=== PATIENT | male | born 1975 | race Caucasian/White ===

== ENCOUNTER → 2017-03-23 | Outpatient (CLI) | payer OTHER ==
--- NOTE | 2017-03-23 16:18 | XR ---
Lumbar spine HISTORY: Low back pain 3 views of the lumbar spine Correlation to prior exam 03/27/2015 There is no interval change. Multilevel spondylosis is noted. Lumbar vertebral bodies show stable hei ght, alignment, and bone mineralization. Sclerosis present in the posterior elements of the lumbar sp ine compatible with facet arthropathy. Disc spaces are unchanged. IMPRESSION: Stable exam, no acute abnormality evident. Degenerative disc disease. Facet arthropathy.
== END ==
LOC: RADXRMAIN 15:07
PROVIDERS: ATTEND Family Medicine
DX: M51.36 Other intervertebral disc degeneration, lumbar region (principal); M46.06 Spinal enthesopathy, lumbar region
CPT/HCPCS: 72100

== ENCOUNTER → 2017-04-21 | Outpatient (CLI) | payer OTHER ==
--- NOTE | 2017-04-21 16:04 | XR ---
Cervical spine HISTORY: Neck pain, M 55.2 4 views of the cervical spine No comparisons Cervical vertebral bodies show preserved height, alignment, and bone mineralization. Disc spaces and prevertebral soft tissues are normal. Some mild facet arthropathy changes are suspected. Odontoid vie w is limited. IMPRESSION: Facet arthropathy. Cervical MRI may be of benefit.
== END | disposition home or self-care (01) ==
LOC: RADXRMAIN 14:40
PROVIDERS: ATTEND Family Medicine
DX: M46.02 Spinal enthesopathy, cervical region (principal)
CPT/HCPCS: 72040

== ENCOUNTER → 2017-05-21 | Outpatient (CLI) | payer OTHER ==
--- NOTE | 2017-05-21 20:03 | MR ---
EXAMINATION TYPE: MR cervical spine wo con DATE OF EXAM: 05/21/2017 COMPARISON: 04/21/2017 x-ray cervical spine HISTORY: Cervicalgia, hands going numb TECHNIQUE: Multiplanar, multisequence images of the cervical spine were acquired. C2-C3: No evidence for degenerative disc disease. No disc bulge/herniation or protrusion. No Canal stenosis. Foramina are patent bilaterally. C3-C4: No evidence for degenerative disc disease. No disc bulge/herniation or protrusion. No Canal stenosis. Foramina are patent bilaterally. Facet arthropathy noted. C4-C5: No evidence for degenerative disc disease. No disc bulge/herniation or protrusion. No Canal stenosis. Mild bilateral foraminal encroachment. Facet arthropathy noted. C5-C6: No evidence for degenerative disc disease. No disc bulge/herniation or protrusion. No Canal stenosis. Mild bilateral foraminal encroachment. Facet arthropathy. C6-C7: No evidence for degenerative disc disease. No disc bulge/herniation or protrusion. No Canal stenosis. Foramina are patent bilaterally. Facet arthropathy noted. C7-T1: No evidence for degenerative disc disease. No disc bulge/herniation or protrusion. No Canal stenosis. Foramina are patent bilaterally. Cervical segments are intact. There is normal alignment. Cervical spinal cord is of normal signal. Craniovertebral junction relationships are within normal limits. IMPRESSION:
== END | disposition home or self-care (01) ==
LOC: RADMRIMAIN 18:40
PROVIDERS: ATTEND Family Medicine
DX: M54.2 Cervicalgia (principal)
CPT/HCPCS: 72141

== ENCOUNTER → 2018-01-26 | Outpatient (CLI) | payer OTHER ==
--- NOTE | 2018-01-26 20:58 | MR ---
EXAMINATION TYPE: MR lumbar spine wo con DATE OF EXAM: 01/26/2018 COMPARISON: Prior lumbar MRI 05/21/2015 HISTORY: Low back pain TECHNIQUE: Multiplanar, multisequence images of the lumbar spine were acquired. L1-L2: Normal disc appearance without desiccation. No herniation, protrusion or disc bulging. No ca nal stenosis is present. Foramina are patent bilaterally. L2-L3: Right posterior paracentral disc herniation extends towards the neural foramen on the right ca using some encroachment, there is facet arthropathy present. No significant central stenosis. L3-L4: Facet arthropathy is mild. There is no significant central stenosis. Broad-based posterior dis c bulge causes minimal anterior mass effect on the thecal sac. No significant foraminal encroachment. L4-L5: Left posterior paracentral disc herniation causes anterolateral mass effect on the thecal sac as on prior, there is resulting mild spinal stenosis. Facet arthropathy with hypertrophy of the ligam entum flavum encroaches on the lateral recesses. L5-S1: Facet arthropathy is present as on prior exam, there is broad-based posterior disc bulge prese nt, no significant central stenosis. Circumferential extension of endplate disc complex with short pe dicles results in foraminal encroachment bilaterally as on prior exam. Lumbar segments are intact. No paraspinal masses are identified. Conus medullaris has a normal appe arance. Lumbar vertebral bodies show stable height and alignment, there is multilevel spondylosis wit h endplate discogenic marrow signal change. Schmorl's nodes are present inferior endplate L4, T12. Mi ld spinal curvature. IMPRESSION: Degenerative disc disease and facet arthropathy are similar to prior exam.
== END | disposition home or self-care (01) ==
LOC: RADMRIMAIN 19:50
PROVIDERS: ATTEND Family Medicine
DX: M51.36 Other intervertebral disc degeneration, lumbar region (principal); M46.96 Unspecified inflammatory spondylopathy, lumbar region
CPT/HCPCS: 72148

== ENCOUNTER 2018-01-31 05:20 | Emergency (ER) | payer OTHER ==
[2018-01-31] MEDS ORDERED: methylPREDNISolone SOD SUCCI 125 MG/2 ML VIAL IM ONE (06:14)
[2018-01-31] MEDS ORDERED: ORPHENADRINE 30 MG/ML 2 ML VIAL IM STA (06:14)
--- NOTE | 2018-01-31 06:18 | ED ---
Back Pain [facility] - General Chief Complaint: Back Pain/Injury Stated Complaint: Back Pain Time Seen by Provider: 01/31/18 05:34 Source: patient Limitations: no limitations - History of Present Illness Initial Comments: This patient is a 42-year-old man with history of chronic low back pain. He presents requesting some analgesia. He states that the back pain is been flaring up for a few days now, after he had played a game of monroy Quture toss. The patient indicates that the pain does radiate to his legs. This is pain that he has been having for months now. He also recently had an MRI here at the hospital on the but has not been informed of the results yet. Patient also notes that the medicines that he is taking for the chronic pain were decreased by his primary physician on between a month and 2 ago, and he has been having more flareups of the pain since that time. The patient is not having weakness or numbness. No saddle anesthesia. No change in bladder or bowel function. MD Complaint: back pain -: days(s) Similar Symptoms Previously: Yes Place: home Radiation: left leg, right leg Severity: severe Quality: aching Consistency: constant Improves With: walking Worsens With: sitting upright Associated Symptoms: denies other symptoms - Related Data Home Medications Medication Instructions Recorded Confirmed ALPRAZolam [Xanax] 1 mg PO TID PRN 06/11/14 01/31/18 Aspirin 81 mg PO DAILY 06/11/14 01/31/18 Lisinopril [Prinivil] 10 mg PO DAILY 06/11/14 01/31/18 Simvastatin [Zocor] 10 mg PO HS 06/11/14 01/31/18 oxyCODONE HCL/ACETAMINOPHEN 1 each PO Q6HR PRN 03/21/15 01/31/18 [Percocet 10-325 mg] Morphine Sulfate ER [Ms Contin 30 mg PO Q12HR 01/31/18 01/31/18 30Mg] Previous Rx's Medication Instructions Recorded Cyclobenzaprine [Flexeril] 1 - 2 tab PO TID #20 tablet 03/27/15 Methocarbamol [Robaxin-750] 750 mg PO TID PRN #30 tablet 01/31/18 predniSONE 60 mg PO DAILY #30 tab 01/31/18 Allergies Allergy/AdvReac Type Severity Reaction Status Date / Time sulfamethoxazole Allergy Unknown Verified 03/27/15 08:51 [From Bactrim] trimethoprim [From Bactrim] Allergy Unknown Verified 03/27/15 08:51 Review of Systems ROS Statement: Those systems with pertinent positive or pertinent negative responses have been documented in the HPI. ROS Other: All systems not noted in ROS Statement are negative. Constitutional: Denies: fever, chills, weakness Respiratory: Denies: cough, dyspnea Cardiovascular: Denies: chest pain Gastrointestinal: Denies: abdominal pain, vomiting, diarrhea, constipation Genitourinary: Denies: dysuria, frequency, hematuria, testicular pain Musculoskeletal: Reports: as per HPI, back pain Neurological: Denies: weakness, numbness, paresthesias Past Medical History Past Medical History: Hypertension Additional Past Medical History / Comment(s): chronic back pain History of Any Multi-Drug Resistant Organisms: MRSA Date of last positivie culture/infection: 2011 MDRO Source:: rt knee Past Surgical History: Back Surgery, Orthopedic Surgery Additional Past Surgical History / Comment(s): RIGHT ELBOW Past Anesthesia/Blood Transfusion Reactions: No Reported Reaction Past Psychological History: Anxiety Smoking Status: Current every day smoker Past Alcohol Use History: Occasional Past Drug Use History: None Reported General Exam Limitations: no limitations General appearance: alert, in no apparent distress Head exam: Present: atraumatic, normocephalic Neck exam: Present: normal inspection. Absent: tenderness GI/Abdominal exam: Present: soft. Absent: distended, tenderness, guarding, pulsatile mass Extremities exam: Present: normal inspection, normal capillary refill. Absent: pedal edema, calf tenderness Back exam: Absent: CVA tenderness (R), CVA tenderness (L), paraspinal tenderness , vertebral tenderness Neurological exam: Present: alert, normal gait, reflexes normal. Absent: motor sensory deficit Skin exam: Present: warm, dry, intact, normal color. Absent: rash Course Vital Signs 01/31/18 05:25 Temperature 99.3 F Pulse Rate 89 Respiratory 20 Rate Blood Pressure 123/82 O2 Sat by Pulse 98 Oximetry Disposition Clinical Impression: Lumbar radiculopathy Disposition: HOME SELF-CARE Condition: Good Instructions: Chronic Back Pain (ED) Prescriptions: Methocarbamol [Robaxin-750] 750 mg PO TID PRN #30 tablet PRN Reason: pain predniSONE 60 mg PO DAILY #30 tab Is patient prescribed a controlled substance at d/c from ED?: No Referrals: Bryant Orozco MD [Primary Care Provider] - 1-2 days Andre Jauregui MD [STAFF PHYSICIAN] - 1-2 days
[2018-01-31] MEDS ORDERED: MORPHINE SULFATE 2 MG/ML SYRINGE IM STA (07:17)
[2018-01-31 07:29] VITALS: BP 117/75; PULSE 74; RESP 16; TEMP 98.7
== END 2018-01-31 07:28 | disposition home or self-care (01) ==
LOC: EC 05:20
DX: M54.16 Radiculopathy, lumbar region (principal); I10 Essential (primary) hypertension; F41.9 Anxiety disorder, unspecified; F17.200 Nicotine dependence, unspecified, uncomplicated; Z79.82 Long term (current) use of aspirin; Z79.891 Long term (current) use of opiate analgesic; Z79.899 Other long term (current) drug therapy; Z88.2 Allergy status to sulfonamides; Z98.890 Other specified postprocedural states
CPT/HCPCS: 99283; 96372 ×3; J2360; J2930; J2270

== ENCOUNTER 2018-01-31 21:10 | Emergency (ER) | payer OTHER ==
[2018-01-31 21:17] VITALS: RESP 16
[2018-01-31] MEDS ORDERED: HYDROmorphone 0.5 MG/0.5 ML SYRINGE IM STA (21:56)
--- NOTE | 2018-01-31 21:59 | ED ---
Back Pain HPI - General Chief Complaint: Back Pain/Injury Stated Complaint: trouble walking-revisit Time Seen by Provider: 01/31/18 21:35 Source: patient Limitations: no limitations - History of Present Illness Initial Comments: Patient is a 42-year-old male presenting for back pain. He states this is chronic gone on for many years and that he had an MRI performed earlier this month. Additionally, he was seen here in the emergency department this morning and was given a prescription for muscle relaxers as well as steroids. He did start to steroids and shortly thereafter, he states that he felt like his heart was racing. However, he did not start the muscle relaxers. He also states that the back pain feels a burning sensation radiating upwards as well as down his legs. However, he denies any saddle anesthesia, urinary retention, bowel incontinence, weakness in his legs. He also denies any chest pains or fevers/ chills. - Related Data Home Medications Medication Instructions Recorded Confirmed ALPRAZolam [Xanax] 1 mg PO TID PRN 06/11/14 01/31/18 Aspirin 81 mg PO DAILY 06/11/14 01/31/18 Lisinopril [Prinivil] 10 mg PO DAILY 06/11/14 01/31/18 Simvastatin [Zocor] 10 mg PO HS 06/11/14 01/31/18 oxyCODONE HCL/ACETAMINOPHEN 1 each PO Q6HR PRN 03/21/15 01/31/18 [Percocet 10-325 mg] Morphine Sulfate ER [Ms Contin 30 mg PO Q12HR 01/31/18 01/31/18 30Mg] Previous Rx's Medication Instructions Recorded Cyclobenzaprine [Flexeril] 1 - 2 tab PO TID #20 tablet 03/27/15 HYDROcodone/APAP 10-325MG [[place] 1 tab PO Q6HR PRN 3 Days #12 tab 01/31/18 10-325] Methocarbamol [Robaxin-750] 750 mg PO TID PRN #30 tablet 01/31/18 predniSONE 60 mg PO DAILY #30 tab 01/31/18 Allergies Allergy/AdvReac Type Severity Reaction Status Date / Time sulfamethoxazole Allergy Unknown Verified 01/31/18 21:16 [From Bactrim] trimethoprim [From Bactrim] Allergy Unknown Verified 01/31/18 21:16 Review of Systems ROS Statement: Those systems with pertinent positive or pertinent negative responses have been documented in the HPI. Constitutional: Negative for chills, fatigue and fever. HENT: Negative for congestion. Respiratory: Negative for chest tightness, shortness of breath and wheezing. Negative for cough Cardiovascular: Negative for chest pain and palpitations. Gastrointestinal: Negative for abdominal pain. Negative for abdominal distention , diarrhea, nausea and vomiting. Genitourinary: Negative for dysuria. Musculoskeletal: Positive for back pain, neck pain. Skin: Negative for color change. Neurological: Negative for dizziness, speech difficulty, weakness and light- headedness. Psychiatric/Behavioral: Negative for agitation and confusion. The patient is not nervous/anxious. ROS Other: All systems not noted in ROS Statement are negative. Past Medical History Past Medical History: Hypertension Additional Past Medical History / Comment(s): chronic back pain History of Any Multi-Drug Resistant Organisms: MRSA Date of last positivie culture/infection: 2011 MDRO Source:: rt knee Past Surgical History: Back Surgery, Orthopedic Surgery Additional Past Surgical History / Comment(s): RIGHT ELBOW Past Anesthesia/Blood Transfusion Reactions: No Reported Reaction Past Psychological History: Anxiety Smoking Status: Current every day smoker Past Alcohol Use History: Occasional Past Drug Use History: None Reported General Exam - General Exam Comments Initial Comments: Constitutional: Pt is oriented to person, place, and time. Pt appears well- developed and well-nourished. No distress. HENT: Head: Normocephalic and atraumatic. Eyes: EOM are normal. Neck: Normal range of motion. Neck supple. Cardiovascular: Normal rate, regular rhythm, S1 normal, S2 normal and normal heart sounds. Exam reveals no gallop and no friction rub. No murmur heard. Pulmonary/Chest: Effort normal and breath sounds normal. No tachypnea and no bradypnea. No respiratory distress. No wheezes or rales noted. Abdominal: Soft. Bowel sounds are normal. Pt exhibits no shifting dullness, no distension, no pulsatile liver, no fluid wave, no abdominal bruit and no ascites. There is no tenderness. There is no rigidity, no rebound, no guarding, no tenderness at McBurney's point and negative Gusman's sign. Musculoskeletal: Normal range of motion. Muscle strength 5 out of 5 in lower extremities; 1+ DTR of right leg; 2+ DTR of left leg no neurosensory deficits; no tenderness to palpation of lumbar spine Neurological: Pt is alert and oriented to person, place, and time. No cranial nerve deficit. Skin: Skin is warm and dry. No rash noted. Pt is not diaphoretic. No erythema. No pallor. Psychiatric: Pt has a normal mood and affect. Pt behavior is normal. Thought content normal. Limitations: no limitations Course Vital Signs 01/31/18 01/31/18 01/31/18 21:14 21:39 22:20 Temperature 98.2 F 97.4 F L Pulse Rate 130 H 119 H 104 H Respiratory 16 16 16 Rate Blood Pressure 150/83 145/78 132/84 O2 Sat by Pulse 96 97 95 Oximetry Medical Decision Making - Medical Decision Making Excessive discussion was had with the patient and there appears to be no emergent pathology. Patient denies all symptoms which would be consistent with cauda equina. Additionally, the patient was noted to be tachycardic but this is suspected to be secondary to pain and/or steroid induced. EKG showed no significant findings other than sinus tachycardia and the patient denied any chest pain or shortness breath and therefore it was felt that the patient could be safely discharged. Additionally, the patient was advised to use his Robaxin and was given a prescription for a short duration of [place]. Patient was noted to be resting comfortably in no acute distress prior to discharge. Disposition Clinical Impression: Lumbar radiculopathy Disposition: HOME SELF-CARE Condition: Fair Instructions: Chronic Back Pain (ED) Prescriptions: HYDROcodone/APAP 10-325MG [[place] 10-325] 1 tab PO Q6HR PRN 3 Days #12 tab PRN Reason: Pain Is patient prescribed a controlled substance at d/c from ED?: Yes If prescribed controlled substance>3 days was MAPS reviewed?: Prescribed <3 Days Referrals: Bryant Orozco MD [Primary Care Provider] - 1-2 days Time of Disposition: 23:12
[2018-01-31 22:22] VITALS: BP 132/84
--- NOTE | 2018-01-31 23:18 | ED ---
Medical Decision Making - EKG Data EKG Comments: EKG shows sinus tachycardia with a rate of 109 bpm, WA interval 160, QRS 80, QTC [address]ressions or elevations. Disposition Clinical Impression: Lumbar radiculopathy Disposition: HOME SELF-CARE Condition: Fair Instructions: Chronic Back Pain (ED) Prescriptions: HYDROcodone/APAP 10-325MG [[place] 10-325] 1 tab PO Q6HR PRN 3 Days #12 tab PRN Reason: Pain Is patient prescribed a controlled substance at d/c from ED?: Yes If prescribed controlled substance>3 days was MAPS reviewed?: Prescribed <3 Days Referrals: Bryant Orozco MD [Primary Care Provider] - 1-2 days Time of Disposition: 23:18
[2018-01-31 23:36] VITALS: PULSE 100; TEMP 97.3
== END 2018-01-31 23:41 | disposition home or self-care (01) ==
LOC: EC 21:10
DX: M54.16 Radiculopathy, lumbar region (principal); R00.0 Tachycardia, unspecified; I10 Essential (primary) hypertension; F17.200 Nicotine dependence, unspecified, uncomplicated; Z86.14 Personal history of Methicillin resistant Staphylococcus aureus infection; Z88.1 Allergy status to other antibiotic agents; Z88.2 Allergy status to sulfonamides; Z79.82 Long term (current) use of aspirin; Z79.891 Long term (current) use of opiate analgesic; Z79.899 Other long term (current) drug therapy
CPT/HCPCS: 99283 ×2; 96372 ×2; 93005; J2360; J2930; J2270; J1170

== ENCOUNTER 2018-02-01 20:37 | Emergency (ER) | payer OTHER ==
[2018-02-01] MEDS ORDERED: SODIUM CHLORIDE 0.9% 1,000 ML IV STA ×2 (22:14)
[2018-02-01] MEDS ORDERED: KETOROLAC 30 MG/ML 1 ML VIAL IVP STA (22:14)
[2018-02-01 22:47] LABS: Basophils % (A) 0 %; Eosinophils % (A) 0 %; HCT 43.3 % (39.0-53.0); HGB 14.3 gm/dL (13.0-17.5); Lymphocytes # (A) 0.9 k/uL (1.0-4.8); Lymphocytes % (A) 6 %; MCH 30.4 pg (25.0-35.0); MCHC 33.1 g/dL (31.0-37.0); Mean Platelet Volume 6.9; Monocytes # (A) 0.4 k/uL (0-1.0); Monocytes % (A) 3 %; Neutrophils # (A) 14.2 k/uL (1.3-7.7); Neutrophils % (A) 91 %; Platelet Count 257 k/uL (150-450); RDW 13.7 % (11.5-15.5); WBC 15.7 k/uL (3.8-10.6)
[2018-02-01 22:53] LABS: Appearance,Urine Clear (Clear); Bilirubin,Urine Negative (Negative); Blood,Urine Negative (Negative); Color,Urine Yellow; Glucose,Urine (UA) Negative (Negative); Ketones,Urine Trace (Negative); Leukocyte Esterase,Urine Negative (Negative); Mucus,Urine Many /hpf; Nitrite,Urine Negative (Negative); Protein,Urine 1+ (Negative); RBC,Urine 3 /hpf (0-5); Specific Gravity,Urine 1.032 (1.001-1.035); WBC,Urine 1 /hpf (0-5)
--- NOTE | 2018-02-01 22:53 | ED ---
Recheck HPI - General Chief Complaint: Recheck/Abnormal Lab/Rx Stated Complaint: pain all over-revisit Time Seen by Provider: 02/01/18 21:35 Source: patient, RN notes reviewed, old records reviewed Mode of arrival: ambulatory Limitations: no limitations - History of Present Illness Initial Comments: This is a 42 yaerold male with CC of chronic pain and out of his pain medication. PAtient has been to ED 2 times this week for similiar complaints. Patient reports his PCP changed his dose of pain meidcation and he has had to take more. PAtient reports he has lower back pain and vomiting. Patient denies urinary symptoms. - Related Data Home Medications Medication Instructions Recorded Confirmed ALPRAZolam [Xanax] 1 mg PO TID PRN 06/11/14 02/01/18 Aspirin 81 mg PO DAILY 06/11/14 02/01/18 Lisinopril [Prinivil] 10 mg PO DAILY 06/11/14 02/01/18 Simvastatin [Zocor] 10 mg PO HS 06/11/14 02/01/18 Ibuprofen [Motrin] 800 mg PO TID PRN 02/01/18 02/01/18 Morphine Sulfate [Morphine Sulfate 20 mg PO BID 02/01/18 02/01/18 ER] oxyCODONE-APAP 7.5-325MG [Percocet 1 tab PO Q6HR PRN 02/01/18 02/01/18 7.5-325 mg] Previous Rx's Medication Instructions Recorded Cyclobenzaprine [Flexeril] 1 - 2 tab PO TID #20 tablet 03/27/15 Allergies Allergy/AdvReac Type Severity Reaction Status Date / Time sulfamethoxazole Allergy Unknown Verified 02/01/18 21:19 [From Bactrim] trimethoprim [From Bactrim] Allergy Unknown Verified 02/01/18 21:19 Review of Systems ROS Statement: Those systems with pertinent positive or pertinent negative responses have been documented in the HPI. ROS Other: All systems not noted in ROS Statement are negative. Past Medical History Past Medical History: Hypertension Additional Past Medical History / Comment(s): chronic back pain History of Any Multi-Drug Resistant Organisms: MRSA Date of last positivie culture/infection: 2011 MDRO Source:: rt knee Past Surgical History: Back Surgery, Orthopedic Surgery Additional Past Surgical History / Comment(s): RIGHT ELBOW, left shoulder Past Anesthesia/Blood Transfusion Reactions: No Reported Reaction Past Psychological History: Anxiety Smoking Status: Current every day smoker Past Alcohol Use History: Occasional Past Drug Use History: None Reported General Exam - General Exam Comments Initial Comments: This patient is a 42 year old male, no distress. Limitations: no limitations General appearance: alert, in no apparent distress Head exam: Present: atraumatic, normocephalic, normal inspection Eye exam: Present: normal appearance, PERRL, EOMI. Absent: scleral icterus, conjunctival injection, periorbital swelling Neck exam: Present: normal inspection. Absent: tenderness, meningismus, lymphadenopathy Respiratory exam: Present: normal lung sounds bilaterally. Absent: respiratory distress, wheezes, rales, rhonchi, stridor Cardiovascular Exam: Present: regular rate, normal rhythm, normal heart sounds. Absent: systolic murmur, diastolic murmur, rubs, gallop, clicks GI/Abdominal exam: Present: soft, normal bowel sounds. Absent: distended, tenderness, guarding, rebound, rigid Extremities exam: Present: normal inspection, full ROM, normal capillary refill. Absent: tenderness, pedal edema, joint swelling, calf tenderness Back exam: Present: normal inspection, vertebral tenderness (lumbar) Neurological exam: Present: alert, oriented X3, CN II-XII intact Psychiatric exam: Present: normal affect, normal mood Skin exam: Present: warm, dry, intact, normal color. Absent: rash Course Vital Signs 02/01/18 02/01/18 02/01/18 20:53 21:42 23:25 Temperature 98.4 F Pulse Rate 98 84 76 Respiratory 19 15 15 Rate Blood Pressure 142/84 140/88 148/94 O2 Sat by Pulse 97 95 97 Oximetry 02/02/18 00:45 Temperature 97.7 F Pulse Rate 83 Respiratory 16 Rate Blood Pressure 131/86 O2 Sat by Pulse 97 Oximetry Medical Decision Making - Medical Decision Making Patient is a 42 year old male with opiate dependence and out of narcotic pain medication. Chani was given Tylenol 3 starter pack yesterday, and reports he has taken those and is suffering from vomiting and lower back pain. Patient had recent MRI and report was reviewed and shows DDD with no acute changes. Patient at this time had labs obtained, labs show leukocytosis, however this could be related to his vomiting. He has no abdominal tenderness, and UA is unremarkable. Disucssed follow up with PCP in regards to med refill. Patient has appt in 2 days. - Lab Data Result diagrams: 02/01/18 22:24 02/01/18 22:24 Lab Results 02/01/18 02/01/18 02/01/18 Range/Units 22:24 22:24 22:24 WBC 15.7 H (3.8-10.6) k/uL RBC 4.70 (4.30-5.90) m/uL Hgb 14.3 (13.0-17.5) gm/dL Hct 43.3 (39.0-53.0) % MCV 92.0 (80.0-100.0) fL MCH 30.4 (25.0-35.0) pg MCHC 33.1 (31.0-37.0) g/dL RDW 13.7 (11.5-15.5) % Plt Count 257 (150-450) k/uL Neutrophils % 91 % Lymphocytes % 6 % Monocytes % 3 % Eosinophils % 0 % Basophils % 0 % Neutrophils # 14.2 H (1.3-7.7) k/uL Lymphocytes # 0.9 L (1.0-4.8) k/uL Monocytes # 0.4 (0-1.0) k/uL Eosinophils # 0.0 (0-0.7) k/uL Basophils # 0.0 (0-0.2) k/uL Sodium 147 H (137-145) mmol/L Potassium 4.2 (3.5-5.1) mmol/L Chloride 108 H (98-107) mmol/L Carbon Dioxide 25 (22-30) mmol/L Anion Gap 14 mmol/L BUN 11 (9-20) mg/dL Creatinine 0.60 L (0.66-1.25) mg/dL Est GFR (CKD-EPI)AfAm >90 (>60 ml/min/1.73 sqM) Est GFR (CKD-EPI)NonAf >90 (>60 ml/min/1.73 sqM) Glucose 118 H (74-99) mg/dL Calcium 9.8 (8.4-10.2) mg/dL Total Bilirubin 0.2 (0.2-1.3) mg/dL AST 29 (17-59) U/L ALT 50 (21-72) U/L Alkaline Phosphatase 73 (38-126) U/L Total Protein 6.9 (6.3-8.2) g/dL Albumin 4.4 (3.5-5.0) g/dL Lipase 33 (23-300) U/L Urine Color Yellow Urine Appearance Clear (Clear) Urine pH 6.0 (5.0-8.0) Ur Specific Gepp 1.032 (1.001-1.035) Urine Protein 1+ H (Negative) Urine Glucose (UA) Negative (Negative) Urine Ketones Trace H (Negative) Urine Blood Negative (Negative) Urine Nitrite Negative (Negative) Urine Bilirubin Negative (Negative) Urine Urobilinogen 2.0 (<2.0) mg/dL Ur Leukocyte Esterase Negative (Negative) Urine RBC 3 (0-5) /hpf Urine WBC 1 (0-5) /hpf Urine Mucus Many H (None) /hpf Urine Opiates Screen Detected H (NotDetected) Ur Oxycodone Screen Detected H (NotDetected) Urine Methadone Screen Not Detected (NotDetected) Ur Propoxyphene Screen Not Detected (NotDetected) Ur Barbiturates Screen Not Detected (NotDetected) U Tricyclic Antidepress Detected H (NotDetected) Ur Phencyclidine Scrn Not Detected (NotDetected) Ur Amphetamines Screen Not Detected (NotDetected) U Methamphetamines Scrn Not Detected (NotDetected) U Benzodiazepines Scrn Detected H (NotDetected) Urine Cocaine Screen Not Detected (NotDetected) U Marijuana (THC) Screen Not Detected (NotDetected) Disposition Clinical Impression: Chronic pain, DDD (degenerative disc disease) Disposition: HOME SELF-CARE Condition: Good Instructions: Chronic Back Pain (ED) Additional Instructions: Patient to follow-up with Dr. Orozco. Return to emergency department if any alarming signs or symptoms occur. Is patient prescribed a controlled substance at d/c from ED?: No When asked, does pt state using other controlled substances?: No If prescribed controlled substance>3 days was MAPS reviewed?: No If opioid is for acute pain is fill amount 7 days or less?: No If Rx opioid, was Start Talking consent form obtained?: No Referrals: Bryant Orozco MD [Primary Care Provider] - 1-2 days Time of Disposition: 00:46
[2018-02-01 22:58] LABS: Amphetamine Screen,Urine Not Detected (NotDetected); Barbiturate Screen,Urine Not Detected (NotDetected); Benzodiazepines Screen,Urine Detected (NotDetected); Cocaine Screen,Urine Not Detected (NotDetected); Methadone Screen, Urine Not Detected (NotDetected); Opiate Screen,Urine Detected (NotDetected); Oxycodone Screen, Urine Detected (NotDetected); Phencyclidine Screen,Urine Not Detected (NotDetected); Tricyclic Antidepressant,Urine Detected (NotDetected); Urn Cannabinoid Scrn Not Detected (NotDetected)
[2018-02-01] MEDS ORDERED: MORPHINE SULFATE 2 MG/ML SYRINGE IVP STA (23:02)
[2018-02-01 23:06] LABS: ALT 50 U/L (21-72); AST 29 U/L (17-59); Albumin 4.4 g/dL (3.5-5.0); Alkaline Phosphatase 73 U/L (38-126); Anion Gap 14 mmol/L; Blood Urea Nitrogen 11 mg/dL (9-20); Calcium 9.8 mg/dL (8.4-10.2); Carbon Dioxide 25 mmol/L (22-30); Chloride 108 mmol/L (98-107); Glucose 118 mg/dL (74-99); Lipase 33 U/L (23-300); Potassium 4.2 mmol/L (3.5-5.1); Sodium 147 mmol/L (137-145); Total Bilirubin 0.2 mg/dL (0.2-1.3); Total Protein 6.9 g/dL (6.3-8.2)
[2018-02-02 00:47] VITALS: BP 131/86; PULSE 83; RESP 16; TEMP 97.7
== END 2018-02-02 00:54 | disposition home or self-care (01) ==
LOC: EC 20:37
DX: G89.29 Other chronic pain (principal); M51.36 Other intervertebral disc degeneration, lumbar region; R11.10 Vomiting, unspecified; F17.200 Nicotine dependence, unspecified, uncomplicated; I10 Essential (primary) hypertension; Z86.14 Personal history of Methicillin resistant Staphylococcus aureus infection; Z98.890 Other specified postprocedural states; Z79.82 Long term (current) use of aspirin; Z79.891 Long term (current) use of opiate analgesic; Z79.899 Other long term (current) drug therapy; Z88.2 Allergy status to sulfonamides
CPT/HCPCS: 36415; 80053; 83690; 85025; 81001; 80306; 99284; 96374; 96375; 96361 ×2; J1885; J2270

== ENCOUNTER 2018-03-24 22:59 | Emergency (ER) | payer OTHER | END 2018-03-25 02:10 | disposition home or self-care (01) | LOC: EC 22:59 | DX: M47.9 Spondylosis, unspecified (principal); F41.9 Anxiety disorder, unspecified; F17.200 Nicotine dependence, unspecified, uncomplicated; Z88.2 Allergy status to sulfonamides; Z79.82 Long term (current) use of aspirin; Z79.899 Other long term (current) drug therapy; Z79.891 Long term (current) use of opiate analgesic | CPT/HCPCS: 99283 ==

== ENCOUNTER 2018-03-26 11:07 | Emergency (ER) | payer OTHER ==
[2018-03-26 11:30] VITALS: BP 121/78; PULSE 104; RESP 18; TEMP 98.4
[2018-03-26] MEDS ORDERED: oxyCODONE-APAP 10-325MG 1 EACH TAB PO STA (11:50)
--- NOTE | 2018-03-26 11:53 | ED ---
General Adult HPI - General Chief complaint: Recheck/Abnormal Lab/Rx Stated complaint: BACK PAIN, CARLOS Time Seen by Provider: 03/26/18 11:40 Source: patient, RN notes reviewed Mode of arrival: ambulatory Limitations: no limitations - History of Present Illness Initial comments: Patient 42-year-old male presenting to the emergency room today for chronic low back pain. Patient states that he wants this pain medication approximately a week ago. Patient uses a lot of scar. Patient states he was on Percocet 10/ 325. States she's had some oral morphine at home but is been able to use but he is now out of that as well. Patient states that she is still having increased pain evidence of otitis with getting up and moving around. Patient doesn't appear to be seen here in the emergency room 2 nights ago was given a shot which helped him. Patient denies any injury, or symptoms. Patient denies any recent fever, chills, shortness of breath, chest pain, back pain, abdominal pain, numbness or tingling, headaches or visual changes, or any other complaints. - Related Data Home Medications Medication Instructions Recorded Confirmed ALPRAZolam [Xanax] 1 mg PO TID PRN 06/11/14 03/26/18 Aspirin 81 mg PO DAILY 06/11/14 03/26/18 Lisinopril [Prinivil] 10 mg PO DAILY 06/11/14 03/26/18 Simvastatin [Zocor] 10 mg PO HS 06/11/14 03/26/18 Ibuprofen [Motrin] 800 mg PO TID PRN 02/01/18 03/26/18 Cyclobenzaprine [Flexeril] 5 - 10 mg PO TID PRN 03/26/18 03/26/18 Morphine Sulfate [Ms Contin] 30 mg PO Q12HR 03/26/18 03/26/18 oxyCODONE-APAP 10-325MG [Percocet 1 tab PO Q6HR PRN 03/26/18 03/26/18 10-325 mg] Allergies Allergy/AdvReac Type Severity Reaction Status Date / Time sulfamethoxazole Allergy Unknown Verified 03/26/18 11:46 [From Bactrim] trimethoprim [From Bactrim] Allergy Unknown Verified 03/26/18 11:46 Review of Systems ROS Statement: Those systems with pertinent positive or pertinent negative responses have been documented in the HPI. ROS Other: All systems not noted in ROS Statement are negative. Past Medical History Past Medical History: Hypertension Additional Past Medical History / Comment(s): chronic back pain History of Any Multi-Drug Resistant Organisms: MRSA Date of last positivie culture/infection: 2011 MDRO Source:: rt knee Past Surgical History: Back Surgery, Orthopedic Surgery Additional Past Surgical History / Comment(s): RIGHT ELBOW, left shoulder Past Anesthesia/Blood Transfusion Reactions: No Reported Reaction Past Psychological History: Anxiety Smoking Status: Current every day smoker Past Alcohol Use History: Occasional Past Drug Use History: None Reported General Exam - General Exam Comments Initial Comments: General: The patient is awake and alert, in no distress, and does not appear acutely ill. Eye: Pupils are equal, round and reactive to light, extra-ocular movements are intact. No nystagmus. There is normal conjunctiva bilaterally. No signs of icterus. Ears, nose, mouth and throat: There are moist mucous membranes and no oral lesions. Neck: The neck is supple, there is no tenderness or JVD. Musculoskeletal: Normal ROM. Strength 5/5. Sensation intact. P Neurological: A&O x 3. CN II-XII intact, There are no obvious motor or sensory deficits. Coordination appears grossly intact. Speech is normal. Skin: Skin is warm and dry and no rashes or lesions are noted. Psychiatric: Cooperative, appropriate mood & affect, normal judgment. Limitations: no limitations Course Vital Signs 03/26/18 11:25 Temperature 98.4 F Pulse Rate 104 H Respiratory 18 Rate Blood Pressure 121/78 O2 Sat by Pulse 97 Oximetry Medical Decision Making - Medical Decision Making 42-year-old male presenting for chronic back pain who is out of his medication. Advised patient that we cannot fill any narcotic prescriptions for him. Advised him that we could give him 1 pill of his Percocet here in emergency room but he would need follow-up with pain specialist or family doctor for further medications. Disposition Clinical Impression: Chronic back pain Disposition: HOME SELF-CARE Condition: Good Instructions: Chronic Back Pain (ED) Additional Instructions: Please follow-up family doctor for further medications. Please return to emergency room if the symptoms increase or worsen or for any other concerns. Is patient prescribed a controlled substance at d/c from ED?: No Referrals: Bryant Orozco MD [Primary Care Provider] - 1-2 days Time of Disposition: 11:53
== END 2018-03-26 12:20 | disposition home or self-care (01) ==
LOC: EC 11:07
DX: G89.29 Other chronic pain (principal); M54.5 Low back pain; I10 Essential (primary) hypertension; F17.200 Nicotine dependence, unspecified, uncomplicated; Z79.82 Long term (current) use of aspirin; Z79.891 Long term (current) use of opiate analgesic; Z79.899 Other long term (current) drug therapy; Z98.890 Other specified postprocedural states; Z88.1 Allergy status to other antibiotic agents; Z86.14 Personal history of Methicillin resistant Staphylococcus aureus infection
CPT/HCPCS: 99284

== ENCOUNTER 2018-03-26 23:00 | Emergency (ER) | payer OTHER ==
[2018-03-27] MEDS ORDERED: IBUPROFEN 600 MG TAB PO STA (00:19)
[2018-03-27] MEDS ORDERED: IBUPROFEN 600 MG STARTER PACK 4 TAB BTL PO STA (00:50)
[2018-03-27] MEDS ORDERED: AMOXIC-POT CLAV 875MG STARTER 2 EACH TABLET PO STA (00:50)
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
[2018-03-27 01:10] VITALS: BP 118/75; PULSE 81; RESP 18; TEMP 97.7
== END 2018-03-27 01:10 | disposition home or self-care (01) ==
LOC: EC 23:00
DX: S61.452A Open bite of left hand, initial encounter (principal); M54.9 Dorsalgia, unspecified; R20.0 Anesthesia of skin; I10 Essential (primary) hypertension; F41.9 Anxiety disorder, unspecified; F17.200 Nicotine dependence, unspecified, uncomplicated; Z86.14 Personal history of Methicillin resistant Staphylococcus aureus infection; Z98.890 Other specified postprocedural states; Z79.82 Long term (current) use of aspirin; Z79.891 Long term (current) use of opiate analgesic; Z79.899 Other long term (current) drug therapy; Z88.1 Allergy status to other antibiotic agents; Z88.2 Allergy status to sulfonamides; W54.0XXA Bitten by dog, initial encounter; Y92.009 Unspecified place in unspecified non-institutional (private) residence as the place of occurrence of the external cause; Y93.89 Activity, other specified
CPT/HCPCS: 12001; 99283; 99284

== ENCOUNTER → 2018-08-12 | Outpatient (CLI) | payer OTHER ==
--- NOTE | 2018-08-12 15:44 | XR ---
Cervical spine HISTORY: Neck pain 5 views of the cervical spine, correlation to prior 04/21/2017 Cervical vertebral bodies show preserved height and alignment. Disc spaces are maintained. Prevertebr al soft tissues are normal. Bone mineralization is normal. There are facet arthropathy changes IMPRESSION: Cervical spine shows facet arthropathy change. MRI may be of benefit.
== END | disposition home or self-care (01) ==
LOC: RADXRMAIN 13:59
PROVIDERS: ATTEND Family Medicine
DX: M46.92 Unspecified inflammatory spondylopathy, cervical region (principal)
CPT/HCPCS: 72040

== ENCOUNTER → 2018-11-13 | Outpatient (CLI) | payer OTHER ==
--- NOTE | 2018-11-13 16:24 | MR ---
EXAMINATION TYPE: MR cervical spine wo con DATE OF EXAM: 11/13/2018 COMPARISON: 05/21/2017 HISTORY: Neck pain, headaches, BUE weakness/numbness x 2 years TECHNIQUE: Multiplanar, multisequence images of the cervical spine were acquired. Cervical vertebra have normal alignment. Disc spaces are fairly normal. Cervical spinal cord has norm al signal pattern. There is no edema. There are the posterior elements are intact. Brainstem is intac t. There is no evidence of paraspinal mass. There is no spinal stenosis. Facet joints are intact. The re is minimal facet hypertrophic change. IMPRESSION: Negative MR scan of the cervical spine. No change compared to old exam. No spinal stenosis or cervica l disc herniation.
== END ==
LOC: RADMRIMAIN 14:45
PROVIDERS: ATTEND Family Medicine
DX: M54.2 Cervicalgia (principal)
CPT/HCPCS: 72141

== ENCOUNTER 2019-02-11 21:39 | Emergency (ER) | payer OTHER ==
[2019-02-11] MEDS ORDERED: SODIUM CHLORIDE 0.9% 1,000 ML IV STA (21:53)
--- NOTE | 2019-02-11 22:24 | ED ---
General Adult HPI - General Chief complaint: Psychiatric Symptoms Stated complaint: Panic Attack Time Seen by Provider: 02/11/19 21:53 Source: patient Mode of arrival: ambulatory Limitations: no limitations - History of Present Illness Initial comments: Jeffry is a 43 yo male with PMH of anxiety and depression who presents to the ER for evaluation of what he believes was a panic attack. Patient states he felt well all day, was visiting his mother and mowed her lawn, they then enjoyed dinner together. Upon laying down for the night patient began to feel that his heart was racing, he then felt as though he couldnt breath. He got up and walked around to calm himself but continued to feel palpitations, chest pressure and shortness of breath. This persisted so he came to the ER for evaluation. Patient reports symptoms improved significantly en route to the hospital and are resolved upon arrival. - Related Data Home Medications Medication Instructions Recorded Confirmed ALPRAZolam [Xanax] 1 mg PO TID PRN 06/11/14 02/11/19 Aspirin 81 mg PO HS 06/11/14 02/11/19 Lisinopril [Prinivil] 10 mg PO HS 06/11/14 02/11/19 Simvastatin [Zocor] 10 mg PO HS 06/11/14 02/11/19 Ibuprofen [Motrin] 800 mg PO TID PRN 02/01/18 02/11/19 Cyclobenzaprine [Flexeril] 5 - 10 mg PO TID PRN 03/26/18 02/11/19 Morphine Sulfate [Ms Contin] 30 mg PO Q12H 03/26/18 02/11/19 oxyCODONE-APAP 10-325MG [Percocet 1 tab PO TID 03/26/18 02/11/19 10-325 mg] Allergies Allergy/AdvReac Type Severity Reaction Status Date / Time sulfamethoxazole AdvReac Rapid Verified 02/11/19 22:40 [From Bactrim] Heart Rate trimethoprim [From Bactrim] AdvReac Rapid Verified 02/11/19 22:40 Heart Rate Review of Systems ROS Statement: Those systems with pertinent positive or pertinent negative responses have been documented in the HPI. ROS Other: All systems not noted in ROS Statement are negative. Past Medical History Past Medical History: Hypertension Additional Past Medical History / Comment(s): chronic back pain History of Any Multi-Drug Resistant Organisms: MRSA Date of last positivie culture/infection: 2011 MDRO Source:: rt knee Past Surgical History: Back Surgery, Orthopedic Surgery Additional Past Surgical History / Comment(s): RIGHT ELBOW, left shoulder Past Anesthesia/Blood Transfusion Reactions: No Reported Reaction Past Psychological History: Anxiety Smoking Status: Current every day smoker Past Alcohol Use History: Occasional Past Drug Use History: None Reported General Exam Limitations: no limitations General appearance: alert, in no apparent distress Head exam: Present: atraumatic, normocephalic Eye exam: Present: normal appearance, PERRL ENT exam: Present: normal exam Neck exam: Present: normal inspection Respiratory exam: Present: normal lung sounds bilaterally. Absent: respiratory distress, wheezes, rales, rhonchi, stridor, chest wall tenderness, accessory muscle use Cardiovascular Exam: Present: regular rate, normal rhythm GI/Abdominal exam: Present: soft. Absent: distended Rectal exam: Present: deferred Back exam: Present: normal inspection Neurological exam: Present: alert, oriented X3 Psychiatric exam: Present: anxious Skin exam: Present: warm, dry, intact Course Vital Signs 02/11/19 02/11/19 02/12/19 21:41 22:57 00:28 Temperature 97.8 F 98.1 F Pulse Rate 106 H 96 88 Respiratory 20 18 20 Rate Blood Pressure 137/98 114/81 114/81 O2 Sat by Pulse 99 97 97 Oximetry EKG Findings - EKG Comments: EKG Findings:: EKG was obtained due to an of left arm heaviness and tachycardia, rate is 99 rhythm is sinus there is normal axis there are normal intervals, TN 1 62, QRS 70, QT/QTc is 338 433, there are no acute ST elevations or depressions is no evidence of acute ischemia or infarction./ Medical Decision Making - Medical Decision Making patient with palpitations/sob similar to previous panic attacks patient with no cardiac history but is 43 yo smoker EKG non-ischemic Labs unremarkable Results discussed with patient who expresses relief and is eager for discharge home - Lab Data Result diagrams: 02/11/19 22:26 02/11/19 22:26 Lab Results 02/11/19 02/11/19 02/11/19 Range/Units 22:26 22:26 22:26 WBC 10.4 (3.8-10.6) k/uL RBC 4.59 (4.30-5.90) m/uL Hgb 14.0 (13.0-17.5) gm/dL Hct 42.4 (39.0-53.0) % MCV 92.4 (80.0-100.0) fL MCH 30.6 (25.0-35.0) pg MCHC 33.1 (31.0-37.0) g/dL RDW 14.1 (11.5-15.5) % Plt Count 255 (150-450) k/uL Neutrophils % 74 % Lymphocytes % 19 % Monocytes % 4 % Eosinophils % 2 % Basophils % 1 % Neutrophils # 7.6 (1.3-7.7) k/uL Lymphocytes # 1.9 (1.0-4.8) k/uL Monocytes # 0.4 (0-1.0) k/uL Eosinophils # 0.2 (0-0.7) k/uL Basophils # 0.1 (0-0.2) k/uL Sodium 138 (137-145) mmol/L Potassium 4.3 (3.5-5.1) mmol/L Chloride 101 (98-107) mmol/L Carbon Dioxide 29 (22-30) mmol/L Anion Gap 8 mmol/L BUN 8 L (9-20) mg/dL Creatinine 0.73 (0.66-1.25) mg/dL Est GFR (CKD-EPI)AfAm >90 (>60 ml/min/1.73 sqM) Est GFR (CKD-EPI)NonAf >90 (>60 ml/min/1.73 sqM) Glucose 89 (74-99) mg/dL Calcium 9.5 (8.4-10.2) mg/dL Total Bilirubin 0.2 (0.2-1.3) mg/dL AST 24 (17-59) U/L ALT 22 (21-72) U/L Alkaline Phosphatase 95 (38-126) U/L Troponin I <0.012 (0.000-0.034) ng/mL Total Protein 7.3 (6.3-8.2) g/dL Albumin 4.6 (3.5-5.0) g/dL Urine Color Urine Appearance (Clear) Urine pH (5.0-8.0) Ur Specific [place] (1.001-1.035) Urine Protein (Negative) Urine Glucose (UA) (Negative) Urine Ketones (Negative) Urine Blood (Negative) Urine Nitrite (Negative) Urine Bilirubin (Negative) Urine Urobilinogen (<2.0) mg/dL Ur Leukocyte Esterase (Negative) 02/11/19 Range/Units 22:49 WBC (3.8-10.6) k/uL RBC (4.30-5.90) m/uL Hgb (13.0-17.5) gm/dL Hct (39.0-53.0) % MCV (80.0-100.0) fL MCH (25.0-35.0) pg MCHC (31.0-37.0) g/dL RDW (11.5-15.5) % Plt Count (150-450) k/uL Neutrophils % % Lymphocytes % % Monocytes % % Eosinophils % % Basophils % % Neutrophils # (1.3-7.7) k/uL Lymphocytes # (1.0-4.8) k/uL Monocytes # (0-1.0) k/uL Eosinophils # (0-0.7) k/uL Basophils # (0-0.2) k/uL Sodium (137-145) mmol/L Potassium (3.5-5.1) mmol/L Chloride (98-107) mmol/L Carbon Dioxide (22-30) mmol/L Anion Gap mmol/L BUN (9-20) mg/dL Creatinine (0.66-1.25) mg/dL Est GFR (CKD-EPI)AfAm (>60 ml/min/1.73 sqM) Est GFR (CKD-EPI)NonAf (>60 ml/min/1.73 sqM) Glucose (74-99) mg/dL Calcium (8.4-10.2) mg/dL Total Bilirubin (0.2-1.3) mg/dL AST (17-59) U/L ALT (21-72) U/L Alkaline Phosphatase (38-126) U/L Troponin I (0.000-0.034) ng/mL Total Protein (6.3-8.2) g/dL Albumin (3.5-5.0) g/dL Urine Color Colorless Urine Appearance Clear (Clear) Urine pH 6.5 (5.0-8.0) Ur Specific [place] 1.001 (1.001-1.035) Urine Protein Negative (Negative) Urine Glucose (UA) Negative (Negative) Urine Ketones Negative (Negative) Urine Blood Negative (Negative) Urine Nitrite Negative (Negative) Urine Bilirubin Negative (Negative) Urine Urobilinogen <2.0 (<2.0) mg/dL Ur Leukocyte Esterase Negative (Negative) Disposition Clinical Impression: Atypical chest pain, Palpitations Disposition: HOME SELF-CARE Condition: Stable Instructions (If sedation given, give patient instructions): Heart Palpitations (DC) Is patient prescribed a controlled substance at d/c from ED?: No Referrals: Bryant Orozco MD [Primary Care Provider] - 1-2 days
[2019-02-11 22:36] LABS: Basophils # (A) 0.1 k/uL (0-0.2); Basophils % (A) 1 %; Eosinophils # (A) 0.2 k/uL (0-0.7); Eosinophils % (A) 2 %; HCT 42.4 % (39.0-53.0); Lymphocytes # (A) 1.9 k/uL (1.0-4.8); Lymphocytes % (A) 19 %; MCH 30.6 pg (25.0-35.0); MCHC 33.1 g/dL (31.0-37.0); MCV 92.4 fL (80.0-100.0); Monocytes # (A) 0.4 k/uL (0-1.0); Monocytes % (A) 4 %; Neutrophils # (A) 7.6 k/uL (1.3-7.7); Neutrophils % (A) 74 %; Platelet Count 255 k/uL (150-450); RBC 4.59 m/uL (4.30-5.90); RDW 14.1 % (11.5-15.5); WBC 10.4 k/uL (3.8-10.6)
[2019-02-11 22:57] LABS: ALT 22 U/L (21-72); AST 24 U/L (17-59); African American GFR (CKD) >90 (>60 ml/min/1.73 sqM); Albumin 4.6 g/dL (3.5-5.0); Alkaline Phosphatase 95 U/L (38-126); Anion Gap 8 mmol/L; Blood Urea Nitrogen 8 mg/dL (9-20); Calcium 9.5 mg/dL (8.4-10.2); Carbon Dioxide 29 mmol/L (22-30); Chloride 101 mmol/L (98-107); Glucose 89 mg/dL (74-99); Potassium 4.3 mmol/L (3.5-5.1); Sodium 138 mmol/L (137-145); Total Bilirubin 0.2 mg/dL (0.2-1.3); Total Protein 7.3 g/dL (6.3-8.2)
[2019-02-11 22:59] VITALS: BP 114/81
[2019-02-11 23:19] LABS: Appearance,Urine Clear (Clear); Bilirubin,Urine Negative (Negative); Blood,Urine Negative (Negative); Color,Urine Colorless; Glucose,Urine (UA) Negative (Negative); Ketones,Urine Negative (Negative); Leukocyte Esterase,Urine Negative (Negative); Nitrite,Urine Negative (Negative); PH, Urine 6.5 (5.0-8.0); Protein,Urine Negative (Negative); Specific Gravity,Urine 1.001 (1.001-1.035); Urobilinogen,Urine <2.0 mg/dL (<2.0)
[2019-02-12 00:30] VITALS: PULSE 88; RESP 20; TEMP 98.1
--- NOTE | 2019-02-12 00:35 | XR ---
EXAM: XR Chest, 2 Views CLINICAL HISTORY: ITS.REASON XR Reason: Pain TECHNIQUE: Frontal and lateral views of the chest. COMPARISON: Chest radiographs 06/11/2014. FINDINGS: Lungs: Unremarkable. No consolidation. Pleural space: Unremarkable. No pneumothorax. Heart: Unremarkable. No cardiomegaly. Mediastinum: Unremarkable. Bones/joints: Unremarkable. IMPRESSION: No acute cardiopulmonary abnormality.
--- NOTE | 2019-02-14 05:07 | CDI ---
Documentation Clarification OP Dear Sydney CHAVIRA, DO Please do addendum to ED report for missing HPI and Physical examination. Thank you, Dipesh Palomo Electric Stove Installer If you have any questions, please contact Packing Clerk at [phone] [facility]
== END 2019-02-12 00:29 | disposition home or self-care (01) ==
LOC: EC 21:39
DX: R07.89 Other chest pain (principal); R00.2 Palpitations; R06.02 Shortness of breath; I10 Essential (primary) hypertension; F17.200 Nicotine dependence, unspecified, uncomplicated; Z86.59 Personal history of other mental and behavioral disorders; Z86.14 Personal history of Methicillin resistant Staphylococcus aureus infection; Z79.82 Long term (current) use of aspirin; Z79.891 Long term (current) use of opiate analgesic; Z79.899 Other long term (current) drug therapy; Z88.2 Allergy status to sulfonamides
CPT/HCPCS: 36415; 71046; 80053; 81003; 84484; 85025; 93005; 96360; 96361; 99284

== ENCOUNTER → 2019-05-13 | Outpatient (CLI) | payer OTHER ==
--- NOTE | 2019-05-13 16:33 | XR ---
Lumbar spine HISTORY: Chronic back pain 3 views of the lumbar spine correlated prior exam 03/23/2017 There is no significant interval change. Spondylosis is present, lumbar vertebral bodies show preserv ed height, bone mineralization, alignment. Mild loss of disc height at the intervertebral levels. Scl erosis in the posterior pelvis of the lower lumbar spine is noted. Rudimentary ribs suspected at L1. IMPRESSION: Degenerative disc disease and facet arthropathy.
== END | disposition home or self-care (01) ==
LOC: RADXRMAIN 14:08
PROVIDERS: ATTEND Family Medicine
DX: M51.36 Other intervertebral disc degeneration, lumbar region (principal); M46.96 Unspecified inflammatory spondylopathy, lumbar region
CPT/HCPCS: 72100

== ENCOUNTER 2019-09-20 12:46 | Emergency (ER) | payer OTHER ==
[2019-09-20 12:52] VITALS: TEMP 97.8
[2019-09-20] MEDS ORDERED: DEXAMETHASONE SOD PHOSPHATE 10 MG/ML 1 ML VIAL IM STA (13:17)
[2019-09-20] MEDS ORDERED: oxyCODONE-APAP 10-325MG 1 EACH TAB PO STA (13:17)
--- NOTE | 2019-09-20 13:36 | ED ---
Back Pain HPI - General Chief Complaint: Back Pain/Injury Stated Complaint: back pain Time Seen by Provider: 09/20/19 12:53 Source: patient Limitations: no limitations - History of Present Illness Initial Comments: Patient is a 44-year-old male with history of chronic back pain presenting to emergency Department with a chief complaint of back pain. Patient reports his back pain has been gradually increasing over the last few days. He states most of it is reported in the lumbosacral region and radiates along the posterior aspect of the left lower extremity. Patient states improved pain with ambulation but he has not been able to walk with his dog due to the bad weather. Patient reports that he takes Percocet for the pain but has been out for the past 2 days because he thinks someone stole the medication whenever working on his house. Denies saddle anesthesia, urinary or bowel incontinence. - Related Data Home Medications Medication Instructions Recorded Confirmed ALPRAZolam [Xanax] 1 mg PO TID PRN 06/11/14 02/11/19 Aspirin 81 mg PO HS 06/11/14 02/11/19 Lisinopril [Prinivil] 10 mg PO HS 06/11/14 02/11/19 Simvastatin [Zocor] 10 mg PO HS 06/11/14 02/11/19 Ibuprofen [Motrin] 800 mg PO TID PRN 02/01/18 02/11/19 Cyclobenzaprine [Flexeril] 5 - 10 mg PO TID PRN 03/26/18 02/11/19 Morphine Sulfate [Ms Contin] 30 mg PO Q12H 03/26/18 02/11/19 oxyCODONE-APAP 10-325MG [Percocet 1 tab PO TID 03/26/18 02/11/19 10-325 mg] Allergies Allergy/AdvReac Type Severity Reaction Status Date / Time sulfamethoxazole AdvReac Rapid Verified 09/20/19 12:51 [From Bactrim] Heart Rate trimethoprim [From Bactrim] AdvReac Rapid Verified 09/20/19 12:51 Heart Rate Review of Systems ROS Statement: Those systems with pertinent positive or pertinent negative responses have been documented in the HPI. ROS Other: All systems not noted in ROS Statement are negative. Past Medical History Past Medical History: Hypertension Additional Past Medical History / Comment(s): chronic back pain DDD History of Any Multi-Drug Resistant Organisms: MRSA Date of last positivie culture/infection: 2011 MDRO Source:: rt knee Past Surgical History: Back Surgery, Orthopedic Surgery Additional Past Surgical History / Comment(s): RIGHT ELBOW, left shoulder Past Anesthesia/Blood Transfusion Reactions: No Reported Reaction Past Psychological History: Anxiety Smoking Status: Current every day smoker Past Alcohol Use History: Occasional Past Drug Use History: None Reported General Exam Limitations: no limitations General appearance: alert, in no apparent distress Head exam: Present: atraumatic, normocephalic, normal inspection Eye exam: Present: normal appearance, PERRL, EOMI Pupils: Present: normal accommodation ENT exam: Present: normal exam Neck exam: Present: normal inspection Respiratory exam: Present: normal lung sounds bilaterally Cardiovascular Exam: Present: regular rate, normal rhythm, normal heart sounds GI/Abdominal exam: Present: soft. Absent: distended, tenderness Extremities exam: Present: normal inspection, full ROM, normal capillary refill, other (+2 ulnar and radial pulses bilaterally.) Back exam: Present: normal inspection, full ROM, tenderness, paraspinal tenderness (Left paraspinal tenderness in the lumbosacral region.), other (Positive leg raise test the left leg.) Neurological exam: Present: alert, oriented X3 Psychiatric exam: Present: normal affect, normal mood Skin exam: Present: warm, dry, intact, normal color Course Vital Signs 09/20/19 09/20/19 12:49 13:52 Temperature 97.8 F Pulse Rate 111 H 90 Respiratory 20 18 Rate Blood Pressure 126/83 126/78 O2 Sat by Pulse 98 98 Oximetry Medical Decision Making - Medical Decision Making Patient is a 44-year-old male with history of chronic back pain presenting to the emergency department with a chief complaint of back pain. On exam patient has no paraspinal tenderness with sciatica-type symptoms going down the left lower extremity. Basically patient takes Percocets daily any has not taken them in the last 2 days when his symptoms supposedly started. Patient saying somebody potentially stole his Percocets after they were working in his house. Patient was given 10 mg of Decadron and a single dose of Percocet in the ED and advised to follow with primary care. No cauda equina. No red flags. He was advised to return to emergency department if symptoms worsen. Case discussed with physician Disposition Clinical Impression: Mechanical back pain Disposition: HOME SELF-CARE Condition: Stable Instructions (If sedation given, give patient instructions): Acute Low Back Pain (ED) Additional Instructions: Please follow up with primary care. Please return to emergency department if symptoms worsen. Is patient prescribed a controlled substance at d/c from ED?: No Referrals: Bryant Orozco MD [Primary Care Provider] - 1-2 days Time of Disposition: 13:41
[2019-09-20 13:53] VITALS: BP 126/78; PULSE 90; RESP 18
== END 2019-09-20 13:52 | disposition home or self-care (01) ==
LOC: EC 12:46
DX: G89.29 Other chronic pain (principal); M54.5 Low back pain; F41.9 Anxiety disorder, unspecified; I10 Essential (primary) hypertension; F17.200 Nicotine dependence, unspecified, uncomplicated; Z79.82 Long term (current) use of aspirin; Z79.891 Long term (current) use of opiate analgesic; Z79.899 Other long term (current) drug therapy; Z88.1 Allergy status to other antibiotic agents; Z88.2 Allergy status to sulfonamides; Z86.14 Personal history of Methicillin resistant Staphylococcus aureus infection
CPT/HCPCS: 96372; 99283; J1100

== ENCOUNTER 2020-02-03 22:11 | Emergency (ER) | payer OTHER ==
[2020-02-03 22:25] VITALS: RESP 18
--- NOTE | 2020-02-03 23:48 | US ---
EXAMINATION TYPE: US venous doppler duplex LE RT DATE OF EXAM: 02/03/2020 11:07 PM COMPARISON: NONE CLINICAL HISTORY: Right leg pain. SIDE PERFORMED: Right TECHNIQUE: The lower extremity deep venous system is examined utilizing real time linear array sonog carlyn with graded compression, doppler sonography and color-flow sonography. VESSELS IMAGED: External Iliac Vein (EIV) Common Femoral Vein Deep Femoral Vein Greater Saphenous Vein * Femoral Vein Popliteal Vein Small Saphenous Vein * Proximal Calf Veins (* superficial vessels) Right Leg: Negative for DVT At right medial high calf and area of redness is superficial thrombophlebitis. IMPRESSION: No evidence of deep vein thrombosis. There is some superficial vein thrombosis in the nikia f.
--- NOTE | 2020-02-04 00:09 | ED ---
General Adult HPI - General Chief complaint: Extremity Injury, Lower Stated complaint: Leg Pain/discoloration Source: patient, family Mode of arrival: ambulatory Limitations: no limitations - History of Present Illness Initial comments: 44-year-old male patient presents to the emergency department today for evaluation of redness and swelling to his right lower leg. Patient states that for the last week he has noticed a patch of varicose veins develop in the right medial upper lower leg. States that the area is not painful at rest but does develop increased pain when he steps down the right leg. He denies any generalized swelling to the leg. Denies numbness or tingling. Patient denies history of DVT. Is not currently taking any blood thinning medications. Denies any injury to the leg. Patient denies any recent rash, fever, chills, cough, shortness of breath, chest pain, abdominal pain, nausea, vomiting, diarrhea, constipation, back pain, numbness, tingling, dizziness, weakness, hematuria, dysuria, urinary urgency, urinary frequency, headache, visual changes, or any other complaints. - Related Data Home Medications Medication Instructions Recorded Confirmed ALPRAZolam [Xanax] 1 mg PO TID PRN 06/11/14 02/11/19 Aspirin 81 mg PO HS 06/11/14 02/11/19 Lisinopril [Prinivil] 10 mg PO HS 06/11/14 02/11/19 Simvastatin [Zocor] 10 mg PO HS 06/11/14 02/11/19 Ibuprofen [Motrin] 800 mg PO TID PRN 02/01/18 02/11/19 Cyclobenzaprine [Flexeril] 5 - 10 mg PO TID PRN 03/26/18 02/11/19 Morphine Sulfate [Ms Contin] 30 mg PO Q12H 03/26/18 02/11/19 oxyCODONE-APAP 10-325MG [Percocet 1 tab PO TID 03/26/18 02/11/19 10-325 mg] Previous Rx's Medication Instructions Recorded Ibuprofen [Motrin] 600 mg PO Q8HR PRN #30 tab 02/04/20 Allergies Allergy/AdvReac Type Severity Reaction Status Date / Time sulfamethoxazole AdvReac Rapid Verified 02/03/20 22:25 [From Bactrim] Heart Rate trimethoprim [From Bactrim] AdvReac Rapid Verified 02/03/20 22:25 Heart Rate Review of Systems ROS Statement: Those systems with pertinent positive or pertinent negative responses have been documented in the HPI. ROS Other: All systems not noted in ROS Statement are negative. Past Medical History Past Medical History: Hypertension Additional Past Medical History / Comment(s): chronic back pain DDD History of Any Multi-Drug Resistant Organisms: MRSA Date of last positivie culture/infection: 2011 MDRO Source:: rt knee Past Surgical History: Back Surgery, Orthopedic Surgery Additional Past Surgical History / Comment(s): RIGHT ELBOW, left shoulder Past Anesthesia/Blood Transfusion Reactions: No Reported Reaction Past Psychological History: Anxiety Smoking Status: Current every day smoker Past Alcohol Use History: Occasional Past Drug Use History: None Reported General Exam Limitations: no limitations General appearance: alert, in no apparent distress, other (This is a well- developed, well-nourished adult male patient in no acute distress. Vital signs upon presentation are temperature 98.7F, pulse 120, respirations 18, blood pressure 139/97, pulse ox 96% on room air.) Respiratory exam: Present: normal lung sounds bilaterally. Absent: respiratory distress, wheezes, rales, rhonchi, stridor Cardiovascular Exam: Present: regular rate, normal rhythm, normal heart sounds. Absent: systolic murmur, diastolic murmur, rubs, gallop, clicks GI/Abdominal exam: Present: soft, normal bowel sounds. Absent: distended, tenderness, guarding, rebound, rigid Extremities exam: Present: full ROM, normal capillary refill, other (There is an area of erythema and swelling over a patch of varicose veins to the proximal medial right lower leg. Area is mildly warm to touch. No calf tenderness. No leg swelling noted. Skin is otherwise pink, warm, dry. Cap refills less than 3 seconds. Pedal and posttibial pulses are 2+ and equal bilaterally.). Absent: normal inspection, tenderness, pedal edema, joint swelling, calf tenderness Neurological exam: Present: alert, oriented X3, CN II-XII intact Psychiatric exam: Present: normal affect, normal mood Skin exam: Present: warm, dry, intact, normal color. Absent: rash Course Vital Signs 02/03/20 02/04/20 22:20 00:30 Temperature 98.7 F 98.0 F Pulse Rate 120 H 97 Respiratory 18 18 Rate Blood Pressure 139/97 116/78 O2 Sat by Pulse 96 98 Oximetry Medical Decision Making - Medical Decision Making 44-year-old male patient presented to the emergency department today for evaluation of a patch of swelling, redness to the right lower leg. Physical examination did reveal an area of swelling, erythema, and multiple varicose veins to the right proximal medial lower leg. Symptoms seem consistent with superficial thrombophlebitis, ultrasound was obtained to confirm diagnosis as well as rule out DVT. This did show evidence for superficial thrombophlebitis to the area, negative for DVT. I did discuss findings and results with the patient. He will be given ibuprofen. Instructed to apply warm compresses to the area. He is instructed to follow-up with his primary care physician for recheck in 1-2 days. He is urged to discuss possible referral to vascular surgery for his varicose veins. Return parameters were discussed in detail. He verbalizes understanding and agrees with this plan. - Radiology Data Radiology results: report reviewed, image reviewed Ultrasound venous Doppler duplex of the right lower extremity was obtained. Report was reviewed in its entirety. Impression by Dr. Jarvis shows no ev idence for DVT. There are some superficial vein thrombosis in the calf. Disposition Clinical Impression: Superficial thrombophlebitis of right leg Disposition: HOME SELF-CARE Condition: Good Instructions (If sedation given, give patient instructions): Superficial Thrombophlebitis (ED) Additional Instructions: Apply warm compresses over the affected area. Take ibuprofen 3 times daily on a full stomach. Follow-up with your primary care physician, discuss referral to vascular surgery for further evaluation. Return to the emergency department immediately for any new, worsening, or concerning symptoms. Prescriptions: Ibuprofen [Motrin] 600 mg PO Q8HR PRN #30 tab PRN Reason: Pain Is patient prescribed a controlled substance at d/c from ED?: No Referrals: Bryant Orozco MD [Primary Care Provider] - 1-2 days Time of Disposition: 00:09
[2020-02-04 00:31] VITALS: BP 116/78; PULSE 97; TEMP 98
== END 2020-02-04 00:30 | disposition home or self-care (01) ==
LOC: EC 22:11
DX: I80.01 Phlebitis and thrombophlebitis of superficial vessels of right lower extremity (principal); I10 Essential (primary) hypertension; F41.9 Anxiety disorder, unspecified; M54.9 Dorsalgia, unspecified; F17.200 Nicotine dependence, unspecified, uncomplicated; Z88.2 Allergy status to sulfonamides; Z79.82 Long term (current) use of aspirin; Z79.899 Other long term (current) drug therapy; Z79.891 Long term (current) use of opiate analgesic; Z86.14 Personal history of Methicillin resistant Staphylococcus aureus infection
CPT/HCPCS: 99283

== ENCOUNTER 2020-03-11 21:14 | Emergency (ER) | payer OTHER ==
--- NOTE | 2020-03-11 21:36 | ED ---
Arrhythmia/Palpitations HPI - General Chief Complaint: Arrhythmia/Palpitations Stated Complaint: Heart racing Time Seen by Provider: 03/11/20 21:23 Source: patient, RN notes reviewed, old records reviewed Mode of arrival: ambulatory Limitations: no limitations - History of Present Illness Initial Comments: This is a 44-year-old male DF for evaluation admit to significant anxiety with recent diagnosis right lower extremity thrombophlebitis taking Motrin patient was at his house of the having a normal day without complaint. Patient states initially his heart began to race and became very nervous so he couldn't breathe denying any recent fevers bodyaches or chills, no current shortness of breath patient states now in the ER he feels better, he did take Ativan prior to arrival MD Complaint: rapid heart beat, "heart racing", palpitations -: hour(s) Context: occurred during rest Associated Symptoms: chest pain, shortness of breath - Related Data Home Medications Medication Instructions Recorded Confirmed ALPRAZolam [Xanax] 1 mg PO TID PRN 06/11/14 02/11/19 Aspirin 81 mg PO HS 06/11/14 02/11/19 Lisinopril [Prinivil] 10 mg PO HS 06/11/14 02/11/19 Simvastatin [Zocor] 10 mg PO HS 06/11/14 02/11/19 Ibuprofen [Motrin] 800 mg PO TID PRN 02/01/18 02/11/19 Cyclobenzaprine [Flexeril] 5 - 10 mg PO TID PRN 03/26/18 02/11/19 Morphine Sulfate [Ms Contin] 30 mg PO Q12H 03/26/18 02/11/19 oxyCODONE-APAP 10-325MG [Percocet 1 tab PO TID 03/26/18 02/11/19 10-325 mg] Previous Rx's Medication Instructions Recorded Ibuprofen [Motrin] 600 mg PO Q8HR PRN #30 tab 02/04/20 Azithromycin [Zithromax Z-pack] 0 mg PO DIRECTED #1 pack 03/11/20 Allergies Allergy/AdvReac Type Severity Reaction Status Date / Time sulfamethoxazole AdvReac Rapid Verified 03/11/20 21:22 [From Bactrim] Heart Rate trimethoprim [From Bactrim] AdvReac Rapid Verified 03/11/20 21:22 Heart Rate Review of Systems ROS Statement: Those systems with pertinent positive or pertinent negative responses have been documented in the HPI. ROS Other: All systems not noted in ROS Statement are negative. Past Medical History Past Medical History: Hypertension Additional Past Medical History / Comment(s): chronic back pain DDD History of Any Multi-Drug Resistant Organisms: MRSA Date of last positivie culture/infection: 2011 MDRO Source:: rt knee Past Surgical History: Back Surgery, Orthopedic Surgery Additional Past Surgical History / Comment(s): RIGHT ELBOW, left shoulder Past Anesthesia/Blood Transfusion Reactions: No Reported Reaction Past Psychological History: Anxiety Smoking Status: Current every day smoker Past Alcohol Use History: None Reported Past Drug Use History: None Reported General Exam Limitations: no limitations General appearance: alert, in no apparent distress, anxious Head exam: Present: atraumatic, normocephalic, normal inspection Eye exam: Present: normal appearance, PERRL, EOMI. Absent: scleral icterus, conjunctival injection, periorbital swelling ENT exam: Present: normal exam, mucous membranes moist Neck exam: Present: normal inspection. Absent: tenderness, meningismus, lymphadenopathy Respiratory exam: Present: normal lung sounds bilaterally. Absent: respiratory distress, wheezes, rales, rhonchi, stridor Cardiovascular Exam: Present: normal rhythm, tachycardia, normal heart sounds. Absent: systolic murmur, diastolic murmur, rubs, gallop, clicks GI/Abdominal exam: Present: soft, normal bowel sounds. Absent: distended, tenderness, guarding, rebound, rigid Extremities exam: Present: normal inspection, full ROM, normal capillary refill. Absent: tenderness, pedal edema, joint swelling, calf tenderness Back exam: Present: normal inspection Neurological exam: Present: alert, oriented X3, CN II-XII intact Psychiatric exam: Present: normal affect, normal mood Skin exam: Present: warm, dry, intact, normal color. Absent: rash Course Vital Signs 03/11/20 03/11/20 03/11/20 21:19 22:25 23:55 Temperature 98.2 F Pulse Rate 119 H 85 Pulse Rate [ 98 Pulse Oximetery ] Respiratory 18 18 Rate Blood Pressure 158/101 108/77 O2 Sat by Pulse 99 97 Oximetry 03/12/20 03/12/20 00:50 01:13 Temperature 97.9 F 97.8 F Pulse Rate 108 H 81 Pulse Rate [ Pulse Oximetery ] Respiratory 15 Rate Blood Pressure 108/83 107/81 O2 Sat by Pulse 96 97 Oximetry - Reevaluation(s) Reevaluation #1: Medical record is reviewed Prior ER visit and ultrasound are reviewed Patient feels much improved here in the ER Patient informed results, questions answered EKG Findings - EKG Comments: EKG Findings:: EKG shows sinus tachycardia rate of 113. MT 162 QRS 84 QTC 455 Medical Decision Making - Medical Decision Making 44 female to the ER for evaluation of rapid heart rate and some shortness of breath with anxiety. Patient is CT evaluated which is negative for acute disease - Lab Data Result diagrams: 03/11/20 21:45 03/11/20 21:45 Lab Results 03/11/20 03/11/20 03/11/20 Range/Units 21:45 21:45 21:45 WBC 9.1 (3.8-10.6) k/uL RBC 4.15 L (4.30-5.90) m/uL Hgb 12.8 L (13.0-17.5) gm/dL Hct 38.9 L (39.0-53.0) % MCV 93.7 (80.0-100.0) fL MCH 30.9 (25.0-35.0) pg MCHC 32.9 (31.0-37.0) g/dL RDW 13.4 (11.5-15.5) % Plt Count 225 (150-450) k/uL Neutrophils % 61 % Lymphocytes % 30 % Monocytes % 4 % Eosinophils % 3 % Basophils % 1 % Neutrophils # 5.5 (1.3-7.7) k/uL Lymphocytes # 2.7 (1.0-4.8) k/uL Monocytes # 0.4 (0-1.0) k/uL Eosinophils # 0.3 (0-0.7) k/uL Basophils # 0.1 (0-0.2) k/uL PT 9.7 (9.0-12.0) sec INR 0.9 (<1.2) APTT 22.1 (22.0-30.0) sec Sodium 135 L (137-145) mmol/L Potassium 3.6 (3.5-5.1) mmol/L Chloride 102 (98-107) mmol/L Carbon Dioxide 25 (22-30) mmol/L Anion Gap 8 mmol/L BUN 8 L (9-20) mg/dL Creatinine 0.70 (0.66-1.25) mg/dL Est GFR (CKD-EPI)AfAm >90 (>60 ml/min/1.73 sqM) Est GFR (CKD-EPI)NonAf >90 (>60 ml/min/1.73 sqM) Glucose 132 H (74-99) mg/dL Plasma Lactic Acid Rudolph (0.7-2.0) mmol/L Calcium 8.9 (8.4-10.2) mg/dL Phosphorus 2.6 (2.5-4.5) mg/dL Magnesium 1.8 (1.6-2.3) mg/dL Total Bilirubin 0.2 (0.2-1.3) mg/dL AST 31 (17-59) U/L ALT 32 (4-49) U/L Alkaline Phosphatase 93 (38-126) U/L Creatine Kinase 159 (55-170) U/L Troponin I (0.000-0.034) ng/mL NT-Pro-B Natriuret Pep pg/mL Total Protein 6.4 (6.3-8.2) g/dL Albumin 4.1 (3.5-5.0) g/dL TSH 1.200 (0.465-4.680) mIU/L 03/11/20 03/11/20 03/11/20 Range/Units 21:45 21:45 21:45 WBC (3.8-10.6) k/uL RBC (4.30-5.90) m/uL Hgb (13.0-17.5) gm/dL Hct (39.0-53.0) % MCV (80.0-100.0) fL MCH (25.0-35.0) pg MCHC (31.0-37.0) g/dL RDW (11.5-15.5) % Plt Count (150-450) k/uL Neutrophils % % Lymphocytes % % Monocytes % % Eosinophils % % Basophils % % Neutrophils # (1.3-7.7) k/uL Lymphocytes # (1.0-4.8) k/uL Monocytes # (0-1.0) k/uL Eosinophils # (0-0.7) k/uL Basophils # (0-0.2) k/uL PT (9.0-12.0) sec INR (<1.2) APTT (22.0-30.0) sec Sodium (137-145) mmol/L Potassium (3.5-5.1) mmol/L Chloride (98-107) mmol/L Carbon Dioxide (22-30) mmol/L Anion Gap mmol/L BUN (9-20) mg/dL Creatinine (0.66-1.25) mg/dL Est GFR (CKD-EPI)AfAm (>60 ml/min/1.73 sqM) Est GFR (CKD-EPI)NonAf (>60 ml/min/1.73 sqM) Glucose (74-99) mg/dL Plasma Lactic Acid Rudolph 1.4 (0.7-2.0) mmol/L Calcium (8.4-10.2) mg/dL Phosphorus (2.5-4.5) mg/dL Magnesium (1.6-2.3) mg/dL Total Bilirubin (0.2-1.3) mg/dL AST (17-59) U/L ALT (4-49) U/L Alkaline Phosphatase (38-126) U/L Creatine Kinase (55-170) U/L Troponin I <0.012 (0.000-0.034) ng/mL NT-Pro-B Natriuret Pep 67 pg/mL Total Protein (6.3-8.2) g/dL Albumin (3.5-5.0) g/dL TSH (0.465-4.680) mIU/L - Radiology Data Radiology results: report reviewed (CT chest is negative for acute disease), image reviewed Disposition Clinical Impression: Chest pain, Community acquired bacterial pneumonia, Tachycardia Narrative: roCOVID Disposition: HOME SELF-CARE Condition: Good Instructions (If sedation given, give patient instructions): Heart Palpitations (ED), Community Acquired Pneumonia (ED) Prescriptions: Azithromycin [Zithromax Z-pack] 0 mg PO DIRECTED #1 pack Is patient prescribed a controlled substance at d/c from ED?: No Referrals: Bryant Orozco MD [Primary Care Provider] - 1-2 days
[2020-03-11] MEDS ORDERED: SODIUM CHLORIDE 0.9% 1,000 ML IV STA ×2 (21:40)
[2020-03-11] MEDS ORDERED: SODIUM CHLORIDE 0.9% 500 ML 500 ML IV STA (21:40)
[2020-03-11 22:16] LABS: Basophils # (A) 0.1 k/uL (0-0.2); Basophils % (A) 1 %; Eosinophils # (A) 0.3 k/uL (0-0.7); Eosinophils % (A) 3 %; HCT 38.9 % (39.0-53.0); HGB 12.8 gm/dL (13.0-17.5); Lymphocytes # (A) 2.7 k/uL (1.0-4.8); Lymphocytes % (A) 30 %; MCH 30.9 pg (25.0-35.0); MCHC 32.9 g/dL (31.0-37.0); MCV 93.7 fL (80.0-100.0); Monocytes # (A) 0.4 k/uL (0-1.0); Monocytes % (A) 4 %; Neutrophils # (A) 5.5 k/uL (1.3-7.7); Neutrophils % (A) 61 %; Platelet Count 225 k/uL (150-450); RBC 4.15 m/uL (4.30-5.90); RDW 13.4 % (11.5-15.5); WBC 9.1 k/uL (3.8-10.6)
[2020-03-11 22:27] LABS: INR 0.9 (<1.2); Partial Thromboplastin Time 22.1 sec (22.0-30.0); Prothrombin Time 9.7 sec (9.0-12.0)
[2020-03-11 22:34] LABS: ALT 32 U/L (4-49); AST 31 U/L (17-59); African American GFR (CKD) >90 (>60 ml/min/1.73 sqM); Albumin 4.1 g/dL (3.5-5.0); Alkaline Phosphatase 93 U/L (38-126); Anion Gap 8 mmol/L; Blood Urea Nitrogen 8 mg/dL (9-20); Calcium 8.9 mg/dL (8.4-10.2); Carbon Dioxide 25 mmol/L (22-30); Chloride 102 mmol/L (98-107); Creatine Kinase 159 U/L (55-170); Glucose 132 mg/dL (74-99); Magnesium 1.8 mg/dL (1.6-2.3); Non-African American GFR(CKD) >90 (>60 ml/min/1.73 sqM); Phosphorus 2.6 mg/dL (2.5-4.5); Potassium 3.6 mmol/L (3.5-5.1); Sodium 135 mmol/L (137-145); Total Bilirubin 0.2 mg/dL (0.2-1.3); Total Protein 6.4 g/dL (6.3-8.2)
--- NOTE | 2020-03-11 23:09 | CT ---
EXAMINATION TYPE: CT angio chest DATE OF EXAM: 03/11/2020 COMPARISON: HISTORY: Chest pain CT DLP: 595.2 mGycm Automated exposure control for dose reduction was used. CONTRAST: Performed with IV Contrast, patient injected with 100 mL of Isovue 370. There are 3-D post processed images. There is some diffuse groundglass interstitial infiltrate throughout the lungs. Heart is top normal i n size. There is no pericardial effusion. There is no pleural effusion. There are no hilar masses. Th ere is no mediastinal adenopathy. The bony thorax is intact. There is normal contrast opacification o f the pulmonary arteries. There are no filling defects. Thoracic aorta is intact. There is no aneurysm or dissection. The bony thorax is intact. There is no compression fracture. IMPRESSION: No evidence of pulmonary embolism. Diffuse groundglass pulmonary interstitial infiltrates without ple ural fluid. This could relate to acute interstitial pneumonia.
[2020-03-11] MEDS ORDERED: AZITHROMYCIN 500 MG in SODIUM CHLORIDE 0.9% 250 ML IVPB ONE (23:30)
[2020-03-12 01:15] VITALS: BP 107/81; PULSE 81; RESP 15; TEMP 97.8
== END 2020-03-12 01:05 | disposition home or self-care (01) ==
LOC: EC 21:14
DX: R00.0 Tachycardia, unspecified (principal); R07.9 Chest pain, unspecified; J15.9 Unspecified bacterial pneumonia; I10 Essential (primary) hypertension; F41.9 Anxiety disorder, unspecified; F17.200 Nicotine dependence, unspecified, uncomplicated; Z79.899 Other long term (current) drug therapy; Z86.14 Personal history of Methicillin resistant Staphylococcus aureus infection; Z88.2 Allergy status to sulfonamides
CPT/HCPCS: 36415; 93005; 83880; 80053; 82550; 83605; 83735; 84100; 84443; 84484; 85025; 85610; 85730; 71275; 99285; 96365; 96361; J0456; Q9967

== ENCOUNTER 2020-08-31 19:11 | Emergency (ER) | payer OTHER ==
[2020-08-31 19:19] VITALS: BP 171/95; PULSE 105; RESP 16; TEMP 98.3
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
[2020-08-31] MEDS: HYDROmorphone 1 MG/ML 1 ML SYRINGE IM STA (19:38)
[2020-08-31] MEDS: DIAZEPAM 5 MG/ML 2 ML INJ IM ONE (19:39)
== END 2020-08-31 20:08 | disposition home or self-care (01) ==
LOC: EC 19:11
DX: G89.29 Other chronic pain (principal); M54.5 Low back pain; Z76.0 Encounter for issue of repeat prescription; F41.9 Anxiety disorder, unspecified; I10 Essential (primary) hypertension; F17.200 Nicotine dependence, unspecified, uncomplicated; Z79.82 Long term (current) use of aspirin; Z79.899 Other long term (current) drug therapy; Z79.891 Long term (current) use of opiate analgesic; Z88.2 Allergy status to sulfonamides; Z88.1 Allergy status to other antibiotic agents; Z98.890 Other specified postprocedural states; Z86.14 Personal history of Methicillin resistant Staphylococcus aureus infection
CPT/HCPCS: 99283; 96372 ×2; J3360; J1170

== ENCOUNTER 2020-09-01 21:19 | Emergency (ER) | payer OTHER ==
[2020-09-01 21:32] VITALS: BP 145/82; PULSE 107; RESP 18; TEMP 98.3
--- NOTE | 2020-09-01 21:38 | ED ---
Back Pain HPI - General Chief Complaint: Back Pain/Injury Stated Complaint: Back Pain Time Seen by Provider: 09/01/20 21:35 Source: patient Limitations: no limitations - History of Present Illness Initial Comments: 45-year-old male with history of chronic back pain presenting to emergency Department U complaint of back pain. Patient states he is out of his oral morphine and Percocets which she takes daily. States he has been taking these medications for about 1.5 years. States they are typically refill by Dr. Orozco but he is not able to see him over the weekend and has an appointment early Thursday morning. Patient states he was in the emergency department twice in the last 2 days for the back pain. Patient is requesting refill of his tablets. States the back pain has not changed but he cannot go to sleep due to being short of the pain Medication. Denies saddle anesthesia, urinary retention with overflow incontinence or bowel incontinence. Denies abdominal pain nausea vomiting diarrhea. Denies chest pain shortness of breath. Denies any reticular symptoms. - Related Data Home Medications Medication Instructions Recorded Confirmed ALPRAZolam [Xanax] 1 mg PO TID PRN 06/11/14 02/11/19 Aspirin 81 mg PO HS 06/11/14 02/11/19 Lisinopril [Prinivil] 10 mg PO HS 06/11/14 02/11/19 Simvastatin [Zocor] 10 mg PO HS 06/11/14 02/11/19 Ibuprofen [Motrin] 800 mg PO TID PRN 02/01/18 02/11/19 Cyclobenzaprine [Flexeril] 5 - 10 mg PO TID PRN 03/26/18 02/11/19 Morphine Sulfate [Ms Contin] 30 mg PO Q12H 03/26/18 02/11/19 oxyCODONE-APAP 10-325MG [Percocet 1 tab PO TID 03/26/18 02/11/19 10-325 mg] Previous Rx's Medication Instructions Recorded Ibuprofen [Motrin] 600 mg PO Q8HR PRN #30 tab 02/04/20 Azithromycin [Zithromax Z-pack (6 0 mg PO DIRECTED #1 pack 03/11/20 tabs)] Allergies Allergy/AdvReac Type Severity Reaction Status Date / Time sulfamethoxazole AdvReac Rapid Verified 09/02/20 19:16 [From Bactrim] Heart Rate trimethoprim [From Bactrim] AdvReac Rapid Verified 09/02/20 19:16 Heart Rate Review of Systems ROS Statement: Those systems with pertinent positive or pertinent negative responses have been documented in the HPI. ROS Other: All systems not noted in ROS Statement are negative. Past Medical History Past Medical History: Hypertension Additional Past Medical History / Comment(s): chronic back pain DDD History of Any Multi-Drug Resistant Organisms: MRSA Date of last positivie culture/infection: 2011 MDRO Source:: rt knee Past Surgical History: Back Surgery, Orthopedic Surgery Additional Past Surgical History / Comment(s): RIGHT ELBOW, left shoulder Past Anesthesia/Blood Transfusion Reactions: No Reported Reaction Past Psychological History: Anxiety Smoking Status: Current some day smoker Past Alcohol Use History: None Reported Past Drug Use History: None Reported General Exam Limitations: no limitations General appearance: alert, in no apparent distress Head exam: Present: atraumatic, normocephalic, normal inspection Eye exam: Present: normal appearance, PERRL, EOMI Pupils: Present: normal accommodation ENT exam: Present: normal exam, normal oropharynx, mucous membranes moist Neck exam: Present: normal inspection, full ROM. Absent: tenderness Respiratory exam: Present: normal lung sounds bilaterally. Absent: respiratory distress, wheezes, rales Cardiovascular Exam: Present: regular rate, normal rhythm, normal heart sounds GI/Abdominal exam: Present: soft. Absent: distended, tenderness Extremities exam: Present: normal inspection, full ROM Back exam: Present: normal inspection, full ROM, tenderness, paraspinal tenderness (Lumbosacral region). Absent: other (Negative leg raise test) Neurological exam: Present: alert, oriented X3, normal gait Psychiatric exam: Present: normal affect, normal mood Skin exam: Present: warm, dry, intact, normal color Course Vital Signs 09/01/20 21:28 Temperature 98.3 F Pulse Rate 107 H Respiratory 18 Rate Blood Pressure 145/82 O2 Sat by Pulse 98 Oximetry Medical Decision Making - Medical Decision Making 45-year-old male presenting to emergency Department with a chief complaint of back pain. Acute on chronic back pain. Patient was given the typical medication he takes which is 30 mg of oral morphine and 5 mg of Percocet. This is enough to last the patient on more day. No concern for cauda equina. He has an appointment to see Dr. Orozco who prescribes the narcotics to him on monthly basis. Maps evaluated. Return parameters discussed the patient was understanding and agreeable. Case discussed with physician. Disposition Clinical Impression: Chronic back pain Disposition: HOME SELF-CARE Condition: Stable Instructions (If sedation given, give patient instructions): Acute Low Back Pain (ED) Additional Instructions: Follow-up with the primary care physician. Return to emergency department if symptoms worsen. Is patient prescribed a controlled substance at d/c from ED?: No Referrals: Bryant Orozco MD [Primary Care Provider] - 1-2 days Time of Disposition: 22:08
[2020-09-01] MEDS ORDERED: MORPHINE SULFATE ER 30 MG TABLET PO STA (22:07)
[2020-09-01] MEDS ORDERED: oxyCODONE-APAP 5-325MG 1 EACH TAB PO STA (22:07)
== END 2020-09-01 22:39 | disposition home or self-care (01) ==
LOC: EC 21:19
DX: G89.29 Other chronic pain (principal); M54.9 Dorsalgia, unspecified; I10 Essential (primary) hypertension; F41.9 Anxiety disorder, unspecified; F17.200 Nicotine dependence, unspecified, uncomplicated; Z79.899 Other long term (current) drug therapy; Z79.82 Long term (current) use of aspirin; Z79.891 Long term (current) use of opiate analgesic; Z88.2 Allergy status to sulfonamides; Z88.1 Allergy status to other antibiotic agents; Z98.890 Other specified postprocedural states
CPT/HCPCS: 99283

== ENCOUNTER 2020-09-02 19:12 | Emergency (ER) | payer OTHER ==
[2020-09-02 19:16] VITALS: BP 120/72; RESP 18; TEMP 98.8
--- NOTE | 2020-09-02 19:24 | ED ---
Back Pain [facility] - General Chief Complaint: Back Pain/Injury Stated Complaint: Back Pain-Revisit Time Seen by Provider: 09/02/20 19:17 Source: patient Limitations: no limitations - History of Present Illness Initial Comments: 45-year-old male with history of chronic back pain presenting to emergency prompt chief complaint of back pain. Patient states she has been emergency department 3 times over the last 2 days due not having enough moedication for his back pain. Patient states he is out of his oral morphine and Percocets which she takes daily. States he has been taking these medications for about 1.5 years. States they are typically refill by Dr. Orozco but he is not able to see him over the weekend and has an appointment early Thursday morning. Patient states he was in the emergency department twice in the last 2 days for the back pain. Patient is requesting refill of his tablets. States the back pain has not changed but he cannot go to sleep due to being short of the pain Medication. Denies saddle anesthesia, urinary retention with overflow incontinence or bowel incontinence. Denies abdominal pain nausea vomiting diarrhea. Denies chest pain shortness of breath. Denies any reticular symptoms. - Related Data Home Medications Medication Instructions Recorded Confirmed ALPRAZolam [Xanax] 1 mg PO TID PRN 06/11/14 02/11/19 Aspirin 81 mg PO HS 06/11/14 02/11/19 Lisinopril [Prinivil] 10 mg PO HS 06/11/14 02/11/19 Simvastatin [Zocor] 10 mg PO HS 06/11/14 02/11/19 Ibuprofen [Motrin] 800 mg PO TID PRN 02/01/18 02/11/19 Cyclobenzaprine [Flexeril] 5 - 10 mg PO TID PRN 03/26/18 02/11/19 Morphine Sulfate [Ms Contin] 30 mg PO Q12H 03/26/18 02/11/19 oxyCODONE-APAP 10-325MG [Percocet 1 tab PO TID 03/26/18 02/11/19 10-325 mg] Previous Rx's Medication Instructions Recorded Ibuprofen [Motrin] 600 mg PO Q8HR PRN #30 tab 02/04/20 Azithromycin [Zithromax Z-pack (6 0 mg PO DIRECTED #1 pack 03/11/20 tabs)] Allergies Allergy/AdvReac Type Severity Reaction Status Date / Time sulfamethoxazole AdvReac Rapid Verified 09/02/20 19:16 [From Bactrim] Heart Rate trimethoprim [From Bactrim] AdvReac Rapid Verified 09/02/20 19:16 Heart Rate Review of Systems ROS Statement: Those systems with pertinent positive or pertinent negative responses have been documented in the HPI. ROS Other: All systems not noted in ROS Statement are negative. Past Medical History Past Medical History: Hypertension Additional Past Medical History / Comment(s): chronic back pain DDD History of Any Multi-Drug Resistant Organisms: MRSA Date of last positivie culture/infection: 2011 MDRO Source:: rt knee Past Surgical History: Back Surgery, Orthopedic Surgery Additional Past Surgical History / Comment(s): RIGHT ELBOW, left shoulder Past Anesthesia/Blood Transfusion Reactions: No Reported Reaction Past Psychological History: Anxiety Smoking Status: Current some day smoker Past Alcohol Use History: None Reported Past Drug Use History: None Reported General Exam Limitations: no limitations General appearance: alert, in no apparent distress, obese Head exam: Present: atraumatic, normocephalic, normal inspection Eye exam: Present: normal appearance, PERRL, EOMI Pupils: Present: normal accommodation ENT exam: Present: normal exam, normal oropharynx, mucous membranes moist Neck exam: Present: normal inspection, full ROM. Absent: tenderness Respiratory exam: Present: normal lung sounds bilaterally. Absent: respiratory distress, wheezes Cardiovascular Exam: Present: regular rate, normal rhythm, normal heart sounds GI/Abdominal exam: Present: soft. Absent: distended, tenderness, guarding, rebound Extremities exam: Present: normal inspection, full ROM, normal capillary refill Back exam: Present: normal inspection, full ROM, tenderness, paraspinal tenderness. Absent: other (Negative leg raise test) Neurological exam: Present: alert, oriented X3 Psychiatric exam: Present: normal affect, normal mood Skin exam: Present: warm, dry, intact, normal color Course Vital Signs 09/02/20 09/02/20 19:13 19:55 Temperature 98.8 F Pulse Rate 114 H 104 H Respiratory 18 18 Rate Blood Pressure 120/72 O2 Sat by Pulse 99 97 Oximetry Medical Decision Making - Medical Decision Making 45-year-old male presenting to emergency Department with a chief complaint of back pain. Acute on chronic back pain. Patient was given the typical medica tion he takes which is 30 mg of oral morphine and 5 mg of Percocet. This is enough to last the patient on more day. No concern for cauda equina. He has an appointment to see Dr. Orozco, on thursday morning, who prescribes the narcotics to him on monthly basis. Maps evaluated. Return parameters discussed the patient was understanding and agreeable. Patient advised he will not be given any more narcotics if returns to the emergency department for refills. Case discussed with physician. Disposition Clinical Impression: Chronic back pain Disposition: HOME SELF-CARE Condition: Stable Instructions (If sedation given, give patient instructions): Acute Low Back Pain (ED) Additional Instructions: Follow-up with Is patient prescribed a controlled substance at d/c from ED?: No Referrals: Bryant Orozco MD [Primary Care Provider] - 1-2 days Time of Disposition: 19:44
[2020-09-02] MEDS ORDERED: MORPHINE SULFATE ER 30 MG TABLET PO STA (19:43)
[2020-09-02] MEDS ORDERED: oxyCODONE-APAP 5-325MG 1 EACH TAB PO STA (19:43)
[2020-09-02 19:58] VITALS: PULSE 104
== END 2020-09-02 20:06 | disposition home or self-care (01) ==
LOC: EC 19:12
DX: G89.29 Other chronic pain (principal); M54.9 Dorsalgia, unspecified; I10 Essential (primary) hypertension; F41.9 Anxiety disorder, unspecified; Z79.899 Other long term (current) drug therapy; Z79.891 Long term (current) use of opiate analgesic; Z88.2 Allergy status to sulfonamides; Z88.1 Allergy status to other antibiotic agents; Z98.890 Other specified postprocedural states; Z86.14 Personal history of Methicillin resistant Staphylococcus aureus infection
CPT/HCPCS: 99283

== ENCOUNTER 2021-01-28 17:27 | Emergency (ER) | payer OTHER ==
[2021-01-28 17:36] VITALS: BP 138/97; PULSE 105; RESP 20; TEMP 98.5
[2021-01-28] MEDS ORDERED: HYDROmorphone 1 MG/ML 1 ML SYRINGE IM STA (18:10)
--- NOTE | 2021-01-28 18:13 | ED ---
Back Pain HPI - General Chief Complaint: Back Pain/Injury Stated Complaint: Back pain Time Seen by Provider: 01/28/21 17:46 Source: patient, RN notes reviewed Limitations: no limitations - History of Present Illness Initial Comments: 45-year-old well-appearing white female sitting in a chair at bedside states that he is here because he ran out of his Percocet and morphine medication and cannot get it filled until tomorrow morning. Patient states that he is unable to make it to the morning and needs to get some sleep and was hoping we can give him just a couple of pills to get him through until tomorrow. Patient denies any saddle anesthesia. Denies any nausea vomiting or diarrhea. No chest pain or shortness of breath. Patient sees Dr. Orozco and takes Percocet 10 qid, and morphine 30 mg twice a day. Patient states seen a spinal surgeon, Dr Turner and was told he is not a surgical candidate. Patient states he is working with Dr. Orozco on pain management program. MD Complaint: back pain -: year(s) (15) Similar Symptoms Previously: Yes Severity: severe Severity scale (1-10): 10 Consistency: constant Improves With: none Worsens With: movement, deep breaths/cough Context: other (Chronic back pain with degenerative disc disease since 2005) Associated Symptoms: denies other symptoms - Related Data Home Medications Medication Instructions Recorded Confirmed ALPRAZolam [Xanax] 1 mg PO TID PRN 06/11/14 02/11/19 Aspirin 81 mg PO HS 06/11/14 02/11/19 Lisinopril [Prinivil] 10 mg PO HS 06/11/14 02/11/19 Simvastatin [Zocor] 10 mg PO HS 06/11/14 02/11/19 Ibuprofen [Motrin] 800 mg PO TID PRN 02/01/18 02/11/19 Cyclobenzaprine [Flexeril] 5 - 10 mg PO TID PRN 03/26/18 02/11/19 Morphine Sulfate [Ms Contin] 30 mg PO Q12H 03/26/18 02/11/19 oxyCODONE-APAP 10-325MG [Percocet 1 tab PO TID 03/26/18 02/11/19 10-325 mg] Previous Rx's Medication Instructions Recorded Ibuprofen [Motrin] 600 mg PO Q8HR PRN #30 tab 02/04/20 Azithromycin [Zithromax Z-pack (6 0 mg PO DIRECTED #1 pack 03/11/20 tabs)] oxyCODONE-APAP 10-325MG [Percocet 1 tab PO Q6H 1 Days #2 tab 01/28/21 10-325 mg] Allergies Allergy/AdvReac Type Severity Reaction Status Date / Time sulfamethoxazole AdvReac Rapid Verified 01/28/21 17:36 [From Bactrim] Heart Rate trimethoprim [From Bactrim] AdvReac Rapid Verified 01/28/21 17:36 Heart Rate Review of Systems ROS Statement: Those systems with pertinent positive or pertinent negative responses have been documented in the HPI. ROS Other: All systems not noted in ROS Statement are negative. Past Medical History Past Medical History: Hypertension Additional Past Medical History / Comment(s): chronic back pain DDD History of Any Multi-Drug Resistant Organisms: MRSA Date of last positivie culture/infection: 2011 MDRO Source:: rt knee Past Surgical History: Back Surgery, Orthopedic Surgery Additional Past Surgical History / Comment(s): RIGHT ELBOW, left shoulder Past Anesthesia/Blood Transfusion Reactions: No Reported Reaction Past Psychological History: Anxiety Smoking Status: Current some day smoker Past Alcohol Use History: None Reported Past Drug Use History: None Reported General Exam Limitations: no limitations General appearance: alert, in no apparent distress Head exam: Present: atraumatic, normocephalic, normal inspection Eye exam: Present: normal appearance, PERRL, EOMI. Absent: scleral icterus, conjunctival injection, periorbital swelling ENT exam: Present: normal exam, normal oropharynx, mucous membranes moist Neck exam: Present: normal inspection. Absent: tenderness, meningismus, lymphadenopathy Respiratory exam: Present: normal lung sounds bilaterally. Absent: respiratory distress, wheezes, rales, rhonchi, stridor Cardiovascular Exam: Present: normal rhythm, tachycardia, normal heart sounds. Absent: systolic murmur, diastolic murmur, rubs, gallop, clicks Extremities exam: Present: normal inspection, full ROM, normal capillary refill. Absent: tenderness, pedal edema, joint swelling, calf tenderness Back exam: Present: tenderness (Cervical, upper and lower thoracic and lumbar spine), vertebral tenderness. Absent: rash noted Neurological exam: Present: alert, oriented X3, CN II-XII intact Psychiatric exam: Present: normal affect, normal mood Skin exam: Present: warm, dry, intact, normal color. Absent: rash Course Vital Signs 01/28/21 17:32 Temperature 98.5 F Pulse Rate 105 H Respiratory 20 Rate Blood Pressure 138/97 O2 Sat by Pulse 99 Oximetry Medical Decision Making - Medical Decision Making Patient has been seen for chronic back pain since 2005. Patient has been seen by a spinal surgeon for his degenerative disc disease and is also seeing Dr. Orozco for chronic pain management. 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 Patient states pain is 10 out of 10 but denies saddle anesthesia. Patient was last seen in the emergency room for pain management in August of this year. Patient is able to ambulate with a steady gait. Patient is agreeable to being discharged home with 2 doses of his Percocet and following up with his primary care doctor. Case discussed with . Disposition Clinical Impression: Chronic back pain Disposition: HOME SELF-CARE Condition: Good Instructions (If sedation given, give patient instructions): Chronic Back Pain (DC), Lower Back Exercises (ED) Prescriptions: oxyCODONE-APAP 10-325MG [Percocet 10-325 mg] 1 tab PO Q6H 1 Days #2 tab Is patient prescribed a controlled substance at d/c from ED?: Yes When asked, does pt state using other controlled substances?: Yes If prescribed controlled substance>3 days was MAPS reviewed?: Yes If opioid is for acute pain is fill amount 7 days or less?: Yes If Rx opioid, was Start Talking consent form obtained?: Yes Referrals: Bryant Orozco MD [Primary Care Provider] - 1-2 days Time of Disposition: 18:11
== END 2021-01-28 18:40 | disposition home or self-care (01) ==
LOC: EC 17:27
DX: G89.29 Other chronic pain (principal); M54.2 Cervicalgia; M54.6 Pain in thoracic spine; M54.5 Low back pain; I10 Essential (primary) hypertension; F41.9 Anxiety disorder, unspecified; F17.200 Nicotine dependence, unspecified, uncomplicated; Z79.82 Long term (current) use of aspirin
CPT/HCPCS: 96372; 99283

== ENCOUNTER 2021-02-19 10:21 | Emergency (ER) | payer OTHER ==
[2021-02-19] MEDS ORDERED: MORPHINE SULFATE ER 30 MG TABLET PO STA (11:10)
[2021-02-19] MEDS ORDERED: oxyCODONE-APAP 10-325MG 1 EACH TAB PO PRN (11:10)
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
[2021-02-19 12:02] VITALS: BP 112/62; PULSE 88; RESP 16; TEMP 98.1
== END 2021-02-19 12:00 | disposition home or self-care (01) ==
LOC: EC 10:21
DX: Z76.0 Encounter for issue of repeat prescription (principal); G89.29 Other chronic pain; M54.5 Low back pain; M54.2 Cervicalgia; M25.559 Pain in unspecified hip; I10 Essential (primary) hypertension; F41.9 Anxiety disorder, unspecified; F17.200 Nicotine dependence, unspecified, uncomplicated; Z79.82 Long term (current) use of aspirin
CPT/HCPCS: 99283; 99285

== ENCOUNTER 2021-02-20 09:50 | Emergency (ER) | payer OTHER ==
[2021-02-20 10:01] VITALS: PULSE 98; RESP 16
[2021-02-20] MEDS ORDERED: oxyCODONE-APAP 10-325MG 1 EACH TAB PO STA (10:38)
[2021-02-20] MEDS ORDERED: MORPHINE SULFATE ER 30 MG TABLET PO STA (10:38)
[2021-02-20] MEDS ORDERED: MORPHINE SULFATE 4 MG/ML SYRINGE IM STA (10:38)
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
== END 2021-02-20 11:02 | disposition home or self-care (01) ==
LOC: EC 09:50
DX: Z76.0 Encounter for issue of repeat prescription (principal); M54.5 Low back pain; G89.29 Other chronic pain; I10 Essential (primary) hypertension; F41.9 Anxiety disorder, unspecified; F17.200 Nicotine dependence, unspecified, uncomplicated; Z79.1 Long term (current) use of non-steroidal anti-inflammatories (NSAID); Z88.1 Allergy status to other antibiotic agents; Z88.2 Allergy status to sulfonamides
CPT/HCPCS: 99283; 96372; J2270

== ENCOUNTER 2021-02-21 09:12 | Emergency (ER) | payer OTHER ==
[2021-02-21 09:18] VITALS: BP 102/66; PULSE 87; RESP 18; TEMP 97.8
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
== END 2021-02-21 09:39 | disposition home or self-care (01) ==
LOC: EC 09:12
DX: M54.9 Dorsalgia, unspecified (principal); Z65.8 Other specified problems related to psychosocial circumstances; I10 Essential (primary) hypertension; F17.200 Nicotine dependence, unspecified, uncomplicated
CPT/HCPCS: 99283

== ENCOUNTER 2021-02-21 10:59 | Emergency (ER) | payer OTHER ==
[2021-02-21 11:14] VITALS: BP 106/70; PULSE 122; RESP 18; TEMP 98.2
[2021-02-21] MEDS ORDERED: KETOROLAC 15 MG/ML 1 ML VIAL IM STA (11:41)
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
== END 2021-02-21 12:12 | disposition home or self-care (01) ==
LOC: EC 10:59
DX: M54.9 Dorsalgia, unspecified (principal); G89.29 Other chronic pain; R45.1 Restlessness and agitation; I10 Essential (primary) hypertension; F17.200 Nicotine dependence, unspecified, uncomplicated; Z88.2 Allergy status to sulfonamides; Z88.1 Allergy status to other antibiotic agents; Z79.899 Other long term (current) drug therapy; Z87.39 Personal history of other diseases of the musculoskeletal system and connective tissue
CPT/HCPCS: 96372; 99283; J1885

== ENCOUNTER 2021-02-22 01:28 | Emergency (ER) | payer OTHER ==
[2021-02-22 01:35] VITALS: TEMP 98.1
[2021-02-22] MEDS ORDERED: HYDROmorphone 1 MG/ML 1 ML SYRINGE IM STA (01:51)
[2021-02-22] MEDS ORDERED: ACET/COD 300 MG/30 MG STARTER PACK 6 TAB BTL PO STA (01:51)
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
[2021-02-22 03:07] VITALS: BP 128/95; PULSE 95; RESP 18
== END 2021-02-22 03:07 | disposition home or self-care (01) ==
LOC: EC 01:28
DX: M54.9 Dorsalgia, unspecified (principal); F41.9 Anxiety disorder, unspecified; I10 Essential (primary) hypertension; F17.200 Nicotine dependence, unspecified, uncomplicated
CPT/HCPCS: 96372; 99283

== ENCOUNTER 2021-02-22 19:39 | Emergency (ER) | payer OTHER ==
[2021-02-22] MEDS ORDERED: HYDROmorphone 1 MG/ML 1 ML SYRINGE IM STA (20:02)
--- NOTE | 2021-02-22 20:05 | ED ---
General Adult HPI - General Chief complaint: Back Pain/Injury Stated complaint: Revisit Back Pain Time Seen by Provider: 02/22/21 19:54 Source: patient Mode of arrival: ambulatory Limitations: no limitations - History of Present Illness Initial comments: Dictation was produced using [employer] dictation software. please excuse any grammatical, word or spelling errors. Chief Complaint: 45-year-old male presents with back pain History of Present Illness: 45-year-old male who presents to the emergency Department with back pain. Patient has extensive history of back problems. States that he has degenerative back disease. He wants to see a specialist however his insurance doesn't cover it. He states he is here because he has not had imaging in several years. He also notes there is any changes. Patient was seen in the emergency department 5 times in the last month. Patient has any saddle anesthesia. No fevers. No bowel or bladder incontinence. The ROS documented in this emergency department record has been reviewed and confirmed by me. Those systems with pertinent positive or negative responses have been documented in the HPI. All other systems are other negative and/or noncontributory. PHYSICAL EXAM: General Impression: Alert and oriented x3, not in acute distress HEENT: Normocephalic atraumatic, extra-ocular movements intact, pupils equal and reactive to light bilaterally, mucous membranes moist. Cardiovascular: Heart regular rate and rhythm Chest: Able to complete full sentences, no retractions, no tachypnea Abdomen: abdomen soft, non-tender, non-distended, no organomegaly Musculoskeletal: Pulses present and equal in all extremities, no peripheral edema Motor: no focal deficits noted Neurological: CN II-XII grossly intact, no focal motor or sensory deficits noted Skin: Intact with no visualized rashes Psych: Normal affect and mood ED course: 45-year-old male presents with acute on chronic back pain. As upon arrival are within acceptable limits. Patient's well-appearing at bedside. he is agreeable with x-ray. He is given some IV analgesia. Patient does not have any high-risk features concerning for cord compression. X-rays unremarkable. Patient discharged. Told to follow-up with his primary care physician. - Related Data Home Medications Medication Instructions Recorded Confirmed ALPRAZolam [Xanax] 1 mg PO TID 06/11/14 02/19/21 Lisinopril [Prinivil] 10 mg PO DAILY 10/12/14 06/22/21 Ibuprofen [Motrin] 800 mg PO TID PRN 02/01/18 02/19/21 Morphine Sulfate [Ms Contin] 30 mg PO Q12H 03/26/18 02/19/21 Albuterol Sulfate [Ventolin HFA] 2 puff INHALATION RT-QID PRN 02/19/21 02/19/21 Cyanocobalamin (Vitamin B-12) 2,000 mcg PO DAILY 02/19/21 02/19/21 [Vitamin B-12] Cyclobenzaprine [Flexeril] 10 mg PO TID 02/19/21 02/19/21 DULoxetine HCL [Cymbalta] 30 mg PO DAILY 02/19/21 02/19/21 Simvastatin [Zocor] 20 mg PO HS 02/19/21 02/19/21 oxyCODONE-APAP 10-325MG [Percocet 1 tab PO Q5H PRN 02/19/21 02/19/21 10-325 mg] Allergies Allergy/AdvReac Type Severity Reaction Status Date / Time sulfamethoxazole AdvReac Rapid Verified 02/22/21 19:50 [From Bactrim] Heart Rate trimethoprim [From Bactrim] AdvReac Rapid Verified 02/22/21 19:50 Heart Rate Review of Systems ROS Statement: Those systems with pertinent positive or pertinent negative responses have been documented in the HPI. ROS Other: All systems not noted in ROS Statement are negative. Past Medical History Past Medical History: Hypertension Additional Past Medical History / Comment(s): chronic back pain DDD History of Any Multi-Drug Resistant Organisms: MRSA Date of last positivie culture/infection: 2011 MDRO Source:: rt knee Past Surgical History: Back Surgery, Orthopedic Surgery Additional Past Surgical History / Comment(s): RIGHT ELBOW, left shoulder Past Anesthesia/Blood Transfusion Reactions: No Reported Reaction Past Psychological History: Anxiety Smoking Status: Current every day smoker, Current some day smoker Past Alcohol Use History: None Reported Past Drug Use History: None Reported General Exam Limitations: no limitations Course Vital Signs 02/22/21 19:50 Temperature 98.1 F Pulse Rate 115 H Respiratory 20 Rate Blood Pressure 140/81 O2 Sat by Pulse 99 Oximetry Disposition Clinical Impression: Back pain Disposition: HOME SELF-CARE Condition: Good Instructions (If sedation given, give patient instructions): Acute Low Back Pain (ED) Is patient prescribed a controlled substance at d/c from ED?: No Referrals: Bryant Orozco MD [Primary Care Provider] - 1-2 days
[2021-02-22] MEDS ORDERED: ACET/COD 300 MG/30 MG STARTER PACK 6 TAB BTL PO STA (20:19)
--- NOTE | 2021-02-22 20:34 | XR ---
EXAMINATION TYPE: XR lumbar spine 2 or 3V DATE OF EXAM: 02/22/2021 COMPARISON: 05/13/2019 HISTORY: 3 views Lumbar vertebra have normal alignment. Posterior elements are intact. Sacroiliac joints appear intac t. There is no compression fracture. IMPRESSION: Negative lumbar spine exam. No change.
[2021-02-22 21:57] VITALS: BP 138/78; PULSE 81; RESP 17; TEMP 98
== END 2021-02-22 21:57 | disposition home or self-care (01) ==
LOC: EC 19:39
DX: M54.9 Dorsalgia, unspecified (principal); I10 Essential (primary) hypertension; F41.9 Anxiety disorder, unspecified; F17.200 Nicotine dependence, unspecified, uncomplicated; Z86.14 Personal history of Methicillin resistant Staphylococcus aureus infection; Z79.899 Other long term (current) drug therapy; Z88.2 Allergy status to sulfonamides
CPT/HCPCS: 96372; 99283 ×2; 72100; J1170

== ENCOUNTER 2021-03-15 16:06 | Emergency (ER) | payer OTHER ==
[2021-03-15 16:10] VITALS: BP 143/95; PULSE 110; RESP 18; TEMP 99.3
--- NOTE | 2021-03-15 16:33 | ED ---
Back Pain HPI - General Chief Complaint: Back Pain/Injury Stated Complaint: Back Pain Source: patient, RN notes reviewed, old records reviewed Limitations: no limitations - History of Present Illness Initial Comments: 45-year-old white male, alert and oriented 4, presents to the emergency room with complaints of low back pain. He states that he has chronic back pain and has had for several years he has seen pain specialists at [facility] and [facility] was told 3 years ago that he would eventually need surgery but would not help. Patient states that he ran out of his medications 2 days ago when he can get a refill until tomorrow. He is in excruciating pain 10 out of 10 and states he just needs something to help him get through until tomorrow. He states he also has a pain contract. He denies any fevers, IV drug use, history of cancer, no bowel or bladder incontinence or saddle anesthesia no recent steroid use. Patient is requesting just 1 Percocet and a shot of morphine. MD Complaint: back pain -: days(s) (2) Similar Symptoms Previously: Yes Radiation: none Severity: severe Severity scale (1-10): 10 Quality: sharp Consistency: constant Improves With: immobilization, supine Worsens With: movement Context: other (Chronic ddd) Associated Symptoms: denies other symptoms - Related Data Home Medications Medication Instructions Recorded Confirmed ALPRAZolam [Xanax] 1 mg PO TID 06/11/14 02/19/21 Lisinopril [Prinivil] 10 mg PO DAILY 06/11/14 02/19/21 Ibuprofen [Motrin] 800 mg PO TID PRN 02/01/18 02/19/21 Morphine Sulfate [Ms Contin] 30 mg PO Q12H 03/26/18 02/19/21 Albuterol Sulfate [Ventolin HFA] 2 puff INHALATION RT-QID PRN 02/19/21 02/19/21 Cyanocobalamin (Vitamin B-12) 2,000 mcg PO DAILY 02/19/21 02/19/21 [Vitamin B-12] Cyclobenzaprine [Flexeril] 10 mg PO TID 02/19/21 02/19/21 DULoxetine HCL [Cymbalta] 30 mg PO DAILY 02/19/21 02/19/21 Simvastatin [Zocor] 20 mg PO HS 02/19/21 02/19/21 oxyCODONE-APAP 10-325MG [Percocet 1 tab PO Q5H PRN 02/19/21 02/19/21 10-325 mg] Allergies Allergy/AdvReac Type Severity Reaction Status Date / Time sulfamethoxazole AdvReac Rapid Verified 03/15/21 16:10 [From Bactrim] Heart Rate trimethoprim [From Bactrim] AdvReac Rapid Verified 03/15/21 16:10 Heart Rate Review of Systems ROS Statement: Those systems with pertinent positive or pertinent negative responses have been documented in the HPI. ROS Other: All systems not noted in ROS Statement are negative. Past Medical History Past Medical History: Hypertension Additional Past Medical History / Comment(s): chronic back pain DDD History of Any Multi-Drug Resistant Organisms: MRSA Date of last positivie culture/infection: 2011 MDRO Source:: rt knee Past Surgical History: Back Surgery, Orthopedic Surgery Additional Past Surgical History / Comment(s): RIGHT ELBOW, left shoulder Past Anesthesia/Blood Transfusion Reactions: No Reported Reaction Past Psychological History: Anxiety Smoking Status: Current every day smoker Past Alcohol Use History: None Reported Past Drug Use History: None Reported General Exam Limitations: no limitations General appearance: alert, in no apparent distress Head exam: Present: atraumatic, normocephalic, normal inspection Eye exam: Present: normal appearance, PERRL, EOMI. Absent: scleral icterus, conjunctival injection, periorbital swelling Pupils: Present: normal accommodation ENT exam: Present: normal exam, normal oropharynx, mucous membranes moist Neck exam: Present: normal inspection, full ROM. Absent: tenderness, meningismus, lymphadenopathy, thyromegaly Respiratory exam: Present: normal lung sounds bilaterally. Absent: respiratory distress, wheezes, rales, rhonchi, stridor, chest wall tenderness, accessory muscle use, decreased breath sounds, prolonged expiratory Cardiovascular Exam: Present: tachycardia. Absent: JVD GI/Abdominal exam: Present: soft, normal bowel sounds. Absent: distended, tenderness, guarding, rebound, rigid Extremities exam: Present: normal inspection, full ROM, normal capillary refill. Absent: tenderness, pedal edema, joint swelling, calf tenderness Back exam: Present: normal inspection, tenderness (Lumbar sacral spine), vertebral tenderness. Absent: CVA tenderness (R), CVA tenderness (L), muscle spasm, paraspinal tenderness, rash noted Neurological exam: Present: alert, oriented X3, CN II-XII intact Psychiatric exam: Present: normal affect, normal mood Skin exam: Present: warm, dry, intact, normal color. Absent: rash, cyanosis, diaphoretic, erythema, petechiae, pallor, mottled Course Vital Signs 03/15/21 16:07 Temperature 99.3 F Pulse Rate 110 H Respiratory 18 Rate Blood Pressure 143/95 O2 Sat by Pulse 99 Oximetry Medical Decision Making - Medical Decision Making Patient presents to the emergency room with chronic back pain. States has a pain contract but is out of his medications until tomorrow morning. He is just looking for a little bit of relief to get through the day. Patient denies any incontinence, saddle anesthesia, trauma, unexplained Weight loss, IV drug use, recent steroid use and no history of cancers. Patient agreeable to receiving 1 Percocet as that is what he normally takes in addition to a shot of morphine. He'll be discharged to follow up with his own primary care doctor and pain specialist. Case discussed with Dr. Burrell Disposition Clinical Impression: Back pain Disposition: HOME SELF-CARE Condition: Fair Instructions (If sedation given, give patient instructions): Chronic Back Pain (DC), Lower Back Exercises (ED) Additional Instructions: Follow-up with primary care doctor as needed, return to the emergency room with worsening pain, loss of bowel or bladder control or fevers. Is patient prescribed a controlled substance at d/c from ED?: No Referrals: Bryant Orozco MD [Primary Care Provider] - 1-2 days Time of Disposition: 16:37
[2021-03-15] MEDS ORDERED: oxyCODONE-APAP 10-325MG 1 EACH TAB PO STA (16:34)
[2021-03-15] MEDS ORDERED: MORPHINE SULFATE 4 MG/ML SYRINGE IM STA (16:34)
== END 2021-03-15 17:11 | disposition home or self-care (01) ==
LOC: EC 16:06
DX: M54.5 Low back pain (principal); I10 Essential (primary) hypertension; F41.9 Anxiety disorder, unspecified; F17.200 Nicotine dependence, unspecified, uncomplicated
CPT/HCPCS: 99283; 96372; J2270

== ENCOUNTER 2021-03-16 01:42 | Emergency (ER) | payer OTHER ==
[2021-03-16 01:59] VITALS: TEMP 98
[2021-03-16] MEDS ORDERED: MORPHINE SULFATE 4 MG/ML SYRINGE IM STA (02:09)
[2021-03-16] MEDS: KETOROLAC 15 MG/ML 1 ML VIAL IM STA ×2 (02:15→02:18)
--- NOTE | 2021-03-16 02:39 | ED ---
Back Pain HPI - General Chief Complaint: Back Pain/Injury Stated Complaint: Back Pain Time Seen by Provider: 03/16/21 01:51 Source: patient Limitations: no limitations - Related Data Home Medications Medication Instructions Recorded Confirmed ALPRAZolam [Xanax] 1 mg PO TID 06/11/14 02/19/21 Lisinopril [Prinivil] 10 mg PO DAILY 06/11/14 02/19/21 Ibuprofen [Motrin] 800 mg PO TID PRN 02/01/18 02/19/21 Morphine Sulfate [Ms Contin] 30 mg PO Q12H 03/26/18 02/19/21 Albuterol Sulfate [Ventolin HFA] 2 puff INHALATION RT-QID PRN 02/19/21 02/19/21 Cyanocobalamin (Vitamin B-12) 2,000 mcg PO DAILY 02/19/21 02/19/21 [Vitamin B-12] Cyclobenzaprine [Flexeril] 10 mg PO TID 02/19/21 02/19/21 DULoxetine HCL [Cymbalta] 30 mg PO DAILY 02/19/21 02/19/21 Simvastatin [Zocor] 20 mg PO HS 02/19/21 02/19/21 oxyCODONE-APAP 10-325MG [Percocet 1 tab PO Q5H PRN 02/19/21 02/19/21 10-325 mg] Allergies Allergy/AdvReac Type Severity Reaction Status Date / Time sulfamethoxazole AdvReac Rapid Verified 03/15/21 16:10 [From Bactrim] Heart Rate trimethoprim [From Bactrim] AdvReac Rapid Verified 03/15/21 16:10 Heart Rate Review of Systems ROS Statement: Those systems with pertinent positive or pertinent negative responses have been documented in the HPI. ROS Other: All systems not noted in ROS Statement are negative. Past Medical History Past Medical History: Hypertension Additional Past Medical History / Comment(s): chronic back pain DDD History of Any Multi-Drug Resistant Organisms: MRSA Date of last positivie culture/infection: 2011 MDRO Source:: rt knee Past Surgical History: Back Surgery, Orthopedic Surgery Additional Past Surgical History / Comment(s): RIGHT ELBOW, left shoulder Past Anesthesia/Blood Transfusion Reactions: No Reported Reaction Past Psychological History: Anxiety Smoking Status: Current every day smoker Past Alcohol Use History: None Reported Past Drug Use History: None Reported General Exam Limitations: no limitations Course Vital Signs 03/16/21 01:51 Temperature 98.0 F Pulse Rate 92 Respiratory 20 Rate O2 Sat by Pulse 98 Oximetry Disposition Clinical Impression: Back pain Disposition: HOME SELF-CARE Condition: Good Instructions (If sedation given, give patient instructions): Chronic Back Pain (DC) Is patient prescribed a controlled substance at d/c from ED?: No Referrals: Bryant Orozco MD [Primary Care Provider] - 1-2 days
[2021-03-16] MEDS ORDERED: oxyCODONE-APAP 10-325MG 1 EACH TAB PO STA (02:58)
[2021-03-16 03:05] VITALS: BP 117/83; PULSE 90; RESP 18
== END 2021-03-16 03:05 | disposition home or self-care (01) ==
LOC: EC 01:42
DX: M54.5 Low back pain (principal); I10 Essential (primary) hypertension; F41.9 Anxiety disorder, unspecified; F17.200 Nicotine dependence, unspecified, uncomplicated
CPT/HCPCS: 99283; 96372; J2270

== ENCOUNTER 2021-05-10 15:30 | Emergency (ER) | payer OTHER ==
[2021-05-10] MEDS ORDERED: oxyCODONE-APAP 10-325MG 1 EACH TAB PO STA (16:29)
[2021-05-10 16:31] VITALS: BP 135/95; PULSE 90; RESP 20; TEMP 98.1
[2021-05-10] MEDS ORDERED: MORPHINE SULFATE 4 MG/ML SYRINGE IM STA (16:33)
--- NOTE | 2021-05-10 16:33 | ED ---
General Adult HPI - General Stated complaint: Back pain - History of Present Illness Initial comments: Jeffry is a 45yo M with PMH of chronic back pain who presents to the ER today via private vehicle for treatment of his chronic back pain. Patient states that his doctor told him to buy a safe and keep his narcotics locked up, patient states that he has been doing this for 2 months but today he lost the pierson and has been without any pain medication until tomorrow when he can get a refill. Patient called his doctor, Dr Orozco, who advised him he would have to wait until the pharmacy would refill his meds. - Related Data Home Medications Medication Instructions Recorded Confirmed ALPRAZolam [Xanax] 1 mg PO TID 06/11/14 02/19/21 Lisinopril [Prinivil] 10 mg PO DAILY 06/11/14 02/19/21 Ibuprofen [Motrin] 800 mg PO TID PRN 02/01/18 02/19/21 Morphine Sulfate [Ms Contin] 30 mg PO Q12H 03/26/18 02/19/21 Albuterol Sulfate [Ventolin HFA] 2 puff INHALATION RT-QID PRN 02/19/21 02/19/21 Cyanocobalamin (Vitamin B-12) 2,000 mcg PO DAILY 02/19/21 02/19/21 [Vitamin B-12] Cyclobenzaprine [Flexeril] 10 mg PO TID 02/19/21 02/19/21 DULoxetine HCL [Cymbalta] 30 mg PO DAILY 02/19/21 02/19/21 Simvastatin [Zocor] 20 mg PO HS 02/19/21 02/19/21 oxyCODONE-APAP 10-325MG [Percocet 1 tab PO Q5H PRN 02/19/21 02/19/21 10-325 mg] Allergies Allergy/AdvReac Type Severity Reaction Status Date / Time sulfamethoxazole AdvReac Rapid Verified 05/10/21 16:31 [From Bactrim] Heart Rate trimethoprim [From Bactrim] AdvReac Rapid Verified 05/10/21 16:31 Heart Rate Review of Systems ROS Statement: Those systems with pertinent positive or pertinent negative responses have been documented in the HPI. ROS Other: All systems not noted in ROS Statement are negative. Past Medical History Past Medical History: Hypertension Additional Past Medical History / Comment(s): chronic back pain DDD History of Any Multi-Drug Resistant Organisms: MRSA Date of last positivie culture/infection: 2011 MDRO Source:: rt knee Past Surgical History: Back Surgery, Orthopedic Surgery Additional Past Surgical History / Comment(s): RIGHT ELBOW, left shoulder Past Anesthesia/Blood Transfusion Reactions: No Reported Reaction Past Psychological History: Anxiety Smoking Status: Current every day smoker Past Alcohol Use History: None Reported Past Drug Use History: None Reported General Exam - General Exam Comments Initial Comments: Physical Exam GENERAL: Patient is well-developed and well-nourished. Patient is nontoxic and well-hydrated and is in no distress. HENT: Normocephalic, Atraumatic. EYES: PERRL, EOMI PULMONARY: Unlabored respirations. CARDIOVASCULAR: RRR Warm and well perfused extremities ABDOMEN: Non-distended SKIN: No rashes or bruising : Deferred NEUROLOGIC: Alert and oriented Normal speech Normal gait MUSCULOSKELETAL: Moving all extremities with no apparent injury PSYCHIATRIC: No SI/HI Course Vital Signs 05/10/21 16:27 Temperature 98.1 F Pulse Rate 90 Respiratory 20 Rate Blood Pressure 135/95 O2 Sat by Pulse 99 Oximetry Medical Decision Making - Medical Decision Making The patient was seen and evaluated history is obtained from patient who has a history of chronic back pain and narcotic dependence. Out of Narcotics a day early, will treat with a single dose of IM morphine and 2 PO percocet that he can take home. Medications were given to the patient, who reported feeling much better, ambulating comfortably to the restroom independently Patient discharged home in stable condition Disposition Clinical Impression: Chronic pain Disposition: HOME SELF-CARE Condition: Stable Instructions (If sedation given, give patient instructions): Acute Low Back Pain (ED) Is patient prescribed a controlled substance at d/c from ED?: No Referrals: Bryant Orozco MD [Primary Care Provider] - 1-2 days
== END 2021-05-10 18:29 | disposition home or self-care (01) ==
LOC: EC 15:30
DX: G89.29 Other chronic pain (principal); M54.9 Dorsalgia, unspecified; F17.200 Nicotine dependence, unspecified, uncomplicated; I10 Essential (primary) hypertension; Z88.1 Allergy status to other antibiotic agents; Z79.899 Other long term (current) drug therapy
CPT/HCPCS: 99283; 96372; J2270

== ENCOUNTER 2021-05-11 17:17 | Emergency (ER) | payer OTHER ==
[2021-05-11 17:29] VITALS: BP 142/91; PULSE 93; RESP 18; TEMP 98.4
--- NOTE | 2021-05-11 17:34 | ED ---
General Adult HPI - General Chief complaint: Back Pain/Injury Stated complaint: back pain Time Seen by Provider: 05/11/21 17:32 Source: patient Mode of arrival: wheelchair Limitations: no limitations - History of Present Illness Initial comments: Patient presents to the ED stating that he has chronic neck and lumbar back pain, and he states that he was unable to get his pain medications filled today. Patient states that he was seen in the ED yesterday for the same symptoms, and he was provided with pain medications in the ED. Patient states that the pharmacist told him today that he could not get his pain medication refills until tomorrow. Patient denies any recent injury or increase/change in his pain. Patient denies trauma/fall/injury, fever or chills, headache, chest pain, dyspnea, dizziness, abdominal pain, nausea or vomiting, dysuria or urinary symptoms, leg pain/numbness/weakness, incontinence, urinary retention, or any other symptoms or complaints. - Related Data Home Medications Medication Instructions Recorded Confirmed ALPRAZolam [Xanax] 1 mg PO TID 06/11/14 02/19/21 Lisinopril [Prinivil] 10 mg PO DAILY 06/11/14 02/19/21 Ibuprofen [Motrin] 800 mg PO TID PRN 02/01/18 02/19/21 Morphine Sulfate [Ms Contin] 30 mg PO Q12H 03/26/18 02/19/21 Albuterol Sulfate [Ventolin HFA] 2 puff INHALATION RT-QID PRN 02/19/21 02/19/21 Cyanocobalamin (Vitamin B-12) 2,000 mcg PO DAILY 02/19/21 02/19/21 [Vitamin B-12] Cyclobenzaprine [Flexeril] 10 mg PO TID 02/19/21 02/19/21 DULoxetine HCL [Cymbalta] 30 mg PO DAILY 02/19/21 02/19/21 Simvastatin [Zocor] 20 mg PO HS 02/19/21 02/19/21 oxyCODONE-APAP 10-325MG [Percocet 1 tab PO Q5H PRN 02/19/21 02/19/21 10-325 mg] Allergies Allergy/AdvReac Type Severity Reaction Status Date / Time sulfamethoxazole AdvReac Rapid Verified 05/11/21 17:29 [From Bactrim] Heart Rate trimethoprim [From Bactrim] AdvReac Rapid Verified 05/11/21 17:29 Heart Rate Review of Systems ROS Statement: Those systems with pertinent positive or pertinent negative responses have been documented in the HPI. ROS Other: All systems not noted in ROS Statement are negative. Past Medical History Past Medical History: Hypertension Additional Past Medical History / Comment(s): chronic back pain DDD History of Any Multi-Drug Resistant Organisms: MRSA Date of last positivie culture/infection: 2011 MDRO Source:: rt knee Past Surgical History: Back Surgery, Orthopedic Surgery Additional Past Surgical History / Comment(s): RIGHT ELBOW, left shoulder Past Anesthesia/Blood Transfusion Reactions: No Reported Reaction Past Psychological History: Anxiety Smoking Status: Current every day smoker Past Alcohol Use History: None Reported Past Drug Use History: None Reported General Exam Limitations: no limitations General appearance: alert, in no apparent distress Head exam: Present: atraumatic, normocephalic Eye exam: Present: normal appearance, EOMI ENT exam: Present: mucous membranes moist Neck exam: Present: normal inspection, other (Trachea is in midline). Absent: tenderness Respiratory exam: Present: normal lung sounds bilaterally. Absent: respiratory distress, wheezes, rales, rhonchi, stridor Cardiovascular Exam: Present: regular rate, normal rhythm, normal heart sounds, other (Normal radial pulses bilaterally) GI/Abdominal exam: Present: soft. Absent: tenderness, guarding Extremities exam: Present: full ROM. Absent: tenderness, pedal edema Back exam: Absent: tenderness Neurological exam: Present: alert, oriented X3, other (No evidence of lower extremity neurological deficit or saddle anesthesia on examination). Absent: motor sensory deficit Psychiatric exam: Present: normal affect, normal mood Skin exam: Present: warm, dry, intact, normal color Course Vital Signs 05/11/21 17:26 Temperature 98.4 F Pulse Rate 93 Respiratory 18 Rate Blood Pressure 142/91 O2 Sat by Pulse 98 Oximetry Medical Decision Making - Medical Decision Making Patient was given a dose of Percocet in the ED for his chronic pain given he states he was unable to get his pain medication refills today. I have explained to the patient that the emergency room is not the place for management of his chronic pain, and I advised that he follow up closely with his primary care provider, as well as a pain specialist. Patient states that he will be able to refill his pain medications tomorrow. Patient was counseled about chronic neck/back pain, and he was clearly explained return and follow-up instructions. Patient feels comfortable with this plan. Disposition Clinical Impression: Chronic neck and back pain Disposition: HOME SELF-CARE Condition: Stable Instructions (If sedation given, give patient instructions): Chronic Back Pain (DC) Additional Instructions: Return to the ER should you develop new or worsening pain, a fever, trouble controlling your bladder or bowels, leg numbness or weakness, shortness of breath, feeling dizzy or faint, or new or worsening symptoms. Follow up closely with your primary care provider. Is patient prescribed a controlled substance at d/c from ED?: No Referrals: Bryant Orozco MD [Primary Care Provider] - 1-2 days Time of Disposition: 17:49
[2021-05-11] MEDS ORDERED: oxyCODONE-APAP 5-325MG 1 EACH TAB PO STA (17:42)
== END 2021-05-11 17:50 | disposition home or self-care (01) ==
LOC: EC 17:17
DX: G89.29 Other chronic pain (principal); M54.5 Low back pain; M54.2 Cervicalgia; F17.200 Nicotine dependence, unspecified, uncomplicated; I10 Essential (primary) hypertension; Z88.1 Allergy status to other antibiotic agents; Z88.2 Allergy status to sulfonamides; Z79.899 Other long term (current) drug therapy
CPT/HCPCS: 99283

== ENCOUNTER 2021-05-12 06:06 | Emergency (ER) | payer OTHER ==
[2021-05-12 06:24] VITALS: BP 137/84; PULSE 84; RESP 20; TEMP 97.8
[2021-05-12] MEDS ORDERED: KETOROLAC 15 MG/ML 1 ML VIAL IM STA (06:30)
--- NOTE | 2021-05-12 06:34 | ED ---
Back Pain HPI - General Chief Complaint: Back Pain/Injury Stated Complaint: Back Pain Time Seen by Provider: 05/12/21 06:25 Source: patient, RN notes reviewed Limitations: no limitations - History of Present Illness Initial Comments: 45-year-old male presented emergency Department for the third day in a row with chief complaint of chronic pain. Patient states that he is "prescription today though he states she's been feeling it daily for 3 days he states initially locked his medications of epinephrine keep. Patient has had multiple frequent ER visits for running out of his pain medication. He has no new symptoms today. Denies any bowel bladder incontinence or retention. Patient has no other complaints. - Related Data Home Medications Medication Instructions Recorded Confirmed ALPRAZolam [Xanax] 1 mg PO TID 06/11/14 02/19/21 Lisinopril [Prinivil] 10 mg PO DAILY 06/11/14 02/19/21 Ibuprofen [Motrin] 800 mg PO TID PRN 02/01/18 02/19/21 Morphine Sulfate [Ms Contin] 30 mg PO Q12H 03/26/18 02/19/21 Albuterol Sulfate [Ventolin HFA] 2 puff INHALATION RT-QID PRN 02/19/21 02/19/21 Cyanocobalamin (Vitamin B-12) 2,000 mcg PO DAILY 02/19/21 02/19/21 [Vitamin B-12] Cyclobenzaprine [Flexeril] 10 mg PO TID 02/19/21 02/19/21 DULoxetine HCL [Cymbalta] 30 mg PO DAILY 02/19/21 02/19/21 Simvastatin [Zocor] 20 mg PO HS 02/19/21 02/19/21 oxyCODONE-APAP 10-325MG [Percocet 1 tab PO Q5H PRN 02/19/21 02/19/21 10-325 mg] Allergies Allergy/AdvReac Type Severity Reaction Status Date / Time sulfamethoxazole AdvReac Rapid Verified 05/12/21 06:24 [From Bactrim] Heart Rate trimethoprim [From Bactrim] AdvReac Rapid Verified 05/12/21 06:24 Heart Rate Review of Systems ROS Statement: Those systems with pertinent positive or pertinent negative responses have been documented in the HPI. ROS Other: All systems not noted in ROS Statement are negative. Past Medical History Past Medical History: Hypertension Additional Past Medical History / Comment(s): chronic back pain DDD History of Any Multi-Drug Resistant Organisms: MRSA Date of last positivie culture/infection: 2011 MDRO Source:: rt knee Past Surgical History: Back Surgery, Orthopedic Surgery Additional Past Surgical History / Comment(s): RIGHT ELBOW, left shoulder Past Anesthesia/Blood Transfusion Reactions: No Reported Reaction Past Psychological History: Anxiety Smoking Status: Current every day smoker Past Alcohol Use History: None Reported Past Drug Use History: None Reported General Exam Limitations: no limitations General appearance: alert, in no apparent distress Respiratory exam: Present: normal lung sounds bilaterally. Absent: respiratory distress, wheezes, rales, rhonchi, stridor Cardiovascular Exam: Present: regular rate, normal rhythm, normal heart sounds. Absent: systolic murmur, diastolic murmur, rubs, gallop, clicks Extremities exam: Present: normal inspection, full ROM Back exam: Present: full ROM, tenderness Course Vital Signs 05/12/21 06:22 Temperature 97.8 F Pulse Rate 84 Respiratory 20 Rate Blood Pressure 137/84 O2 Sat by Pulse 98 Oximetry Medical Decision Making - Medical Decision Making Patient is advised to warp picker his prescription today when the pharmacy opens. Patient has no red flag symptoms. Disposition Clinical Impression: Chronic pain Disposition: HOME SELF-CARE Condition: Stable Instructions (If sedation given, give patient instructions): Chronic Pain (ED) Additional Instructions: Please return to the Emergency Department if symptoms worsen or any other concerns. Is patient prescribed a controlled substance at d/c from ED?: No Referrals: Bryant Orozco MD [Primary Care Provider] - 1-2 days Time of Disposition: 06:33
== END 2021-05-12 06:46 | disposition home or self-care (01) ==
LOC: EC 06:06
DX: G89.29 Other chronic pain (principal); M54.9 Dorsalgia, unspecified; F17.200 Nicotine dependence, unspecified, uncomplicated; I10 Essential (primary) hypertension; Z88.1 Allergy status to other antibiotic agents; Z88.2 Allergy status to sulfonamides; Z79.899 Other long term (current) drug therapy
CPT/HCPCS: 99283

== ENCOUNTER 2021-05-12 08:41 | Emergency (ER) | payer OTHER ==
[2021-05-12 08:46] VITALS: BP 156/92; PULSE 85; RESP 18; TEMP 97.8
--- NOTE | 2021-05-12 09:05 | ED ---
General Adult HPI - General Chief complaint: Back Pain/Injury Stated complaint: Pain in spine Time Seen by Provider: 05/12/21 08:50 Source: patient, RN notes reviewed Mode of arrival: wheelchair Limitations: no limitations - History of Present Illness Initial comments: Patient is a pleasant 45-year-old male presenting to the emergency department complaining of chronic back pain. Patient requests narcotic pain medications. Patient states he was here yesterday with similar problems and he will go to his pharmacy later today. Patient states pain is chronic and unchanged. No weakness. No tenderness or retention of bowel or bladder. - Related Data Home Medications Medication Instructions Recorded Confirmed ALPRAZolam [Xanax] 1 mg PO TID 06/11/14 02/19/21 Lisinopril [Prinivil] 10 mg PO DAILY 06/11/14 02/19/21 Ibuprofen [Motrin] 800 mg PO TID PRN 02/01/18 02/19/21 Morphine Sulfate [Ms Contin] 30 mg PO Q12H 03/26/18 02/19/21 Albuterol Sulfate [Ventolin HFA] 2 puff INHALATION RT-QID PRN 02/19/21 02/19/21 Cyanocobalamin (Vitamin B-12) 2,000 mcg PO DAILY 02/19/21 02/19/21 [Vitamin B-12] Cyclobenzaprine [Flexeril] 10 mg PO TID 02/19/21 02/19/21 DULoxetine HCL [Cymbalta] 30 mg PO DAILY 02/19/21 02/19/21 Simvastatin [Zocor] 20 mg PO HS 02/19/21 02/19/21 oxyCODONE-APAP 10-325MG [Percocet 1 tab PO Q5H PRN 02/19/21 02/19/21 10-325 mg] Allergies Allergy/AdvReac Type Severity Reaction Status Date / Time sulfamethoxazole AdvReac Rapid Verified 05/12/21 06:24 [From Bactrim] Heart Rate trimethoprim [From Bactrim] AdvReac Rapid Verified 05/12/21 06:24 Heart Rate Review of Systems ROS Statement: Those systems with pertinent positive or pertinent negative responses have been documented in the HPI. ROS Other: All systems not noted in ROS Statement are negative. Constitutional: Denies: fever Eyes: Denies: eye pain ENT: Denies: ear pain Respiratory: Denies: cough Cardiovascular: Denies: chest pain Endocrine: Denies: fatigue Gastrointestinal: Denies: abdominal pain Genitourinary: Denies: dysuria Musculoskeletal: Reports: back pain Skin: Denies: rash Neurological: Denies: weakness Past Medical History Past Medical History: Hypertension Additional Past Medical History / Comment(s): chronic back pain DDD History of Any Multi-Drug Resistant Organisms: MRSA Date of last positivie culture/infection: 2011 MDRO Source:: rt knee Past Surgical History: Back Surgery, Orthopedic Surgery Additional Past Surgical History / Comment(s): RIGHT ELBOW, left shoulder Past Anesthesia/Blood Transfusion Reactions: No Reported Reaction Past Psychological History: Anxiety Smoking Status: Current every day smoker Past Alcohol Use History: None Reported Past Drug Use History: None Reported General Exam Limitations: no limitations General appearance: alert, in no apparent distress Head exam: Present: atraumatic Eye exam: Present: normal appearance Respiratory exam: Present: normal lung sounds bilaterally Cardiovascular Exam: Present: regular rate, normal rhythm GI/Abdominal exam: Present: soft. Absent: tenderness Extremities exam: Present: normal inspection, full ROM. Absent: tenderness Back exam: Present: normal inspection. Absent: vertebral tenderness Neurological exam: Present: alert. Absent: motor sensory deficit Expanded Sensory exam: Lower Extremity Light Touch: Normal Motor strength exam: RLE: 5, LLE: 5 Psychiatric exam: Present: normal affect, normal mood Skin exam: Present: normal color Course Vital Signs 05/12/21 08:43 Temperature 97.8 F Pulse Rate 85 Respiratory 18 Rate Blood Pressure 156/92 O2 Sat by Pulse 98 Oximetry Medical Decision Making - Medical Decision Making Patient offered a shot of muscle relaxers but refused and left. Disposition Clinical Impression: Chronic back pain Disposition: HOME SELF-CARE Condition: Stable Is patient prescribed a controlled substance at d/c from ED?: No Referrals: Bryant Orozco MD [Primary Care Provider] - 1-2 days Time of Disposition: 09:05
== END 2021-05-12 09:09 | disposition home or self-care (01) ==
LOC: EC 08:41
DX: M54.6 Pain in thoracic spine (principal); G89.29 Other chronic pain; F17.200 Nicotine dependence, unspecified, uncomplicated; Z88.1 Allergy status to other antibiotic agents; Z88.2 Allergy status to sulfonamides; Z87.39 Personal history of other diseases of the musculoskeletal system and connective tissue
CPT/HCPCS: 99283

== ENCOUNTER 2021-06-05 14:14 | Emergency (ER) | payer OTHER ==
[2021-06-05 15:04] VITALS: BP 139/90; PULSE 100; RESP 16; TEMP 98.1
[2021-06-05] MEDS ORDERED: KETOROLAC 15 MG/ML 1 ML VIAL IM STA (15:29)
[2021-06-05] MEDS ORDERED: ORPHENADRINE 30 MG/ML 2 ML VIAL IM STA (15:29)
--- NOTE | 2021-06-05 15:30 | ED ---
Back Pain HPI - General Chief Complaint: Back Pain/Injury Stated Complaint: Neck/Back Pain Time Seen by Provider: 06/05/21 15:25 Source: patient, RN notes reviewed Limitations: no limitations - History of Present Illness Initial Comments: this a 45-year-old male presents emergency Department chief complaint of neck and back pain this is chronic pain in nature. Patient has been on chronic pain meds for several years. Patient has a bowel bladder incontinence or retention, no saddle anesthesias paresthesias. Patient offers no other complaints. - Related Data Home Medications Medication Instructions Recorded Confirmed ALPRAZolam [Xanax] 1 mg PO TID 06/11/14 02/19/21 Lisinopril [Prinivil] 10 mg PO DAILY 06/11/14 02/19/21 Ibuprofen [Motrin] 800 mg PO TID PRN 02/01/18 02/19/21 Morphine Sulfate [Ms Contin] 30 mg PO Q12H 03/26/18 02/19/21 Albuterol Sulfate [Ventolin HFA] 2 puff INHALATION RT-QID PRN 02/19/21 02/19/21 Cyanocobalamin (Vitamin B-12) 2,000 mcg PO DAILY 02/19/21 02/19/21 [Vitamin B-12] Cyclobenzaprine [Flexeril] 10 mg PO TID 02/19/21 02/19/21 DULoxetine HCL [Cymbalta] 30 mg PO DAILY 02/19/21 02/19/21 Simvastatin [Zocor] 20 mg PO HS 02/19/21 02/19/21 oxyCODONE-APAP 10-325MG [Percocet 1 tab PO Q5H PRN 02/19/21 02/19/21 10-325 mg] Allergies Allergy/AdvReac Type Severity Reaction Status Date / Time sulfamethoxazole AdvReac Rapid Verified 06/05/21 15:01 [From Bactrim] Heart Rate trimethoprim [From Bactrim] AdvReac Rapid Verified 06/05/21 15:01 Heart Rate Review of Systems ROS Statement: Those systems with pertinent positive or pertinent negative responses have been documented in the HPI. ROS Other: All systems not noted in ROS Statement are negative. Past Medical History Past Medical History: Hypertension Additional Past Medical History / Comment(s): chronic back pain DDD History of Any Multi-Drug Resistant Organisms: MRSA Date of last positivie culture/infection: 2011 MDRO Source:: rt knee Past Surgical History: Back Surgery, Orthopedic Surgery Additional Past Surgical History / Comment(s): RIGHT ELBOW, left shoulder Past Anesthesia/Blood Transfusion Reactions: No Reported Reaction Past Psychological History: Anxiety Smoking Status: Former smoker Past Alcohol Use History: None Reported Past Drug Use History: None Reported General Exam Limitations: no limitations General appearance: alert, in no apparent distress Head exam: Present: atraumatic, normocephalic, normal inspection Neck exam: Present: normal inspection, full ROM. Absent: tenderness, meningismus, lymphadenopathy Respiratory exam: Present: normal lung sounds bilaterally. Absent: respiratory distress, wheezes, rales, rhonchi, stridor Cardiovascular Exam: Present: regular rate, normal rhythm, normal heart sounds. Absent: systolic murmur, diastolic murmur, rubs, gallop, clicks GI/Abdominal exam: Present: soft, normal bowel sounds. Absent: distended, tenderness, guarding, rebound, rigid Extremities exam: Present: normal inspection, full ROM, normal capillary refill. Absent: tenderness, pedal edema, joint swelling, calf tenderness Back exam: Present: full ROM, tenderness, paraspinal tenderness. Absent: vertebral tenderness Neurological exam: Present: alert, oriented X3, CN II-XII intact, reflexes n ormal. Absent: motor sensory deficit Skin exam: Present: warm, dry, intact, normal color. Absent: rash Course Vital Signs 06/05/21 15:02 Temperature 98.1 F Pulse Rate 100 Respiratory 16 Rate Blood Pressure 139/90 O2 Sat by Pulse 97 Oximetry Medical Decision Making - Medical Decision Making patient has chronic back pain. Patient provided pain relief. Patient will follow-up with Dr. Steve Disposition Clinical Impression: Chronic neck and back pain Disposition: HOME SELF-CARE Condition: Stable Instructions (If sedation given, give patient instructions): Acute Low Back Pain (ED) Additional Instructions: Please return to the Emergency Department if symptoms worsen or any other concerns. Is patient prescribed a controlled substance at d/c from ED?: No Referrals: Bryant Orozco MD [Primary Care Provider] - 1-2 days Nalini Steve DO [Doctor of Osteopathic Medicine] - 1-2 days Time of Disposition: 15:30
== END 2021-06-05 15:44 | disposition home or self-care (01) ==
LOC: EC 14:14
DX: G89.29 Other chronic pain (principal); M54.2 Cervicalgia; M54.9 Dorsalgia, unspecified; I10 Essential (primary) hypertension; F41.9 Anxiety disorder, unspecified; Z87.891 Personal history of nicotine dependence; Z79.1 Long term (current) use of non-steroidal anti-inflammatories (NSAID); Z79.899 Other long term (current) drug therapy
CPT/HCPCS: 99283; 96372 ×2; J2360; J1885

== ENCOUNTER 2021-06-05 18:04 | Emergency (ER) | payer OTHER ==
[2021-06-05 18:56] VITALS: BP 162/93; PULSE 92; RESP 18; TEMP 98.6
--- NOTE | 2021-06-05 19:52 | ED ---
Back Pain HPI - General Chief Complaint: Back Pain/Injury Stated Complaint: Headache Time Seen by Provider: 06/05/21 19:26 Source: patient, RN notes reviewed Limitations: no limitations - History of Present Illness Initial Comments: This a 45-year-old male presents emergency Department with chief complaint of chronic pain. Patient states that he over took his pain meds because he over take some monthly secondary to chronic back issues. He states that he has degenerative disc disease and he needs stronger pain meds. Patient has not discussed this with his PCP he was seen here earlier emergency department and provided pain relief. Patient denies any bowel bladder incontinence or retention or saddle anesthesias or lower shunted paresthesias. Patient has not seen recent back specialist. Patient is not due for another prescription for 6 days. - Related Data Home Medications Medication Instructions Recorded Confirmed ALPRAZolam [Xanax] 1 mg PO TID 06/11/14 02/19/21 Lisinopril [Prinivil] 10 mg PO DAILY 06/11/14 02/19/21 Ibuprofen [Motrin] 800 mg PO TID PRN 02/01/18 02/19/21 Morphine Sulfate [Ms Contin] 30 mg PO Q12H 03/26/18 02/19/21 Albuterol Sulfate [Ventolin HFA] 2 puff INHALATION RT-QID PRN 02/19/21 02/19/21 Cyanocobalamin (Vitamin B-12) 2,000 mcg PO DAILY 02/19/21 02/19/21 [Vitamin B-12] Cyclobenzaprine [Flexeril] 10 mg PO TID 02/19/21 02/19/21 DULoxetine HCL [Cymbalta] 30 mg PO DAILY 02/19/21 02/19/21 Simvastatin [Zocor] 20 mg PO HS 02/19/21 02/19/21 oxyCODONE-APAP 10-325MG [Percocet 1 tab PO Q5H PRN 02/19/21 02/19/21 10-325 mg] Allergies Allergy/AdvReac Type Severity Reaction Status Date / Time sulfamethoxazole AdvReac Rapid Verified 06/05/21 15:01 [From Bactrim] Heart Rate trimethoprim [From Bactrim] AdvReac Rapid Verified 06/05/21 15:01 Heart Rate Review of Systems ROS Statement: Those systems with pertinent positive or pertinent negative responses have been documented in the HPI. ROS Other: All systems not noted in ROS Statement are negative. Past Medical History Past Medical History: Hypertension Additional Past Medical History / Comment(s): chronic back pain DDD History of Any Multi-Drug Resistant Organisms: MRSA Date of last positivie culture/infection: 2011 MDRO Source:: rt knee Past Surgical History: Back Surgery, Orthopedic Surgery Additional Past Surgical History / Comment(s): RIGHT ELBOW, left shoulder Past Anesthesia/Blood Transfusion Reactions: No Reported Reaction Past Psychological History: Anxiety Smoking Status: Former smoker Past Alcohol Use History: None Reported Past Drug Use History: None Reported General Exam Limitations: no limitations General appearance: alert, in no apparent distress Head exam: Present: atraumatic, normocephalic, normal inspection Respiratory exam: Present: normal lung sounds bilaterally. Absent: respiratory distress, wheezes, rales, rhonchi, stridor Cardiovascular Exam: Present: regular rate, normal rhythm, normal heart sounds. Absent: systolic murmur, diastolic murmur, rubs, gallop, clicks GI/Abdominal exam: Present: soft, normal bowel sounds. Absent: distended, tenderness, guarding, rebound, rigid Course Vital Signs 06/05/21 18:55 Temperature 98.6 F Pulse Rate 92 Respiratory 18 Rate Blood Pressure 162/93 O2 Sat by Pulse 99 Oximetry Medical Decision Making - Medical Decision Making Patient denies any needs follow-up with PCP for necrotic pain medications patient over uses prescription and ran out. He has no red flag symptoms. Discharged in stable condition. Disposition Clinical Impression: Chronic neck and back pain, Drug-seeking behavior Disposition: HOME SELF-CARE Condition: Stable Instructions (If sedation given, give patient instructions): Acute Low Back Pain (ED) Additional Instructions: Please return to the Emergency Department if symptoms worsen or any other concerns. Is patient prescribed a controlled substance at d/c from ED?: No Referrals: Bryant Orozco MD [Primary Care Provider] - 1-2 days Time of Disposition: 19:51
== END 2021-06-05 19:53 | disposition home or self-care (01) ==
LOC: EC 18:04
DX: G89.29 Other chronic pain (principal); M54.2 Cervicalgia; M54.9 Dorsalgia, unspecified; Z76.5 Malingerer [conscious simulation]; I10 Essential (primary) hypertension; Z87.891 Personal history of nicotine dependence; Z79.1 Long term (current) use of non-steroidal anti-inflammatories (NSAID); Z79.51 Long term (current) use of inhaled steroids; Z79.899 Other long term (current) drug therapy
CPT/HCPCS: 99283

== ENCOUNTER 2021-06-05 22:51 | Emergency (ER) | payer OTHER ==
[2021-06-05 22:55] VITALS: BP 156/89; PULSE 89; RESP 20; TEMP 98.4
[2021-06-05] MEDS ORDERED: tiZANidine 4 MG TAB PO STA (23:26)
[2021-06-05] MEDS ORDERED: methylPREDNISolone SOD SUCCI 125 MG/2 ML VIAL IM ONE (23:26)
[2021-06-05] MEDS ORDERED: diphenhydrAMINE 50 MG/ML 1 ML VIAL IM STA (23:26)
--- NOTE | 2021-06-05 23:31 | ED ---
Back Pain HPI - General Chief Complaint: Back Pain/Injury Stated Complaint: Back Pain Time Seen by Provider: 06/05/21 22:59 Source: patient, RN notes reviewed Limitations: no limitations - History of Present Illness Initial Comments: 45-year-old male presented from for back pain this is chronic in nature no new symptoms. Patient had multiple ER visits including today for similar complaints. Patient ran out of his pain medication he states that he is supposed to call in the morning for a new appointment. Denies any symptoms no bowel bladder incontinence or retention of 7 seizures in the lower shunted paresthesias. - Related Data Home Medications Medication Instructions Recorded Confirmed ALPRAZolam [Xanax] 1 mg PO TID 06/11/14 02/19/21 Lisinopril [Prinivil] 10 mg PO DAILY 06/11/14 02/19/21 Ibuprofen [Motrin] 800 mg PO TID PRN 02/01/18 02/19/21 Morphine Sulfate [Ms Contin] 30 mg PO Q12H 03/26/18 02/19/21 Albuterol Sulfate [Ventolin HFA] 2 puff INHALATION RT-QID PRN 02/19/21 02/19/21 Cyanocobalamin (Vitamin B-12) 2,000 mcg PO DAILY 02/19/21 02/19/21 [Vitamin B-12] Cyclobenzaprine [Flexeril] 10 mg PO TID 02/19/21 02/19/21 DULoxetine HCL [Cymbalta] 30 mg PO DAILY 02/19/21 02/19/21 Simvastatin [Zocor] 20 mg PO HS 02/19/21 02/19/21 oxyCODONE-APAP 10-325MG [Percocet 1 tab PO Q5H PRN 02/19/21 02/19/21 10-325 mg] Allergies Allergy/AdvReac Type Severity Reaction Status Date / Time sulfamethoxazole AdvReac Rapid Verified 06/05/21 22:55 [From Bactrim] Heart Rate trimethoprim [From Bactrim] AdvReac Rapid Verified 06/05/21 22:55 Heart Rate Review of Systems ROS Statement: Those systems with pertinent positive or pertinent negative responses have been documented in the HPI. ROS Other: All systems not noted in ROS Statement are negative. Past Medical History Past Medical History: Hypertension Additional Past Medical History / Comment(s): chronic back pain DDD History of Any Multi-Drug Resistant Organisms: MRSA Date of last positivie culture/infection: 2011 MDRO Source:: rt knee Past Surgical History: Back Surgery, Orthopedic Surgery Additional Past Surgical History / Comment(s): RIGHT ELBOW, left shoulder Past Anesthesia/Blood Transfusion Reactions: No Reported Reaction Past Psychological History: Anxiety Smoking Status: Former smoker Past Alcohol Use History: None Reported Past Drug Use History: None Reported General Exam Limitations: no limitations General appearance: alert, in no apparent distress Head exam: Present: atraumatic, normocephalic, normal inspection Eye exam: Present: normal appearance, PERRL, EOMI. Absent: scleral icterus, conjunctival injection, periorbital swelling Respiratory exam: Present: normal lung sounds bilaterally. Absent: respiratory distress, wheezes, rales, rhonchi, stridor Cardiovascular Exam: Present: regular rate, normal rhythm, normal heart sounds. Absent: systolic murmur, diastolic murmur, rubs, gallop, clicks GI/Abdominal exam: Present: soft, normal bowel sounds. Absent: distended, tenderness, guarding, rebound, rigid Back exam: Present: tenderness, paraspinal tenderness Course Vital Signs 06/05/21 22:51 Temperature 98.4 F Pulse Rate 89 Respiratory 20 Rate Blood Pressure 156/89 O2 Sat by Pulse 97 Oximetry Medical Decision Making - Medical Decision Making Patient ran out of his medication including morphine sulfate 30 mg in which he filled on 05/14/2021 patient is out of his medications a days early, ran out of his Percocet 10/325 last filled on 05/12/2021. Patient advised that he is obese his pain medication and that he will not receive pain medication from narcotics secondary to overuse. He is follow-up with PCP tomorrow. Disposition Clinical Impression: Chronic pain, Chronic back pain Disposition: HOME SELF-CARE Condition: Stable Instructions (If sedation given, give patient instructions): Acute Low Back Pain (ED) Additional Instructions: Please return to the Emergency Department if symptoms worsen or any other concerns. Is patient prescribed a controlled substance at d/c from ED?: No Referrals: Bryant Orozco MD [Primary Care Provider] - 1-2 days Time of Disposition: 23:30
== END 2021-06-05 23:56 | disposition home or self-care (01) ==
LOC: EC 22:51
DX: G89.29 Other chronic pain (principal); M54.9 Dorsalgia, unspecified; I10 Essential (primary) hypertension; Z79.1 Long term (current) use of non-steroidal anti-inflammatories (NSAID); Z87.891 Personal history of nicotine dependence; Z88.1 Allergy status to other antibiotic agents; Z88.2 Allergy status to sulfonamides
CPT/HCPCS: 99283; 96372 ×2; J1200; J2930

== ENCOUNTER 2021-06-06 13:43 | Emergency (ER) | payer OTHER ==
[2021-06-06 13:51] VITALS: TEMP 98.4
[2021-06-06] MEDS ORDERED: ONDANSETRON 4 MG/2 ML VIAL IVP STA (15:02)
[2021-06-06] MEDS ORDERED: KETOROLAC 15 MG/ML 1 ML VIAL IVP STA (15:02)
[2021-06-06 15:17] LABS: Basophils % (A) 0 %; Eosinophils # (A) 0.2 k/uL (0-0.7); Eosinophils % (A) 1 %; HCT 46.8 % (39.0-53.0); HGB 15.7 gm/dL (13.0-17.5); Lymphocytes # (A) 1.2 k/uL (1.0-4.8); Lymphocytes % (A) 7 %; MCH 31.8 pg (25.0-35.0); MCHC 33.6 g/dL (31.0-37.0); MCV 94.6 fL (80.0-100.0); Mean Platelet Volume 6.8; Monocytes # (A) 0.2 k/uL (0-1.0); Monocytes % (A) 1 %; Neutrophils # (A) 15.1 k/uL (1.3-7.7); Neutrophils % (A) 90 %; Platelet Count 299 k/uL (150-450); RBC 4.95 m/uL (4.30-5.90); RDW 13.3 % (11.5-15.5); WBC 16.7 k/uL (3.8-10.6)
--- NOTE | 2021-06-06 15:29 | XR ---
EXAMINATION TYPE: XR chest 2V DATE OF EXAM: 06/06/2021 COMPARISON: Chest x-ray February 12, 2019. CTA chest March 11, 2020 HISTORY: Chest and back pain. TECHNIQUE: Frontal and lateral views of the chest are obtained. FINDINGS: There is no focal air space opacity, pleural effusion, or pneumothorax seen. The cardiac silhouette size remains within normal limits. The osseous structures are intact. IMPRESSION: No acute process. No significant change from prior x-ray.
[2021-06-06 15:38] LABS: ALT 25 U/L (4-49); AST 41 U/L (17-59); African American GFR (CKD) >90 (>60 ml/min/1.73 sqM); Albumin 4.8 g/dL (3.5-5.0); Alkaline Phosphatase 91 U/L (38-126); Anion Gap 11 mmol/L; Blood Urea Nitrogen 11 mg/dL (9-20); Calcium 10.1 mg/dL (8.4-10.2); Carbon Dioxide 20 mmol/L (22-30); Chloride 108 mmol/L (98-107); Glucose 127 mg/dL (74-99); Non-African American GFR(CKD) >90 (>60 ml/min/1.73 sqM); Potassium 4.8 mmol/L (3.5-5.1); Sodium 139 mmol/L (137-145); Total Bilirubin 0.5 mg/dL (0.2-1.3); Total Protein 7.9 g/dL (6.3-8.2)
[2021-06-06] MEDS ORDERED: ORPHENADRINE 30 MG/ML 2 ML VIAL IM STA (16:01)
--- NOTE | 2021-06-06 16:02 | ED ---
Back Pain HPI - General Chief Complaint: Back Pain/Injury Stated Complaint: Chest Pains Time Seen by Provider: 06/06/21 14:41 Source: patient, RN notes reviewed, old records reviewed Mode of arrival: wheelchair Limitations: no limitations - History of Present Illness Initial Comments: Patient is a 45-year-old male presenting to emergency Department with complaints of continued back pain and now complaining of some intermittent chest pains. This is patient's fourth visit in the past 24 hours for back pain. He is out of his medication and has had to follow-up with his primary care. Today he walked in stating that he was having intermittent chest pains and palpitations. Currently he states he is no longer having chest pain, denies any fevers or shortness of breath. Does have some mild nausea, no vomiting. Denies any falls or trauma last 2 days. He has no further complaints. - Related Data Home Medications Medication Instructions Recorded Confirmed ALPRAZolam [Xanax] 1 mg PO TID 06/11/14 02/19/21 Lisinopril [Prinivil] 10 mg PO DAILY 06/11/14 02/19/21 Ibuprofen [Motrin] 800 mg PO TID PRN 02/01/18 02/19/21 Morphine Sulfate [Ms Contin] 30 mg PO Q12H 03/26/18 02/19/21 Albuterol Sulfate [Ventolin HFA] 2 puff INHALATION RT-QID PRN 02/19/21 02/19/21 Cyanocobalamin (Vitamin B-12) 2,000 mcg PO DAILY 02/19/21 02/19/21 [Vitamin B-12] Cyclobenzaprine [Flexeril] 10 mg PO TID 02/19/21 02/19/21 DULoxetine HCL [Cymbalta] 30 mg PO DAILY 02/19/21 02/19/21 Simvastatin [Zocor] 20 mg PO HS 02/19/21 02/19/21 oxyCODONE-APAP 10-325MG [Percocet 1 tab PO Q5H PRN 02/19/21 02/19/21 10-325 mg] Allergies Allergy/AdvReac Type Severity Reaction Status Date / Time sulfamethoxazole AdvReac Rapid Verified 06/05/21 22:55 [From Bactrim] Heart Rate trimethoprim [From Bactrim] AdvReac Rapid Verified 06/05/21 22:55 Heart Rate Review of Systems ROS Statement: Those systems with pertinent positive or pertinent negative responses have been documented in the HPI. ROS Other: All systems not noted in ROS Statement are negative. Past Medical History Past Medical History: Hypertension Additional Past Medical History / Comment(s): chronic back pain DDD History of Any Multi-Drug Resistant Organisms: MRSA Date of last positivie culture/infection: 2011 MDRO Source:: rt knee Past Surgical History: Back Surgery, Orthopedic Surgery Additional Past Surgical History / Comment(s): RIGHT ELBOW, left shoulder Past Anesthesia/Blood Transfusion Reactions: No Reported Reaction Past Psychological History: Anxiety Smoking Status: Former smoker Past Alcohol Use History: None Reported Past Drug Use History: None Reported General Exam - General Exam Comments Initial Comments: GENERAL: Patient is well-developed and well-nourished. Patient is nontoxic and in no acute distress. HEAD: Atraumatic, normocephalic. EYES: Pupils equal round and reactive to light, extraocular movements intact, sclera anicteric, conjunctiva are normal. Eyelids were unremarkable. ENT: Moist mucous membranes. NECK: Normal range of motion, supple without lymphadenopathy or JVD. LUNGS: Unlabored respirations. Breath sounds clear to auscultation bilaterally and eq ual. No wheezes rales or rhonchi. HEART: Regular rate and rhythm without murmurs, rubs or gallops. ABDOMEN: Soft, nontender, normoactive bowel sounds. No guarding, no rebound. No masses appreciated. : Deferred MUSCULOSKELETAL: Normal extremities with adequate strength and normal range of motion, no pitting or edema. No clubbing or cyanosis. Tenderness in the lumbar region. NEUROLOGICAL: Patient is alert and oriented x 3. Motor and sensory are also intact. Cranial nerves II through XII grossly intact. Symmetrical smile. Normal speech, normal gait. PSYCH: Normal mood, normal affect. SKIN: Warm, Dry, normal turgor, no rashes or lesions noted. Limitations: no limitations Course Vital Signs 06/06/21 13:46 Temperature 98.4 F Pulse Rate 123 H Respiratory 19 Rate Blood Pressure 142/88 O2 Sat by Pulse 98 Oximetry Medical Decision Making - Medical Decision Making Patient is a 45-year-old male here with chronic back pain, complaining of some intermittent chest discomfort over the past 24 hours. This is patient's fourth visit in the last 24 hours for chronic back pain. He is out of his pain medication. He is not having chest pain at this time. His EKG shows sinus tach otherwise normal EKG. Chest x-ray is normal, labs including troponin all normal. Patient requesting pain medicine for his back. I stated I cannot give him anything stronger than the toradol he already received. He is to follow-up with his doctor tomorrow. He is agreeable to this. He is stable for discharge. Case discussed with Dr. Weinstein. - Lab Data Result diagrams: 06/06/21 15:11 06/06/21 15:11 Lab Results 06/06/21 06/06/21 06/06/21 Range/Units 15:11 15:11 15:11 WBC 16.7 H (3.8-10.6) k/uL RBC 4.95 (4.30-5.90) m/uL Hgb 15.7 (13.0-17.5) gm/dL Hct 46.8 (39.0-53.0) % MCV 94.6 (80.0-100.0) fL MCH 31.8 (25.0-35.0) pg MCHC 33.6 (31.0-37.0) g/dL RDW 13.3 (11.5-15.5) % Plt Count 299 (150-450) k/uL MPV 6.8 Neutrophils % 90 % Lymphocytes % 7 % Monocytes % 1 % Eosinophils % 1 % Basophils % 0 % Neutrophils # 15.1 H (1.3-7.7) k/uL Lymphocytes # 1.2 (1.0-4.8) k/uL Monocytes # 0.2 (0-1.0) k/uL Eosinophils # 0.2 (0-0.7) k/uL Basophils # 0.0 (0-0.2) k/uL Sodium 139 (137-145) mmol/L Potassium 4.8 (3.5-5.1) mmol/L Chloride 108 H (98-107) mmol/L Carbon Dioxide 20 L (22-30) mmol/L Anion Gap 11 mmol/L BUN 11 (9-20) mg/dL Creatinine 0.65 L (0.66-1.25) mg/dL Est GFR (CKD-EPI)AfAm >90 (>60 ml/min/1.73 sqM) Est GFR (CKD-EPI)NonAf >90 (>60 ml/min/1.73 sqM) Glucose 127 H (74-99) mg/dL Calcium 10.1 (8.4-10.2) mg/dL Total Bilirubin 0.5 (0.2-1.3) mg/dL AST 41 (17-59) U/L ALT 25 (4-49) U/L Alkaline Phosphatase 91 (38-126) U/L Troponin I <0.012 (0.000-0.034) ng/mL Total Protein 7.9 (6.3-8.2) g/dL Albumin 4.8 (3.5-5.0) g/dL - EKG Data EKG Comments: Sinus tachycardia, otherwise normal ECG, no signs of acute ST segment elevation. Ventricular rate 123, ID interval 148, QT 310. Similar to previous on 03/11/2020. Disposition Clinical Impression: Drug-seeking behavior, Chronic back pain, Atypical chest pain Disposition: HOME SELF-CARE Condition: Stable Instructions (If sedation given, give patient instructions): Chronic Back Pain (DC) Additional Instructions: Please return to the Emergency Department if symptoms worsen or any other concerns. Please follow-up with your primary care tomorrow. Is patient prescribed a controlled substance at d/c from ED?: No Referrals: Bryant Orozco MD [Primary Care Provider] - 1-2 days Time of Disposition: 16:07
[2021-06-06 16:16] VITALS: BP 135/66; PULSE 100; RESP 18
== END 2021-06-06 16:15 | disposition home or self-care (01) ==
LOC: EC 13:43
DX: R07.89 Other chest pain (principal); G89.29 Other chronic pain; M54.9 Dorsalgia, unspecified; R11.0 Nausea; F41.9 Anxiety disorder, unspecified; I10 Essential (primary) hypertension; Z87.891 Personal history of nicotine dependence; Z76.5 Malingerer [conscious simulation]; Z88.1 Allergy status to other antibiotic agents; Z79.1 Long term (current) use of non-steroidal anti-inflammatories (NSAID); Z88.2 Allergy status to sulfonamides
CPT/HCPCS: 36415; 80053; 84484; 85025; 71046; 99285; 96374; 96375; 96372; J2360; J2405; J1885

== ENCOUNTER 2021-11-30 18:50 | Emergency (ER) | payer OTHER ==
[2021-11-30 19:00] VITALS: RESP 18; TEMP 98.2
[2021-11-30] MEDS ORDERED: PROPARACAINE 0.5% OPHTH DROPS 15 ML BTL RIGHT EYE STA (21:40)
[2021-11-30] MEDS ORDERED: FLUORESCEIN STRIPS 1 MG STRIP BOTH EYES STA (21:41)
--- NOTE | 2021-11-30 22:43 | ED ---
General Adult HPI - General Chief complaint: Eye Problems Stated complaint: Rt Eye Problems Time Seen by Provider: 11/30/21 20:31 Source: patient, RN notes reviewed Mode of arrival: ambulatory Limitations: no limitations - History of Present Illness Initial comments: 46 year old male presents to the Emergency Department for evaluation of right eye pain and redness, onset this morning. Patient states pain began when he removed his contact after 4 days of wear. States he has a particular brand of contact that permits overnight use, though has been instructed not to exceed 5 consecutive days. Patient complains of persistent discomfort, mild light sensitivity, and blurry vision in the right eye. Did not take anything for pain prior to arrival. Denies fever, chills, headache, dizziness, nausea, or vomiting. - Related Data Home Medications Medication Instructions Recorded Confirmed ALPRAZolam [Xanax] 1 mg PO TID 06/11/14 02/19/21 Lisinopril [Prinivil] 10 mg PO DAILY 06/11/14 02/19/21 Ibuprofen [Motrin] 800 mg PO TID PRN 02/01/18 02/19/21 Morphine Sulfate [Ms Contin] 30 mg PO Q12H 03/26/18 02/19/21 Albuterol Sulfate [Ventolin HFA] 2 puff INHALATION RT-QID PRN 02/19/21 02/19/21 Cyanocobalamin (Vitamin B-12) 2,000 mcg PO DAILY 02/19/21 02/19/21 [Vitamin B-12] Cyclobenzaprine [Flexeril] 10 mg PO TID 02/19/21 02/19/21 DULoxetine HCL [Cymbalta] 30 mg PO DAILY 02/19/21 02/19/21 Simvastatin [Zocor] 20 mg PO HS 02/19/21 02/19/21 oxyCODONE-APAP 10-325MG [Percocet 1 tab PO Q5H PRN 02/19/21 02/19/21 10-325 mg] Previous Rx's Medication Instructions Recorded Ciprofloxacin Ophth Soln [Cipro 2 drops RIGHT EYE Q4HR #5 ml 11/30/21 0.3% Ophth Soln] Allergies Allergy/AdvReac Type Severity Reaction Status Date / Time sulfamethoxazole AdvReac Rapid Verified 11/30/21 19:00 [From Bactrim] Heart Rate trimethoprim [From Bactrim] AdvReac Rapid Verified 11/30/21 19:00 Heart Rate Review of Systems ROS Statement: Those systems with pertinent positive or pertinent negative responses have been documented in the HPI. ROS Other: All systems not noted in ROS Statement are negative. Past Medical History Past Medical History: Hypertension Additional Past Medical History / Comment(s): chronic back pain DDD History of Any Multi-Drug Resistant Organisms: MRSA Date of last positivie culture/infection: 2011 MDRO Source:: rt knee Past Surgical History: Back Surgery, Orthopedic Surgery Additional Past Surgical History / Comment(s): RIGHT ELBOW, left shoulder Past Anesthesia/Blood Transfusion Reactions: No Reported Reaction Past Psychological History: Anxiety Smoking Status: Former smoker Past Alcohol Use History: None Reported Past Drug Use History: None Reported General Exam Limitations: no limitations (Well-developed, well-nourished male in no acute distress. Initial temperature 98.2, pulse 99, respirations 18, blood pressure 124/79, pulse ox 99% on room air.) General appearance: alert, in no apparent distress Eye exam: Present: PERRL, EOMI, conjunctival injection (left eye). Absent: normal appearance (right eye affected, left eye WNL), scleral icterus, nystagmus, periorbital swelling, periorbital tenderness Expanded Eyelids: Normal Inspection: Bilateral Pupils: Regular, Round: Bilateral, Reactive: Bilateral Sclera/Conjunctival: Normal Inspection: Left, Injection: Right (no exudate or drainage) Anterior chamber: Normal Inspection: Left (pinpoint white lesion noted on inspection of right eye) Visual acuity (R) = 20/: 200 Visual acuity (L) = 20/: 40 With correction: Yes (contact OD) IOP (R) in mmH IOP (L) in mmH IOP measured with: [place] Neck exam: Present: normal inspection, full ROM. Absent: tenderness, meningismus, lymphadenopathy Respiratory exam: Present: normal lung sounds bilaterally. Absent: respiratory distress, wheezes, rales, rhonchi, stridor Cardiovascular Exam: Present: regular rate, normal rhythm, normal heart sounds. Absent: systolic murmur, diastolic murmur, rubs, gallop, clicks Neurological exam: Present: alert, oriented X3, CN II-XII intact Psychiatric exam: Present: normal affect, normal mood Skin exam: Present: warm, dry, intact, normal color. Absent: rash Course Vital Signs 11/30/21 11/30/21 18:56 23:18 Temperature 98.2 F Pulse Rate 99 89 Respiratory 18 18 Rate Blood Pressure 124/79 122/84 O2 Sat by Pulse 99 96 Oximetry - Reevaluation(s) Reevaluation #1: 11/30/21 22:00 Findings were discussed with patient at length. Instructed on proper use of antibiotic eyedrops and implored not to wear contacts until he has been seen by his eye doctor. Strict follow-up was stressed and return parameters were discussed in detail. Patient verbalizes understanding. Procedures - Procedures Initial comment: 2 drops of proparacaine instilled into the right eye. Fluorescein staining dyllan lied to right eye and examined with colon lamp. Tiny circular Focal area of uptake visualized highly likely to be a small corneal ulcer. Medical Decision Making - Medical Decision Making 46-year-old male with a past medical history of hypertension presents to the emergency department for evaluation of right eye pain and redness, onset this morning. Upon exam, patient is noted to have right conjunctival injection. Tiny white defect is visualized on the cornea and is identified as a focal area of uptake under fluorescein exam. Patient is a contact wearer who sleeps in his contacts and changes them every 4-5 days. IOP is within normal limits bilaterally. Visual acuity was obtained while patient was wearing a contact in the left eye only (which he was instructed to remove). Tiny corneal ulcer is suspected. Patient was given Flurouquinolone eyedrop while present in the Emergency Department. Stressed the importance of close follow-up and utilization of his glasses for visual correction. Return parameters were discussed in detail. Patient verbalizes understanding and agrees with this plan. Attending: Heydi. Disposition Clinical Impression: Corneal ulcer of right eye Disposition: HOME SELF-CARE Condition: Stable Instructions (If sedation given, give patient instructions): Corneal Ulcer (ED) Additional Instructions: Avoid rubbing your eye. Apply antibiotic eye drops according to the following schedule: 2 drops every 15 minutes x6 hours while awake. Then 2 drops every 30 minutes x18 hours while awake. Then 2 drops every hour x1 day while awake. Lastly, 2 drops every four hours x12 days. No contact use. Wear your glasses. Follow up with your eye doctor first thing Thursday. Return to the emergency department with any new, worsening, or concerning symptoms such as fever, worsening vision, or increased pain. Prescriptions: Ciprofloxacin Ophth Soln [Cipro 0.3% Ophth Soln] 2 drops RIGHT EYE Q4HR #5 ml Is patient prescribed a controlled substance at d/c from ED?: No Referrals: Bryant Orozco MD [Primary Care Provider] - 1-2 days Arminda Ball MD [STAFF PHYSICIAN] - 1-2 days Time of Disposition: 23:00
[2021-11-30] MEDS ORDERED: CIPROFLOXACIN 0.3% OPHTH SOLN 5 ML BTL RIGHT EYE ONE (22:45)
[2021-11-30 23:21] VITALS: BP 122/84; PULSE 89
== END 2021-11-30 23:21 | disposition home or self-care (01) ==
LOC: EC 18:50
DX: H16.001 Unspecified corneal ulcer, right eye (principal); I10 Essential (primary) hypertension; F41.9 Anxiety disorder, unspecified; Z87.891 Personal history of nicotine dependence; Z79.899 Other long term (current) drug therapy
CPT/HCPCS: 99283

== ENCOUNTER → 2022-04-08 | Outpatient (CLI) | payer OTHER ==
--- NOTE | 2022-04-09 10:11 | XR ---
EXAMINATION TYPE: XR elbow complete RT DATE OF EXAM: 04/08/2022 COMPARISON: NONE HISTORY: Pain FINDINGS: Three views of the elbow demonstrate no pathologic joint effusion. The osseous structures are intact . There is no acute fracture or dislocation. Spurring of the olecranon noted. Severe narrowing of t he humeral radial portion of the elbow joint. Sclerosis of the distal humerus. IMPRESSION: 1. Complete loss of joint space of the radiohumeral articulation and joint space. Sclerosis involving the distal lateral condyle. Recommend MRI for further evaluation to assess for severe arthritis vers us osteonecrosis. 2. Small olecranon spur.
== END | disposition home or self-care (01) ==
LOC: RADXRMAIN 16:01
PROVIDERS: ATTEND Family Medicine
DX: M87.029 Idiopathic aseptic necrosis of unspecified humerus (principal); M85.841 Other specified disorders of bone density and structure, right hand

== ENCOUNTER 2023-01-30 22:25 | Emergency (ER) | payer OTHER ==
--- NOTE | 2023-01-30 23:25 | ED ---
General Adult HPI - General Chief complaint: Recheck/Abnormal Lab/Rx Stated complaint: Covid Vaccine Reaction Time Seen by Provider: 01/30/23 23:15 Source: patient Mode of arrival: ambulatory Limitations: no limitations - History of Present Illness Initial comments: Patient is a 47-year-old male who presents the emergency department for possible vaccine reaction. Patient got the COVID-19 vaccine booster yesterday today he has had headache and body aches. He denies chest pain and shortness of breath. No history of asthma or COPD - Related Data Home Medications Medication Instructions Recorded Confirmed ALPRAZolam [Xanax] 1 mg PO TID 06/11/14 02/19/21 lisinopriL [Prinivil] 10 mg PO DAILY 06/11/14 02/19/21 Ibuprofen [Motrin] 800 mg PO TID PRN 02/01/18 02/19/21 Morphine Sulfate [Ms Contin] 30 mg PO Q12H 03/26/18 02/19/21 Albuterol Sulfate [Ventolin HFA] 2 puff INHALATION RT-QID PRN 02/19/21 02/19/21 Cyanocobalamin (Vitamin B-12) 2,000 mcg PO DAILY 02/19/21 02/19/21 [Vitamin B-12] Cyclobenzaprine [Flexeril] 10 mg PO TID 02/19/21 02/19/21 DULoxetine HCL [Cymbalta] 30 mg PO DAILY 02/19/21 02/19/21 Simvastatin [Zocor] 20 mg PO HS 02/19/21 02/19/21 oxyCODONE-APAP 10-325MG [Percocet 1 tab PO Q5H PRN 02/19/21 02/19/21 10-325 mg] Previous Rx's Medication Instructions Recorded Ciprofloxacin Ophth Soln [Cipro 2 drops RIGHT EYE Q4HR #5 ml 11/30/21 0.3% Ophth Soln] Allergies Allergy/AdvReac Type Severity Reaction Status Date / Time sulfamethoxazole AdvReac Rapid Verified 01/30/23 22:35 [From Bactrim] Heart Rate trimethoprim [From Bactrim] AdvReac Rapid Verified 01/30/23 22:35 Heart Rate Review of Systems ROS Statement: Those systems with pertinent positive or pertinent negative responses have been documented in the HPI. ROS Other: All systems not noted in ROS Statement are negative. Past Medical History Past Medical History: Hypertension Additional Past Medical History / Comment(s): chronic back pain DDD History of Any Multi-Drug Resistant Organisms: MRSA Date of last positivie culture/infection: 2011 MDRO Source:: rt knee Past Surgical History: Back Surgery, Orthopedic Surgery Additional Past Surgical History / Comment(s): RIGHT ELBOW, left shoulder Past Anesthesia/Blood Transfusion Reactions: No Reported Reaction Past Psychological History: Anxiety Smoking Status: Former smoker Past Alcohol Use History: None Reported Past Drug Use History: None Reported General Exam Limitations: no limitations Head exam: Present: atraumatic, normocephalic, normal inspection Eye exam: Present: normal appearance, PERRL, EOMI. Absent: scleral icterus, conjunctival injection, periorbital swelling Respiratory exam: Present: normal lung sounds bilaterally. Absent: respiratory distress, wheezes, rales, rhonchi, stridor Cardiovascular Exam: Present: regular rate, normal rhythm, normal heart sounds. Absent: systolic murmur, diastolic murmur, rubs, gallop, clicks Neurological exam: Present: alert, oriented X3, CN II-XII intact Psychiatric exam: Present: normal affect, normal mood Skin exam: Present: warm, dry, intact, normal color. Absent: rash Course Vital Signs 01/30/23 01/30/23 22:31 23:31 Temperature 98.9 F 97.8 F Pulse Rate 87 85 Respiratory 20 22 Rate Blood Pressure 122/88 115/80 O2 Sat by Pulse 98 97 Oximetry Medical Decision Making - Medical Decision Making Was pt. sent in by a medical professional or institution (, PA, [employer], urgent care, hospital, or intermediate...) When possible be specific @ -No Did you speak to anyone other than the patient for history (EMS, parent, family, police, friend...)? What history was obtained from this source @ -No Did you review nursing and triage notes (agree or disagree)? Why? @ -I reviewed and agree with nursing and triage notes Were old charts reviewed (outside hosp., previous admission, EMS record, old EKG, old radiological studies, urgent care reports/EKG's, intermediate records)? Report findings @ -No old charts were reviewed Differential Diagnosis (chest pain, altered mental status, abdominal pain women, abdominal pain men, vaginal bleeding, weakness, fever, dyspnea, syncope, headache, dizziness, GI bleed, back pain, seizure, CVA, palpatations, mental health)? @ -not applicable EKG interpreted by me (3pts min.). @ -As above X-rays interpreted by me (1pt min.). @ -None done CT interpreted by me (1pt min.). @ -None done U/S interpreted by me (1pt. min.). @ -None done What testing was considered but not performed or refused? (CT, X-rays, U/S, labs)? Why? @ -None What meds were considered but not given or refused? Why? @ -Considered giving pain medication however patient declined states he'll take some at home. Did you discuss the management of the patient with other professionals (professionals i.e. , PA, [employer], lab, RT, psych nurse, social science professor, loan consultant, teacher, medical laboratory technical officer, case sealer)? Give summary @ -No Was smoking cessation discussed for >3mins.? @ -No Was critical care preformed (if so, how long)? @ -No Were there social determinants of health that impacted care today? How? (Homelessness, low income, unemployed, alcoholism, drug addiction, transportation, low edu. Level, literacy, decrease access to med. care, longterm, rehab)? @ -No Was there de-escalation of care discussed even if they declined (Discuss DNR or withdrawal of care, Hospice)? DNR status @ -No What co-morbidities impacted this encounter? (DM, HTN, Smoking, COPD, CAD, Cancer, CVA, ARF, Chemo, Hep., AIDS, mental health diagnosis, sleep apnea, morbid obesity)? @ -None Was patient admitted / discharged? Hospital course, mention meds given and route, prescriptions, significant lab abnormalities, going to OR and other pertinent info. @ -Discharged. We discussed symptoms in detail patient likely has symptoms secondary to COVID-19 history. He is in stable medical condition for discharge he will take Motrin at home. Undiagnosed new problem with uncertain prognosis? @ -No Drug Therapy requiring intensive monitoring for toxicity (Heparin, Nitro, Insulin, Cardizem)? @ -No Were any procedures done? @ -No Diagnosis/symptom? @ -headache, bodyaches Acute, or Chronic, or Acute on Chronic? @ -acute Uncomplicated (without systemic symptoms) or Complicated (systemic symptoms)? @ -uncomplicated Side effects of treatment? @ -No Exacerbation, Progression, or Severe Exacerbation? @ -No Poses a threat to life or bodily function? How? (Chest pain, [place], NH, pneumonia, PE, COPD, DKA, ARF, appy, cholecystitis, CVA, Diverticulitis, Homicidal, Suicidal, threat to staff... and all critical care pts) @ -No Dr. Garay is my attending Disposition Clinical Impression: Headache, Body aches Disposition: HOME SELF-CARE Condition: Good Instructions (If sedation given, give patient instructions): SARS-CoV-2 (By injection), COVID-19 (Coronavirus Disease 2019) (ED) Additional Instructions: Alternate Tylenol and Motrin every 3-4 hours for headache and body aches. Follow-up with primary care provider in one to 2 days. Return to the emergency department if you experience new, concerning, or worsening symptoms. Is patient prescribed a controlled substance at d/c from ED?: No Referrals: Bryant Orozco MD [Primary Care Provider] - 1-2 days
[2023-01-30 23:33] VITALS: BP 115/80; PULSE 85; RESP 22; TEMP 97.8
== END 2023-01-30 23:37 | disposition home or self-care (01) ==
LOC: EC 22:25
DX: R51.9 Headache, unspecified (principal); I10 Essential (primary) hypertension; F41.9 Anxiety disorder, unspecified; Z87.891 Personal history of nicotine dependence; Z79.899 Other long term (current) drug therapy; Z88.2 Allergy status to sulfonamides
CPT/HCPCS: 99282

== ENCOUNTER → 2023-03-09 | Outpatient (CLI) | payer OTHER ==
--- NOTE | 2023-03-09 13:07 | XR ---
EXAMINATION TYPE: XR cervical spine limited DATE OF EXAM: 03/09/2023 COMPARISON: NONE HISTORY: Pain TECHNIQUE: Three views are submitted. FINDINGS: The odontoid is intact. There are no compression deformities. The prevertebral soft tissue structur es are within normal limits. There is multilevel facet arthropathy. Calcifications soft tissue the n amelie likely vascular related to carotid artery. IMPRESSION: 1. No acute process. Multilevel facet arthropathy. If concern for disc herniation, foraminal encroach ment or canal stenosis would recommend follow-up MRI.
== END | disposition home or self-care (01) ==
LOC: RADXRMAIN 12:32
PROVIDERS: ATTEND Family Medicine
DX: M47.812 Spondylosis without myelopathy or radiculopathy, cervical region (principal)
CPT/HCPCS: 72040

== ENCOUNTER 2023-04-21 21:33 | Emergency (ER) | payer OTHER ==
[2023-04-21 21:41] VITALS: TEMP 98.2
[2023-04-21 22:17] LABS: Basophils % (A) 0 %; Eosinophils # (A) 0.3 k/uL (0-0.7); Eosinophils % (A) 4 %; HCT 41.9 % (39.0-53.0); HGB 14.2 gm/dL (13.0-17.5); Lymphocytes # (A) 2.4 k/uL (1.0-4.8); Lymphocytes % (A) 36 %; MCH 31.8 pg (25.0-35.0); MCHC 33.9 g/dL (31.0-37.0); MCV 93.7 fL (80.0-100.0); Mean Platelet Volume 7.5; Monocytes # (A) 0.3 k/uL (0-1.0); Monocytes % (A) 4 %; Neutrophils # (A) 3.6 k/uL (1.3-7.7); Neutrophils % (A) 54 %; Platelet Count 243 k/uL (150-450); RBC 4.47 m/uL (4.30-5.90); RDW 13.2 % (11.5-15.5); WBC 6.6 k/uL (3.8-10.6)
[2023-04-21 22:22] LABS: ALT 23 U/L (4-49); AST 28 U/L (17-59); African American GFR (CKD) >90 (>60 ml/min/1.73 sqM); Albumin 3.8 g/dL (3.5-5.0); Alkaline Phosphatase 94 U/L (38-126); Anion Gap 4 mmol/L; Blood Urea Nitrogen 5 mg/dL (9-20); Calcium 8.7 mg/dL (8.4-10.2); Carbon Dioxide 28 mmol/L (22-30); Chloride 103 mmol/L (98-107); Glucose 102 mg/dL (74-99); Magnesium 1.9 mg/dL (1.6-2.3); Non-African American GFR(CKD) >90 (>60 ml/min/1.73 sqM); Partial Thromboplastin Time 23.5 sec (22.0-30.0); Potassium 4.1 mmol/L (3.5-5.1); Prothrombin Time 10.2 sec (9.0-12.0); Sodium 135 mmol/L (137-145); Total Bilirubin 0.2 mg/dL (0.2-1.3); Total Protein 6.7 g/dL (6.3-8.2)
--- NOTE | 2023-04-21 22:43 | XR ---
EXAM: XR Chest, 2 Views CLINICAL HISTORY: ITS.REASON XR Reason: Chest Pain TECHNIQUE: Frontal and lateral views of the chest. COMPARISON: No relevant prior studies available. FINDINGS: Lungs: Unremarkable. No consolidation. Pleural space: Unremarkable. No pneumothorax. Heart: Unremarkable. No cardiomegaly. Mediastinum: Unremarkable. Bones/joints: Unremarkable. IMPRESSION: Normal chest x-rays.
--- NOTE | 2023-04-21 23:07 | ED ---
General Adult HPI - General Chief complaint: Chest Pain Stated complaint: Anxiety Attack Time Seen by Provider: 04/21/23 21:58 Source: patient Mode of arrival: ambulatory Limitations: no limitations - History of Present Illness Initial comments: Dictation was produced using Nevigo dictation software. please excuse any grammatical, word or spelling errors. Chief Complaint: 47-year-old male presents emergency Department with anxiety a ttack History of Present Illness: 47-year-old male has past history of anxiety is watching TV when all of a sudden he started to feel anxious. He states that he felt tightness in his left shoulder along with intermittent paresthesias to his left arm and left leg. He's had this before with previous panic attacks. Patient denied any associated chest pain or shortness of breath. He took 2 of his anxiolytic medications after several minutes symptoms resolved. Patient denies any symptoms at bedside currently. The ROS documented in this emergency department record has been reviewed and confirmed by me. Those systems with pertinent positive or negative responses have been documented in the HPI. All other systems are other negative and/or noncontributory. - Related Data Home Medications Medication Instructions Recorded Confirmed ALPRAZolam [Xanax] 1 mg PO TID 06/11/14 02/19/21 lisinopriL [Prinivil] 10 mg PO DAILY 06/11/14 02/19/21 Ibuprofen [Motrin] 800 mg PO TID PRN 02/01/18 02/19/21 Morphine Sulfate [Ms Contin] 30 mg PO Q12H 03/26/18 02/19/21 Albuterol Sulfate [Ventolin HFA] 2 puff INHALATION RT-QID PRN 02/19/21 02/19/21 Cyanocobalamin (Vitamin B-12) 2,000 mcg PO DAILY 02/19/21 02/19/21 [Vitamin B-12] Cyclobenzaprine [Flexeril] 10 mg PO TID 02/19/21 02/19/21 DULoxetine HCL [Cymbalta] 30 mg PO DAILY 02/19/21 02/19/21 Simvastatin [Zocor] 20 mg PO HS 02/19/21 02/19/21 oxyCODONE-APAP 10-325MG [Percocet 1 tab PO Q5H PRN 02/19/21 02/19/21 10-325 mg] Previous Rx's Medication Instructions Recorded Ciprofloxacin Ophth Soln [Cipro 2 drops RIGHT EYE Q4HR #5 ml 11/30/21 0.3% Ophth Soln] Allergies Allergy/AdvReac Type Severity Reaction Status Date / Time sulfamethoxazole AdvReac Rapid Verified 04/21/23 21:41 [From Bactrim] Heart Rate trimethoprim [From Bactrim] AdvReac Rapid Verified 04/21/23 21:41 Heart Rate Review of Systems ROS Statement: Those systems with pertinent positive or pertinent negative responses have been documented in the HPI. ROS Other: All systems not noted in ROS Statement are negative. Past Medical History Past Medical History: Hypertension Additional Past Medical History / Comment(s): chronic back pain DDD History of Any Multi-Drug Resistant Organisms: MRSA Date of last positivie culture/infection: 2011 MDRO Source:: rt knee Past Surgical History: Back Surgery, Orthopedic Surgery Additional Past Surgical History / Comment(s): RIGHT ELBOW, left shoulder Past Anesthesia/Blood Transfusion Reactions: No Reported Reaction Past Psychological History: Anxiety Smoking Status: Current every day smoker Past Alcohol Use History: None Reported Past Drug Use History: None Reported General Exam - General Exam Comments Initial Comments: PHYSICAL EXAM: General Impression: Alert and oriented x3, not in acute distress HEENT: Normocephalic atraumatic, extra-ocular movements intact, pupils equal and reactive to light bilaterally, mucous membranes moist. Cardiovascular: Heart regular rate and rhythm Chest: Able to complete full sentences, no retractions, no tachypnea Abdomen: abdomen soft, non-tender, non-distended, no organomegaly Musculoskeletal: Pulses present and equal in all extremities, no peripheral edema Motor: no focal deficits noted Neurological: CN II-XII grossly intact, no focal motor or sensory deficits noted Skin: Intact with no visualized rashes Psych: Normal affect and mood Limitations: no limitations Course Vital Signs 04/21/23 21:38 Temperature 98.2 F Pulse Rate 106 H Respiratory 20 Rate Blood Pressure 143/105 O2 Sat by Pulse 100 Oximetry EKG Findings - EKG Comments: EKG Findings:: My EKG interpretation: Ventricular rate 90, sinus rhythm,. 151, QRS C5, QTC 398. No RI prolongation, no QTC prolongation, no ST or T-wave changes noted. Overall, this EKG is unremarkable Medical Decision Making - Medical Decision Making Was pt. sent in by a medical professional or institution (TERRY Solis, MARINE SUPERINTENDENT, urgent care, hospital, or senior living...) When possible be specific @ -No Did you speak to anyone other than the patient for history (EMS, parent, family, police, friend...)? What history was obtained from this source @ -No Did you review nursing and triage notes (agree or disagree)? Why? @ -I reviewed and agree with nursing and triage notes Were old charts reviewed (outside hosp., previous admission, EMS record, old EKG, old radiological studies, urgent care reports/EKG's, senior living records)? Report findings @ -No old charts were reviewed Differential Diagnosis (chest pain, altered mental status, abdominal pain women, abdominal pain men, vaginal bleeding, musculoskeletal, weakness, fever, dyspnea, syncope, headache, dizziness, GI bleed, back pain, seizure, CVA, palpatations, mental health)? @ - Differential Palpitations: Ventricular arrhythmias, atrial arrhythmias, myocardial infarction, anemia, thyrotoxicosis, electrolyte imbalance, hypokalemia, pulmonary embolism, pulmonary disease, drugs, alcohol, anxiety, stress.... This is not meant to be an all-inclusive list. EKG interpreted by me (3pts min.). @ -See above X-rays interpreted by me (1pt min.). @ -Chest x-ray is nonacute CT interpreted by me (1pt min.). @ -None done U/S interpreted by me (1pt. min.). @ -None done What testing was considered but not performed or refused? (CT, X-rays, U/S, labs)? Why? @ -None What meds were considered but not given or refused? Why? @ -None Did you discuss the management of the patient with other professionals (saurabh robertson i.e. TERRY Solis, MARINE SUPERINTENDENT, lab, RT, psych nurse, social work lecturer, admiralty lawyer, teacher, loan servicing officer, manager of case)? Give summary @ -No Was smoking cessation discussed for >3mins.? @ -No Was critical care preformed (if so, how long)? @ -No Were there social determinants of health that impacted care today? How? (Homelessness, low income, unemployed, alcoholism, drug addiction, transportation, low edu. Level, literacy, decrease access to med. care, shelter, rehab)? @ -No Was there de-escalation of care discussed even if they declined (Discuss DNR or withdrawal of care, Hospice)? DNR status @ -No What co-morbidities impacted this encounter? (DM, HTN, Smoking, COPD, CAD, Cancer, CVA, ARF, Chemo, Hep., AIDS, mental health diagnosis, sleep apnea, morbid obesity)? @ -None Was patient admitted / discharged? Hospital course, mention meds given and route, prescriptions, significant lab abnormalities, going to OR and other pertinent info. @ -47-year-old male with history of anxiety presents emergency Department with recurrent anxiety attack. Vital signs are stable. Patient states that his symptoms are classic for his usual setting reactions. Took his anxiolytic medications and resolve the symptoms. Patient monitored in the emergency department for approximately 1 hour 30 minutes. Evaluated at bedside 11:06 PM. He is well-appearing. Patient discharged with return precautions. Undiagnosed new problem with uncertain prognosis? @ -No Drug Therapy requiring intensive monitoring for toxicity (Heparin, Nitro, Insulin, Cardizem)? @ -No Were any procedures done? @ -No Diagnosis/symptom? Acute, or Chronic, or Acute on Chronic? Uncomplicated (without systemic symptoms) or Complicated (systemic symptoms)? @ -Anxiety reaction Side effects of treatment? @ -No Exacerbation, Progression, or Severe Exacerbation? @ -No Poses a threat to life or bodily function? How? (Chest pain, [place], [place], pneumonia, PE, COPD, DKA, ARF, appy, cholecystitis, CVA, Diverticulitis, Homicidal, Suicidal, threat to staff... and all critical care pts) @ -No - Lab Data Result diagrams: 04/21/23 21:55 04/21/23 21:55 Lab Results 04/21/23 04/21/23 04/21/23 Range/Units 21:55 21:55 21:55 WBC 6.6 (3.8-10.6) k/uL RBC 4.47 (4.30-5.90) m/uL Hgb 14.2 (13.0-17.5) gm/dL Hct 41.9 (39.0-53.0) % MCV 93.7 (80.0-100.0) fL MCH 31.8 (25.0-35.0) pg MCHC 33.9 (31.0-37.0) g/dL RDW 13.2 (11.5-15.5) % Plt Count 243 (150-450) k/uL MPV 7.5 Neutrophils % 54 % Lymphocytes % 36 % Monocytes % 4 % Eosinophils % 4 % Basophils % 0 % Neutrophils # 3.6 (1.3-7.7) k/uL Lymphocytes # 2.4 (1.0-4.8) k/uL Monocytes # 0.3 (0-1.0) k/uL Eosinophils # 0.3 (0-0.7) k/uL Basophils # 0.0 (0-0.2) k/uL PT 10.2 (9.0-12.0) sec INR 1.0 (<1.2) APTT 23.5 (22.0-30.0) sec Sodium 135 L (137-145) mmol/L Potassium 4.1 (3.5-5.1) mmol/L Chloride 103 (98-107) mmol/L Carbon Dioxide 28 (22-30) mmol/L Anion Gap 4 mmol/L BUN 5 L (9-20) mg/dL Creatinine 0.73 (0.66-1.25) mg/dL Est GFR (CKD-EPI)AfAm >90 (>60 ml/min/1.73 sqM) Est GFR (CKD-EPI)NonAf >90 (>60 ml/min/1.73 sqM) Glucose 102 H (74-99) mg/dL Calcium 8.7 (8.4-10.2) mg/dL Magnesium 1.9 (1.6-2.3) mg/dL Total Bilirubin 0.2 (0.2-1.3) mg/dL AST 28 (17-59) U/L ALT 23 (4-49) U/L Alkaline Phosphatase 94 (38-126) U/L Troponin I (0.000-0.034) ng/mL Total Protein 6.7 (6.3-8.2) g/dL Albumin 3.8 (3.5-5.0) g/dL 04/21/23 Range/Units 21:55 WBC (3.8-10.6) k/uL RBC (4.30-5.90) m/uL Hgb (13.0-17.5) gm/dL Hct (39.0-53.0) % MCV (80.0-100.0) fL MCH (25.0-35.0) pg MCHC (31.0-37.0) g/dL RDW (11.5-15.5) % Plt Count (150-450) k/uL MPV Neutrophils % % Lymphocytes % % Monocytes % % Eosinophils % % Basophils % % Neutrophils # (1.3-7.7) k/uL Lymphocytes # (1.0-4.8) k/uL Monocytes # (0-1.0) k/uL Eosinophils # (0-0.7) k/uL Basophils # (0-0.2) k/uL PT (9.0-12.0) sec INR (<1.2) APTT (22.0-30.0) sec Sodium (137-145) mmol/L Potassium (3.5-5.1) mmol/L Chloride (98-107) mmol/L Carbon Dioxide (22-30) mmol/L Anion Gap mmol/L BUN (9-20) mg/dL Creatinine (0.66-1.25) mg/dL Est GFR (CKD-EPI)AfAm (>60 ml/min/1.73 sqM) Est GFR (CKD-EPI)NonAf (>60 ml/min/1.73 sqM) Glucose (74-99) mg/dL Calcium (8.4-10.2) mg/dL Magnesium (1.6-2.3) mg/dL Total Bilirubin (0.2-1.3) mg/dL AST (17-59) U/L ALT (4-49) U/L Alkaline Phosphatase (38-126) U/L Troponin I <0.012 (0.000-0.034) ng/mL Total Protein (6.3-8.2) g/dL Albumin (3.5-5.0) g/dL Disposition Clinical Impression: Anxiety reaction Disposition: HOME SELF-CARE Condition: Good Instructions (If sedation given, give patient instructions): Anxiety (ED) Is patient prescribed a controlled substance at d/c from ED?: No Referrals: Bryant Orozco MD [Primary Care Provider] - 1-2 days Time of Disposition: 23:07
[2023-04-21 23:13] VITALS: BP 119/86; PULSE 95; RESP 18
== END 2023-04-21 23:23 | disposition home or self-care (01) ==
LOC: EC 21:33
DX: F41.1 Generalized anxiety disorder (principal); I10 Essential (primary) hypertension; F17.200 Nicotine dependence, unspecified, uncomplicated; Z88.2 Allergy status to sulfonamides; Z79.899 Other long term (current) drug therapy
CPT/HCPCS: 36415; 71046; 80053; 83735; 84484; 85025; 85610; 85730; 93005; 99285

== ENCOUNTER 2023-09-05 11:56 | Emergency (ER) | payer OTHER ==
--- NOTE | 2023-09-05 12:38 | ED ---
General Adult HPI - General Stated complaint: back pain panic attack - History of Present Illness Initial comments: Quick note: patient went to see his doctor yesterday to get some blood work done. He states he has a spinal disease and rheumatoid arthritis. He states his doctor sent in the wrong script (morphine instead of percocet) that he can't fill for 20 days. He now does not have the percocet and he is suppose to take the morphine and percocet together. It is bringing him on panic attacks. HPI: see above, no changes - Related Data Home Medications Medication Instructions Recorded Confirmed ALPRAZolam [Xanax] 1 mg PO TID 06/11/14 02/19/21 lisinopriL [Prinivil] 10 mg PO DAILY 06/11/14 02/19/21 Ibuprofen [Motrin] 800 mg PO TID PRN 02/01/18 02/19/21 Morphine Sulfate [Ms Contin] 30 mg PO Q12H 03/26/18 02/19/21 Albuterol Sulfate [Ventolin HFA] 2 puff INHALATION RT-QID PRN 02/19/21 02/19/21 Cyanocobalamin (Vitamin B-12) 2,000 mcg PO DAILY 02/19/21 02/19/21 [Vitamin B-12] Cyclobenzaprine [Flexeril] 10 mg PO TID 02/19/21 02/19/21 DULoxetine HCL [Cymbalta] 30 mg PO DAILY 02/19/21 02/19/21 Simvastatin [Zocor] 20 mg PO HS 02/19/21 02/19/21 oxyCODONE-APAP 10-325MG [Percocet 1 tab PO Q5H PRN 02/19/21 02/19/21 10-325 mg] Previous Rx's Medication Instructions Recorded Ciprofloxacin Ophth Soln [Cipro 2 drops RIGHT EYE Q4HR #5 ml 11/30/21 0.3% Ophth Soln] Allergies Allergy/AdvReac Type Severity Reaction Status Date / Time sulfamethoxazole AdvReac Rapid Verified 09/05/23 12:49 [From Bactrim] Heart Rate trimethoprim [From Bactrim] AdvReac Rapid Verified 09/05/23 12:49 Heart Rate Review of Systems ROS Statement: Those systems with pertinent positive or pertinent negative responses have been documented in the HPI. ROS Other: All systems not noted in ROS Statement are negative. Past Medical History Past Medical History: Hypertension Additional Past Medical History / Comment(s): chronic back pain DDD History of Any Multi-Drug Resistant Organisms: MRSA Date of last positivie culture/infection: 2011 MDRO Source:: rt knee Past Surgical History: Back Surgery, Orthopedic Surgery Additional Past Surgical History / Comment(s): RIGHT ELBOW, left shoulder Past Anesthesia/Blood Transfusion Reactions: No Reported Reaction Past Psychological History: Anxiety Smoking Status: Current every day smoker Past Alcohol Use History: None Reported Past Drug Use History: None Reported General Exam General appearance: alert, in no apparent distress Head exam: Present: atraumatic Eye exam: Present: normal appearance, PERRL, EOMI. Absent: scleral icterus, conjunctival injection ENT exam: Present: normal exam, mucous membranes moist Neck exam: Present: normal inspection Respiratory exam: Present: normal lung sounds bilaterally. Absent: respiratory distress, wheezes Cardiovascular Exam: Present: regular rate, normal rhythm, normal heart sounds Neurological exam: Present: alert Course Vital Signs 09/05/23 12:46 Temperature 98.7 F Pulse Rate 102 H Respiratory 20 Rate Blood Pressure 127/93 O2 Sat by Pulse 99 Oximetry Medical Decision Making - Medical Decision Making Was pt. sent in by a medical professional or institution (, PA, NEWSROOM INTERN, urgent care, hospital, or halfway...) When possible be specific @ -none Did you speak to anyone other than the patient for history (EMS, parent, family, police, friend...)? What history was obtained from this source @ -No Did you review nursing and triage notes (agree or disagree)? Why? @ -I reviewed and agree with nursing and triage notes Were old charts reviewed (outside hosp., previous admission, EMS record, old EKG, old radiological studies, urgent care reports/EKG's, halfway records)? Report findings @ -No old charts were reviewed Differential Diagnosis (chest pain, altered mental status, abdominal pain women, abdominal pain men, vaginal bleeding, weakness, fever, dyspnea, syncope, headache, dizziness, GI bleed, back pain, seizure, CVA, palpatations, mental health)? @ -not applicable EKG interpreted by me (3pts min.). @ -none X-rays interpreted by me (1pt min.). @ -None done CT interpreted by me (1pt min.). @ -None done U/S interpreted by me (1pt. min.). @ -None done What testing was considered but not performed or refused? (CT, X-rays, U/S, labs)? Why? @ -Xrays but pain is chronic What meds were considered but not given or refused? Why? @ -None Did you discuss the management of the patient with other professionals (professionals i.e. , PA, NEWSROOM INTERN, lab, RT, psych nurse, manager social responsibility, assistant account manager, teacher, navy airspace officer, caser)? Give summary @ -No Was smoking cessation discussed for >3mins.? @ -No Was critical care preformed (if so, how long)? @ -No Were there social determinants of health that impacted care today? How? (Homelessness, low income, unemployed, alcoholism, drug addiction, transportation, low edu. Level, literacy, decrease access to med. care, alf, rehab)? @ -No Was there de-escalation of care discussed even if they declined (Discuss DNR or withdrawal of care, Hospice)? DNR status @ -No What co-morbidities impacted this encounter? (DM, HTN, Smoking, COPD, CAD, Cancer, CVA, ARF, Chemo, Hep., AIDS, mental health diagnosis, sleep apnea, morbid obesity)? @ -None Was patient admitted / discharged? Hospital course, mention meds given and route, prescriptions, significant lab abnormalities, going to OR and other pertinent info. @ -patient seen and examined. discussed we could give him one 5 mg of percocet here today, not able to give an Rx for chronic pain. Discgarged home. Undiagnosed new problem with uncertain prognosis? @ -No Drug Therapy requiring intensive monitoring for toxicity (Heparin, Nitro, Insulin, Cardizem)? @ -No Were any procedures done? @ -No Diagnosis/symptom? @ -chronic pain. Acute, or Chronic, or Acute on Chronic? @ -chronic Uncomplicated (without systemic symptoms) or Complicated (systemic symptoms)? @ -uncomplicated Side effects of treatment? @ -No Exacerbation, Progression, or Severe Exacerbation? @ -No Poses a threat to life or bodily function? How? (Chest pain, [place], [place], pneumonia, PE, COPD, DKA, ARF, appy, cholecystitis, CVA, Diverticulitis, Homicidal, Suicidal, threat to staff... and all critical care pts) @ -No Disposition Clinical Impression: Chronic pain Disposition: HOME SELF-CARE Condition: Good Instructions (If sedation given, give patient instructions): Chronic Back Pain (DC) Additional Instructions: Please follow up with PCP Thursday Is patient prescribed a controlled substance at d/c from ED?: No Referrals: Bryant Orozco MD [Primary Care Provider] - 1-2 days Time of Disposition: 13:24
[2023-09-05] MEDS ORDERED: oxyCODONE-APAP 5-325MG 1 EACH TAB PO STA (12:39)
[2023-09-05 14:20] VITALS: BP 120/74; PULSE 91; RESP 18; TEMP 98.3
== END 2023-09-05 14:39 | disposition home or self-care (01) ==
LOC: EC 11:56
DX: G89.29 Other chronic pain (principal); M54.9 Dorsalgia, unspecified; I10 Essential (primary) hypertension; F41.9 Anxiety disorder, unspecified; F17.200 Nicotine dependence, unspecified, uncomplicated; Z79.899 Other long term (current) drug therapy; Z88.2 Allergy status to sulfonamides
CPT/HCPCS: 99283

== ENCOUNTER 2023-09-06 10:45 | Emergency (ER) | payer OTHER ==
[2023-09-06 11:49] VITALS: BP 122/90; PULSE 106; RESP 20; TEMP 98
[2023-09-06] MEDS ORDERED: oxyCODONE-APAP 10-325MG 1 EACH TAB PO STA (11:57)
--- NOTE | 2023-09-06 11:58 | ED ---
General Adult HPI - General Chief complaint: Recheck/Abnormal Lab/Rx Stated complaint: SOB,chest pain Time Seen by Provider: 09/06/23 11:38 Source: patient, RN notes reviewed Mode of arrival: ambulatory Limitations: no limitations - History of Present Illness Initial comments: 48-year-old male presents emergency Department with chief complaint of pain. Patient has chronic pain issues. Patient does see Dr. Orozco for this. Patient states that he is due for his prescription. He states that his last visit she forgot to grab his next prescription and states due to 31 days a month he does not have his pain meds. Patient is due to the tomorrow. He denies any new injuries. - Related Data Home Medications Medication Instructions Recorded Confirmed ALPRAZolam [Xanax] 1 mg PO TID 06/11/14 02/19/21 lisinopriL [Prinivil] 10 mg PO DAILY 06/11/14 02/19/21 Ibuprofen [Motrin] 800 mg PO TID PRN 02/01/18 02/19/21 Morphine Sulfate [Ms Contin] 30 mg PO Q12H 03/26/18 02/19/21 Albuterol Sulfate [Ventolin HFA] 2 puff INHALATION RT-QID PRN 02/19/21 02/19/21 Cyanocobalamin (Vitamin B-12) 2,000 mcg PO DAILY 02/19/21 02/19/21 [Vitamin B-12] Cyclobenzaprine [Flexeril] 10 mg PO TID 02/19/21 02/19/21 DULoxetine HCL [Cymbalta] 30 mg PO DAILY 02/19/21 02/19/21 Simvastatin [Zocor] 20 mg PO HS 02/19/21 02/19/21 oxyCODONE-APAP 10-325MG [Percocet 1 tab PO Q5H PRN 02/19/21 02/19/21 10-325 mg] Previous Rx's Medication Instructions Recorded Ciprofloxacin Ophth Soln [Cipro 2 drops RIGHT EYE Q4HR #5 ml 11/30/21 0.3% Ophth Soln] Allergies Allergy/AdvReac Type Severity Reaction Status Date / Time sulfamethoxazole AdvReac Rapid Verified 09/06/23 11:27 [From Bactrim] Heart Rate trimethoprim [From Bactrim] AdvReac Rapid Verified 09/06/23 11:27 Heart Rate Review of Systems ROS Statement: Those systems with pertinent positive or pertinent negative responses have been documented in the HPI. ROS Other: All systems not noted in ROS Statement are negative. Past Medical History Past Medical History: Hypertension Additional Past Medical History / Comment(s): chronic back pain DDD History of Any Multi-Drug Resistant Organisms: MRSA Date of last positivie culture/infection: 2011 MDRO Source:: rt knee Past Surgical History: Back Surgery, Orthopedic Surgery Additional Past Surgical History / Comment(s): RIGHT ELBOW, left shoulder Past Anesthesia/Blood Transfusion Reactions: No Reported Reaction Past Psychological History: Anxiety Smoking Status: Current every day smoker Past Alcohol Use History: None Reported Past Drug Use History: None Reported General Exam Limitations: no limitations General appearance: alert, in no apparent distress Head exam: Present: atraumatic, normocephalic, normal inspection Respiratory exam: Present: normal lung sounds bilaterally. Absent: respiratory distress, wheezes, rales, rhonchi, stridor Cardiovascular Exam: Present: regular rate, normal rhythm, normal heart sounds. Absent: systolic murmur, diastolic murmur, rubs, gallop, clicks Course Vital Signs 09/06/23 11:25 Temperature 98 F Pulse Rate 106 H Respiratory 20 Rate Blood Pressure 122/90 O2 Sat by Pulse 99 Oximetry Medical Decision Making - Medical Decision Making Was pt. sent in by a medical professional or institution (, PA, WILD ANIMAL CARETAKER, urgent care, hospital, or [facility]...) When possible be specific @ -No Did you speak to anyone other than the patient for history (EMS, parent, family, police, friend...)? What history was obtained from this source @ -No Did you review nursing and triage notes (agree or disagree)? Why? @ -I reviewed and agree with nursing and triage notes Were old charts reviewed (outside hosp., previous admission, EMS record, old EKG, old radiological studies, urgent care reports/EKG's, [facility] records)? Report findings @ -[Reviewed charts from yesterday. Differential Diagnosis (chest pain, altered mental status, abdominal pain women, abdominal pain men, vaginal bleeding, weakness, fever, dyspnea, syncope, headache, dizziness, GI bleed, back pain, seizure, CVA, palpatations, mental health, musculoskeletal)? @ -Chronic pain, back pain EKG interpreted by me (3pts min.). @ -None X-rays interpreted by me (1pt min.). @ -None done CT interpreted by me (1pt min.). @ -None done U/S interpreted by me (1pt. min.). @ -None done What testing was considered but not performed or refused? (CT, X-rays, U/S, labs)? Why? @ -None What meds were considered but not given or refused? Why? @ -None Did you discuss the management of the patient with other professionals (professionals i.e. Dr., PA, WILD ANIMAL CARETAKER, lab, RT, psych nurse, social media marketing specialist, sheet tester, teacher, officer captain, case planner)? Give summary @ -No Was smoking cessation discussed for >3mins.? @ -No Was critical care preformed (if so, how long)? @ -No Were there social determinants of health that impacted care today? How? (Homelessness, low income, unemployed, alcoholism, drug addiction, transportation, low edu. Level, literacy, decrease access to med. care, [facility], rehab)? @ -No Was there de-escalation of care discussed even if they declined (Discuss DNR or withdrawal of care, Hospice)? DNR status @ -No What co-morbidities impacted this encounter? (DM, HTN, Smoking, COPD, CAD, Cancer, CVA, ARF, Chemo, Hep., AIDS, mental health diagnosis, sleep apnea, morbid obesity)? @ -None Was patient admitted / discharged? Hospital course, mention meds given and route, prescriptions, significant lab abnormalities, going to OR and other pertinent info. @ -[Discharge patient is to get prescription tomorrow for his pain meds. Undiagnosed new problem with uncertain prognosis? @ -No Drug Therapy requiring intensive monitoring for toxicity (Heparin, Nitro, In sulin, Cardizem)? @ -No Were any procedures done? @ -No Diagnosis/symptom? @ -[Chronic pain Acute, or Chronic, or Acute on Chronic? @ -Acute Uncomplicated (without systemic symptoms) or Complicated (systemic symptoms)? @ -Uncomplicated Side effects of treatment? @ -No Exacerbation, Progression, or Severe Exacerbation? @ -No Poses a threat to life or bodily function? How? (Chest pain, [place], [place], pneumonia, PE, COPD, DKA, ARF, appy, cholecystitis, CVA, Diverticulitis, Homicidal, Suicidal, threat to staff... and all critical care pts) @ -No Disposition Clinical Impression: Chronic pain Disposition: HOME SELF-CARE Condition: Stable Additional Instructions: Please return to the Emergency Department if symptoms worsen or any other concerns. Is patient prescribed a controlled substance at d/c from ED?: No Referrals: Bryant Orozco MD [Primary Care Provider] - 1-2 days Time of Disposition: 11:58
== END 2023-09-06 12:03 | disposition home or self-care (01) ==
LOC: EC 10:45
DX: G89.29 Other chronic pain (principal); M54.9 Dorsalgia, unspecified; I10 Essential (primary) hypertension; F41.9 Anxiety disorder, unspecified; F17.200 Nicotine dependence, unspecified, uncomplicated; Z79.899 Other long term (current) drug therapy; Z88.2 Allergy status to sulfonamides; Z88.8 Allergy status to other drugs, medicaments and biological substances
CPT/HCPCS: 99284

== ENCOUNTER 2023-09-06 17:14 | Emergency (ER) | payer OTHER ==
[2023-09-06 17:29] VITALS: BP 140/91; PULSE 107; RESP 20; TEMP 98
--- NOTE | 2023-09-06 17:39 | ED ---
General Adult HPI - General Chief complaint: Recheck/Abnormal Lab/Rx Stated complaint: recheck/abnormal labs Time Seen by Provider: 09/06/23 17:27 Source: patient Mode of arrival: ambulatory Limitations: no limitations - History of Present Illness Initial comments: Dictation was produced using Pins dictation software. please excuse any grammatical, word or spelling errors. Chief Complaint: 48-year-old male presents emergency department requesting Percocet History of Present Illness: Is 48-year-old male requesting Percocet. States that he does not have a refill on his Percocet medications until tomorrow. States that his primary care doctor is Dr. Orozco and he was not able to fill his prescriptions of time. Over the weekend is been without his pain medications. He states he has a rare form of degenerative disc disease which is clemente prescribed narcotics. Patient otherwise has no other complaints. The ROS documented in this emergency department record has been reviewed and confirmed by me. Those systems with pertinent positive or negative responses have been documented in the HPI. All other systems are other negative and/or noncontributory. - Related Data Home Medications Medication Instructions Recorded Confirmed ALPRAZolam [Xanax] 1 mg PO TID 06/11/14 02/19/21 lisinopriL [Prinivil] 10 mg PO DAILY 06/11/14 02/19/21 Ibuprofen [Motrin] 800 mg PO TID PRN 02/01/18 02/19/21 Morphine Sulfate [Ms Contin] 30 mg PO Q12H 03/26/18 02/19/21 Albuterol Sulfate [Ventolin HFA] 2 puff INHALATION RT-QID PRN 02/19/21 02/19/21 Cyanocobalamin (Vitamin B-12) 2,000 mcg PO DAILY 02/19/21 02/19/21 [Vitamin B-12] Cyclobenzaprine [Flexeril] 10 mg PO TID 02/19/21 02/19/21 DULoxetine HCL [Cymbalta] 30 mg PO DAILY 02/19/21 02/19/21 Simvastatin [Zocor] 20 mg PO HS 02/19/21 02/19/21 oxyCODONE-APAP 10-325MG [Percocet 1 tab PO Q5H PRN 06/22/21 06/22/21 10-325 mg] Previous Rx's Medication Instructions Recorded Ciprofloxacin Ophth Soln [Cipro 2 drops RIGHT EYE Q4HR #5 ml 11/30/21 0.3% Ophth Soln] Allergies Allergy/AdvReac Type Severity Reaction Status Date / Time sulfamethoxazole AdvReac Rapid Verified 09/06/23 17:24 [From Bactrim] Heart Rate trimethoprim [From Bactrim] AdvReac Rapid Verified 09/06/23 17:24 Heart Rate Review of Systems ROS Statement: Those systems with pertinent positive or pertinent negative responses have been documented in the HPI. ROS Other: All systems not noted in ROS Statement are negative. Past Medical History Past Medical History: Hypertension Additional Past Medical History / Comment(s): chronic back pain DDD History of Any Multi-Drug Resistant Organisms: MRSA Date of last positivie culture/infection: 2011 MDRO Source:: rt knee Past Surgical History: Back Surgery, Orthopedic Surgery Additional Past Surgical History / Comment(s): RIGHT ELBOW, left shoulder Past Anesthesia/Blood Transfusion Reactions: No Reported Reaction Past Psychological History: Anxiety Smoking Status: Current every day smoker Past Alcohol Use History: None Reported Past Drug Use History: None Reported General Exam - General Exam Comments Initial Comments: General: Well-appearing, nontoxic, no acute distress. Head: Normocephalic, atraumatic Eyes: PERRLA, EOMI ENT: Airway patent Chest: Nonlabored breathing Skin: No visual rash, normal skin tone Neuro: Alert and oriented 3 Musculoskeletal: No gross abnormalities Limitations: no limitations Course Vital Signs 09/06/23 17:23 Temperature 98 F Pulse Rate 107 H Respiratory 20 Rate Blood Pressure 140/91 O2 Sat by Pulse 99 Oximetry Medical Decision Making - Medical Decision Making Was pt. sent in by a medical professional or institution (, PA, YACHT MASTER, urgent care, hospital, or alf...) When possible be specific @ -No Did you speak to anyone other than the patient for history (EMS, parent, family, police, friend...)? What history was obtained from this source @ -No Did you review nursing and triage notes (agree or disagree)? Why? @ -I reviewed and agree with nursing and triage notes Were old charts reviewed (outside hosp., previous admission, EMS record, old EKG, old radiological studies, urgent care reports/EKG's, alf records)? Report findings @ -No old charts were reviewed Differential Diagnosis (chest pain, altered mental status, abdominal pain women, abdominal pain men, vaginal bleeding, musculoskeletal, weakness, fever, dyspnea, syncope, headache, dizziness, GI bleed, back pain, seizure, CVA, palpatations, mental health)? @ -not applicable EKG interpreted by me (3pts min.). @ -None done X-rays interpreted by me (1pt min.). @ -None done CT interpreted by me (1pt min.). @ -None done U/S interpreted by me (1pt. min.). @ -None done What testing was considered but not performed or refused? (CT, X-rays, U/S, labs)? Why? @ -None What meds were considered but not given or refused? Why? @ -None Did you discuss the management of the patient with other professionals (professionals i.e. , PA, YACHT MASTER, lab, RT, psych nurse, social welfare clerk, crm manager, teacher, property portfolio officer, bilingual case manager)? Give summary @ -No Was smoking cessation discussed for >3mins.? @ -No Was critical care preformed (if so, how long)? @ -No Were there social determinants of health that impacted care today? How? (Homele ssness, low income, unemployed, alcoholism, drug addiction, transportation, low edu. Level, literacy, decrease access to med. care, [facility], rehab)? @ -No Was there de-escalation of care discussed even if they declined (Discuss DNR or withdrawal of care, Hospice)? DNR status @ -No What co-morbidities impacted this encounter? (DM, HTN, Smoking, COPD, CAD, Cancer, CVA, ARF, Chemo, Hep., AIDS, mental health diagnosis, sleep apnea, morbid obesity)? @ -None Was patient admitted / discharged? Hospital course, mention meds given and route, prescriptions, significant lab abnormalities, going to OR and other pertinent info. @ -48 Year-old male presents emergency department requesting Percocet. This is his third visit here in the last 48 hours. He was here earlier today same complaint. Patient offered a Percocet however he is unable to confirm that she has a ride after his discharge. Patient told to take [id number] Tylenol and Motrin. Clinical presentation suspicious for narcotic dependence Undiagnosed new problem with uncertain prognosis? @ -No Drug Therapy requiring intensive monitoring for toxicity (Heparin, Nitro, Insulin, Cardizem)? @ -No Were any procedures done? @ -No Diagnosis/symptom? Acute, or Chronic, or Acute on Chronic? Uncomplicated (without systemic symptoms) or Complicated (systemic symptoms)? @ -Narcotic dependence Side effects of treatment? @ -No Exacerbation, Progression, or Severe Exacerbation? @ -No Poses a threat to life or bodily function? How? (Chest pain, [place], [place], pneumonia, PE, COPD, DKA, ARF, appy, cholecystitis, CVA, Diverticulitis, Homicidal, Suicidal, threat to staff... and all critical care pts) @ -No Disposition Clinical Impression: Chronic pain Disposition: HOME SELF-CARE Condition: Good Instructions (If sedation given, give patient instructions): Opioid Use Disorder (ED) Is patient prescribed a controlled substance at d/c from ED?: No Referrals: None,Stated [Primary Care Provider] - 1-2 days Time of Disposition: 17:38
== END 2023-09-06 17:45 | disposition home or self-care (01) ==
LOC: EC 17:14
DX: G89.29 Other chronic pain (principal); F11.20 Opioid dependence, uncomplicated; I10 Essential (primary) hypertension; F41.9 Anxiety disorder, unspecified; F17.200 Nicotine dependence, unspecified, uncomplicated; Z88.1 Allergy status to other antibiotic agents; Z88.2 Allergy status to sulfonamides; Z79.899 Other long term (current) drug therapy
CPT/HCPCS: 99282

== ENCOUNTER 2023-09-07 07:41 | Emergency (ER) | payer OTHER ==
[2023-09-07] MEDS ORDERED: KETOROLAC 15 MG/ML 1 ML VIAL IM STA (07:46)
--- NOTE | 2023-09-07 07:50 | ED ---
Back Pain HPI - General Chief Complaint: Back Pain/Injury Stated Complaint: Arthritis Time Seen by Provider: 09/07/23 07:46 Source: patient, RN notes reviewed Limitations: no limitations - History of Present Illness Initial Comments: 48-year-old male presents emergency Department requesting chronic pain meds. Patient has been seen here for the past 2 days secondary stating his prescription ran out is a 31 days in the month. Patient was seen here yesterday and advised that he had to see his PCP in which he did not follow-up with PCP today. Patient denies any new injuries. Patient states he takes Percocet 10/325 4 times daily along with MS Contin. Patient denies any bowel, bladder incontinence or retention. - Related Data Home Medications Medication Instructions Recorded Confirmed ALPRAZolam [Xanax] 1 mg PO TID 06/11/14 02/19/21 lisinopriL [Prinivil] 10 mg PO DAILY 06/11/14 02/19/21 Ibuprofen [Motrin] 800 mg PO TID PRN 02/01/18 02/19/21 Morphine Sulfate [Ms Contin] 30 mg PO Q12H 03/26/18 02/19/21 Albuterol Sulfate [Ventolin HFA] 2 puff INHALATION RT-QID PRN 02/19/21 02/19/21 Cyanocobalamin (Vitamin B-12) 2,000 mcg PO DAILY 02/19/21 02/19/21 [Vitamin B-12] Cyclobenzaprine [Flexeril] 10 mg PO TID 02/19/21 02/19/21 DULoxetine HCL [Cymbalta] 30 mg PO DAILY 02/19/21 02/19/21 Simvastatin [Zocor] 20 mg PO HS 02/19/21 02/19/21 oxyCODONE-APAP 10-325MG [Percocet 1 tab PO Q5H PRN 02/19/21 02/19/21 10-325 mg] Previous Rx's Medication Instructions Recorded Ciprofloxacin Ophth Soln [Cipro 2 drops RIGHT EYE Q4HR #5 ml 11/30/21 0.3% Ophth Soln] Allergies Allergy/AdvReac Type Severity Reaction Status Date / Time sulfamethoxazole AdvReac Rapid Verified 09/07/23 07:46 [From Bactrim] Heart Rate trimethoprim [From Bactrim] AdvReac Rapid Verified 09/07/23 07:46 Heart Rate Review of Systems ROS Statement: Those systems with pertinent positive or pertinent negative responses have been documented in the HPI. ROS Other: All systems not noted in ROS Statement are negative. Past Medical History Past Medical History: Hypertension Additional Past Medical History / Comment(s): chronic back pain DDD History of Any Multi-Drug Resistant Organisms: MRSA Date of last positivie culture/infection: 2011 MDRO Source:: rt knee Past Surgical History: Back Surgery, Orthopedic Surgery Additional Past Surgical History / Comment(s): RIGHT ELBOW, left shoulder Past Anesthesia/Blood Transfusion Reactions: No Reported Reaction Past Psychological History: Anxiety Smoking Status: Current every day smoker Past Alcohol Use History: None Reported Past Drug Use History: None Reported General Exam Limitations: no limitations General appearance: alert, in no apparent distress Head exam: Present: atraumatic, normocephalic, normal inspection Respiratory exam: Present: normal lung sounds bilaterally. Absent: respiratory distress, wheezes, rales, rhonchi, stridor Cardiovascular Exam: Present: regular rate, normal rhythm, normal heart sounds. Absent: systolic murmur, diastolic murmur, rubs, gallop, clicks Course Vital Signs 09/07/23 07:43 Temperature 98.1 F Pulse Rate 106 H Respiratory 18 Rate Blood Pressure 138/90 O2 Sat by Pulse 96 Oximetry Medical Decision Making - Medical Decision Making Was pt. sent in by a medical professional or institution (, PA, ASSOCIATE PROFESSOR OF MUSICOLOGY, urgent care, hospital, or prison...) When possible be specific @ -No Did you speak to anyone other than the patient for history (EMS, parent, family, police, friend...)? What history was obtained from this source @ -No Did you review nursing and triage notes (agree or disagree)? Why? @ -I reviewed and agree with nursing and triage notes Were old charts reviewed (outside hosp., previous admission, EMS record, old EKG, old radiological studies, urgent care reports/EKG's, prison records)? Report findings @ -Reviewed prior studies Differential Diagnosis (chest pain, altered mental status, abdominal pain women, abdominal pain men, vaginal bleeding, weakness, fever, dyspnea, syncope, headache, dizziness, GI bleed, back pain, seizure, CVA, palpatations, mental health, musculoskeletal)? @ -Chronic pain, back pain EKG interpreted by me (3pts min.). @ -None X-rays interpreted by me (1pt min.). @ -None done CT interpreted by me (1pt min.). @ -None done U/S interpreted by me (1pt. min.). @ -None done What testing was considered but not performed or refused? (CT, X-rays, U/S, labs)? Why? @ -None What meds were considered but not given or refused? Why? @ -None Did you discuss the management of the patient with other professionals (professionals i.e. DrAdelia, PA, ASSOCIATE PROFESSOR OF MUSICOLOGY, lab, RT, psych nurse, social work lecturer, alumina plant supervisor, teacher, district resource officer, case management coordinator)? Give summary @ -No Was smoking cessation discussed for >3mins.? @ -No Was critical care preformed (if so, how long)? @ -No Were there social determinants of health that impacted care today? How? (Ambrosio elessness, low income, unemployed, alcoholism, drug addiction, transportation, low edu. Level, literacy, decrease access to med. care, long term, rehab)? @ -No Was there de-escalation of care discussed even if they declined (Discuss DNR or withdrawal of care, Hospice)? DNR status @ -No What co-morbidities impacted this encounter? (DM, HTN, Smoking, COPD, CAD, Cancer, CVA, ARF, Chemo, Hep., AIDS, mental health diagnosis, sleep apnea, morbid obesity)? @ -Chronic pain Was patient admitted / discharged? Hospital course, mention meds given and route, prescriptions, significant lab abnormalities, going to OR and other pertinent info. @ -Discharged patient was advised yesterday they need to follow-up with his PCP for pain meds patient stated that he would follow-up presented today requesting further pain meds. Patient has no new injuries she has no red flag symptoms he'll be discharged after Toradol and he is advised that he has to see his PCP for any pain meds. Undiagnosed new problem with uncertain prognosis? @ -No Drug Therapy requiring intensive monitoring for toxicity (Heparin, Nitro, Insulin, Cardizem)? @ -No Were any procedures done? @ -No Diagnosis/symptom? @ -Chronic pain Acute, or Chronic, or Acute on Chronic? @ -[Chronic Uncomplicated (without systemic symptoms) or Complicated (systemic symptoms)? @ -uncomplicated Side effects of treatment? @ -No Exacerbation, Progression, or Severe Exacerbation? @ -No Poses a threat to life or bodily function? How? (Chest pain, [place], [place], pneumonia, PE, COPD, DKA, ARF, appy, cholecystitis, CVA, Diverticulitis, Homicidal, Suicidal, threat to staff... and all critical care pts) @ -No Disposition Clinical Impression: Chronic pain Disposition: HOME SELF-CARE Condition: Stable Additional Instructions: You need to follow up with your PCP today regarding pain meds. Please return to the Emergency Department if symptoms worsen or any other concerns. Is patient prescribed a controlled substance at d/c from ED?: No Referrals: Bryant Orozco MD [Primary Care Provider] - 1-2 days Time of Disposition: 07:49
[2023-09-07 07:53] VITALS: BP 138/90; RESP 18; TEMP 98.1
[2023-09-07 08:43] VITALS: PULSE 98
== END 2023-09-07 08:23 | disposition home or self-care (01) ==
LOC: EC 07:41
DX: G89.29 Other chronic pain (principal); M54.9 Dorsalgia, unspecified; I10 Essential (primary) hypertension; F41.9 Anxiety disorder, unspecified; F17.200 Nicotine dependence, unspecified, uncomplicated; Z79.899 Other long term (current) drug therapy; Z88.2 Allergy status to sulfonamides; Z88.1 Allergy status to other antibiotic agents
CPT/HCPCS: 99284; 96372; J1885

== ENCOUNTER 2023-09-16 17:42 | Emergency (ER) | payer OTHER ==
--- NOTE | 2023-09-16 17:57 | ED ---
General Adult HPI - General Source: patient, RN notes reviewed Mode of arrival: ambulatory Limitations: no limitations <Silvana Pradhan - Last Filed: 09/16/23 17:56> - History of Present Illness Onset/Timin -: days(s) Location: chest Quality: other (Tight) Consistency: intermittent Improves with: none Worsens with: none Associated Symptoms: other (Anxiety) Treatments Prior to Arrival: other (Xanax) <Gilmer Garay - Last Filed: 09/28/23 01:21> - General Chief complaint: Chest Pain Stated complaint: chest pain x1wk Time Seen by Provider: 09/16/23 17:45 - History of Present Illness Initial comments: 48-year-old male presents to the emergency department for evaluation of increasing anxiety, chest pressure and left arm numbness. He states that increased anxiety has been going on for around one week. He reports taking 2 Xanax today. (Silvana Pradhan) Patient is a 48-year-old man presenting to have evaluation of anxiety. He states that associated with this he has been having a tight sensation in the chest and also his arms feel tingly. He states that things have been flaring up for a number of days now. He does have improvement when he takes Xanax. (Gilmer Garay) - Related Data Home Medications Medication Instructions Recorded Confirmed Morphine Sulfate [Ms Contin] 30 mg PO Q12H 03/26/18 09/16/23 Albuterol Sulfate [Ventolin HFA] 2 puff INHALATION RT-QID PRN 02/19/21 09/16/23 Cyclobenzaprine [Flexeril] 10 mg PO TID 02/19/21 09/16/23 Simvastatin [Zocor] 20 mg PO HS 02/19/21 09/16/23 oxyCODONE-APAP 10-325MG [Percocet 1 tab PO Q6H 02/19/21 09/16/23 10-325 mg] ALPRAZolam [Xanax] 0.5 mg PO QID 09/16/23 09/16/23 Metoprolol Tartrate [Lopressor] 25 mg PO HS 09/16/23 09/16/23 Naloxone HCl [Narcan] 4 mg NASAL ONCE PRN 09/16/23 09/16/23 Unknown Mood Medication 1 dose PO DIRECTED 09/16/23 09/16/23 lisinopriL [Zestril] 20 mg PO HS 09/16/23 09/16/23 Allergies Allergy/AdvReac Type Severity Reaction Status Date / Time sulfamethoxazole Allergy Hives, Verified 09/20/23 12:07 [From Bactrim] felt like he was "boiling up" trimethoprim [From Bactrim] Allergy Hives, Verified 09/20/23 12:07 felt like he was "boiling up" Review of Systems ROS Other: All systems not noted in ROS Statement are negative. <Silvana Pradhan - Last Filed: 09/16/23 17:56> ROS Other: All systems not noted in ROS Statement are negative. Constitutional: Denies: fever, chills Respiratory: Denies: cough, dyspnea Cardiovascular: Reports: chest pain. Denies: palpitations, orthopnea, syncope Gastrointestinal: Denies: abdominal pain, nausea, vomiting Genitourinary: Denies: dysuria, hematuria Musculoskeletal: Denies: back pain Skin: Denies: rash Neurological: Denies: headache, weakness Psychiatric: Reports: anxiety <Gilmer Garay - Last Filed: 09/28/23 01:21> ROS Statement: Those systems with pertinent positive or pertinent negative responses have been documented in the HPI. Past Medical History Past Medical History: Hypertension Additional Past Medical History / Comment(s): chronic back pain DDD History of Any Multi-Drug Resistant Organisms: MRSA Date of last positivie culture/infection: 2011 MDRO Source:: rt knee Past Surgical History: Back Surgery, Orthopedic Surgery Additional Past Surgical History / Comment(s): RIGHT ELBOW, left shoulder Past Anesthesia/Blood Transfusion Reactions: No Reported Reaction Past Psychological History: Anxiety Smoking Status: Current every day smoker Past Alcohol Use History: None Reported Past Drug Use History: None Reported <Silvana Pradhan - Last Filed: 09/16/23 17:56> General Exam Limitations: no limitations <Silvana Pradhan - Last Filed: 09/16/23 17:56> Limitations: no limitations General appearance: alert, anxious Head exam: Present: atraumatic, normocephalic Eye exam: Present: normal appearance. Absent: scleral icterus, conjunctival injection Neck exam: Present: normal inspection Respiratory exam: Present: normal lung sounds bilaterally. Absent: respiratory distress, wheezes, rales, rhonchi, stridor Cardiovascular Exam: Present: regular rate, normal rhythm, normal heart sounds. Absent: systolic murmur, diastolic murmur, rubs, gallop GI/Abdominal exam: Present: soft. Absent: distended, tenderness, guarding, rebound, rigid, mass Extremities exam: Present: normal inspection, normal capillary refill. Absent: pedal edema, calf tenderness Back exam: Present: normal inspection. Absent: CVA tenderness (R), CVA tende rness (L) Neurological exam: Present: alert Psychiatric exam: Present: anxious. Absent: depressed, suicidal ideation Skin exam: Present: warm, dry, intact, normal color. Absent: rash <Gilmer Garay - Last Filed: 09/28/23 01:21> - General Exam Comments Initial Comments: Visual Physical Exam Vital signs reviewed General: Well-appearing, nontoxic, no acute distress. Head: Normocephalic, atraumatic Eyes: PERRLA, EOMI ENT: Airway patent Chest: Nonlabored breathing Skin: No visual rash, normal skin tone Neuro: Alert and oriented 3 Musculoskeletal: No gross abnormalities (Silvana Pradhan) Course Vital Signs 09/16/23 09/17/23 17:48 01:28 Temperature 98.2 F Pulse Rate 114 H 80 Respiratory 18 19 Rate Blood Pressure 136/93 136/80 O2 Sat by Pulse 95 98 Oximetry EKG Findings - EKG Results: EKG: interpreted by ERMD, sinus rhythm (Rate 106 bpm), normal axis, normal QRS, normal ST/T, no acute changes <Gilmer Garay - Last Filed: 09/28/23 01:21> Medical Decision Making <Silvana Pradhan - Last Filed: 09/16/23 17:56> - Lab Data Result diagrams: 09/16/23 17:59 09/16/23 17:59 <Gilmer Garay - Last Filed: 09/28/23 01:21> - Medical Decision Making Quick note preformed by Silvana Pradhan PA-C (Silvana Pradhan) Patient had chest x-ray which interpreted as negative for acute infiltrate, pneumothorax, congestive heart failure Was pt. sent in by a medical professional or institution ([facility], BEARING PRESS MACHINE OPERATOR, urgent care, hospital, or [facility]...) When possible be specific @ -[No] Did you speak to anyone other than the patient for history (EMS, parent, family, police, friend...)? What history was obtained from this source @ -[No] Did you review nursing and triage notes (agree or disagree)? Why? @ -[I reviewed and agree with nursing and triage notes] Were old charts reviewed (outside hosp., previous admission, EMS record, old EKG, old radiological studies, urgent care reports/EKG's, [facility] records)? Report findings @ -[No old charts were reviewed] Differential Diagnosis (chest pain, altered mental status, abdominal pain women, abdominal pain men, vaginal bleeding, weakness, fever, dyspnea, syncope, headache, dizziness, GI bleed, back pain, seizure, CVA, palpatations, mental health, musculoskeletal)? @ -[Differential Chest Pain: Stable Angina, Unstable Angina, STEMI, NSTEMI Aortic Dissection, Pneumothorax, Musculoskeletal, Esophageal Spasm GERD, Cholecystitis, Pancreatitis, Zoster, this is not meant to be an all-inclusive list. EKG interpreted by me (3pts min.). @ -[I interpreted as above] X-rays interpreted by me (1pt min.). @ -[I interpreted as above CT interpreted by me (1pt min.). @ -[None done] U/S interpreted by me (1pt. min.). @ -[None done] What testing was considered but not performed or refused? (CT, X-rays, U/S, labs)? Why? @ -[None] What meds were considered but not given or refused? Why? @ -[None] Did you discuss the management of the patient with other professionals (professionals i.e. , PA, BEARING PRESS MACHINE OPERATOR, lab, RT, psych nurse, social and human services assistant, inspector rubber stamp die, t eacher, employee service officer, correctional casework specialist)? Give summary @ -[No] Was smoking cessation discussed for >3mins.? @ -[No] Was critical care preformed (if so, how long)? @ -[No] Were there social determinants of health that impacted care today? How? (Homelessness, low income, unemployed, alcoholism, drug addiction, transportation, low edu. Level, literacy, decrease access to med. care, [facility], rehab)? @ -[No] Was there de-escalation of care discussed even if they declined (Discuss DNR or withdrawal of care, Hospice)? DNR status @ -[No] What co-morbidities impacted this encounter? (DM, HTN, Smoking, COPD, CAD, Cancer, CVA, ARF, Chemo, Hep., AIDS, mental health diagnosis, sleep apnea, morbid obesity)? @ -[None] Was patient admitted / discharged? Hospital course, mention meds given and route, prescriptions, significant lab abnormalities, going to OR and other pertinent info. @ -[Patient is a 48-year-old man with anxiety and with associated chest pain. The physical exam and workup are unremarkable. The patient's symptoms have improved. Given his age, will have patient follow with cardiology to discuss having stress test. Discussed return parameters Undiagnosed new problem with uncertain prognosis? @ -[No] Drug Therapy requiring intensive monitoring for toxicity (Heparin, Nitro, Insul in, Cardizem)? @ -[No] Were any procedures done? @ -[No] Diagnosis/symptom? @ -[Acute chest pain Acute on chronic anxiety Acute, or Chronic, or Acute on Chronic? @ -[Acute Uncomplicated (without systemic symptoms) or Complicated (systemic symptoms)? @ -[Uncomplicated Side effects of treatment? @ -[No] Exacerbation, Progression, or Severe Exacerbation? @ -[No] Poses a threat to life or bodily function? How? (Chest pain, USA, [place], pneumonia, PE, COPD, DKA, ARF, appy, cholecystitis, CVA, Diverticulitis, Homicidal, Suicidal, threat to staff... and all critical care pts) @ -[No] (Gilmer Garay) - Lab Data Lab Results 09/16/23 09/16/23 09/16/23 Range/Units 17:59 17:59 17:59 WBC 8.6 (3.8-10.6) k/uL RBC 4.56 (4.30-5.90) m/uL Hgb 14.7 (13.0-17.5) gm/dL Hct 42.3 (39.0-53.0) % MCV 92.7 (80.0-100.0) fL MCH 32.1 (25.0-35.0) pg MCHC 34.7 (31.0-37.0) g/dL RDW 13.1 (11.5-15.5) % Plt Count 278 (150-450) k/uL MPV 7.3 Neutrophils % 67 % Lymphocytes % 25 % Monocytes % 4 % Eosinophils % 2 % Basophils % 1 % Neutrophils # 5.7 (1.3-7.7) k/uL Lymphocytes # 2.2 (1.0-4.8) k/uL Monocytes # 0.4 (0-1.0) k/uL Eosinophils # 0.2 (0-0.7) k/uL Basophils # 0.1 (0-0.2) k/uL PT 11.0 (10.0-12.5) sec INR 1.0 (<1.2) APTT 23.7 (22.0-30.0) sec Sodium 138 (137-145) mmol/L Potassium 3.7 (3.5-5.1) mmol/L Chloride 108 H (98-107) mmol/L Carbon Dioxide 23 (22-30) mmol/L Anion Gap 7 mmol/L BUN 5 L (9-20) mg/dL Creatinine 0.68 (0.66-1.25) mg/dL Est GFR (CKD-EPI)AfAm >90 (>60 ml/min/1.73 sqM) Est GFR (CKD-EPI)NonAf >90 (>60 ml/min/1.73 sqM) Glucose 107 H (74-99) mg/dL Calcium 9.2 (8.4-10.2) mg/dL Magnesium 1.8 (1.6-2.3) mg/dL Total Bilirubin 0.4 (0.2-1.3) mg/dL AST 19 (17-59) U/L ALT 19 (4-49) U/L Alkaline Phosphatase 95 (38-126) U/L Troponin I (0.000-0.034) ng/mL Total Protein 7.3 (6.3-8.2) g/dL Albumin 4.3 (3.5-5.0) g/dL TSH (0.465-4.680) mIU/L Urine Opiates Screen (NotDetected) Ur Oxycodone Screen (NotDetected) Urine Methadone Screen (NotDetected) Ur Barbiturates Screen (NotDetected) U Tricyclic Antidepress (NotDetected) Ur Phencyclidine Scrn (NotDetected) Ur Amphetamines Screen (NotDetected) U Methamphetamines Scrn (NotDetected) U Benzodiazepines Scrn (NotDetected) Urine Cocaine Screen (NotDetected) U Marijuana (THC) Screen (NotDetected) Serum Alcohol mg/dL 09/16/23 09/16/23 09/17/23 Range/Units 17:59 22:41 01:20 WBC (3.8-10.6) k/uL RBC (4.30-5.90) m/uL Hgb (13.0-17.5) gm/dL Hct (39.0-53.0) % MCV (80.0-100.0) fL MCH (25.0-35.0) pg MCHC (31.0-37.0) g/dL RDW (11.5-15.5) % Plt Count (150-450) k/uL MPV Neutrophils % % Lymphocytes % % Monocytes % % Eosinophils % % Basophils % % Neutrophils # (1.3-7.7) k/uL Lymphocytes # (1.0-4.8) k/uL Monocytes # (0-1.0) k/uL Eosinophils # (0-0.7) k/uL Basophils # (0-0.2) k/uL PT (10.0-12.5) sec INR (<1.2) APTT (22.0-30.0) sec Sodium (137-145) mmol/L Potassium (3.5-5.1) mmol/L Chloride (98-107) mmol/L Carbon Dioxide (22-30) mmol/L Anion Gap mmol/L BUN (9-20) mg/dL Creatinine (0.66-1.25) mg/dL Est GFR (CKD-EPI)AfAm (>60 ml/min/1.73 sqM) Est GFR (CKD-EPI)NonAf (>60 ml/min/1.73 sqM) Glucose (74-99) mg/dL Calcium (8.4-10.2) mg/dL Magnesium (1.6-2.3) mg/dL Total Bilirubin (0.2-1.3) mg/dL AST (17-59) U/L ALT (4-49) U/L Alkaline Phosphatase (38-126) U/L Troponin I <0.012 (0.000-0.034) ng/mL Total Protein (6.3-8.2) g/dL Albumin (3.5-5.0) g/dL TSH 2.270 (0.465-4.680) mIU/L Urine Opiates Screen Not Detected (NotDetected) Ur Oxycodone Screen Detected H (NotDetected) Urine Methadone Screen Not Detected (NotDetected) Ur Barbiturates Screen Not Detected (NotDetected) U Tricyclic Antidepress Detected H (NotDetected) Ur Phencyclidine Scrn Not Detected (NotDetected) Ur Amphetamines Screen Not Detected (NotDetected) U Methamphetamines Scrn Not Detected (NotDetected) U Benzodiazepines Scrn Detected H (NotDetected) Urine Cocaine Screen Not Detected (NotDetected) U Marijuana (THC) Screen Not Detected (NotDetected) Serum Alcohol <10 mg/dL Disposition <Silvana Pradhan - Last Filed: 09/16/23 17:56> Is patient prescribed a controlled substance at d/c from ED?: No <Gilmer Garay - Last Filed: 09/28/23 01:21> Clinical Impression: Chest pain Disposition: HOME SELF-CARE Condition: Good Instructions (If sedation given, give patient instructions): Chest Pain (ED), Acute Rash (ED) Referrals: Bryant Orozco MD [Primary Care Provider] - 1-2 days Aaron Croona MD [STAFF PHYSICIAN] - 1-2 days
[2023-09-16 17:58] VITALS: TEMP 98.2
[2023-09-16 18:30] LABS: Basophils # (A) 0.1 k/uL (0-0.2); Basophils % (A) 1 %; Eosinophils # (A) 0.2 k/uL (0-0.7); Eosinophils % (A) 2 %; HCT 42.3 % (39.0-53.0); HGB 14.7 gm/dL (13.0-17.5); Lymphocytes # (A) 2.2 k/uL (1.0-4.8); Lymphocytes % (A) 25 %; MCH 32.1 pg (25.0-35.0); MCHC 34.7 g/dL (31.0-37.0); MCV 92.7 fL (80.0-100.0); Mean Platelet Volume 7.3; Monocytes # (A) 0.4 k/uL (0-1.0); Monocytes % (A) 4 %; Neutrophils # (A) 5.7 k/uL (1.3-7.7); Neutrophils % (A) 67 %; Platelet Count 278 k/uL (150-450); RBC 4.56 m/uL (4.30-5.90); RDW 13.1 % (11.5-15.5); WBC 8.6 k/uL (3.8-10.6)
--- NOTE | 2023-09-16 18:35 | XR ---
EXAMINATION TYPE: XR chest 2V DATE OF EXAM: 09/16/2023 6:17 PM CLINICAL INDICATION:Male, 48 years old with history of Chest Pain; [facility] COMPARISON: Chest radiographs from 04/21/2023. TECHNIQUE: XR chest 2V Frontal and lateral views of the chest. FINDINGS: Lungs/Pleura: There is no evidence of pleural effusion, focal consolidation, or pneumothorax. Pulmonary vascularity: Unremarkable. Heart/mediastinum: Cardiomediastinal silhouette is unremarkable. Musculoskeletal: No acute osseous pathology. Other findings: None IMPRESSION: No acute cardiopulmonary disease/process.
[2023-09-16 18:39] LABS: ALT 19 U/L (4-49); AST 19 U/L (17-59); African American GFR (CKD) >90 (>60 ml/min/1.73 sqM); Albumin 4.3 g/dL (3.5-5.0); Alkaline Phosphatase 95 U/L (38-126); Anion Gap 7 mmol/L; Blood Urea Nitrogen 5 mg/dL (9-20); Calcium 9.2 mg/dL (8.4-10.2); Carbon Dioxide 23 mmol/L (22-30); Chloride 108 mmol/L (98-107); Glucose 107 mg/dL (74-99); Magnesium 1.8 mg/dL (1.6-2.3); Non-African American GFR(CKD) >90 (>60 ml/min/1.73 sqM); Potassium 3.7 mmol/L (3.5-5.1); Sodium 138 mmol/L (137-145); Total Bilirubin 0.4 mg/dL (0.2-1.3); Total Protein 7.3 g/dL (6.3-8.2)
[2023-09-16 18:40] LABS: Partial Thromboplastin Time 23.7 sec (22.0-30.0)
[2023-09-16 23:10] LABS: Amphetamine Screen,Urine Not Detected (NotDetected); Barbiturate Screen,Urine Not Detected (NotDetected); Benzodiazepines Screen,Urine Detected (NotDetected); Cocaine Screen,Urine Not Detected (NotDetected); Methadone Screen, Urine Not Detected (NotDetected); Opiate Screen,Urine Not Detected (NotDetected); Oxycodone Screen, Urine Detected (NotDetected); Phencyclidine Screen,Urine Not Detected (NotDetected); Tricyclic Antidepressant,Urine Detected (NotDetected); Urn Cannabinoid Scrn Not Detected (NotDetected)
[2023-09-17 01:39] LABS: Alcohol <10 mg/dL
[2023-09-17 01:46] VITALS: BP 136/80; PULSE 80; RESP 19
== END 2023-09-17 01:32 | disposition home or self-care (01) ==
LOC: EC 17:42
DX: R07.89 Other chest pain (principal); R00.0 Tachycardia, unspecified; I10 Essential (primary) hypertension; F41.9 Anxiety disorder, unspecified; F17.200 Nicotine dependence, unspecified, uncomplicated; Z79.899 Other long term (current) drug therapy; Z88.2 Allergy status to sulfonamides; Z88.1 Allergy status to other antibiotic agents
CPT/HCPCS: 99285 ×2; 36415; 93005; 80053; 84443; 83735; 84484; 85025; 85610; 85730; 80306; 71046; G0480; 80320

== ENCOUNTER 2023-09-20 11:59 | Emergency (ER) | payer OTHER ==
[2023-09-20 12:16] VITALS: RESP 18; TEMP 98.6
--- NOTE | 2023-09-20 12:37 | ED ---
Extremity Problem HPI - General Chief complaint: Extremity Problem,Nontraumatic Stated complaint: L side numbness Time Seen by Provider: 09/20/23 12:13 Source: patient, RN notes reviewed Mode of arrival: ambulatory Limitations: no limitations - History of Present Illness Initial comments: Patient 48-year-old male presented ER with a chief complaint of left leg and arm tingling. Patient states this going on since and was seen here for chest pain on 09/17/23 and discharged. Patient is also endorsing left ear fluttering. He states he feels fine when he waskes up but as the day goes on his left leg get tingling and cold. He also states this happens to the left arm. Patient reports he picks his skin that give himself a rash and he is wondering if he has "parasites or worms in his legs". Denies any headaches, visual disturbances, cough, fevers, chills, chest pain, shortness of breath,abdominal pain, constipation/diarrhea, nausea/vomiting, peripheral edema. - Related Data Home Medications Medication Instructions Recorded Confirmed Morphine Sulfate [Ms Contin] 30 mg PO Q12H 03/26/18 09/16/23 Albuterol Sulfate [Ventolin HFA] 2 puff INHALATION RT-QID PRN 02/19/21 09/16/23 Cyclobenzaprine [Flexeril] 10 mg PO TID 02/19/21 09/16/23 Simvastatin [Zocor] 20 mg PO HS 02/19/21 09/16/23 oxyCODONE-APAP 10-325MG [Percocet 1 tab PO Q6H 02/19/21 09/16/23 10-325 mg] ALPRAZolam [Xanax] 0.5 mg PO QID 09/16/23 09/16/23 Metoprolol Tartrate [Lopressor] 25 mg PO HS 09/16/23 09/16/23 Naloxone HCl [Narcan] 4 mg NASAL ONCE PRN 09/16/23 09/16/23 Unknown Mood Medication 1 dose PO DIRECTED 09/16/23 09/16/23 lisinopriL [Zestril] 20 mg PO HS 09/16/23 09/16/23 Allergies Allergy/AdvReac Type Severity Reaction Status Date / Time sulfamethoxazole Allergy Hives, Verified 09/20/23 12:07 [From Bactrim] felt like he was "boiling up" trimethoprim [From Bactrim] Allergy Hives, Verified 09/20/23 12:07 felt like he was "boiling up" Review of Systems ROS Statement: Those systems with pertinent positive or pertinent negative responses have been documented in the HPI. ROS Other: All systems not noted in ROS Statement are negative. Past Medical History Past Medical History: Hypertension Additional Past Medical History / Comment(s): chronic back pain DDD History of Any Multi-Drug Resistant Organisms: MRSA Date of last positivie culture/infection: 2011 MDRO Source:: rt knee Past Surgical History: Back Surgery, Orthopedic Surgery Additional Past Surgical History / Comment(s): RIGHT ELBOW, left shoulder Past Anesthesia/Blood Transfusion Reactions: No Reported Reaction Past Psychological History: Anxiety Smoking Status: Former smoker Past Alcohol Use History: None Reported Past Drug Use History: None Reported General Exam Limitations: no limitations General appearance: alert, in no apparent distress Head exam: Present: atraumatic, normocephalic, normal inspection Eye exam: Present: normal appearance, PERRL, EOMI. Absent: scleral icterus, conjunctival injection, periorbital swelling ENT exam: Present: normal exam, normal oropharynx, mucous membranes moist, TM's normal bilaterally Neck exam: Present: normal inspection. Absent: tenderness, meningismus, lymphadenopathy Respiratory exam: Present: normal lung sounds bilaterally. Absent: respiratory distress, wheezes, rales, rhonchi, stridor Cardiovascular Exam: Present: regular rate, normal rhythm, normal heart sounds. Absent: systolic murmur, diastolic murmur, rubs, gallop, clicks GI/Abdominal exam: Present: soft, normal bowel sounds. Absent: distended, tenderness, guarding, rebound, rigid Extremities exam: Present: normal inspection, full ROM, normal capillary refill, other (1-2+ DP pulse with doppler). Absent: tenderness, pedal edema, joint swelling, calf tenderness Back exam: Present: normal inspection Neurological exam: Present: alert, oriented X3, CN II-XII intact Psychiatric exam: Present: normal affect, normal mood Skin exam: Present: warm, dry, intact, normal color, other (mulitple scabs on bilateral legs and upper back ). Absent: rash Course Vital Signs 09/20/23 12:03 Temperature 98.6 F Pulse Rate 109 H Respiratory 18 Rate Blood Pressure 155/103 O2 Sat by Pulse 96 Oximetry Medical Decision Making - Medical Decision Making Was pt. sent in by a medical professional or institution ([facility], REPAIR ELECTRIC MOTOR ASSEMBLER, urgent care, hospital, or senior care...) When possible be specific @ -No Did you speak to anyone other than the patient for history (EMS, parent, family, police, friend...)? What history was obtained from this source @ -No Did you review nursing and triage notes (agree or disagree)? Why? @ -I reviewed and agree with nursing and triage notes Were old charts reviewed (outside hosp., previous admission, EMS record, old EKG, old radiological studies, urgent care reports/EKG's, senior care records)? Report findings @ -Yes, I reviewed ER visit from 09/17/23. Patient had cardiac workup which was negative. Differential Diagnosis (chest pain, altered mental status, abdominal pain women, abdominal pain men, vaginal bleeding, weakness, fever, dyspnea, syncope, headache, dizziness, GI bleed, back pain, seizure, CVA, palpatations, mental health, musculoskeletal)? @ -Differential Musculoskeletal: Muscular strain, contusion, ligament sprain, fracture, arthritis, septic arthritis, bursitis, cellulitis, muscle spasm, nerve compression, DVT, arterial occlusion, herpes zoster, electrolyte abnormality, tumor.... This is not meant to be in all inclusive list EKG interpreted by me (3pts min.). @ -None X-rays interpreted by me (1pt min.). @ -None done CT interpreted by me (1pt min.). @ -None done U/S interpreted by me (1pt. min.). @ -Arterial ultrasound bilateral lower extremity showed no evidence of peripheral vascular disease. What testing was considered but not performed or refused? (CT, X-rays, U/S, labs)? Why? @ -None What meds were considered but not given or refused? Why? @ -None Did you discuss the management of the patient with other professionals (professionals i.e. TERRY Solis, REPAIR ELECTRIC MOTOR ASSEMBLER, lab, RT, psych nurse, protective services social worker, rounding and backing machine operator, teacher, founder and chief technical officer, egg caser)? Give summary @ -No Was smoking cessation discussed for >3mins.? @ -No Was critical care preformed (if so, how long)? @ -No Were there social determinants of health that impacted care today? How? (Homelessness, low income, unemployed, alcoholism, drug addiction, transportation, low edu. Level, literacy, decrease access to med. care, custodial, rehab)? @ -No Was there de-escalation of care discussed even if they declined (Discuss DNR or withdrawal of care, Hospice)? DNR status @ -No What co-morbidities impacted this encounter? (DM, HTN, Smoking, COPD, CAD, Cancer, CVA, ARF, Chemo, Hep., AIDS, mental health diagnosis, sleep apnea, morbid obesity)? @ -Anxiety Was patient admitted / discharged? Hospital course, mention meds given and route, prescriptions, significant lab abnormalities, going to OR and other pertinent info. @ -Discharge. Patient is a 48-year-old male presented ER with chief complaint of left leg pain. Vitals stable. History and physical exam were completed. Patient was neurovascularly intact on exam. No acute neurological findings. Patient was in no signs of acute distress. Arterial ultrasound of bilateral lower extremity show no evidence of peripheral vascular disease. I discussed findings with patient. Patient concerned of a coldness to his legs. I advised him to keep warm clothing on. The patient will be sent home with heat packs. I advised him to follow-up outpatient with PCP. Patient discharged in stable condition with follow-up to PCP. Return parameters were discussed. Patient expressed understanding and agreement with care plan. Undiagnosed new problem with uncertain prognosis? @ -No Drug Therapy requiring intensive monitoring for toxicity (Heparin, Nitro, Insulin, Cardizem)? @ -No Were any procedures done? @ -No Diagnosis/symptom? @ -Leg pain Acute, or Chronic, or Acute on Chronic? @ -Acute Uncomplicated (without systemic symptoms) or Complicated (systemic symptoms)? @ -Uncomplicated Side effects of treatment? @ -No Exacerbation, Progression, or Severe Exacerbation? @ -No Poses a threat to life or bodily function? How? (Chest pain, USA, [place], pneumonia, PE, COPD, DKA, ARF, appy, cholecystitis, CVA, Diverticulitis, Homicidal, Suicidal, threat to staff... and all critical care pts) @ -No - Radiology Data Radiology results: report reviewed, image reviewed Disposition Clinical Impression: Leg pain Disposition: HOME SELF-CARE Condition: Stable Instructions (If sedation given, give patient instructions): Leg Pain (ED) Additional Instructions: Please follow-up with PCP in next 1-2 days. Return to ER for any new or worsening symptoms. Is patient prescribed a controlled substance at d/c from ED?: No Referrals: Bryant Orozco MD [Primary Care Provider] - 1-2 days Time of Disposition: 13:47
--- NOTE | 2023-09-20 13:27 | US ---
EXAMINATION TYPE: US arterial LE single level DATE OF EXAM: 09/20/2023 1:20 PM CLINICAL INDICATION: Male, 48 years old with history of cold/tingling; Pt states left foot feels cold and tingles Doppler Waveforms: Right: Triphasic Left: Triphasic Right Brachial Pressure: 134 Left Brachial Pressure: 132 Ankle-Brachial Indices: Right: 1.3 Left: 1.2 IMPRESSION: No evidence of lower extremity peripheral vascular disease based on peripheral waveforms and ankle brachial indices.
[2023-09-20 14:14] VITALS: BP 150/98; PULSE 102
== END 2023-09-20 14:04 | disposition home or self-care (01) ==
LOC: EC 11:59
DX: M79.662 Pain in left lower leg (principal); I10 Essential (primary) hypertension; F41.9 Anxiety disorder, unspecified; Z79.899 Other long term (current) drug therapy; Z88.1 Allergy status to other antibiotic agents; Z88.2 Allergy status to sulfonamides; Z87.891 Personal history of nicotine dependence
CPT/HCPCS: 93922; 99284

== ENCOUNTER 2023-09-20 16:57 | Emergency (ER) | payer OTHER ==
[2023-09-20 17:16] VITALS: BP 135/91; PULSE 117; RESP 20; TEMP 99.1
[2023-09-20] MEDS ORDERED: hydrOXYzine HCL 25 MG TAB PO STA (17:18)
--- NOTE | 2023-09-20 17:19 | ED ---
Extremity Problem HPI - General Chief complaint: Extremity Problem,Nontraumatic Stated complaint: Revisit, L Side Numbness Time Seen by Provider: 09/20/23 17:04 Source: patient Mode of arrival: ambulatory Limitations: no limitations - History of Present Illness Initial comments: 48-year-old male presenting with chief complaint of numbness to the left foot and left arm. He states that this has happened with previous panic attacks. Patient currently takes Xanax 4 times daily and states that he has run out. He was seen here earlier today for the same complaint, he did ultrasound which showed no evidence of peripheral arterial disease. No chest pain or difficulty breathing. No abdominal pain, nausea, vomiting. He also recently had a full cardiac workup here in our ER. - Related Data Home Medications Medication Instructions Recorded Confirmed Morphine Sulfate [Ms Contin] 30 mg PO Q12H 03/26/18 09/16/23 Albuterol Sulfate [Ventolin HFA] 2 puff INHALATION RT-QID PRN 02/19/21 09/16/23 Cyclobenzaprine [Flexeril] 10 mg PO TID 02/19/21 09/16/23 Simvastatin [Zocor] 20 mg PO HS 02/19/21 09/16/23 oxyCODONE-APAP 10-325MG [Percocet 1 tab PO Q6H 02/19/21 09/16/23 10-325 mg] ALPRAZolam [Xanax] 0.5 mg PO QID 09/16/23 09/16/23 Metoprolol Tartrate [Lopressor] 25 mg PO HS 09/16/23 09/16/23 Naloxone HCl [Narcan] 4 mg NASAL ONCE PRN 09/16/23 09/16/23 Unknown Mood Medication 1 dose PO DIRECTED 09/16/23 09/16/23 lisinopriL [Zestril] 20 mg PO HS 09/16/23 09/16/23 Allergies Allergy/AdvReac Type Severity Reaction Status Date / Time sulfamethoxazole Allergy Hives, Verified 09/20/23 12:07 [From Bactrim] felt like he was "boiling up" trimethoprim [From Bactrim] Allergy Hives, Verified 09/20/23 12:07 felt like he was "boiling up" Review of Systems ROS Statement: Those systems with pertinent positive or pertinent negative responses have been documented in the HPI. ROS Other: All systems not noted in ROS Statement are negative. Past Medical History Past Medical History: Hypertension Additional Past Medical History / Comment(s): chronic back pain DDD History of Any Multi-Drug Resistant Organisms: MRSA Date of last positivie culture/infection: 2011 MDRO Source:: rt knee Past Surgical History: Back Surgery, Orthopedic Surgery Additional Past Surgical History / Comment(s): RIGHT ELBOW, left shoulder Past Anesthesia/Blood Transfusion Reactions: No Reported Reaction Past Psychological History: Anxiety Smoking Status: Former smoker Past Alcohol Use History: None Reported Past Drug Use History: None Reported General Exam Limitations: no limitations General appearance: alert, anxious Head exam: Present: atraumatic, normocephalic Eye exam: Present: normal appearance, EOMI Neck exam: Present: normal inspection Respiratory exam: Present: normal lung sounds bilaterally. Absent: respiratory distress, wheezes, rales, rhonchi, stridor Cardiovascular Exam: Present: normal rhythm, tachycardia, normal heart sounds. Absent: systolic murmur, diastolic murmur, rubs, gallop, clicks Extremities exam: Present: normal inspection, full ROM, normal capillary refill. Absent: pedal edema Neurological exam: Present: alert, oriented X3 Psychiatric exam: Present: anxious Skin exam: Present: warm, dry Course Vital Signs 09/20/23 16:59 Temperature 99.1 F Pulse Rate 117 H Respiratory 20 Rate Blood Pressure 135/91 O2 Sat by Pulse 95 Oximetry Medical Decision Making - Medical Decision Making Was pt. sent in by a medical professional or institution (, PA, TRIMMER TAILER, urgent care, hospital, or [place] [facility] facility...) When possible be specific @ -No Did you speak to anyone other than the patient for history (EMS, parent, family, police, friend...)? What history was obtained from this source @ -No Did you review nursing and triage notes (agree or disagree)? Why? @ -I reviewed and agree with nursing and triage notes Were old charts reviewed (outside hosp., previous admission, EMS record, old EKG, old radiological studies, urgent care reports/EKG's, [place] [facility] facility records)? Report findings @ -Records from today's earlier visit were reviewed Differential Diagnosis (chest pain, altered mental status, abdominal pain women, abdominal pain men, vaginal bleeding, weakness, fever, dyspnea, syncope, headache, dizziness, GI bleed, back pain, seizure, CVA, palpatations, mental health, musculoskeletal)? @ -Differential Musculoskeletal Muscular strain, contusion, ligament sprain, fracture, arthritis, septic arthritis, bursitis, cellulitis, muscle spasm, nerve compression, DVT, arterial occlusion, herpes zoster, electrolyte abnormality, tumor.... This is not meant to be in all inclusive list EKG interpreted by me (3pts min.). @ -As above X-rays interpreted by me (1pt min.). @ -None done CT interpreted by me (1pt min.). @ -None done U/S interpreted by me (1pt. min.). @ -None done What testing was considered but not performed or refused? (CT, X-rays, U/S, labs)? Why? @ -None What meds were considered but not given or refused? Why? @ -None Did you discuss the management of the patient with other professionals (professionals i.e. DrAdelia, PA, TRIMMER TAILER, lab, RT, psych nurse, director of social services, mixer crane operator, teacher, inshore undersea warfare officer, welfare case worker)? Give summary @ -No Was smoking cessation discussed for >3mins.? @ -No Was critical care preformed (if so, how long)? @ -No Were there social determinants of health that impacted care today? How? (Homelessness, low income, unemployed, alcoholism, drug addiction, transportation, low edu. Level, literacy, decrease access to med. care, residential, rehab)? @ -No Was there de-escalation of care discussed even if they declined (Discuss DNR or withdrawal of care, Hospice)? DNR status @ -No What co-morbidities impacted this encounter? (DM, HTN, Smoking, COPD, CAD, Cancer, CVA, ARF, Chemo, Hep., AIDS, mental health diagnosis, sleep apnea, morbid obesity)? @ -None Was patient admitted / discharged? Hospital course, mention meds given and route, prescriptions, significant lab abnormalities, going to OR and other pertinent info. @ -48-year-old male presenting with chief complaint of numbness to the extremities. Patient has history of anxiety and takes Xanax 4 times daily, he is currently out of his Xanax. He states that this has happened with previous panic attacks before. He was seen here earlier today for the same complaints, he received an ultrasound which showed no evidence of peripheral arterial disease. He also had a full cardiac workup recently. On exam there is normal capillary refill and pulses are palpable. Extremities are warm with no discoloration. Patient is given hydroxyzine for anxiety and discharged home. Follow-up with PCP. Report back to ER with any new or worsening symptoms. Discussed return parameters and answered all questions. Patient conveyed verbal understanding and agreed to the plan. I discussed this case in detail with my attending Dr. Garay Undiagnosed new problem with uncertain prognosis? @ -No Drug Therapy requiring intensive monitoring for toxicity (Heparin, Nitro, Insulin, Cardizem)? @ -No Were any procedures done? @ -No Diagnosis/symptom? @ -anxiety Acute, or Chronic, or Acute on Chronic? @ -Acute on chronic Uncomplicated (without systemic symptoms) or Complicated (systemic symptoms)? @ -Complicated Side effects of treatment? @ -No Exacerbation, Progression, or Severe Exacerbation? @ -No Poses a threat to life or bodily function? How? (Chest pain, [place], [place], pneumonia, PE, COPD, DKA, ARF, appy, cholecystitis, CVA, Diverticulitis, Homicidal, Suicidal, threat to staff... and all critical care pts) @ -No Disposition Clinical Impression: Anxiety Disposition: HOME SELF-CARE Condition: Good Instructions (If sedation given, give patient instructions): Anxiety (ED) Additional Instructions: Follow-up with PCP. Report back to ER if any new or worsening symptoms. Is patient prescribed a controlled substance at d/c from ED?: No Referrals: Bryant Orozco MD [Primary Care Provider] - 1-2 days Time of Disposition: 17:18
== END 2023-09-20 17:39 | disposition home or self-care (01) ==
LOC: EC 16:57
DX: F41.9 Anxiety disorder, unspecified (principal); I10 Essential (primary) hypertension; Z79.899 Other long term (current) drug therapy; Z88.2 Allergy status to sulfonamides; Z88.1 Allergy status to other antibiotic agents; Z87.891 Personal history of nicotine dependence
CPT/HCPCS: 99284

== ENCOUNTER 2024-05-07 12:06 | Emergency (ER) | payer OTHER ==
[2024-05-07 12:12] VITALS: TEMP 97.9
--- NOTE | 2024-05-07 12:34 | ED ---
Recheck HPI - General Chief Complaint: Recheck/Abnormal Lab/Rx Stated Complaint: CARLOS, Body ache Time Seen by Provider: 05/07/24 12:31 Source: patient, RN notes reviewed Mode of arrival: ambulatory Limitations: no limitations - History of Present Illness Initial Comments: 48-year-old male presenting for prescription issue. States he is regularly prescribed Percocet for advanced degenerative disc disease by his primary care physician. States he had an appointment 2 days ago with his PCP Dr. Orozco and was told that he was sending a Percocet prescription, however it was not sent. Patient tried calling the office, however there was no response. Patient is hoping he can obtain a prescription for Percocet today in the ER and follow-up with Dr. Orozco on Thursday. Denies any acute symptoms today. - Related Data Home Medications Medication Instructions Recorded Confirmed Morphine Sulfate [Ms Contin] 30 mg PO Q12H 03/26/18 05/04/24 Cyclobenzaprine [Flexeril] 10 mg PO TID 02/19/21 05/04/24 Simvastatin [Zocor] 20 mg PO HS 02/19/21 05/04/24 oxyCODONE-APAP 10-325MG [Percocet 1 tab PO Q6H 02/19/21 05/04/24 10-325 mg] ALPRAZolam [Xanax] 0.5 mg PO QID 09/16/23 05/04/24 Metoprolol Tartrate [Lopressor] 25 mg PO HS 09/16/23 05/04/24 Naloxone HCl [Narcan] 4 mg NASAL ONCE PRN 09/16/23 05/04/24 lisinopriL [Zestril] 20 mg PO HS 09/16/23 05/04/24 Ibuprofen [Motrin] 800 mg PO Q8H 05/04/24 05/04/24 Previous Rx's Medication Instructions Recorded oxyCODONE-APAP 10-325MG [Percocet 1 tab PO Q6HR PRN 2 Days #8 tab 05/07/24 10-325 mg] Allergies Allergy/AdvReac Type Severity Reaction Status Date / Time sulfamethoxazole Allergy Hives, Verified 05/07/24 12:12 [From Bactrim] felt like he was "boiling up" trimethoprim [From Bactrim] Allergy Hives, Verified 05/07/24 12:12 felt like he was "boiling up" Review of Systems ROS Statement: Those systems with pertinent positive or pertinent negative responses have been documented in the HPI. ROS Other: All systems not noted in ROS Statement are negative. Past Medical History Past Medical History: Chest Pain / Angina, Hypertension, Skin Disorder Additional Past Medical History / Comment(s): chronic back pain DDD, new rash all over body with leaky wounds that drain at night and scabs come after. but noone takes his insurance History of Any Multi-Drug Resistant Organisms: None Reported, MRSA Date of last positivie culture/infection: 2011 MDRO Source:: rt knee and toe and another time per patient Past Surgical History: Back Surgery, Orthopedic Surgery Additional Past Surgical History / Comment(s): RIGHT ELBOW, left shoulder Past Anesthesia/Blood Transfusion Reactions: No Reported Reaction Additional Past Anesthesia/Blood Transfusion Reaction / Comment(s): no blood transfusion Past Psychological History: Anxiety Smoking Status: Current every day smoker Past Alcohol Use History: None Reported Past Drug Use History: None Reported - Past Family History Mother Family Medical History: Cancer Additional Family Medical History / Comment(s): brain General Exam - General Exam Comments Initial Comments: Visual Physical Exam Vital signs reviewed General: Well-appearing, nontoxic, no acute distress. Head: Normocephalic, atraumatic Eyes: PERRLA, EOMI ENT: Airway patent Chest: Nonlabored breathing Skin: No visual rash, normal skin tone Neuro: Alert and oriented 3 Musculoskeletal: No gross abnormalities Limitations: no limitations General appearance: alert, in no apparent distress Head exam: Present: atraumatic, normocephalic, normal inspection Eye exam: Present: normal appearance, PERRL, EOMI. Absent: scleral icterus, conjunctival injection, periorbital swelling Respiratory exam: Present: normal lung sounds bilaterally. Absent: respiratory distress, wheezes, rales, rhonchi, stridor Cardiovascular Exam: Present: regular rate, normal rhythm, normal heart sounds. Absent: systolic murmur, diastolic murmur, rubs, gallop, clicks Extremities exam: Present: normal inspection, full ROM, normal capillary refill. Absent: tenderness, pedal edema, joint swelling, calf tenderness Neurological exam: Present: alert, oriented X3 Psychiatric exam: Present: normal affect, normal mood Skin exam: Present: warm, dry, intact, normal color. Absent: rash Course Vital Signs 05/07/24 12:09 Temperature 97.9 F Pulse Rate 118 H Respiratory 20 Rate Blood Pressure 146/93 O2 Sat by Pulse 100 Oximetry Medical Decision Making - Medical Decision Making I completed the quick note portion of this chart signed Sarah Sexton PA-C Was pt. sent in by a medical professional or institution ([facility], PUBLIC HEALTH SOCIAL WORKER, urgent care, hospital, or custodial...) When possible be specific @ -No Did you speak to anyone other than the patient for history (EMS, parent, family, police, friend...)? What history was obtained from this source @ -No Did you review nursing and triage notes (agree or disagree)? Why? @ -I reviewed and agree with nursing and triage notes Were old charts reviewed (outside hosp., previous admission, EMS record, old EKG, old radiological studies, urgent care reports/EKG's, custodial records)? Report findings @ -No old charts were reviewed Differential Diagnosis (chest pain, altered mental status, abdominal pain women, abdominal pain men, vaginal bleeding, weakness, fever, dyspnea, syncope, headache, dizziness, GI bleed, back pain, seizure, CVA, palpatations, mental health, musculoskeletal)? @ -Prescription issue, withdrawal, degenerative disc disease EKG interpreted by me (3pts min.). @ -None X-rays interpreted by me (1pt min.). @ -None done CT interpreted by me (1pt min.). @ -None done U/S interpreted by me (1pt. min.). @ -None done What testing was considered but not performed or refused? (CT, X-rays, U/S, labs)? Why? @ -Patient not having acute symptoms today What meds were considered but not given or refused? Why? @ -None Did you discuss the management of the patient with other professionals (professionals i.e. , TERRY, PUBLIC HEALTH SOCIAL WORKER, lab, RT, psych nurse, social work specialist, medicare interviewer, teacher, air control/anti air warfare officer, manager case)? Give summary @ -No Was smoking cessation discussed for >3mins.? @ -No Was critical care preformed (if so, how long)? @ -No Were there social determinants of health that impacted care today? How? (Homelessness, low income, unemployed, alcoholism, drug addiction, transportation, low edu. Level, literacy, decrease access to med. care, group home, rehab)? @ -No Was there de-escalation of care discussed even if they declined (Discuss DNR or withdrawal of care, Hospice)? DNR status @ -No What co-morbidities impacted this encounter? (DM, HTN, Smoking, COPD, CAD, Cancer, CVA, ARF, Chemo, Hep., AIDS, mental health diagnosis, sleep apnea, morbid obesity)? @ -None Was patient admitted / discharged? Hospital course, mention meds given and route, prescriptions, significant lab abnormalities, going to OR and other pertinent info. @ -Patient was discharged. This is a 48-year-old male with history of degenerative disc disease presenting for prescription refill. States he takes 4 Percocet daily for degenerative disc disease prescribed by Dr. Orozco. Patient had follow-up appointment 2 days ago, was supposed to have prescription for Percocet, but states it was not sent. No acute symptoms. Maps was reviewed. Discussed with patient can prescribe 2 days worth of medication. Patient must follow-up with PCP on Thursday. Patient is agreeable to plan. Case was discussed with my ED attending Dr. Loco. Patient discharged stable condition. Undiagnosed new problem with uncertain prognosis? @ -No Drug Therapy requiring intensive monitoring for toxicity (Heparin, Nitro, Insulin, Cardizem)? @ -No Were any procedures done? @ -No Diagnosis/symptom? @ -Medication refill Acute, or Chronic, or Acute on Chronic? @ -Acute Uncomplicated (without systemic symptoms) or Complicated (systemic symptoms)? @ -Uncomplicated Side effects of treatment? @ -No Exacerbation, Progression, or Severe Exacerbation? @ -No Poses a threat to life or bodily function? How? (Chest pain, [place], [place], pneumonia, PE, COPD, DKA, ARF, appy, cholecystitis, CVA, Diverticulitis, Homicidal, Suicidal, threat to staff... and all critical care pts) @ -No Disposition Clinical Impression: Medication refill Disposition: HOME SELF-CARE Condition: Stable Additional Instructions: Follow-up in [address] Orozco. Please return to the Emergency Department if symptoms worsen or any other concerns. Prescriptions: oxyCODONE-APAP 10-325MG [Percocet 10-325 mg] 1 tab PO Q6HR PRN 2 Days #8 tab PRN Reason: Pain Is patient prescribed a controlled substance at d/c from ED?: Yes When asked, does pt state using other controlled substances?: Yes If prescribed controlled substance>3 days was MAPS reviewed?: Prescribed <3 Days If opioid is for acute pain is fill amount 7 days or less?: Yes If Rx opioid, was Start Talking consent form obtained?: No Referrals: Bryant Orozco MD [Primary Care Provider] - 1-2 days Time of Disposition: 13:01
[2024-05-07 13:24] VITALS: BP 132/76; PULSE 78; RESP 17
== END 2024-05-07 13:24 | disposition home or self-care (01) ==
LOC: EC 12:06
CPT/HCPCS: 99284

== ENCOUNTER 2024-05-09 09:15 | Emergency (ER) | payer OTHER ==
[2024-05-09 09:19] VITALS: RESP 18
--- NOTE | 2024-05-09 09:33 | ED ---
Back Pain HPI - General Chief Complaint: Back Pain/Injury Stated Complaint: Back Pain Time Seen by Provider: 05/09/24 09:21 Source: patient Limitations: no limitations - History of Present Illness Initial Comments: This is a 48-year-old male who presents to the emergency department for back pain. Patient states that he has chronic back pain and his PCP sent in the wrong prescription. States that he sent in morphine, which is too soon for him to fill and he needed the Percocet. He is requesting a refill for a couple of days. Denies any new injuries. MD Complaint: back pain - Related Data Home Medications Medication Instructions Recorded Confirmed Morphine Sulfate [Ms Contin] 30 mg PO Q12H 03/26/18 05/09/24 Cyclobenzaprine [Flexeril] 10 mg PO TID 02/19/21 05/09/24 Simvastatin [Zocor] 20 mg PO HS 02/19/21 05/09/24 oxyCODONE-APAP 10-325MG [Percocet 1 tab PO Q6H 02/19/21 05/09/24 10-325 mg] ALPRAZolam [Xanax] 0.5 mg PO QID 09/16/23 05/09/24 Metoprolol Tartrate [Lopressor] 25 mg PO HS 09/16/23 05/09/24 Naloxone HCl [Narcan] 4 mg NASAL ONCE PRN 09/16/23 05/09/24 lisinopriL [Zestril] 20 mg PO HS 09/16/23 05/09/24 Ibuprofen [Motrin] 800 mg PO Q8H 05/04/24 05/09/24 Allergies Allergy/AdvReac Type Severity Reaction Status Date / Time sulfamethoxazole Allergy Hives, Verified 05/09/24 12:46 [From Bactrim] felt like he was "boiling up" trimethoprim [From Bactrim] Allergy Hives, Verified 05/09/24 12:46 felt like he was "boiling up" Review of Systems ROS Statement: Those systems with pertinent positive or pertinent negative responses have been documented in the HPI. ROS Other: All systems not noted in ROS Statement are negative. Past Medical History Past Medical History: Chest Pain / Angina, Hypertension, Skin Disorder Additional Past Medical History / Comment(s): chronic back pain DDD, new rash all over body with leaky wounds that drain at night and scabs come after. but noone takes his insurance History of Any Multi-Drug Resistant Organisms: None Reported, MRSA Date of last positivie culture/infection: 2011 MDRO Source:: rt knee and toe and another time per patient Past Surgical History: Back Surgery, Orthopedic Surgery Additional Past Surgical History / Comment(s): RIGHT ELBOW, left shoulder Past Anesthesia/Blood Transfusion Reactions: No Reported Reaction Additional Past Anesthesia/Blood Transfusion Reaction / Comment(s): no blood transfusion Past Psychological History: Anxiety Smoking Status: Current every day smoker Past Alcohol Use History: None Reported Past Drug Use History: None Reported - Past Family History Mother Family Medical History: Cancer Additional Family Medical History / Comment(s): brain General Exam Limitations: no limitations General appearance: alert, in no apparent distress Head exam: Present: atraumatic, normocephalic, normal inspection Respiratory exam: Present: normal lung sounds bilaterally. Absent: respiratory distress, wheezes, rales, rhonchi, stridor Cardiovascular Exam: Present: regular rate, normal rhythm, normal heart sounds. Absent: systolic murmur, diastolic murmur, rubs, gallop, clicks Neurological exam: Present: alert, oriented X3, CN II-XII intact Psychiatric exam: Present: normal affect, normal mood Skin exam: Present: warm, dry, intact, normal color. Absent: rash Course Vital Signs 05/09/24 05/09/24 09:17 09:49 Temperature 98.1 F 97.9 F Pulse Rate 103 H 96 Respiratory 18 18 Rate Blood Pressure 156/97 146/86 O2 Sat by Pulse 97 99 Oximetry Medical Decision Making - Medical Decision Making This is a 48-year-old male who presents to the emergency department for chronic back pain. Was pt. sent in by a medical professional or institution? @ -No Did you speak to anyone other than the patient for history? @ -No Did you review nursing and triage notes? @ -Yes, and I agree, it is accurate with regards to the patient's symptoms. Were old charts reviewed? @ -No Differential Diagnosis? @ -Differential Back Pain: Strain, zoster, cauda equina syndrome, epidural abscess, vertebral osteomyelitis, discitis, fracture, subluxation, disc herniation, DJD, spinal erin nosis, dissection, AAA, pancreatitis, peptic ulcer disease, pyelonephritis, kidney stone, this is not meant to be an all-inclusive list. EKG interpreted by me (3pts min.)? @ -Not obtained X-rays interpreted by me (1pt min.)? @ -Not obtained CT interpreted by me (1pt min.)? @ -Not obtained U/S interpreted by me (1pt. min.)? @ -Not obtained What testing was considered but not performed? (CT, X-rays, U/S, labs)? Why? @ -None What meds were considered but not given? Why? @ -None Did you discuss the management of the patient with other professionals? @ -No Did you reconcile home meds? @ -No Was smoking cessation discussed for >3mins.? @ -I discussed smoking cessation for greater than 3 minutes. The risk of smoking were discussed with the patient including but not limited to risks of cancer, stroke, coronary artery disease and COPD. Also discussed with patient were multiple methods of quitting smoking. Lastly we discussed the financial cost of smoking. Was critical care preformed (if so, how long)? @ -No Were there social determinants of health that impacted care today? How? (Homelessness, low income, unemployed, alcoholism, drug addiction, transportation, low edu. Level, literacy, decrease access to med. care, long-term, rehab)? @ -No Was there de-escalation of care discussed even if they declined? (Discuss DNR or withdrawal of care, Hospice)? @ -No What co-morbidities impacted this encounter? (DM, HTN, Smoking, COPD, CAD, Cancer, CVA, Hep., AIDS, mental health diagnosis, sleep apnea, morbid obesity)? @ -Chronic back pain, smoking Was patient admitted / discharged? @ -Discharged. Pain was managed in the emergency department. 3-day refill on his Percocet was provided. Advised that he needs to follow-up with his primary care provider for his full refill. Patient discharged home in stable condition. Case discussed with ED attending Dr. Burrell. Return precautions reviewed in depth, the patient is instructed to return to the emergency department with any new, worsening, or concerning symptoms. Patient verbalized understanding. Undiagnosed new problem with uncertain prognosis? @ -None Drug Therapy requiring intensive monitoring for toxicity (Heparin, Nitro, Insulin, Cardizem)? @ -None Were any procedures done? @ -None Diagnosis/symptom? @ -Chronic back pain Acute, or Chronic, or Acute on Chronic? @ -Chronic Uncomplicated (without systemic symptoms) or Complicated (systemic symptoms)? @ -Uncomplicated Side effects of treatment? @ -None Exacerbation, Progression, or Severe Exacerbation] @ -Exacerbation Poses a threat to life or bodily function? @ -Yes, the pain is limiting his ability to function. Disposition Clinical Impression: Chronic back pain, Nicotine dependence Disposition: HOME SELF-CARE Instructions (If sedation given, give patient instructions): Chronic Back Pain (DC) Additional Instructions: Return to the emergency department with any new, worsening, or concerning symptoms. Follow up with your primary care provider in 1-2 days. Is patient prescribed a controlled substance at d/c from ED?: Yes When asked, does pt state using other controlled substances?: Yes If prescribed controlled substance>3 days was MAPS reviewed?: Prescribed <3 Days Referrals: Bryant Orozco MD [Primary Care Provider] - 1-2 days Time of Disposition: 09:33
[2024-05-09] MEDS: HYDROmorphone 1 MG/ML 1 ML SYRINGE IM STA (09:36)
[2024-05-09 09:51] VITALS: BP 146/86; PULSE 96; TEMP 97.9
== END 2024-05-09 09:51 | disposition home or self-care (01) ==
LOC: EC 09:15
CPT/HCPCS: 96372; 99283

== ENCOUNTER 2024-05-09 11:59 | Day surgery (SDC) | payer OTHER ==
[2024-05-04 09:04] VITALS: BMI 31.7
[2024-05-09] MEDS: IV FLUID CONTINUATION 1,000 ML IV ONE ×3 (13:12→14:25)
[2024-05-09 13:14] VITALS: RESP 18; TEMP 98.3
[2024-05-09] MEDS: LACTATED RINGERS 1,000 ML IV SCH (13:15)
--- NOTE | 2024-05-09 13:26 | P.GSHP ---
History of Present Illness H&P Date: 05/09/24 Chief Complaint: P positive Cologuard test This is a 48-year-old male who has a positive Cologuard test. Patient presents today for colonoscopy. Past Medical History Past Medical History: Chest Pain / Angina, Hypertension, Skin Disorder Additional Past Medical History / Comment(s): chronic back pain DDD, new rash all over body with leaky wounds that drain at night and scabs come after. but noone takes his insurance History of Any Multi-Drug Resistant Organisms: None Reported, MRSA Date of last positivie culture/infection: 2011 MDRO Source:: rt knee and toe and another time per patient Past Surgical History: Back Surgery, Orthopedic Surgery Additional Past Surgical History / Comment(s): RIGHT ELBOW, left shoulder Past Anesthesia/Blood Transfusion Reactions: No Reported Reaction Additional Past Anesthesia/Blood Transfusion Reaction / Comment(s): no blood transfusion Past Psychological History: Anxiety Smoking Status: Current every day smoker Past Alcohol Use History: None Reported Past Drug Use History: None Reported - Past Family History Mother Family Medical History: Cancer Additional Family Medical History / Comment(s): brain Medications and Allergies Home Medications Medication Instructions Recorded Confirmed Type Morphine Sulfate [Ms Contin] 30 mg PO Q12H 03/26/18 05/09/24 History Cyclobenzaprine [Flexeril] 10 mg PO TID 02/19/21 05/09/24 History Simvastatin [Zocor] 20 mg PO HS 02/19/21 05/09/24 History oxyCODONE-APAP 10-325MG [Percocet 1 tab PO Q6H 02/19/21 05/09/24 History 10-325 mg] ALPRAZolam [Xanax] 0.5 mg PO QID 09/16/23 05/09/24 History Metoprolol Tartrate [Lopressor] 25 mg PO HS 09/16/23 05/09/24 History Naloxone HCl [Narcan] 4 mg NASAL ONCE PRN 09/16/23 05/09/24 History lisinopriL [Zestril] 20 mg PO HS 09/16/23 05/09/24 History Ibuprofen [Motrin] 800 mg PO Q8H 05/04/24 05/09/24 History Allergies Allergy/AdvReac Type Severity Reaction Status Date / Time sulfamethoxazole Allergy Hives, Verified 05/09/24 12:46 [From Bactrim] felt like he was "boiling up" trimethoprim [From Bactrim] Allergy Hives, Verified 05/09/24 12:46 felt like he was "boiling up" Surgical - Exam Vital Signs Temp Pulse Resp BP Pulse Ox 98.3 F 83 18 147/83 96 05/09/24 13:12 05/09/24 13:12 05/09/24 13:12 05/09/24 13:12 05/09/24 13:12 - General well developed, well nourished, no distress - Eyes PERRL - ENT normal pinna, normal nares - Neck no masses - Respiratory normal expansion - Cardiovascular Rhythm: regular - Abdomen Abdomen: soft, non tender Assessment and Plan Assessment: Positive Cologuard test. Will perform colonoscopy.
[2024-05-09] MEDS ORDERED: PROPOFOL 10 MG/ML 20 ML VIAL IV ONE (13:27)
[2024-05-09 14:44] VITALS: BP 136/87; PULSE 71
== END 2024-05-09 14:45 | disposition home or self-care (01) ==
LOC: ORWHC2ENDO 11:59
PROVIDERS: ATTEND Surgery
DX: R19.5 Other fecal abnormalities (principal); I10 Essential (primary) hypertension; G89.29 Other chronic pain; F41.9 Anxiety disorder, unspecified; F17.210 Nicotine dependence, cigarettes, uncomplicated; Z86.14 Personal history of Methicillin resistant Staphylococcus aureus infection; Z88.2 Allergy status to sulfonamides; Z88.3 Allergy status to other anti-infective agents; Z79.899 Other long term (current) drug therapy; Z79.891 Long term (current) use of opiate analgesic
CPT/HCPCS: 45378

== ENCOUNTER → 2024-05-10 | Outpatient (CLI) | payer OTHER ==
--- NOTE | 2024-05-10 13:35 | FL ---
EXAMINATION TYPE: FL barium enema DATE OF EXAM: 05/10/2024 COMPARISON: None HISTORY: 48-year-old male incomplete colonoscopy, positive ColoGuard test, Dulcolax not working as ef fectively TECHNIQUE: A double contrast barium enema study is performed. A total of 2 minutes 38 seconds of fl uoroscopic time was utilized during procedure and 13 images obtained. Total dose area product (DAP) in uGy*m?, mGy*cm? (or similar): 150. FINDINGS: Clinic Physician Director view of the abdomen shows overall non-obstructive bowel gas pattern. Residual gassy bowel is noted. There is marked [id number] redundancy of the sigmoid colon to the point that we initially thought we had reached the right side of the colon. With the patient prone and supine, we realized that all of the opacified colon is located in the left side of the abdomen. Despite multiple attempts with extensive patient repositioning, additional contrast administration, p atient turning, table tilting, and air administration, we are unable to opacify the right side of the colon. Unable to exclude a blocking the passage of contrast at the splenic flexure of the colon. However, on overhead images, there seems to be further tortuosity of the splenic flexure of the colon which may account for this difficulty. On several images, there may be progression of contrast to the mid trans verse colon. Due to the extensive colonic overlap, detailed assessment is very limited. IMPRESSION: 1. Very limited assessment given marked, back and forth redundancy of the sigmoid colon and even redu ndancy of the splenic flexure of the colon. 2. We were unable to opacify the right side of the colon despite multiple attempts, maneuvers, and fu rther contrast administration. 3. Given the difficulty in passing the contrast to the right side of the abdomen, unable to exclude t he possibility of a constricting lesion. Alternative evaluation such as with CT colonography (virtual colonoscopy) may be considered.
== END | disposition home or self-care (01) ==
LOC: RADXRMAIN 10:06
PROVIDERS: ATTEND Surgery
CPT/HCPCS: 74270

== ENCOUNTER 2024-05-15 11:16 | Emergency (ER) | payer OTHER ==
--- NOTE | 2024-05-15 12:13 | ED ---
General Adult HPI - General Chief complaint: Recheck/Abnormal Lab/Rx Stated complaint: Medication issue Time Seen by Provider: 05/15/24 11:32 Source: patient, RN notes reviewed Mode of arrival: ambulatory Limitations: no limitations - History of Present Illness Initial comments: 28-year-old male presents emergency department chief complaint for medication refill. Patient states that he only takes 0.5 mg of Xanax up to 4 times a day and has been out of this medication since . Patient signed, he denies milligram this afternoon he began to feel anxious, felt like his heart was racing primary care provider. Did spanish moss picker this medication from the pharmacy last week however this is not there is no more refills. Currently he denies chest pain, shortness breath, heart palpitations, dizziness, lightheadedness, abdominal pain. - Related Data Home Medications Medication Instructions Recorded Confirmed Morphine Sulfate [Ms Contin] 30 mg PO Q12H 03/26/18 05/09/24 Cyclobenzaprine [Flexeril] 10 mg PO TID 02/19/21 05/09/24 Simvastatin [Zocor] 20 mg PO HS 02/19/21 05/09/24 oxyCODONE-APAP 10-325MG [Percocet 1 tab PO Q6H 02/19/21 05/09/24 10-325 mg] ALPRAZolam [Xanax] 0.5 mg PO QID 09/16/23 05/09/24 Metoprolol Tartrate [Lopressor] 25 mg PO HS 09/16/23 05/09/24 Naloxone HCl [Narcan] 4 mg NASAL ONCE PRN 09/16/23 05/09/24 lisinopriL [Zestril] 20 mg PO HS 09/16/23 05/09/24 Ibuprofen [Motrin] 800 mg PO Q8H 05/04/24 05/09/24 Allergies Allergy/AdvReac Type Severity Reaction Status Date / Time sulfamethoxazole Allergy Hives, Verified 05/15/24 11:38 [From Bactrim] felt like he was "boiling up" trimethoprim [From Bactrim] Allergy Hives, Verified 05/15/24 11:38 felt like he was "boiling up" Review of Systems ROS Statement: Those systems with pertinent positive or pertinent negative responses have been documented in the HPI. ROS Other: All systems not noted in ROS Statement are negative. Past Medical History Past Medical History: Chest Pain / Angina, Hypertension, Skin Disorder Additional Past Medical History / Comment(s): chronic back pain DDD, new rash all over body with leaky wounds that drain at night and scabs come after. but noone takes his insurance History of Any Multi-Drug Resistant Organisms: None Reported, MRSA Date of last positivie culture/infection: 2011 MDRO Source:: rt knee and toe and another time per patient Past Surgical History: Back Surgery, Orthopedic Surgery Additional Past Surgical History / Comment(s): RIGHT ELBOW, left shoulder Past Anesthesia/Blood Transfusion Reactions: No Reported Reaction Additional Past Anesthesia/Blood Transfusion Reaction / Comment(s): no blood transfusion Past Psychological History: Anxiety, Panic Disorder Smoking Status: Current every day smoker Past Alcohol Use History: None Reported Past Drug Use History: None Reported - Past Family History Mother Family Medical History: Cancer Additional Family Medical History / Comment(s): brain General Exam Limitations: no limitations General appearance: alert, in no apparent distress, anxious Eye exam: Present: normal appearance, PERRL, EOMI. Absent: scleral icterus, conjunctival injection, periorbital swelling ENT exam: Present: normal exam, mucous membranes moist Respiratory exam: Present: normal lung sounds bilaterally. Absent: respiratory distress, wheezes, rales, rhonchi, stridor Cardiovascular Exam: Present: regular rate, normal rhythm, normal heart sounds. Absent: systolic murmur, diastolic murmur, rubs, gallop, clicks GI/Abdominal exam: Present: soft, normal bowel sounds. Absent: distended, tenderness, guarding, rebound, rigid Extremities exam: Present: normal inspection, full ROM, normal capillary refill. Absent: tenderness, pedal edema, joint swelling, calf tenderness Back exam: Present: normal inspection Neurological exam: Present: alert, oriented X3, CN II-XII intact Skin exam: Present: warm, dry, intact, normal color. Absent: rash Course Vital Signs 05/15/24 05/15/24 11:34 12:27 Temperature 98.6 F 98.4 F Pulse Rate 112 H 96 Respiratory 16 18 Rate Blood Pressure 118/82 120/78 O2 Sat by Pulse 100 100 Oximetry Medical Decision Making - Medical Decision Making Was pt. sent in by a medical professional or institution (, PA, SALES AND SERVICE REPRESENTATIVE, urgent care, hospital, or snf...) When possible be specific @ -No Did you speak to anyone other than the patient for history (EMS, parent, family, police, friend...)? What history was obtained from this source @ -No Did you review nursing and triage notes (agree or disagree)? Why? @ -I reviewed and agree with nursing and triage notes Were old charts reviewed (outside hosp., previous admission, EMS record, old EKG, old radiological studies, urgent care reports/EKG's, snf records)? Report findings @ -No old charts were reviewed Differential Diagnosis (chest pain, altered mental status, abdominal pain women, abdominal pain men, vaginal bleeding, weakness, fever, dyspnea, syncope, headache, dizziness, GI bleed, back pain, seizure, CVA, palpatations, mental health, musculoskeletal)? @ -Differential Mental Health Depression, anxiety, bipolar, psychosis, schizophrenia, borderline personality, situational depression, adjustment disorder, behavioral disorder, brain tumor, malingering, substance abuse, encephalopathy, medication reaction, dementia, hypothyroidism, degenerative neurologic disorder, lupus.... This is not meant to be all-inclusive list EKG interpreted by me (3pts min.). @ -None X-rays interpreted by me (1pt min.). @ -None done CT interpreted by me (1pt min.). @ -None done U/S interpreted by me (1pt. min.). @ -None done What testing was considered but not performed or refused? (CT, X-rays, U/S, labs)? Why? @ -None What meds were considered but not given or refused? Why? @ -None Did you discuss the management of the patient with other professionals (professionals i.e. , PA, SALES AND SERVICE REPRESENTATIVE, lab, RT, psych nurse, psychiatric social worker supervisor, occupational therapist's assistant, teacher, environmental health officer, case worker)? Give summary @ -No Was smoking cessation discussed for >3mins.? @ -No Was critical care preformed (if so, how long)? @ -No Were there social determinants of health that impacted care today? How? (Homelessness, low income, unemployed, alcoholism, drug addiction, transportation, low edu. Level, literacy, decrease access to med. care, nursing home, rehab)? @ -No Was there de-escalation of care discussed even if they declined (Discuss DNR or withdrawal of care, Hospice)? DNR status @ -No What co-morbidities impacted this encounter? (DM, HTN, Smoking, COPD, CAD, Cancer, CVA, ARF, Chemo, Hep., AIDS, mental health diagnosis, sleep apnea, morbid obesity)? @ -None Was patient admitted / discharged? Hospital course, mention meds given and route, prescriptions, significant lab abnormalities, going to OR and other pertinent info. @ -Discharge. 48-year-old male with anxiety. on examination patient is moderately anxious. Vital signs are stable and he is in no signs acute distress. Patient provided with at home dose of Xanax 0.5 mg. Recommend patient contact his primary care provider in the morning for further evaluation of medication refill. All questions answered at bedside strict return parameters with the patient he is verbalized understanding. Case discussed with Dr. Garay Undiagnosed new problem with uncertain prognosis? @ -No Drug Therapy requiring intensive monitoring for toxicity (Heparin, Nitro, Insulin, Cardizem)? @ -No Were any procedures done? @ -No Diagnosis/symptom? @ -anxiety Acute, or Chronic, or Acute on Chronic? @ -Acute Uncomplicated (without systemic symptoms) or Complicated (systemic symptoms)? @ -Uncomplicated Side effects of treatment? @ -No Exacerbation, Progression, or Severe Exacerbation? @ -No Poses a threat to life or bodily function? How? (Chest pain, [place], [place], pneumonia, PE, COPD, DKA, ARF, appy, cholecystitis, CVA, Diverticulitis, Homicidal, Suicidal, threat to staff... and all critical care pts) @ -No Disposition Clinical Impression: Anxiety, Encounter for medication administration Disposition: HOME SELF-CARE Condition: Good Instructions (If sedation given, give patient instructions): Alprazolam (By mouth), Anxiety (ED) Additional Instructions: Return the emergency department any new or worsening symptoms. Recommend that you contact your primary care provider in the morning for further evaluation. Is patient prescribed a controlled substance at d/c from ED?: No Referrals: Bryant Orozco MD [Primary Care Provider] - 1-2 days Time of Disposition: 12:19
[2024-05-15] MEDS: ALPRAZolam 0.5 MG TAB PO STA (12:25)
[2024-05-15 12:29] VITALS: BP 120/78; PULSE 96; RESP 18; TEMP 98.4
== END 2024-05-15 12:29 | disposition home or self-care (01) ==
LOC: EC 11:16
DX: F41.9 Anxiety disorder, unspecified (principal); F17.200 Nicotine dependence, unspecified, uncomplicated; Z88.2 Allergy status to sulfonamides; Z88.8 Allergy status to other drugs, medicaments and biological substances
CPT/HCPCS: 99282

== ENCOUNTER 2024-05-17 03:57 | Emergency (ER) | payer OTHER ==
[2024-05-17] MEDS: LORazepam 1 MG TAB PO STA ×2 (04:32→05:55)
--- NOTE | 2024-05-17 04:42 | ED ---
Anxiety HPI - General Chief Complaint: Recheck/Abnormal Lab/Rx Stated Complaint: Insomnia, Leg Pain, drymouse Time Seen by Provider: 05/17/24 03:59 Source: patient, RN notes reviewed, old records reviewed Mode of arrival: ambulatory Limitations: no limitations - History of Present Illness Initial Comments: This is a 48-year-old male to the ER for evaluation of being off medications and having severe anxiety. Patient presents for needing medication to help with her anxiety attack, patient denies homicidal or suicidal thoughts MD Complaint: anxiety -: hour(s) Symptoms: muscle cramps Previous History of Same: Yes Severity: moderate Quality: constant Provoking factors: none known Improves With: nothing - Related Data Home Medications: Home Medications Medication Instructions Recorded Confirmed Morphine Sulfate [Ms Contin] 30 mg PO Q12H 03/26/18 05/20/24 Cyclobenzaprine [Flexeril] 10 mg PO TID 02/19/21 05/20/24 Simvastatin [Zocor] 20 mg PO HS 02/19/21 05/20/24 oxyCODONE-APAP 10-325MG [Percocet 1 tab PO Q4H PRN 02/19/21 05/20/24 10-325 mg] ALPRAZolam [Xanax] 0.5 mg PO QID 09/16/23 05/20/24 Naloxone HCl [Narcan] 4 mg NASAL ONCE PRN 09/16/23 05/20/24 lisinopriL [Zestril] 20 mg PO HS 09/16/23 05/20/24 Ibuprofen [Motrin] 800 mg PO Q8H PRN 05/04/24 05/20/24 Aspirin EC [Ecotrin Low Dose] 81 mg PO DAILY 05/20/24 05/20/24 Metoprolol Tartrate [Lopressor] 37.5 mg PO HS 05/20/24 05/20/24 Previous Rx's Medication Instructions Recorded LORazepam [Ativan] 1 mg PO TID 3 Days #9 tab 05/20/24 oxyCODONE-APAP 10-325MG [Percocet 1 tab PO Q6HR 3 Days #12 tab 05/20/24 10-325 mg] Triamcinolone 0.5% Cream [Kenalog 1 applic TOPICAL QID #30 gm 05/27/24 0.5% Cream] clindamycin HCL 300 mg PO QID #40 cap 05/27/24 oxyCODONE HCL/ACETAMINOPHEN 1 tab PO Q6HR PRN 3 Days #12 tab 05/29/24 [Percocet 7.5-325 mg] Allergies/Adverse Reactions: Allergies Allergy/AdvReac Type Severity Reaction Status Date / Time sulfamethoxazole Allergy Hives, Verified 05/28/24 20:29 [From Bactrim] felt like he was "boiling up" trimethoprim [From Bactrim] Allergy Hives, Verified 05/28/24 20:29 felt like he was "boiling up" Review of Systems ROS Statement: Those systems with pertinent positive or pertinent negative responses have been documented in the HPI. ROS Other: All systems not noted in ROS Statement are negative. Past Medical History Past Medical History: Chest Pain / Angina, Hypertension, Skin Disorder Additional Past Medical History / Comment(s): chronic back pain DDD, new rash all over body with leaky wounds that drain at night and scabs come after. but noone takes his insurance History of Any Multi-Drug Resistant Organisms: MRSA Date of last positivie culture/infection: 2011 MDRO Source:: rt knee and toe and another time per patient Past Surgical History: Back Surgery, Orthopedic Surgery Additional Past Surgical History / Comment(s): RIGHT ELBOW, left shoulder Past Anesthesia/Blood Transfusion Reactions: No Reported Reaction Additional Past Anesthesia/Blood Transfusion Reaction / Comment(s): no blood transfusion Past Psychological History: Anxiety, Panic Disorder Smoking Status: Current some day smoker, Former smoker Past Alcohol Use History: None Reported Past Drug Use History: None Reported - Past Family History Mother Family Medical History: Cancer Additional Family Medical History / Comment(s): brain General Exam Limitations: no limitations General appearance: alert, in no apparent distress, anxious Head exam: Present: atraumatic, normocephalic, normal inspection Eye exam: Present: normal appearance, PERRL, EOMI. Absent: scleral icterus, conjunctival injection, periorbital swelling ENT exam: Present: normal exam, mucous membranes moist Neck exam: Present: normal inspection. Absent: tenderness, meningismus, lymphadenopathy Respiratory exam: Present: normal lung sounds bilaterally. Absent: respiratory distress, wheezes, rales, rhonchi, stridor Cardiovascular Exam: Present: regular rate, normal rhythm, normal heart sounds. Absent: systolic murmur, diastolic murmur, rubs, gallop, clicks GI/Abdominal exam: Present: soft, normal bowel sounds. Absent: distended, tenderness, guarding, rebound, rigid Extremities exam: Present: normal inspection, full ROM, normal capillary refill. Absent: tenderness, pedal edema, joint swelling, calf tenderness Back exam: Present: normal inspection Neurological exam: Present: alert, oriented X3, CN II-XII intact Psychiatric exam: Present: normal affect, normal mood Skin exam: Present: warm, dry, intact, normal color. Absent: rash Course Vital Signs 05/17/24 05/17/24 04:07 05:56 Temperature 98.1 F 98.3 F Pulse Rate 115 H 83 Respiratory 18 17 Rate Blood Pressure 142/97 133/95 O2 Sat by Pulse 100 99 Oximetry - Reevaluation(s) Reevaluation #1: 05/17/24 04:52 Medical records reviewed Reevaluation #2: 05/17/24 04:52 Symptoms unchanged 05/17/24 04:52 Symptoms improving Reevaluation #3: 05/17/24 04:52 Patient informed of results questions answered Reevaluation #4: Was pt. sent in by a medical professional or institution (, PA, ELECTRIC MOTOR REPAIR SUPERVISOR, urgent care, hospital, or senior living...) When possible be specific @ -no Did you speak to anyone other than the patient for history (EMS, parent, family, police, friend...)? What history was obtained from this source @ -no Did you review nursing and triage notes (agree or disagree)? Why? @ -agree Are old charts reviewed (outside hosp., previous admission, EMS record, old EKG, old radiological studies, urgent care reports/EKG's, senior living records)? Report findings @ -yes Differential Diagnosis (chest pain, altered mental status, abdominal pain women, abdominal pain men, vaginal bleeding, weakness, fever, dyspnea, syncope, headache, dizziness, GI bleed, back pain, seizure, CVA, palpatations, mental health, musculoskeletal)? @ -prior EKG interpreted by me (3pts min.). @ -no X-rays interpreted by me (1pt min.). @ -no CT interpreted by me (1pt min.). @ -no U/S interpreted by me (1pt. min.). @ -no What testing was considered but not performed or refused? (CT, X-rays, U/S, labs)? Why? @ -none What meds were considered but not given or refused? Why? @ -none Did you discuss the management of the patient with other professionals (professionals i.e. , PA, ELECTRIC MOTOR REPAIR SUPERVISOR, lab, RT, psych nurse, social director, sand blaster, teacher, bank officer, mental health case manager)? Give summary @ -no Was smoking cessation discussed for >3mins.? @ -no Was critical care preformed (if so, how long)? @ -no Were there social determinants of health that impacted care today? How? (Homelessness, low income, unemployed, alcoholism, drug addiction, transportation, low edu. Level, literacy, decrease access to med. care, long-term, rehab)? @ -none Was there de-escalation of care discussed even if they declined (Discuss DNR or withdrawal of care, Hospice)? DNR status @ -no What co-morbidities impacted this encounter? (DM, HTN, Smoking, COPD, CAD, Cancer, CVA, ARF, Chemo, Hep., AIDS, mental health diagnosis, sleep apnea, morbid obesity)? @ -none Was patient admitted / discharged? Hospital course, mention meds given and route, prescriptions, significant lab abnormalities, going to OR and other pertinent info. @ - 48 male with anxiety attack. Patient given Ativan for discharge follow-up with primary care Discharge Undiagnosed new problem with uncertain prognosis? @ -no Drug Therapy requiring intensive monitoring for toxicity (Heparin, Nitro, Insulin, Cardizem)? @ -no Were any procedures done? @ -no Diagnosis/symptom? @ -Anxiety Acute, or Chronic, or Acute on Chronic? @ -Acute Uncomplicated (without systemic symptoms) or Complicated (systemic symptoms)? @ -Complicated Side effects of treatment? @ -no Exacerbation, Progression, or Severe Exacerbation? @ -exacerbation Poses a threat to life or bodily function? How? (Chest pain, [place], [place], pneumonia, PE, COPD, DKA, ARF, appy, cholecystitis, CVA, Diverticulitis, Homicidal, Suicidal, threat to staff... and all critical care pts) @ -no Reevaluation #5: Differential Palpitations Ventricular arrhythmias, atrial arrhythmias, myocardial infarction, anemia, thyrotoxicosis, electrolyte imbalance, hypokalemia, pulmonary embolism, pulmonary disease, drugs, alcohol, anxiety, stress.... This is not meant to be an all-inclusive list. Medical Decision Making - Medical Decision Making 48 male with anxiety attack. Patient given Ativan for discharge follow-up with primary care Disposition Clinical Impression: Anxiety, Medication refill Disposition: HOME SELF-CARE Condition: Good Instructions (If sedation given, give patient instructions): Anxiety (ED) Is patient prescribed a controlled substance at d/c from ED?: No Referrals: None,Stated [Primary Care Provider] - 1-2 days
[2024-05-17 06:00] VITALS: BP 133/95; PULSE 83; RESP 17; TEMP 98.3
== END 2024-05-17 06:00 | disposition home or self-care (01) ==
LOC: EC 03:57
CPT/HCPCS: 99283

== ENCOUNTER 2024-05-19 13:37 | Emergency (ER) | payer OTHER ==
--- NOTE | 2024-05-19 15:13 | ED ---
Extremity Problem HPI - General Chief complaint: Extremity Problem,Nontraumatic Stated complaint: chronic pain/med refill Time Seen by Provider: 05/19/24 14:41 Source: patient, RN notes reviewed Mode of arrival: ambulatory Limitations: no limitations - History of Present Illness Initial comments: 48-year-old male presents emergency department with chief complaint of leg pain, medication refill. Patient has chronic pain without acute injury. Patient states he does not have his oxycodone. Patient has been seen several times emerged part for similar complaints he does have his morphine and Xanax that he takes daily. Patient offers no other complaints. Patient claims that he has been attempting to follow-up but unable to follow-up. - Related Data Home Medications Medication Instructions Recorded Confirmed Morphine Sulfate [Ms Contin] 30 mg PO Q12H 03/26/18 05/09/24 Cyclobenzaprine [Flexeril] 10 mg PO TID 02/19/21 05/09/24 Simvastatin [Zocor] 20 mg PO HS 02/19/21 05/09/24 oxyCODONE-APAP 10-325MG [Percocet 1 tab PO Q6H 02/19/21 05/09/24 10-325 mg] ALPRAZolam [Xanax] 0.5 mg PO QID 09/16/23 05/09/24 Metoprolol Tartrate [Lopressor] 25 mg PO HS 09/16/23 05/09/24 Naloxone HCl [Narcan] 4 mg NASAL ONCE PRN 09/16/23 05/09/24 lisinopriL [Zestril] 20 mg PO HS 09/16/23 05/09/24 Ibuprofen [Motrin] 800 mg PO Q8H 05/04/24 05/09/24 Allergies Allergy/AdvReac Type Severity Reaction Status Date / Time sulfamethoxazole Allergy Hives, Verified 05/19/24 13:45 [From Bactrim] felt like he was "boiling up" trimethoprim [From Bactrim] Allergy Hives, Verified 05/19/24 13:45 felt like he was "boiling up" Review of Systems ROS Statement: Those systems with pertinent positive or pertinent negative responses have been documented in the HPI. ROS Other: All systems not noted in ROS Statement are negative. Past Medical History Past Medical History: Chest Pain / Angina, Hypertension, Skin Disorder Additional Past Medical History / Comment(s): chronic back pain DDD, new rash all over body with leaky wounds that drain at night and scabs come after. but noone takes his insurance History of Any Multi-Drug Resistant Organisms: MRSA Date of last positivie culture/infection: 2011 MDRO Source:: rt knee and toe and another time per patient Past Surgical History: Back Surgery, Orthopedic Surgery Additional Past Surgical History / Comment(s): RIGHT ELBOW, left shoulder Past Anesthesia/Blood Transfusion Reactions: No Reported Reaction Additional Past Anesthesia/Blood Transfusion Reaction / Comment(s): no blood transfusion Past Psychological History: Anxiety, Panic Disorder Smoking Status: Current some day smoker, Former smoker Past Alcohol Use History: None Reported Past Drug Use History: None Reported - Past Family History Mother Family Medical History: Cancer Additional Family Medical History / Comment(s): brain General Exam Limitations: no limitations General appearance: alert, in no apparent distress Head exam: Present: atraumatic, normocephalic, normal inspection Eye exam: Present: normal appearance, PERRL, EOMI. Absent: scleral icterus, conjunctival injection, periorbital swelling Respiratory exam: Present: normal lung sounds bilaterally. Absent: respiratory distress, wheezes, rales, rhonchi, stridor Cardiovascular Exam: Present: regular rate, normal rhythm, normal heart sounds. Absent: systolic murmur, diastolic murmur, rubs, gallop, clicks GI/Abdominal exam: Present: soft, normal bowel sounds. Absent: distended, tenderness, guarding, rebound, rigid Extremities exam: Present: normal inspection, full ROM, normal capillary refill. Absent: tenderness, pedal edema, joint swelling, calf tenderness Course Vital Signs 05/19/24 05/19/24 13:43 15:25 Temperature 98.6 F 98.9 F Pulse Rate 118 H 107 H Respiratory 20 18 Rate Blood Pressure 121/86 103/74 O2 Sat by Pulse 98 98 Oximetry Medical Decision Making - Medical Decision Making Was pt. sent in by a medical professional or institution (, PA, FINISHER PLATE, urgent care, hospital, or long term...) When possible be specific @ -No Did you speak to anyone other than the patient for history (EMS, parent, family, police, friend...)? What history was obtained from this source @ -No Did you review nursing and triage notes (agree or disagree)? Why? @ -I reviewed and agree with nursing and triage notes Were old charts reviewed (outside hosp., previous admission, EMS record, old EKG, old radiological studies, urgent care reports/EKG's, long term records)? Report findings @ -No old charts were reviewed Differential Diagnosis (chest pain, altered mental status, abdominal pain women, abdominal pain men, vaginal bleeding, weakness, fever, dyspnea, syncope, headache, dizziness, GI bleed, back pain, seizure, CVA, palpatations, mental health, musculoskeletal)? @ -Medication refill, drug-seeking behavior EKG interpreted by me (3pts min.). @ -None none X-rays interpreted by me (1pt min.). @ -None done CT interpreted by me (1pt min.). @ -None done U/S interpreted by me (1pt. min.). @ -None done What testing was considered but not performed or refused? (CT, X-rays, U/S, labs)? Why? @ -None What meds were considered but not given or refused? Why? @ -None Did you discuss the management of the patient with other professionals (professionals i.e. , PA, FINISHER PLATE, lab, RT, psych nurse, social worker delinquency prevention, service dismantler, teacher, chief green officer, case checker)? Give summary @ -Discussed patient's case with PCP regarding medication refill in which patient has failed 2 drug screens and is no longer on oxycodone. Was smoking cessation discussed for >3mins.? @ -No Was critical care preformed (if so, how long)? @ -No Were there social determinants of health that impacted care today? How? (Homelessness, low income, unemployed, alcoholism, drug addiction, transportation, low edu. Level, literacy, decrease access to med. care, [facility], rehab)? @ -No Was there de-escalation of care discussed even if they declined (Discuss DNR or withdrawal of care, Hospice)? DNR status @ -No What co-morbidities impacted this encounter? (DM, HTN, Smoking, COPD, CAD, Cancer, CVA, ARF, Chemo, Hep., AIDS, mental health diagnosis, sleep apnea, morbid obesity)? @ -None Was patient admitted / discharged? Hospital course, mention meds given and route, prescriptions, significant lab abnormalities, going to OR and other pertinent info. @ -Discharge patient informed that he will not receive prescription for his Percocet that he is currently on morphine and that he needs to follow-up for further treatment. Undiagnosed new problem with uncertain prognosis? @ -No Drug Therapy requiring intensive monitoring for toxicity (Heparin, Nitro, Insuli n, Cardizem)? @ -No Were any procedures done? @ -No Diagnosis/symptom? @ -Chronic pain, drug-seeking behavior Acute, or Chronic, or Acute on Chronic? @ -Acute Uncomplicated (without systemic symptoms) or Complicated (systemic symptoms)? @ -Uncomplicated Side effects of treatment? @ -No Exacerbation, Progression, or Severe Exacerbation? @ -No Poses a threat to life or bodily function? How? (Chest pain, [place], [place], pneumonia, PE, COPD, DKA, ARF, appy, cholecystitis, CVA, Diverticulitis, Homicidal, Suicidal, threat to staff... and all critical care pts) @ -No Disposition Clinical Impression: Drug-seeking behavior, Chronic pain Disposition: HOME SELF-CARE Condition: Stable Additional Instructions: Please return to the Emergency Department if symptoms worsen or any other concerns. Is patient prescribed a controlled substance at d/c from ED?: No Referrals: Bryant Orozco MD [Primary Care Provider] - 1-2 days Time of Disposition: 15:13
[2024-05-19 15:28] VITALS: BP 103/74; PULSE 107; RESP 18; TEMP 98.9
== END 2024-05-19 15:28 | disposition home or self-care (01) ==
LOC: EC 13:37
CPT/HCPCS: 99283

== ENCOUNTER 2024-05-20 16:41 | Emergency (ER) | payer OTHER ==
--- NOTE | 2024-05-20 18:31 | ED ---
Chest Pain HPI - General Chief Complaint: Chest Pain Stated Complaint: Chest pain Time Seen by Provider: 05/20/24 18:06 Source: patient, RN notes reviewed, old records reviewed Mode of arrival: ambulatory Limitations: no limitations - History of Present Illness Initial Comments: This is a 48-year-old male to ER for evaluation of multiple recent ER visits elevated heart rate elevated blood pressure shaking believes he may be going through alcohol withdrawal with both benzodiazepines and opiates MD Complaint: chest pain -: days(s) Onset: during rest, during exertion Pain Location: substernal Pain Radiation: none Quality: aching, dull Consistency: constant Improves With: nothing Worsens With: nothing Anginal Symptoms: diaphoresis, dyspnea Other Symptoms: palpitations Treatments Prior to Arrival: none - Related Data Home Medications Medication Instructions Recorded Confirmed Morphine Sulfate [Ms Contin] 30 mg PO Q12H 03/26/18 05/20/24 Cyclobenzaprine [Flexeril] 10 mg PO TID 02/19/21 05/20/24 Simvastatin [Zocor] 20 mg PO HS 02/19/21 05/20/24 oxyCODONE-APAP 10-325MG [Percocet 1 tab PO Q4H PRN 02/19/21 05/20/24 10-325 mg] ALPRAZolam [Xanax] 0.5 mg PO QID 09/16/23 05/20/24 Naloxone HCl [Narcan] 4 mg NASAL ONCE PRN 09/16/23 05/20/24 lisinopriL [Zestril] 20 mg PO HS 09/16/23 05/20/24 Ibuprofen [Motrin] 800 mg PO Q8H PRN 05/04/24 05/20/24 Aspirin EC [Ecotrin Low Dose] 81 mg PO DAILY 05/20/24 05/20/24 Metoprolol Tartrate [Lopressor] 37.5 mg PO HS 05/20/24 05/20/24 Previous Rx's Medication Instructions Recorded LORazepam [Ativan] 1 mg PO TID 3 Days #9 tab 05/20/24 oxyCODONE-APAP 10-325MG [Percocet 1 tab PO Q6HR 3 Days #12 tab 05/20/24 10-325 mg] Triamcinolone 0.5% Cream [Kenalog 1 applic TOPICAL QID #30 gm 05/27/24 0.5% Cream] clindamycin HCL 300 mg PO QID #40 cap 05/27/24 oxyCODONE HCL/ACETAMINOPHEN 1 tab PO Q6HR PRN 3 Days #12 tab 05/29/24 [Percocet 7.5-325 mg] Allergies Allergy/AdvReac Type Severity Reaction Status Date / Time sulfamethoxazole Allergy Hives, Verified 05/28/24 20:29 [From Bactrim] felt like he was "boiling up" trimethoprim [From Bactrim] Allergy Hives, Verified 05/28/24 20:29 felt like he was "boiling up" Review of Systems ROS Statement: Those systems with pertinent positive or pertinent negative responses have been documented in the HPI. ROS Other: All systems not noted in ROS Statement are negative. EKG Findings - EKG Comments: EKG Findings:: EKG is sinus tachycardia 126 NE 157 QRS 81 QTc 389 - EKG Results: EKG: interpreted by BIANCA Past Medical History Past Medical History: Chest Pain / Angina, Hypertension, Skin Disorder Additional Past Medical History / Comment(s): chronic back pain DDD, new rash all over body with leaky wounds that drain at night and scabs come after. but noone takes his insurance History of Any Multi-Drug Resistant Organisms: MRSA Date of last positivie culture/infection: 2011 MDRO Source:: rt knee and toe and another time per patient Past Surgical History: Back Surgery, Orthopedic Surgery Additional Past Surgical History / Comment(s): RIGHT ELBOW, left shoulder Past Anesthesia/Blood Transfusion Reactions: No Reported Reaction Additional Past Anesthesia/Blood Transfusion Reaction / Comment(s): no blood transfusion Past Psychological History: Anxiety, Panic Disorder Smoking Status: Current some day smoker, Former smoker Past Alcohol Use History: None Reported Past Drug Use History: None Reported - Past Family History Mother Family Medical History: Cancer Additional Family Medical History / Comment(s): brain General Exam Limitations: no limitations Course Vital Signs 05/20/24 05/20/24 05/20/24 16:48 18:23 19:23 Temperature 99.3 F Pulse Rate 138 H 98 Pulse Rate [ 122 H Scientific Linguist ] Respiratory 20 17 Rate Blood Pressure 120/85 130/89 O2 Sat by Pulse 98 97 Oximetry 05/20/24 05/20/24 20:00 21:02 Temperature 99.1 F Pulse Rate 94 92 Pulse Rate [ Scientific Linguist ] Respiratory 18 18 Rate Blood Pressure 124/82 133/95 O2 Sat by Pulse 97 99 Oximetry - Reevaluation(s) Reevaluation #1: 05/20/24 20:02 Medical records reviewed Reevaluation #2: 05/20/24 20:02 Patient symptoms u dramatically improved Reevaluation #3: 05/20/24 20:03 Patient informed of results and questions answered Reevaluation #4: Was pt. sent in by a medical professional or institution ([facility], OB TECH, urgent care, hospital, or senior care...) When possible be specific @ -no Did you speak to anyone other than the patient for history (EMS, parent, family, police, friend...)? What history was obtained from this source @ -no Did you review nursing and triage notes (agree or disagree)? Why? @ -agree Are old charts reviewed (outside hosp., previous admission, EMS record, old EKG, old radiological studies, urgent care reports/EKG's, senior care records)? Report findings @ -yes Differential Diagnosis (chest pain, altered mental status, abdominal pain women, abdominal pain men, vaginal bleeding, weakness, fever, dyspnea, syncope, headache, dizziness, GI bleed, back pain, seizure, CVA, palpatations, mental health, musculoskeletal)? @ -prior EKG interpreted by me (3pts min.). @ -yes X-rays interpreted by me (1pt min.). @ -yes negative for acute disease CT interpreted by me (1pt min.). @ -no U/S interpreted by me (1pt. min.). @ -no What testing was considered but not performed or refused? (CT, X-rays, U/S, labs)? Why? @ -none What meds were considered but not given or refused? Why? @ -none Did you discuss the management of the patient with other professionals (professionals i.e. [facility], OB TECH, lab, RT, psych nurse, social insurance specialist, business unit controller, teacher, credit risk review officer, rn case management)? Give summary @ -no Was smoking cessation discussed for >3mins.? @ -no Was critical care preformed (if so, how long)? @ -no Were there social determinants of health that impacted care today? How? (Homelessness, low income, unemployed, alcoholism, drug addiction, transportation, low edu. Level, literacy, decrease access to med. care, [facility], rehab)? @ -none Was there de-escalation of care discussed even if they declined (Discuss DNR or withdrawal of care, Hospice)? DNR status @ -no What co-morbidities impacted this encounter? (DM, HTN, Smoking, COPD, CAD, Cancer, CVA, ARF, Chemo, Hep., AIDS, mental health diagnosis, sleep apnea, morbid obesity)? @ -none Was patient admitted / discharged? Hospital course, mention meds given and route, prescriptions, significant lab abnormalities, going to OR and other pertinent info. @ - 48 male to the emergency room today for acute withdrawal patient will be discharged home Discharge Undiagnosed new problem with uncertain prognosis? @ -no Drug Therapy requiring intensive monitoring for toxicity (Heparin, Nitro, Insulin, Cardizem)? @ -no Were any procedures done? @ -no Diagnosis/symptom? @ -Acute alcohol withdrawal Acute, or Chronic, or Acute on Chronic? @ -Acute Uncomplicated (without systemic symptoms) or Complicated (systemic symptoms)? @ -Complicated Side effects of treatment? @ -no Exacerbation, Progression, or Severe Exacerbation? @ -exacerbation Poses a threat to life or bodily function? How? (Chest pain, USA, [place], pneumonia, PE, COPD, DKA, ARF, appy, cholecystitis, CVA, Diverticulitis, Homicidal, Suicidal, threat to staff... and all critical care pts) @ -yes withdrawal symptoms Reevaluation #5: Differential Chest Pain: Stable Angina, Unstable Angina, STEMI, NSTEMI Aortic Dissection, Pneumothorax, Musculoskeletal, Esophageal Spasm GERD, Cholecystitis, Pancreatitis, Zoster, this is not meant to be an all-inclusive list. Chest Pain MDM - MDM 48 male to the emergency room today for acute withdrawal patient will be discharged home Disposition Clinical Impression: Medication refill, Chest pain, Encounter for medication administration Disposition: HOME SELF-CARE Condition: Fair Instructions (If sedation given, give patient instructions): Chest Pain (ED), Medicine Refill (ED) Prescriptions: LORazepam [Ativan] 1 mg PO TID 3 Days #9 tab oxyCODONE-APAP 10-325MG [Percocet 10-325 mg] 1 tab PO Q6HR 3 Days #12 tab Is patient prescribed a controlled substance at d/c from ED?: No Referrals: Bryant Orozco MD [Primary Care Provider] - 1-2 days Time of Disposition: 20:00
[2024-05-20] MEDS: HYDROmorphone 1 MG/ML 1 ML SYRINGE IVP STA (18:52)
[2024-05-20] MEDS: SODIUM CHLORIDE 0.9% 1,000 ML IV STA ×2 (18:53→20:12)
[2024-05-20] MEDS: cloNIDine 0.3 MG/24HR PATCH TRANSDERM STA (18:55)
[2024-05-20 19:21] LABS: Basophils % (A) 0 %; Eosinophils # (A) 0.1 k/uL (0-0.7); Eosinophils % (A) 1 %; HCT 41.6 % (39.0-53.0); HGB 13.5 gm/dL (13.0-17.5); Lymphocytes # (A) 1.4 k/uL (1.0-4.8); Lymphocytes % (A) 13 %; MCH 30.6 pg (25.0-35.0); MCHC 32.5 g/dL (31.0-37.0); MCV 94.1 fL (80.0-100.0); Mean Platelet Volume 7.6; Monocytes # (A) 0.3 k/uL (0-1.0); Monocytes % (A) 3 %; Neutrophils # (A) 8.5 k/uL (1.3-7.7); Neutrophils % (A) 82 %; Platelet Count 297 k/uL (150-450); RBC 4.42 m/uL (4.30-5.90); RDW 13.5 % (11.5-15.5); WBC 10.4 k/uL (3.8-10.6)
[2024-05-20 19:27] LABS: INR 1.1 (<1.2); Partial Thromboplastin Time 24.5 sec (22.0-30.0); Prothrombin Time 11.5 sec (10.0-12.5)
[2024-05-20 19:34] LABS: ALT 15 U/L (4-49); African American GFR (CKD) >90 (>60 ml/min/1.73 sqM); Anion Gap 9 mmol/L; Blood Urea Nitrogen 8 mg/dL (9-20); Calcium 9.7 mg/dL (8.4-10.2); Carbon Dioxide 24 mmol/L (22-30); Chloride 105 mmol/L (98-107); Glucose 102 mg/dL (74-99); Non-African American GFR(CKD) >90 (>60 ml/min/1.73 sqM); Sodium 138 mmol/L (137-145); Total Bilirubin 0.9 mg/dL (0.2-1.3)
[2024-05-20 19:40] LABS: NT-Pro-B-Type Natriuretic Pept 64 pg/mL
[2024-05-20 19:47] LABS: AST 31 U/L (17-59); Albumin 4.3 g/dL (3.5-5.0); Alkaline Phosphatase 93 U/L (38-126); Phosphorus 2.6 mg/dL (2.5-4.5); Potassium 4.7 mmol/L (3.5-5.1); Total Protein 7.2 g/dL (6.3-8.2)
[2024-05-20 20:07] VITALS: RESP 18
[2024-05-20] MEDS: oxyCODONE-APAP 10-325MG 1 EACH TAB PO STA (20:11)
[2024-05-20] MEDS: LORazepam 1 MG TAB PO STA (20:11)
--- NOTE | 2024-05-20 20:27 | XR ---
EXAMINATION TYPE: XR chest 2V DATE OF EXAM: 05/20/2024 COMPARISON: 09/16/2023 INDICATION: Weakness TECHNIQUE: Single frontal view of the chest is obtained. FINDINGS: The heart size is normal. The pulmonary vasculature is normal. The lungs are clear. IMPRESSION: 1. No acute pulmonary process. [facility], , 05/20/2024 8:24 PM
[2024-05-20 21:04] VITALS: BP 133/95; PULSE 92; TEMP 99.1
== END 2024-05-20 21:15 | disposition home or self-care (01) ==
LOC: EC 16:41
CPT/HCPCS: 36415; 71046; 80053; 83605; 83735; 83880; 84100; 84484; 85025; 85610; 85730; 93005; 96361; 96374; 96375; 99285

== ENCOUNTER 2024-05-23 23:15 | Emergency (ER) | payer OTHER ==
[2024-05-23 23:36] VITALS: BP 156/94; PULSE 110; RESP 20; TEMP 97.9
--- NOTE | 2024-05-23 23:50 | ED ---
General Adult HPI - General Chief complaint: Back Pain/Injury Stated complaint: Pain, Leaking fluid Time Seen by Provider: 05/23/24 23:25 Source: patient, RN notes reviewed, old records reviewed Mode of arrival: ambulatory Limitations: no limitations - History of Present Illness Initial comments: 48-year-old male presenting with chronic back pain. Patient states there has been a medication mixup and he is not receiving his Percocets. He was prescribed Ativan and Percocet by ER physician 3 days prior. He had several ER visits in the past week for anxiety. He is prescribed morphine, Percocet, Xanax. Patient denies new injury. - Related Data Home Medications Medication Instructions Recorded Confirmed Morphine Sulfate [Ms Contin] 30 mg PO Q12H 03/26/18 05/20/24 Cyclobenzaprine [Flexeril] 10 mg PO TID 02/19/21 05/20/24 Simvastatin [Zocor] 20 mg PO HS 02/19/21 05/20/24 oxyCODONE-APAP 10-325MG [Percocet 1 tab PO Q4H PRN 02/19/21 05/20/24 10-325 mg] ALPRAZolam [Xanax] 0.5 mg PO QID 09/16/23 05/20/24 Naloxone HCl [Narcan] 4 mg NASAL ONCE PRN 09/16/23 05/20/24 lisinopriL [Zestril] 20 mg PO HS 09/16/23 05/20/24 Ibuprofen [Motrin] 800 mg PO Q8H PRN 05/04/24 05/20/24 Aspirin EC [Ecotrin Low Dose] 81 mg PO DAILY 05/20/24 05/20/24 Metoprolol Tartrate [Lopressor] 37.5 mg PO HS 05/20/24 05/20/24 Previous Rx's Medication Instructions Recorded LORazepam [Ativan] 1 mg PO TID 3 Days #9 tab 05/20/24 oxyCODONE-APAP 10-325MG [Percocet 1 tab PO Q6HR 3 Days #12 tab 05/20/24 10-325 mg] Allergies Allergy/AdvReac Type Severity Reaction Status Date / Time sulfamethoxazole Allergy Hives, Verified 05/20/24 18:59 [From Bactrim] felt like he was "boiling up" trimethoprim [From Bactrim] Allergy Hives, Verified 05/20/24 18:59 felt like he was "boiling up" Review of Systems ROS Statement: Those systems with pertinent positive or pertinent negative responses have been documented in the HPI. ROS Other: All systems not noted in ROS Statement are negative. Past Medical History Past Medical History: Chest Pain / Angina, Hypertension, Skin Disorder Additional Past Medical History / Comment(s): chronic back pain DDD, new rash all over body with leaky wounds that drain at night and scabs come after. but noone takes his insurance History of Any Multi-Drug Resistant Organisms: MRSA Date of last positivie culture/infection: 2011 MDRO Source:: rt knee and toe and another time per patient Past Surgical History: Back Surgery, Orthopedic Surgery Additional Past Surgical History / Comment(s): RIGHT ELBOW, left shoulder Past Anesthesia/Blood Transfusion Reactions: No Reported Reaction Additional Past Anesthesia/Blood Transfusion Reaction / Comment(s): no blood t ransfusion Past Psychological History: Anxiety, Panic Disorder Smoking Status: Current some day smoker, Former smoker Past Alcohol Use History: None Reported Past Drug Use History: None Reported - Past Family History Mother Family Medical History: Cancer Additional Family Medical History / Comment(s): brain General Exam Limitations: no limitations General appearance: alert, in no apparent distress Head exam: Present: atraumatic, normocephalic Eye exam: Present: normal appearance, PERRL ENT exam: Present: normal exam Respiratory exam: Absent: respiratory distress Cardiovascular Exam: Present: normal rhythm, tachycardia GI/Abdominal exam: Absent: distended Extremities exam: Present: normal inspection, normal capillary refill Neurological exam: Present: alert, oriented X3, CN II-XII intact. Absent: motor sensory deficit Psychiatric exam: Present: normal affect, normal mood Skin exam: Present: warm, dry, intact. Absent: cyanosis, diaphoretic Course Vital Signs 05/23/24 23:33 Temperature 97.9 F Pulse Rate 110 H Respiratory 20 Rate Blood Pressure 156/94 O2 Sat by Pulse 98 Oximetry Medical Decision Making - Medical Decision Making Was pt. sent in by a medical professional or institution (, PA, [employer], urgent care, hospital, or custodial...) When possible be specific @ -No Did you speak to anyone other than the patient for history (EMS, parent, family, police, friend...)? What history was obtained from this source @ -No Did you review nursing and triage notes (agree or disagree)? Why? @ -I reviewed and agree with nursing and triage notes Were old charts reviewed (outside hosp., previous admission, EMS record, old EKG, old radiological studies, urgent care reports/EKG's, custodial records)? Report findings @ -No old charts were reviewed Differential Diagnosis (differential Musculoskeletal Muscular strain, contusion, ligament sprain, fracture, arthritis, septic arthritis, bursitis, cellulitis, muscle spasm, nerve compression, DVT, arterial occlusion, herpes zoster, electrolyte abnormality, tumor.... This is not meant to be in all inclusive list EKG interpreted by me (3pts min.). @ -As above X-rays interpreted by me (1pt min.). @ -None done CT interpreted by me (1pt min.). @ -None done U/S interpreted by me (1pt. min.). @ -None done What testing was considered but not performed or refused? (CT, X-rays, U/S, labs)? Why? @ -None What meds were considered but not given or refused? Why? @ -None Did you discuss the management of the patient with other professionals (professionals i.e. , PA, [employer], lab, RT, psych nurse, social service liaison, watch parts grinder, teacher, campus police officer, rn case management)? Give summary @ -No Was smoking cessation discussed for >3mins.? @ -No Was critical care preformed (if so, how long)? @ -No Were there social determinants of health that impacted care today? How? (Homelessness, low income, unemployed, alcoholism, drug addiction, transportation, low edu. Level, literacy, decrease access to med. care, residential, rehab)? @ -No Was there de-escalation of care discussed even if they declined (Discuss DNR or withdrawal of care, Hospice)? DNR status @ -No What co-morbidities impacted this encounter? (DM, HTN, Smoking, COPD, CAD, Cancer, CVA, ARF, Chemo, Hep., AIDS, mental health diagnosis, sleep apnea, morbid obesity)? @ -None Was patient admitted / discharged? Hospital course, mention meds given and route, prescriptions, significant lab abnormalities, going to OR and other pertinent info. @ -Patient does have multiple ER visits for pain and anxiety. I do believe this patient has drug-seeking behavior. He is on morphine, Percocet, Xanax. I did prescribe Toradol for his chronic back pain. I informed the patient that he will not receive any benzodiazepines or narcotics in this ER visit. And that he should follow-up with his primary care provider regarding these medications. I do not identify an emergency with this patient. Undiagnosed new problem with uncertain prognosis? @ -No Drug Therapy requiring intensive monitoring for toxicity (Heparin, Nitro, Insulin, Cardizem)? @ -No Were any procedures done? @ -No Diagnosis/symptom? @ -Default Acute, or Chronic, or Acute on Chronic? @Chronic pain Uncomplicated (without systemic symptoms) or Complicated (systemic symptoms)? @ -Default Side effects of treatment? @ -No Exacerbation, Progression, or Severe Exacerbation? @ -No Poses a threat to life or bodily function? How? (Chest pain, [place], [place], pneumonia, PE, COPD, DKA, ARF, appy, cholecystitis, CVA, Diverticulitis, Homicidal, Suicidal, threat to staff... and all critical care pts) @ -No Disposition Clinical Impression: Chronic pain, Drug-seeking behavior Disposition: HOME SELF-CARE Condition: Fair Instructions (If sedation given, give patient instructions): Chronic Pain (ED) Is patient prescribed a controlled substance at d/c from ED?: No Referrals: Bryant Orozco MD [Primary Care Provider] - 1-2 days Time of Disposition: 23:50
[2024-05-24] MEDS: KETOROLAC 15 MG/ML 1 ML VIAL IM STA (00:13)
== END 2024-05-24 00:16 | disposition home or self-care (01) ==
LOC: EC 23:15
CPT/HCPCS: 96372; 99283

== ENCOUNTER 2024-05-27 01:17 | Emergency (ER) | payer OTHER ==
[2024-05-27 01:20] VITALS: RESP 20
[2024-05-27] MEDS: KETOROLAC 15 MG/ML 1 ML VIAL IM STA (02:29)
[2024-05-27] MEDS: HYDROmorphone 1 MG/ML 1 ML SYRINGE IM STA (02:30)
--- NOTE | 2024-05-27 02:55 | ED ---
Skin/Abscess/FB HPI - General Chief complaint: Skin/Abscess/Foreign Body Stated complaint: rash on back Time Seen by Provider: 05/27/24 01:22 Source: patient, RN notes reviewed Mode of arrival: ambulatory Limitations: no limitations - History of Present Illness Initial comments: This is a 48 year old male who presents to the emergency department for wounds on his back. Reports scabs all over his back and upper and lower extremities. States that this has been going on for "a while" but seemed to get much worse when he started to withdraw from the Percocet. Describes these as very itchy and painful. He had intended on seeing a production solderer, but states that none of the local ones will accept his insurance. MD complaint: rash - Related Data Home Medications Medication Instructions Recorded Confirmed Morphine Sulfate [Ms Contin] 30 mg PO Q12H 03/26/18 05/20/24 Cyclobenzaprine [Flexeril] 10 mg PO TID 02/19/21 05/20/24 Simvastatin [Zocor] 20 mg PO HS 02/19/21 05/20/24 oxyCODONE-APAP 10-325MG [Percocet 1 tab PO Q4H PRN 02/19/21 05/20/24 10-325 mg] ALPRAZolam [Xanax] 0.5 mg PO QID 09/16/23 05/20/24 Naloxone HCl [Narcan] 4 mg NASAL ONCE PRN 09/16/23 05/20/24 lisinopriL [Zestril] 20 mg PO HS 09/16/23 05/20/24 Ibuprofen [Motrin] 800 mg PO Q8H PRN 05/04/24 05/20/24 Aspirin EC [Ecotrin Low Dose] 81 mg PO DAILY 05/20/24 05/20/24 Metoprolol Tartrate [Lopressor] 37.5 mg PO HS 05/20/24 05/20/24 Previous Rx's Medication Instructions Recorded LORazepam [Ativan] 1 mg PO TID 3 Days #9 tab 05/20/24 oxyCODONE-APAP 10-325MG [Percocet 1 tab PO Q6HR 3 Days #12 tab 05/20/24 10-325 mg] Triamcinolone 0.5% Cream [Kenalog 1 applic TOPICAL QID #30 gm 05/27/24 0.5% Cream] clindamycin HCL 300 mg PO QID #40 cap 05/27/24 Allergies Allergy/AdvReac Type Severity Reaction Status Date / Time sulfamethoxazole Allergy Hives, Verified 05/27/24 01:20 [From Bactrim] felt like he was "boiling up" trimethoprim [From Bactrim] Allergy Hives, Verified 05/27/24 01:20 felt like he was "boiling up" Review of Systems ROS Statement: Those systems with pertinent positive or pertinent negative responses have been documented in the HPI. ROS Other: All systems not noted in ROS Statement are negative. Past Medical History Past Medical History: Chest Pain / Angina, Hypertension, Skin Disorder Additional Past Medical History / Comment(s): chronic back pain DDD, new rash all over body with leaky wounds that drain at night and scabs come after. but noone takes his insurance History of Any Multi-Drug Resistant Organisms: MRSA Date of last positivie culture/infection: 2011 MDRO Source:: rt knee and toe and another time per patient Past Surgical History: Back Surgery, Orthopedic Surgery Additional Past Surgical History / Comment(s): RIGHT ELBOW, left shoulder Past Anesthesia/Blood Transfusion Reactions: No Reported Reaction Additional Past Anesthesia/Blood Transfusion Reaction / Comment(s): no blood transfusion Past Psychological History: Anxiety, Panic Disorder Smoking Status: Former smoker Past Alcohol Use History: None Reported Past Drug Use History: None Reported - Past Family History Mother Family Medical History: Cancer Additional Family Medical History / Comment(s): brain General Exam Limitations: no limitations General appearance: alert, in no apparent distress Head exam: Present: atraumatic, normocephalic, normal inspection Respiratory exam: Present: normal lung sounds bilaterally. Absent: respiratory distress, wheezes, rales, rhonchi, stridor Cardiovascular Exam: Present: regular rate, normal rhythm, normal heart sounds. Absent: systolic murmur, diastolic murmur, rubs, gallop, clicks Neurological exam: Present: alert, oriented X3, CN II-XII intact Psychiatric exam: Present: normal affect, normal mood Skin exam: Present: other (Scabbed over lesions on his back and bilateral upper and lower extremities.) Course Vital Signs 05/27/24 05/27/24 01:18 03:18 Temperature 98.2 F 98.1 F Pulse Rate 115 H 91 Respiratory 20 20 Rate Blood Pressure 146/98 131/84 O2 Sat by Pulse 98 98 Oximetry Medical Decision Making - Medical Decision Making This is a 48-year-old male who presents to the emergency department for a rash. Was pt. sent in by a medical professional or institution? @ -No Did you speak to anyone other than the patient for history? @ -No Did you review nursing and triage notes? @ -Yes, and I agree, it is accurate with regards to the patient's symptoms. Were old charts reviewed? @ -No Differential Diagnosis? @ -Differential Rash: Roseola, measles, Lyme disease, erythema multiforme, cellulitis, toxic shock syndrome, Carlo Marc syndrome, Kawasaki disease, jey mountain spotted fever, contact dermatitis, allergic dermatitis, measles, mumps, rubella, varicella, meningococcal disease, drug reaction, coxsackievirus, This is not meant to be an all-inclusive list. EKG interpreted by me (3pts min.)? @ -Not obtained X-rays interpreted by me (1pt min.)? @ -Not obtained CT interpreted by me (1pt min.)? @ -Not obtained U/S interpreted by me (1pt. min.)? @ -Not obtained What testing was considered but not performed? (CT, X-rays, U/S, labs)? Why? @ -None What meds were considered but not given? Why? @ -None Did you discuss the management of the patient with other professionals? @ -No Did you reconcile home meds? @ -No Was smoking cessation discussed for >3mins.? @ -I discussed smoking cessation for greater than 3 minutes. The risk of smoking were discussed with the patient including but not limited to risks of cancer, stroke, coronary artery disease and COPD. Also discussed with patient were multiple methods of quitting smoking. Lastly we discussed the financial cost of smoking. Was critical care preformed (if so, how long)? @ -No Were there social determinants of health that impacted care today? How? (Homelessness, low income, unemployed, alcoholism, drug addiction, transportation, low edu. Level, literacy, decrease access to med. care, detention, rehab)? @ -No Was there de-escalation of care discussed even if they declined? (Discuss DNR or withdrawal of care, Hospice)? @ -No What co-morbidities impacted this encounter? (DM, HTN, Smoking, COPD, CAD, Cancer, CVA, Hep., AIDS, mental health diagnosis, sleep apnea, morbid obesity)? @ -Smoking, opiate dependence Was patient admitted / discharged? @ -Discharged. Patient had multiple scabbed lesions all over his back and some on his bilateral upper and lower extremities. Atarax and triamcinolone cream were administered in the emergency department. He was given a prescription for triamcinolone cream to help with inflammation and itching with these lesions. Advised to continue with [id number] antihistamines as well and follow-up with his primary care provider. Case discussed with ED attending Dr. Garay. Return precautions reviewed in depth, the patient is instructed to return to the emergency department with any new, worsening, or concerning symptoms. Patient verbalized understanding. Undiagnosed new problem with uncertain prognosis? @ -None Drug Therapy requiring intensive monitoring for toxicity (Heparin, Nitro, Insulin, Cardizem)? @ -None Were any procedures done? @ -None Diagnosis/symptom? @ -Rash Acute, or Chronic, or Acute on Chronic? @ -Acute Uncomplicated (without systemic symptoms) or Complicated (systemic symptoms)? @ -Uncomplicated Side effects of treatment? @ -None Exacerbation, Progression, or Severe Exacerbation] @ -Stable Poses a threat to life or bodily function? @ -No Disposition Clinical Impression: Rash Disposition: HOME SELF-CARE Instructions (If sedation given, give patient instructions): Acute Rash (ED) Additional Instructions: Return to the emergency department with any new, worsening, or concerning s ymptoms. You can continue to apply the triamcinolone cream provided 3-4 times daily. This was sent to your pharmacy as well. Take Benadryl or another antihistamine to help with the itching. Follow up with your primary care provider in 1-2 days. Prescriptions: Triamcinolone 0.5% Cream [Kenalog 0.5% Cream] 1 applic TOPICAL QID #30 gm Is patient prescribed a controlled substance at d/c from ED?: No Referrals: Bryant Orozco MD [Primary Care Provider] - 1-2 days Time of Disposition: 03:02
[2024-05-27] MEDS: hydrOXYzine HCL 25 MG TAB PO STA (02:59)
[2024-05-27] MEDS: TRIAMCINOLONE ACET 0.5% CREAM 15 GM TUBE TOPICAL STA (02:59)
[2024-05-27 03:19] VITALS: BP 131/84; PULSE 91; TEMP 98.1
== END 2024-05-27 03:19 | disposition home or self-care (01) ==
LOC: EC 01:17
CPT/HCPCS: 96372; 99282

== ENCOUNTER 2024-05-27 20:01 | Emergency (ER) | payer OTHER ==
--- NOTE | 2024-05-27 20:26 | ED ---
Skin/Abscess/FB HPI - General Chief complaint: Skin/Abscess/Foreign Body Stated complaint: Rash on Back Time Seen by Provider: 05/27/24 20:18 Source: patient, RN notes reviewed Mode of arrival: ambulatory Limitations: no limitations - History of Present Illness Initial comments: This is a 48-year-old male presents emergency department chief complaint of a recheck of his rash. Patient states that he was evaluated emergency department yesterday evening for a rash on his back, states that this is continued to spread and is becoming painful and pruritic. Patient was discharged home with topical steroid cream states that he has been using this. He denies fevers, chills, nausea, vomiting, abdominal pain. Patient states that he has been battling with frequent skin infections over the past few months. Denies recent antibiotic use. - Related Data Home Medications Medication Instructions Recorded Confirmed Morphine Sulfate [Ms Contin] 30 mg PO Q12H 03/26/18 05/20/24 Cyclobenzaprine [Flexeril] 10 mg PO TID 02/19/21 05/20/24 Simvastatin [Zocor] 20 mg PO HS 02/19/21 05/20/24 oxyCODONE-APAP 10-325MG [Percocet 1 tab PO Q4H PRN 02/19/21 05/20/24 10-325 mg] ALPRAZolam [Xanax] 0.5 mg PO QID 09/16/23 05/20/24 Naloxone HCl [Narcan] 4 mg NASAL ONCE PRN 09/16/23 05/20/24 lisinopriL [Zestril] 20 mg PO HS 09/16/23 05/20/24 Ibuprofen [Motrin] 800 mg PO Q8H PRN 05/04/24 05/20/24 Aspirin EC [Ecotrin Low Dose] 81 mg PO DAILY 05/20/24 05/20/24 Metoprolol Tartrate [Lopressor] 37.5 mg PO HS 05/20/24 05/20/24 Previous Rx's Medication Instructions Recorded LORazepam [Ativan] 1 mg PO TID 3 Days #9 tab 05/20/24 oxyCODONE-APAP 10-325MG [Percocet 1 tab PO Q6HR 3 Days #12 tab 05/20/24 10-325 mg] Triamcinolone 0.5% Cream [Kenalog 1 applic TOPICAL QID #30 gm 05/27/24 0.5% Cream] clindamycin HCL 300 mg PO QID #40 cap 05/27/24 Allergies Allergy/AdvReac Type Severity Reaction Status Date / Time sulfamethoxazole Allergy Hives, Verified 05/27/24 01:20 [From Bactrim] felt like he was "boiling up" trimethoprim [From Bactrim] Allergy Hives, Verified 05/27/24 01:20 felt like he was "boiling up" Review of Systems ROS Statement: Those systems with pertinent positive or pertinent negative responses have been documented in the HPI. ROS Other: All systems not noted in ROS Statement are negative. Past Medical History Past Medical History: Chest Pain / Angina, Hypertension, Skin Disorder Additional Past Medical History / Comment(s): chronic back pain DDD, new rash all over body with leaky wounds that drain at night and scabs come after. but noone takes his insurance History of Any Multi-Drug Resistant Organisms: MRSA Date of last positivie culture/infection: 2011 MDRO Source:: rt knee and toe and another time per patient Past Surgical History: Back Surgery, Orthopedic Surgery Additional Past Surgical History / Comment(s): RIGHT ELBOW, left shoulder Past Anesthesia/Blood Transfusion Reactions: No Reported Reaction Additional Past Anesthesia/Blood Transfusion Reaction / Comment(s): no blood transfusion Past Psychological History: Anxiety, Panic Disorder Smoking Status: Former smoker Past Alcohol Use History: None Reported Past Drug Use History: None Reported - Past Family History Mother Family Medical History: Cancer Additional Family Medical History / Comment(s): brain General Exam Limitations: no limitations General appearance: alert, in no apparent distress Eye exam: Present: normal appearance, PERRL, EOMI. Absent: scleral icterus, conjunctival injection, periorbital swelling ENT exam: Present: normal exam, mucous membranes moist Neck exam: Present: normal inspection. Absent: tenderness, meningismus, lymphadenopathy Respiratory exam: Present: normal lung sounds bilaterally. Absent: respiratory distress, wheezes, rales, rhonchi, stridor Cardiovascular Exam: Present: regular rate, normal rhythm, normal heart sounds. Absent: systolic murmur, diastolic murmur, rubs, gallop, clicks GI/Abdominal exam: Present: soft, normal bowel sounds. Absent: distended, tenderness, guarding, rebound, rigid Extremities exam: Present: normal inspection, full ROM, normal capillary refill. Absent: tenderness, pedal edema, joint swelling, calf tenderness Skin exam: Present: warm, dry, intact (posterior scabbing and cystic rash over the back, no active drainage or bleeding ), rash Course Vital Signs 05/27/24 05/27/24 20:21 21:08 Temperature 99.1 F 98.8 F Pulse Rate 153 H 112 H Respiratory 20 18 Rate Blood Pressure 129/84 130/84 O2 Sat by Pulse 99 97 Oximetry Medical Decision Making - Medical Decision Making Was pt. sent in by a medical professional or institution (, TERRY, RESIDENT PROGRAMS ASSISTANT, urgent care, hospital, or jail...) When possible be specific @ -No Did you speak to anyone other than the patient for history (EMS, parent, family, police, friend...)? What history was obtained from this source @ -No Did you review nursing and triage notes (agree or disagree)? Why? @ -I reviewed nursing and triage notes and agree. Were old charts reviewed (outside hosp., previous admission, EMS record, old EKG, old radiological studies, urgent care reports/EKG's, jail records)? Report findings @ -The patient's emergency department visit note from 05/27/2024 he was discharged in stable condition with a steroid ointment. Differential Diagnosis (chest pain, altered mental status, abdominal pain women, abdominal pain men, vaginal bleeding, weakness, fever, dyspnea, syncope, headache, dizziness, GI bleed, back pain, seizure, CVA, palpatations, mental health, musculoskeletal)? @ -atopic dermatitis, MRSA infection, cellulitis, dermatitis, this list not all inclusive EKG interpreted by me (3pts min.). @ -none X-rays interpreted by me (1pt min.). @ -None done CT interpreted by me (1pt min.). @ -None done U/S interpreted by me (1pt. min.). @ -None done What testing was considered but not performed or refused? (CT, X-rays, U/S, labs)? Why? @ -None What meds were considered but not given or refused? Why? @ -None Did you discuss the management of the patient with other professionals (professionals i.e. , TERRY, RESIDENT PROGRAMS ASSISTANT, lab, RT, psych nurse, geriatric social worker, supplemental manager, teacher, emergency communications officer, case packer)? Give summary @ -No Was smoking cessation discussed for >3mins.? @ -No Was critical care preformed (if so, how long)? @ -No Were there social determinants of health that impacted care today? How? (Homelessness, low income, unemployed, alcoholism, drug addiction, transportation, low edu. Level, literacy, decrease access to med. care, alf, rehab)? @ -No Was there de-escalation of care discussed even if they declined (Discuss DNR or withdrawal of care, Hospice)? DNR status @ -No What co-morbidities impacted this encounter? (DM, HTN, Smoking, COPD, CAD, Cancer, CVA, ARF, Chemo, Hep., AIDS, mental health diagnosis, sleep apnea, morbid obesity)? @ -None Was patient admitted / discharged? Hospital course, mention meds given and route, prescriptions, significant lab abnormalities, going to OR and other pertinent info. @ -Discharge. 48-year-old male with rash. On examination patient noted to have abscess and crusting appearing rash of the back that looks to be infectious potentially MRSA infection. Patient has been prescribed steroids yesterday with no relief. He will be sent a prescription for antibiotics and is provided with a dose of Toradol emergency department for pain control. All questions answered at bedside and strict return. The patient is verbalized understanding. Case discussed with Dr. Bocanegra Undiagnosed new problem with uncertain prognosis? @ -No Drug Therapy requiring intensive monitoring for toxicity (Heparin, Nitro, Insulin, Cardizem)? @ -No Were any procedures done? @ -No Diagnosis/symptom? @ -rash Acute, or Chronic, or Acute on Chronic? @ -acute Uncomplicated (without systemic symptoms) or Complicated (systemic symptoms)? @ -uncomplictaed Side effects of treatment? @ -No Exacerbation, Progression, or Severe Exacerbation? @ -No Poses a threat to life or bodily function? How? (Chest pain, [place], [place], pneumonia, PE, COPD, DKA, ARF, appy, cholecystitis, CVA, Diverticulitis, Homicidal, Suicidal, threat to staff... and all critical care pts) @ -No Disposition Clinical Impression: Rash, Abscess Disposition: HOME SELF-CARE Condition: Good Instructions (If sedation given, give patient instructions): Acute Rash (ED) Additional Instructions: Return to the emergency department for any new or worsening symptoms. Recommend you complete full course of antibiotics as prescribed. Follow-up as scheduled with your primary care provider on Thursday for further evaluation. Prescriptions: clindamycin HCL 300 mg PO QID #40 cap Is patient prescribed a controlled substance at d/c from ED?: No Referrals: Bryant Orozco MD [Primary Care Provider] - 1-2 days Time of Disposition: 20:37
[2024-05-27] MEDS: KETOROLAC 15 MG/ML 1 ML VIAL IM STA (21:02)
[2024-05-27] MEDS: cefTRIAXone 1,000 MG VIAL (IM USE) IM STA (21:06)
[2024-05-27 21:09] VITALS: BP 130/84; PULSE 112; RESP 18; TEMP 98.8
== END 2024-05-27 21:09 | disposition home or self-care (01) ==
LOC: EC 20:01
CPT/HCPCS: 96372; 99282

== ENCOUNTER 2024-05-28 20:12 | Emergency (ER) | payer OTHER ==
--- NOTE | 2024-05-28 21:30 | ED ---
General Adult HPI - General Chief complaint: Recheck/Abnormal Lab/Rx Stated complaint: weakness Time Seen by Provider: 05/28/24 21:07 Source: patient Mode of arrival: ambulatory Limitations: no limitations - History of Present Illness Initial comments: This patient is a 48-year-old man who is here complaining of generalized aches, fever and sweats. He states that this is all been getting worse over the course the past day. The patient was seen here yesterday for similar symptoms and also for rash on his back that has been oozing. The patient was prescribed clindamycin for this which he has taken 2 doses of, noticing a difference. Of note the patient states that for chronic pain he takes morphine 30 mg twice per day and he was taking Percocet 10mg 4 times per day. The patient notes that at the end of last week his Percocet was not refilled. He attempted to see his physician on Thursday but the doctor was not in the clinic. -: days(s) Quality: aching Consistency: constant Improves with: none Worsens with: none Associated Symptoms: diaphoresis, fever/chills, nausea/vomiting Treatments Prior to Arrival: none - Related Data Home Medications Medication Instructions Recorded Confirmed Morphine Sulfate [Ms Contin] 30 mg PO Q12H 03/26/18 05/20/24 Cyclobenzaprine [Flexeril] 10 mg PO TID 02/19/21 05/20/24 Simvastatin [Zocor] 20 mg PO HS 02/19/21 05/20/24 oxyCODONE-APAP 10-325MG [Percocet 1 tab PO Q4H PRN 02/19/21 05/20/24 10-325 mg] ALPRAZolam [Xanax] 0.5 mg PO QID 09/16/23 05/20/24 Naloxone HCl [Narcan] 4 mg NASAL ONCE PRN 09/16/23 05/20/24 lisinopriL [Zestril] 20 mg PO HS 09/16/23 05/20/24 Ibuprofen [Motrin] 800 mg PO Q8H PRN 05/04/24 05/20/24 Aspirin EC [Ecotrin Low Dose] 81 mg PO DAILY 05/20/24 05/20/24 Metoprolol Tartrate [Lopressor] 37.5 mg PO HS 05/20/24 05/20/24 Previous Rx's Medication Instructions Recorded LORazepam [Ativan] 1 mg PO TID 3 Days #9 tab 05/20/24 oxyCODONE-APAP 10-325MG [Percocet 1 tab PO Q6HR 3 Days #12 tab 05/20/24 10-325 mg] Triamcinolone 0.5% Cream [Kenalog 1 applic TOPICAL QID #30 gm 05/27/24 0.5% Cream] clindamycin HCL 300 mg PO QID #40 cap 05/27/24 oxyCODONE HCL/ACETAMINOPHEN 1 tab PO Q6HR PRN 3 Days #12 tab 05/29/24 [Percocet 7.5-325 mg] Allergies Allergy/AdvReac Type Severity Reaction Status Date / Time sulfamethoxazole Allergy Hives, Verified 06/02/24 19:22 [From Bactrim] felt like he was "boiling up" trimethoprim [From Bactrim] Allergy Hives, Verified 06/02/24 19:22 felt like he was "boiling up" Review of Systems ROS Statement: Those systems with pertinent positive or pertinent negative responses have been documented in the HPI. ROS Other: All systems not noted in ROS Statement are negative. Constitutional: Reports: fever, chills, weakness Respiratory: Denies: cough, dyspnea Cardiovascular: Reports: palpitations. Denies: chest pain, edema, syncope Gastrointestinal: Reports: abdominal pain, nausea. Denies: vomiting, diarrhea, melena, hematochezia Genitourinary: Denies: dysuria, hematuria Musculoskeletal: Denies: back pain Skin: Denies: rash Neurological: Denies: headache, weakness Past Medical History Past Medical History: Chest Pain / Angina, Hypertension, Skin Disorder Additional Past Medical History / Comment(s): chronic back pain DDD, new rash all over body with leaky wounds that drain at night and scabs come after. but noone takes his insurance History of Any Multi-Drug Resistant Organisms: MRSA Date of last positivie culture/infection: 2011 MDRO Source:: rt knee and toe and another time per patient Past Surgical History: Back Surgery, Orthopedic Surgery Additional Past Surgical History / Comment(s): RIGHT ELBOW, left shoulder Past Anesthesia/Blood Transfusion Reactions: No Reported Reaction Additional Past Anesthesia/Blood Transfusion Reaction / Comment(s): no blood transfusion Past Psychological History: Anxiety, Panic Disorder Smoking Status: Former smoker Past Alcohol Use History: None Reported Past Drug Use History: None Reported - Past Family History Mother Family Medical History: Cancer Additional Family Medical History / Comment(s): brain General Exam Limitations: no limitations General appearance: alert, in no apparent distress Head exam: Present: atraumatic, normocephalic Eye exam: Present: normal appearance. Absent: scleral icterus, conjunctival injection ENT exam: Present: normal oropharynx Neck exam: Present: normal inspection, full ROM. Absent: meningismus Respiratory exam: Present: normal lung sounds bilaterally. Absent: respiratory distress, wheezes, rales, rhonchi, stridor, accessory muscle use Cardiovascular Exam: Present: regular rate, normal rhythm, normal heart sounds. Absent: systolic murmur, diastolic murmur, rubs, gallop GI/Abdominal exam: Present: soft. Absent: distended, tenderness, guarding, rebound, rigid, mass Extremities exam: Present: normal inspection, normal capillary refill. Absent: pedal edema, calf tenderness Back exam: Present: normal inspection. Absent: CVA tenderness (R), CVA tenderness (L) Neurological exam: Present: alert Skin exam: Present: warm, dry, intact, normal color Course Vital Signs 05/28/24 05/28/24 05/28/24 20:27 21:03 21:53 Temperature 98.8 F 100.8 F H 98.8 F Pulse Rate 144 H 121 H 87 Respiratory 18 18 16 Rate Blood Pressure 145/97 146/101 129/88 O2 Sat by Pulse 97 99 97 Oximetry 05/28/24 05/29/24 23:14 01:16 Temperature 98.3 F 98.1 F Pulse Rate 92 72 Respiratory 17 19 Rate Blood Pressure 119/73 138/94 O2 Sat by Pulse 97 96 Oximetry EKG Findings - EKG Results: EKG: interpreted by ERMD, sinus rhythm (Normal), normal axis, normal QRS, normal ST/T EKG shows: tachycardia (120 bpm) Medical Decision Making - Medical Decision Making The patient had chest x-ray that I interpreted as negative for acute infiltrate, pneumothorax, congestive heart failure Was pt. sent in by a medical professional or institution (, PA, ANIMAL CONTROL SUPERVISOR, urgent care, hospital, or penitentiary...) When possible be specific @ -[No] Did you speak to anyone other than the patient for history (EMS, parent, family, police, friend...)? What history was obtained from this source @ -[No] Did you review nursing and triage notes (agree or disagree)? Why? @ -[I reviewed and agree with nursing and triage notes] Were old charts reviewed (outside hosp., previous admission, EMS record, old EKG, old radiological studies, urgent care reports/EKG's, penitentiary records)? Report findings @ -[No old charts were reviewed] Differential Diagnosis (chest pain, altered mental status, abdominal pain women, abdominal pain men, vaginal bleeding, weakness, fever, dyspnea, syncope, headache, dizziness, GI bleed, back pain, seizure, CVA, palpatations, mental health, musculoskeletal)? @ -[Differential Musculoskeletal Muscular strain, contusion, ligament sprain, fracture, arthritis, septic arthritis, bursitis, cellulitis, muscle spasm, nerve compression, DVT, arterial occlusion, herpes zoster, electrolyte abnormality, tumor.... This is not meant to be in all inclusive list EKG interpreted by me (3pts min.). @ -[As above] X-rays interpreted by me (1pt min.). @ -[None done] CT interpreted by me (1pt min.). @ -[None done] U/S interpreted by me (1pt. min.). @ -[None done] What testing was considered but not performed or refused? (CT, X-rays, U/S, labs)? Why? @ -[None] What meds were considered but not given or refused? Why? @ -[None] Did you discuss the management of the patient with other professionals (professionals i.e. , PA, ANIMAL CONTROL SUPERVISOR, lab, RT, psych nurse, forensic social worker, field servicer, teacher, executive vice president and chief operating officer, senior case manager)? Give summary @ -[No] Was smoking cessation discussed for >3mins.? @ -[No] Was critical care preformed (if so, how long)? @ -[No] Were there social determinants of health that impacted care today? How? (Homelessness, low income, unemployed, alcoholism, drug addiction, transportation, low edu. Level, literacy, decrease access to med. care, fdc, rehab)? @ -[No] Was there de-escalation of care discussed even if they declined (Discuss DNR or withdrawal of care, Hospice)? DNR status @ -[No] What co-morbidities impacted this encounter? (DM, HTN, Smoking, COPD, CAD, Cancer, CVA, ARF, Chemo, Hep., AIDS, mental health diagnosis, sleep apnea, morbid obesity)? @ -[None] Was patient admitted / discharged? Hospital course, mention meds given and route, prescriptions, significant lab abnormalities, going to OR and other pertinent info. @ -[Patient presenting with symptoms consistent with opioid withdrawal after he was not able to have prescription for Percocet refilled. Discussed with patient that I will prescribe small amount such that he can get into see his primary physician but I will not prescribe further doses in future. Discussed appropriate further care and follow-up as well as return parameters. He did have relief of symptoms here after dose of long-acting. Undiagnosed new problem with uncertain prognosis? @ -[No] Drug Therapy requiring intensive monitoring for toxicity (Heparin, Nitro, Insu darren, Cardizem)? @ -[No] Were any procedures done? @ -[No] Diagnosis/symptom? @ -[Acute opioid withdrawal Acute, or Chronic, or Acute on Chronic? @ -[Acute Uncomplicated (without systemic symptoms) or Complicated (systemic symptoms)? @ -[Uncomplicated Side effects of treatment? @ -[No] Exacerbation, Progression, or Severe Exacerbation? @ -[No] Poses a threat to life or bodily function? How? (Chest pain, [place], [place], pneumonia, PE, COPD, DKA, ARF, appy, cholecystitis, CVA, Diverticulitis, Homicidal, Suicidal, threat to staff... and all critical care pts) @ -[No] - Lab Data Result diagrams: 05/28/24 21:45 05/28/24 21:45 Lab Results 05/28/24 05/28/24 05/28/24 Range/Units 21:45 21:45 21:45 WBC 13.5 H (3.8-10.6) k/uL RBC 4.64 (4.30-5.90) m/uL Hgb 14.5 (13.0-17.5) gm/dL Hct 44.5 (39.0-53.0) % MCV 95.9 (80.0-100.0) fL MCH 31.1 (25.0-35.0) pg MCHC 32.5 (31.0-37.0) g/dL RDW 14.2 (11.5-15.5) % Plt Count 343 (150-450) k/uL MPV 7.2 Neutrophils % 82 % Lymphocytes % 11 % Monocytes % 5 % Eosinophils % 1 % Basophils % 0 % Neutrophils # 11.1 H (1.3-7.7) k/uL Lymphocytes # 1.5 (1.0-4.8) k/uL Monocytes # 0.6 (0-1.0) k/uL Eosinophils # 0.1 (0-0.7) k/uL Basophils # 0.0 (0-0.2) k/uL Sodium 139 (137-145) mmol/L Potassium 4.3 (3.5-5.1) mmol/L Chloride 110 H (98-107) mmol/L Carbon Dioxide 25 (22-30) mmol/L Anion Gap 4 mmol/L BUN 10 (9-20) mg/dL Creatinine 0.80 (0.66-1.25) mg/dL Est GFR (CKD-EPI)AfAm >90 (>60 ml/min/1.73 sqM) Est GFR (CKD-EPI)NonAf >90 (>60 ml/min/1.73 sqM) Glucose 112 H (74-99) mg/dL Plasma Lactic Acid Rudolph 0.9 (0.7-2.0) mmol/L Calcium 9.9 (8.4-10.2) mg/dL Total Bilirubin 0.4 (0.2-1.3) mg/dL AST 23 (17-59) U/L ALT 29 (4-49) U/L Alkaline Phosphatase 85 (38-126) U/L C-Reactive Protein <0.5 (<1.0) mg/dL Total Protein 6.8 (6.3-8.2) g/dL Albumin 4.2 (3.5-5.0) g/dL Disposition Clinical Impression: Opioid withdrawal Disposition: HOME SELF-CARE Condition: Fair Instructions (If sedation given, give patient instructions): Opioid Withdrawal (ED) Prescriptions: oxyCODONE HCL/ACETAMINOPHEN [Percocet 7.5-325 mg] 1 tab PO Q6HR PRN 3 Days #12 tab PRN Reason: Pain Is patient prescribed a controlled substance at d/c from ED?: No Referrals: Bryant Orozco MD [Primary Care Provider] - 1-2 days
[2024-05-28] MEDS: METHADONE 5 MG TAB PO STA (21:45)
[2024-05-28] MEDS: SODIUM CHLORIDE 0.9% 1,000 ML IV STA (21:46)
[2024-05-28] MEDS: ACETAMINOPHEN TAB 325 MG TAB PO STA (21:46)
[2024-05-28 21:57] LABS: Basophils % (A) 0 %; Eosinophils # (A) 0.1 k/uL (0-0.7); Eosinophils % (A) 1 %; HCT 44.5 % (39.0-53.0); HGB 14.5 gm/dL (13.0-17.5); Lymphocytes # (A) 1.5 k/uL (1.0-4.8); Lymphocytes % (A) 11 %; MCH 31.1 pg (25.0-35.0); MCHC 32.5 g/dL (31.0-37.0); MCV 95.9 fL (80.0-100.0); Mean Platelet Volume 7.2; Monocytes # (A) 0.6 k/uL (0-1.0); Monocytes % (A) 5 %; Neutrophils # (A) 11.1 k/uL (1.3-7.7); Neutrophils % (A) 82 %; Platelet Count 343 k/uL (150-450); RBC 4.64 m/uL (4.30-5.90); RDW 14.2 % (11.5-15.5); WBC 13.5 k/uL (3.8-10.6)
[2024-05-28 22:11] LABS: ALT 29 U/L (4-49); AST 23 U/L (17-59); African American GFR (CKD) >90 (>60 ml/min/1.73 sqM); Albumin 4.2 g/dL (3.5-5.0); Alkaline Phosphatase 85 U/L (38-126); Anion Gap 4 mmol/L; Blood Urea Nitrogen 10 mg/dL (9-20); C Reactive Protein <0.5 mg/dL (<1.0); Calcium 9.9 mg/dL (8.4-10.2); Carbon Dioxide 25 mmol/L (22-30); Chloride 110 mmol/L (98-107); Glucose 112 mg/dL (74-99); Non-African American GFR(CKD) >90 (>60 ml/min/1.73 sqM); Potassium 4.3 mmol/L (3.5-5.1); Sodium 139 mmol/L (137-145); Total Bilirubin 0.4 mg/dL (0.2-1.3); Total Protein 6.8 g/dL (6.3-8.2)
[2024-05-29 01:18] VITALS: BP 138/94; PULSE 72; RESP 19; TEMP 98.1
--- NOTE | 2024-05-29 01:35 | XR ---
EXAM: XR Chest, 2 Views CLINICAL HISTORY: ITS.REASON XR Reason: fever TECHNIQUE: Frontal and lateral views of the chest. COMPARISON: No relevant prior studies available. FINDINGS: Lungs: No consolidation or mass. Pleural space: No effusion. Heart: No cardiomegaly. Bones/joints: No acute findings. IMPRESSION: No acute cardiopulmonary process.
== END 2024-05-29 01:18 | disposition home or self-care (01) ==
LOC: EC 20:12
CPT/HCPCS: 36415; 71046; 80053; 83605; 85025; 86140; 87040; 93005; 96360; 99285

== ENCOUNTER 2024-05-31 05:35 | Emergency (ER) | payer OTHER ==
[2024-05-31 05:38] VITALS: TEMP 97.7
--- NOTE | 2024-05-31 06:26 | ED ---
Back Pain HPI - General Chief Complaint: Back Pain/Injury Stated Complaint: Back pain Time Seen by Provider: 05/31/24 06:03 Source: patient, RN notes reviewed Mode of arrival: ambulatory Limitations: no limitations - History of Present Illness Initial Comments: This is a 48-year-old male who presents to the emergency department for back pain. Patient has a history of chronic back pain leading to frequent emergency department visits. He is fairly dependent on opioids, taking morphine 30 mg twice daily and Percocet 10 mg 4 times daily. However, states that he is having trouble making appointments with his primary care provider to get the Percocet filled, leading to withdrawal symptoms and breakthrough pain. He states that he has an appointment with his primary care provider today, but could not take the pain tonight, prompting him to come here. States that this is the same pain he has always had. Denies any new injuries. States that he comes here because he does not want to buy drugs off the street. MD Complaint: back pain - Related Data Home Medications Medication Instructions Recorded Confirmed Morphine Sulfate [Ms Contin] 30 mg PO Q12H 03/26/18 05/20/24 Cyclobenzaprine [Flexeril] 10 mg PO TID 02/19/21 05/20/24 Simvastatin [Zocor] 20 mg PO HS 02/19/21 05/20/24 oxyCODONE-APAP 10-325MG [Percocet 1 tab PO Q4H PRN 02/19/21 05/20/24 10-325 mg] ALPRAZolam [Xanax] 0.5 mg PO QID 09/16/23 05/20/24 Naloxone HCl [Narcan] 4 mg NASAL ONCE PRN 09/16/23 05/20/24 lisinopriL [Zestril] 20 mg PO HS 09/16/23 05/20/24 Ibuprofen [Motrin] 800 mg PO Q8H PRN 05/04/24 05/20/24 Aspirin EC [Ecotrin Low Dose] 81 mg PO DAILY 05/20/24 05/20/24 Metoprolol Tartrate [Lopressor] 37.5 mg PO HS 05/20/24 05/20/24 Previous Rx's Medication Instructions Recorded LORazepam [Ativan] 1 mg PO TID 3 Days #9 tab 05/20/24 oxyCODONE-APAP 10-325MG [Percocet 1 tab PO Q6HR 3 Days #12 tab 05/20/24 10-325 mg] Triamcinolone 0.5% Cream [Kenalog 1 applic TOPICAL QID #30 gm 05/27/24 0.5% Cream] clindamycin HCL 300 mg PO QID #40 cap 05/27/24 oxyCODONE HCL/ACETAMINOPHEN 1 tab PO Q6HR PRN 3 Days #12 tab 05/29/24 [Percocet 7.5-325 mg] Allergies Allergy/AdvReac Type Severity Reaction Status Date / Time sulfamethoxazole Allergy Hives, Verified 05/28/24 20:29 [From Bactrim] felt like he was "boiling up" trimethoprim [From Bactrim] Allergy Hives, Verified 05/28/24 20:29 felt like he was "boiling up" Review of Systems ROS Statement: Those systems with pertinent positive or pertinent negative responses have been documented in the HPI. ROS Other: All systems not noted in ROS Statement are negative. Past Medical History Past Medical History: Chest Pain / Angina, Hypertension, Skin Disorder Additional Past Medical History / Comment(s): chronic back pain DDD, new rash all over body with leaky wounds that drain at night and scabs come after. but noone takes his insurance History of Any Multi-Drug Resistant Organisms: MRSA Date of last positivie culture/infection: 2011 MDRO Source:: rt knee and toe and another time per patient Past Surgical History: Back Surgery, Orthopedic Surgery Additional Past Surgical History / Comment(s): RIGHT ELBOW, left shoulder Past Anesthesia/Blood Transfusion Reactions: No Reported Reaction Additional Past Anesthesia/Blood Transfusion Reaction / Comment(s): no blood transfusion Past Psychological History: Anxiety, Panic Disorder Smoking Status: Former smoker Past Alcohol Use History: None Reported Past Drug Use History: None Reported - Past Family History Mother Family Medical History: Cancer Additional Family Medical History / Comment(s): brain General Exam Limitations: no limitations General appearance: alert, in no apparent distress Head exam: Present: atraumatic, normocephalic, normal inspection Respiratory exam: Present: normal lung sounds bilaterally. Absent: respiratory distress, wheezes, rales, rhonchi, stridor Cardiovascular Exam: Present: regular rate, normal rhythm, normal heart sounds. Absent: systolic murmur, diastolic murmur, rubs, gallop, clicks Neurological exam: Present: alert, oriented X3, CN II-XII intact Psychiatric exam: Present: normal affect, normal mood Skin exam: Present: warm, dry, intact, normal color. Absent: rash Course Vital Signs 05/31/24 05/31/24 05:36 06:37 Temperature 97.7 F 97.7 F Pulse Rate 120 H 87 Respiratory 22 17 Rate Blood Pressure 141/90 127/88 O2 Sat by Pulse 97 95 Oximetry Medical Decision Making - Medical Decision Making This is a 48 year old male who presents to the emergency department for back pain. Was pt. sent in by a medical professional or institution? @ -No Did you speak to anyone other than the patient for history? @ -No Did you review nursing and triage notes? @ -Yes, and I agree, it is accurate with regards to the patient's symptoms. Were old charts reviewed? @ -No Differential Diagnosis? @ -Differential Back Pain: Strain, zoster, cauda equina syndrome, epidural abscess, vertebral osteomyelitis, discitis, fracture, subluxation, disc herniation, DJD, spinal stenosis, dissection, AAA, pancreatitis, peptic ulcer disease, pyelonephritis, kidney stone, this is not meant to be an all-inclusive list. EKG interpreted by me (3pts min.)? @ -Not obtained X-rays interpreted by me (1pt min.)? @ -Not obtained CT interpreted by me (1pt min.)? @ -Not obtained U/S interpreted by me (1pt. min.)? @ -Not obtained What testing was considered but not performed? (CT, X-rays, U/S, labs)? Why? @ -None What meds were considered but not given? Why? @ -None Did you discuss the management of the patient with other professionals? @ -No Did you reconcile home meds? @ -No Was smoking cessation discussed for >3mins.? @ -No Was critical care preformed (if so, how long)? @ -No Were there social determinants of health that impacted care today? How? (Homelessness, low income, unemployed, alcoholism, drug addiction, transportation, low edu. Level, literacy, decrease access to med. care, longterm, rehab)? @ -No Was there de-escalation of care discussed even if they declined? (Discuss DNR or withdrawal of care, Hospice)? @ -No What co-morbidities impacted this encounter? (DM, HTN, Smoking, COPD, CAD, Cancer, CVA, Hep., AIDS, mental health diagnosis, sleep apnea, morbid obesity)? @ -Chronic back pain, opioid dependence Was patient admitted / discharged? @ -Discharged. Patient was experiencing an exacerbation of his chronic pain due to being out of his Percocet. He denied any new injuries or changes in his p ain. He also had no red flag signs or symptoms such as loss of bowel/bladder control or saddle anesthesia. Pain was treated in the emergency department. He has a follow-up appointment today with his primary care provider. Advised that he needs to follow-up as scheduled to discuss ongoing pain management options and I was not going to send in another prescription for him at this time. Patient expresses understanding and was discharged home in stable condition after receiving medication here. Case discussed with ED attending, Dr. Gould. Return precautions reviewed in depth, the patient is instructed to return to the emergency department with any new, worsening, or concerning symptoms. Patient verbalized understanding. Undiagnosed new problem with uncertain prognosis? @ -None Drug Therapy requiring intensive monitoring for toxicity (Heparin, Nitro, Insulin, Cardizem)? @ -None Were any procedures done? @ -None Diagnosis/symptom? @ -Chronic back pain Acute, or Chronic, or Acute on Chronic? @ -Chronic Uncomplicated (without systemic symptoms) or Complicated (systemic symptoms)? @ -Uncomplicated Side effects of treatment? @ -None Exacerbation, Progression, or Severe Exacerbation] @ -Exacerbation Poses a threat to life or bodily function? @ -No Disposition Clinical Impression: Chronic back pain Disposition: HOME SELF-CARE Instructions (If sedation given, give patient instructions): Chronic Back Pain (DC) Additional Instructions: Return to the emergency department with any new, worsening, or concerning symptoms. Follow up with your primary care provider as scheduled today. Is patient prescribed a controlled substance at d/c from ED?: No Referrals: Bryant Orozco MD [Primary Care Provider] - 1-2 days Time of Disposition: 06:26
[2024-05-31] MEDS: KETOROLAC 15 MG/ML 1 ML VIAL IM STA (06:27)
[2024-05-31] MEDS: HYDROmorphone 1 MG/ML 1 ML SYRINGE IM STA (06:29)
[2024-05-31 06:41] VITALS: BP 127/88; PULSE 87; RESP 17
== END 2024-05-31 06:42 | disposition home or self-care (01) ==
LOC: EC 05:35
CPT/HCPCS: 93005; 96372; 99283

== ENCOUNTER 2024-06-01 19:53 | Emergency (ER) | payer OTHER ==
[2024-06-01 20:04] VITALS: RESP 18; TEMP 98.1
--- NOTE | 2024-06-01 20:06 | ED ---
Back Pain HPI - General Source: patient Limitations: no limitations <Natasha Corona - Last Filed: 06/01/24 20:05> - General Source: patient, RN notes reviewed Mode of arrival: ambulatory Limitations: no limitations <Ann Tompkins - Last Filed: 06/04/24 18:36> - General Chief Complaint: Back Pain/Injury Stated Complaint: back pain, CARLOS Time Seen by Provider: 06/01/24 20:05 - History of Present Illness Initial Comments: 48-year-old male with history of chronic back pain presenting with chief complaint of lower back pain that radiates down the left leg. (Natasha Corona) 48-year-old male presented the ER with a chief complaint of back pain. He does report this is chronic in nature. He also is reporting pain rating down the left leg which is also atypical symptom for his pain. He is prescribed morphine and Percocet for his pain. He states he is out of these medications. He denies any new injuries or traumas. He denies any bowel or bladder incontinence, saddle paresthesias or weakness. Patient is still able ambulate. Patient has not taken anything else for his symptoms at this time. No other complaints. (Ann Tompkins) - Related Data Home Medications Medication Instructions Recorded Confirmed Morphine Sulfate [Ms Contin] 30 mg PO Q12H 03/26/18 05/20/24 Cyclobenzaprine [Flexeril] 10 mg PO TID 02/19/21 05/20/24 Simvastatin [Zocor] 20 mg PO HS 02/19/21 05/20/24 oxyCODONE-APAP 10-325MG [Percocet 1 tab PO Q4H PRN 02/19/21 05/20/24 10-325 mg] ALPRAZolam [Xanax] 0.5 mg PO QID 09/16/23 05/20/24 Naloxone HCl [Narcan] 4 mg NASAL ONCE PRN 09/16/23 05/20/24 lisinopriL [Zestril] 20 mg PO HS 09/16/23 05/20/24 Ibuprofen [Motrin] 800 mg PO Q8H PRN 05/04/24 05/20/24 Aspirin EC [Ecotrin Low Dose] 81 mg PO DAILY 05/20/24 05/20/24 Metoprolol Tartrate [Lopressor] 37.5 mg PO HS 05/20/24 05/20/24 Previous Rx's Medication Instructions Recorded LORazepam [Ativan] 1 mg PO TID 3 Days #9 tab 05/20/24 oxyCODONE-APAP 10-325MG [Percocet 1 tab PO Q6HR 3 Days #12 tab 05/20/24 10-325 mg] Triamcinolone 0.5% Cream [Kenalog 1 applic TOPICAL QID #30 gm 05/27/24 0.5% Cream] clindamycin HCL 300 mg PO QID #40 cap 05/27/24 oxyCODONE HCL/ACETAMINOPHEN 1 tab PO Q6HR PRN 3 Days #12 tab 05/29/24 [Percocet 7.5-325 mg] Allergies Allergy/AdvReac Type Severity Reaction Status Date / Time sulfamethoxazole Allergy Hives, Verified 06/02/24 19:22 [From Bactrim] felt like he was "boiling up" trimethoprim [From Bactrim] Allergy Hives, Verified 06/02/24 19:22 felt like he was "boiling up" Review of Systems ROS Other: All systems not noted in ROS Statement are negative. <Natasha Corona - Last Filed: 06/01/24 20:05> ROS Other: All systems not noted in ROS Statement are negative. <Ann Tompkins - Last Filed: 06/04/24 18:36> ROS Statement: Those systems with pertinent positive or pertinent negative responses have been documented in the HPI. Past Medical History Past Medical History: Chest Pain / Angina, Hypertension, Skin Disorder Additional Past Medical History / Comment(s): chronic back pain DDD, new rash all over body with leaky wounds that drain at night and scabs come after. but noone takes his insurance History of Any Multi-Drug Resistant Organisms: MRSA Date of last positivie culture/infection: 2011 MDRO Source:: rt knee and toe and another time per patient Past Surgical History: Back Surgery, Orthopedic Surgery Additional Past Surgical History / Comment(s): RIGHT ELBOW, left shoulder Past Anesthesia/Blood Transfusion Reactions: No Reported Reaction Additional Past Anesthesia/Blood Transfusion Reaction / Comment(s): no blood transfusion Past Psychological History: Anxiety, Panic Disorder Smoking Status: Former smoker Past Alcohol Use History: None Reported Past Drug Use History: None Reported - Past Family History Mother Family Medical History: Cancer Additional Family Medical History / Comment(s): brain <Natasha Corona - Last Filed: 06/01/24 20:05> General Exam Limitations: no limitations <Natasha Corona - Last Filed: 06/01/24 20:05> General appearance: alert, in no apparent distress Neck exam: Present: normal inspection. Absent: tenderness, meningismus, lymphadenopathy Respiratory exam: Present: normal lung sounds bilaterally. Absent: respiratory distress, wheezes, rales, rhonchi, stridor Cardiovascular Exam: Present: regular rate, normal rhythm, normal heart sounds. Absent: systolic murmur, diastolic murmur, rubs, gallop, clicks Back exam: Present: normal inspection, tenderness (lumbar spine) Neurological exam: Present: alert, oriented X3, CN II-XII intact Skin exam: Present: warm, dry, intact, normal color. Absent: rash <Ann Tompkins - Last Filed: 06/04/24 18:36> - General Exam Comments Initial Comments: Visual Physical Exam Vital signs reviewed General: Well-appearing, nontoxic, no acute distress. Head: Normocephalic, atraumatic Eyes: PERRLA, EOMI ENT: Airway patent Chest: Nonlabored breathing Skin: No visual rash, normal skin tone Neuro: Alert and oriented 3 Musculoskeletal: No gross abnormalities (Natasha Corona) Course Vital Signs 06/01/24 06/01/24 19:59 22:29 Temperature 98.1 F Pulse Rate 121 H 71 Respiratory 18 18 Rate Blood Pressure 127/86 117/82 O2 Sat by Pulse 99 95 Oximetry Medical Decision Making <Natasha Corona - Last Filed: 06/01/24 20:05> - Radiology Data Radiology results: report reviewed, image reviewed <Ann Tompkins - Last Filed: 06/04/24 18:36> - Medical Decision Making I performed the quick note portion of this visit, electronically signed Natasha Corona PA-C (Natasha Corona) Was pt. sent in by a medical professional or institution (TER[facility]is, LEGAL FINANCIAL SPECIALIST, urgent care, hospital, or usp...) When possible be specific @ -No Did you speak to anyone other than the patient for history (EMS, parent, family, police, friend...)? What history was obtained from this source @ -No Did you review nursing and triage notes (agree or disagree)? Why? @ -I reviewed and agree with nursing and triage notes Were old charts reviewed (outside hosp., previous admission, EMS record, old EKG, old radiological studies, urgent care reports/EKG's, usp records)? Report findings @ -No old charts were reviewed Differential Diagnosis (chest pain, altered mental status, abdominal pain women, abdominal pain men, vaginal bleeding, weakness, fever, dyspnea, syncope, headache, dizziness, GI bleed, back pain, seizure, CVA, palpatations, mental health, musculoskeletal)? @ -Differential Back Pain: Strain, zoster, cauda equina syndrome, epidural abscess, vertebral osteomyelitis, discitis, fracture, subluxation, disc herniation, DJD, spinal stenosis, dissection, AAA, pancreatitis, peptic ulcer disease, pyelonephritis, kidney stone, this is not meant to be an all-inclusive list. EKG interpreted by me (3pts min.). @ -None done X-rays interpreted by me (1pt min.). @ -Lumbar spine x-rays negative for acute fractures or dislocations. There is mild multilevel disc degeneration present. CT interpreted by me (1pt min.). @ -None done U/S interpreted by me (1pt. min.). @ -None done What testing was considered but not performed or refused? (CT, X-rays, U/S, labs)? Why? @ -None What meds were considered but not given or refused? Why? @ -None Did you discuss the management of the patient with other professionals (professionals i.e. , PA, LEGAL FINANCIAL SPECIALIST, lab, RT, psych nurse, social worker health services, founder president and ceo, teacher, unclaimed property officer, case management coordinator)? Give summary @ -No Was smoking cessation discussed for >3mins.? @ -No Was critical care preformed (if so, how long)? @ -No Were there social determinants of health that impacted care today? How? (Homelessness, low income, unemployed, alcoholism, drug addiction, transportation, low edu. Level, literacy, decrease access to med. care, fdc, rehab)? @ -No Was there de-escalation of care discussed even if they declined (Discuss DNR or withdrawal of care, Hospice)? DNR status @ -No What co-morbidities impacted this encounter? (DM, HTN, Smoking, COPD, CAD, Cancer, CVA, ARF, Chemo, Hep., AIDS, mental health diagnosis, sleep apnea, morbid obesity)? @ -None Was patient admitted / discharged? Hospital course, mention meds given and [place], prescriptions, significant lab abnormalities, going to OR and other pertinent info. @ -Discharge. 48-year-old male presented to the ER with a chief complaint of back pain. This is chronic in nature and he is following up with a digital asset specialist. History and physical exam completed. Vitals within normal limits. Patient in no signs of acute distress and nontoxic-appearing. Bilateral lower extremities neurovascular intact. No red flag back pain symptoms indicative cauda equina syndrome. X-rays obtained negative for acute process. Patient received IM Toradol for pain control in the ER. Upon reevaluation, patient resting comfortably in exam room no signs of acute distress. Results discussed with patient, all questions answered. Tylenol 3 starter pack given. Advise close follow-up with PCP and digital asset specialist. Return parameters discussed. Patient discharged stable condition. Patient verbally expressed understanding agree with care plan. Case discussed with ED attending, Dr. Bocanegra. Undiagnosed new problem with uncertain prognosis? @ -No Drug Therapy requiring intensive monitoring for toxicity (Heparin, Nitro, Insulin, Cardizem)? @ -No Were any procedures done? @ -No Diagnosis/symptom? @ -Back pain Acute, or Chronic, or Acute on Chronic? @ -Chronic Uncomplicated (without systemic symptoms) or Complicated (systemic symptoms)? @ -Uncomplicated Side effects of treatment? @ -No Exacerbation, Progression, or Severe Exacerbation? @ -No Poses a threat to life or bodily function? How? (Chest pain, USA, [place], pneumonia, PE, COPD, DKA, ARF, appy, cholecystitis, CVA, Diverticulitis, Homicidal, Suicidal, threat to staff... and all critical care pts) @ -No (Ann Tompkins) Disposition <Natasha Corona - Last Filed: 06/01/24 20:05> Is patient prescribed a controlled substance at d/c from ED?: No Time of Disposition: 22:08 <Ann Tompkins - Last Filed: 06/04/24 18:36> Clinical Impression: Chronic back pain Disposition: HOME SELF-CARE Condition: Stable Additional Instructions: Follow-up with digital asset specialist and PCP. Return to the ER for any new or worsening concerns. Referrals: Bryant Orozco MD [Primary Care Provider] - 1-2 days Daljit Sorto MD [Medical Doctor] - 1-2 days
[2024-06-01] MEDS: KETOROLAC 15 MG/ML 1 ML VIAL IM STA (21:15)
--- NOTE | 2024-06-01 21:43 | XR ---
EXAMINATION TYPE: XR lumbar spine 2 or 3V DATE OF EXAM: 06/01/2024 9:16 PM CLINICAL INDICATION: Male, 48 years old with history of back pain; [facility] COMPARISON: None TECHNIQUE: XR lumbar spine 2 or 3V - Frontal, lateral and coned in L5-S1 lateral views of the spine. FINDINGS: No evidence of any acute osseous pathology. No evidence of loss of vertebral body height i s seen. There is normal alignment of the lumbar vertebral bodies. Scattered disc space narrowing. Mul tilevel marginal osteophyte formation throughout the visualized spine. There is facet joint arthropat hy throughout the spine. Scattered at least mild neural foraminal stenosis. IMPRESSION: 1. No acute fracture. 2. Mild multilevel disc degeneration. [facility], , 06/01/2024 9:41 PM
[2024-06-01] MEDS ORDERED: ACET/COD 300 MG/30 MG STARTER PACK 6 TAB BTL PO STA (22:08)
[2024-06-01 22:34] VITALS: BP 117/82; PULSE 71
== END 2024-06-01 22:33 | disposition home or self-care (01) ==
LOC: EC 19:53
CPT/HCPCS: 72100; 96372; 99283

== ENCOUNTER 2024-06-02 19:14 | Emergency (ER) | payer OTHER ==
--- NOTE | 2024-06-02 20:10 | ED ---
Back Pain HPI - General Chief Complaint: Back Pain/Injury Stated Complaint: Back pain Time Seen by Provider: 06/02/24 20:07 Source: patient, RN notes reviewed Limitations: no limitations - History of Present Illness Initial Comments: 48-year-old male presenting with rash on upper back. States this has been ongoing for some time, unsure exactly how long rash has been there, and has been on clindamycin for the past 5 days. He states he continues to have pain in his upper back, states he cannot deal with the pain any longer. Denies fevers, chills, nausea, vomiting. Denies IV drug use. He does have a history of MRSA. - Related Data Home Medications Medication Instructions Recorded Confirmed Morphine Sulfate [Ms Contin] 30 mg PO Q12H 03/26/18 05/20/24 Cyclobenzaprine [Flexeril] 10 mg PO TID 02/19/21 05/20/24 Simvastatin [Zocor] 20 mg PO HS 02/19/21 05/20/24 oxyCODONE-APAP 10-325MG [Percocet 1 tab PO Q4H PRN 02/19/21 05/20/24 10-325 mg] ALPRAZolam [Xanax] 0.5 mg PO QID 09/16/23 05/20/24 Naloxone HCl [Narcan] 4 mg NASAL ONCE PRN 09/16/23 05/20/24 lisinopriL [Zestril] 20 mg PO HS 09/16/23 05/20/24 Ibuprofen [Motrin] 800 mg PO Q8H PRN 05/04/24 05/20/24 Aspirin EC [Ecotrin Low Dose] 81 mg PO DAILY 05/20/24 05/20/24 Metoprolol Tartrate [Lopressor] 37.5 mg PO HS 05/20/24 05/20/24 Previous Rx's Medication Instructions Recorded LORazepam [Ativan] 1 mg PO TID 3 Days #9 tab 05/20/24 oxyCODONE-APAP 10-325MG [Percocet 1 tab PO Q6HR 3 Days #12 tab 05/20/24 10-325 mg] Triamcinolone 0.5% Cream [Kenalog 1 applic TOPICAL QID #30 gm 05/27/24 0.5% Cream] clindamycin HCL 300 mg PO QID #40 cap 05/27/24 oxyCODONE HCL/ACETAMINOPHEN 1 tab PO Q6HR PRN 3 Days #12 tab 05/29/24 [Percocet 7.5-325 mg] Allergies Allergy/AdvReac Type Severity Reaction Status Date / Time sulfamethoxazole Allergy Hives, Verified 06/02/24 19:22 [From Bactrim] felt like he was "boiling up" trimethoprim [From Bactrim] Allergy Hives, Verified 06/02/24 19:22 felt like he was "boiling up" Review of Systems ROS Statement: Those systems with pertinent positive or pertinent negative responses have been documented in the HPI. ROS Other: All systems not noted in ROS Statement are negative. Past Medical History Past Medical History: Chest Pain / Angina, Hypertension, Skin Disorder Additional Past Medical History / Comment(s): chronic back pain DDD, new rash all over body with leaky wounds that drain at night and scabs come after. but noone takes his insurance History of Any Multi-Drug Resistant Organisms: MRSA Date of last positivie culture/infection: 2011 MDRO Source:: rt knee and toe and another time per patient Past Surgical History: Back Surgery, Orthopedic Surgery Additional Past Surgical History / Comment(s): RIGHT ELBOW, left shoulder Past Anesthesia/Blood Transfusion Reactions: No Reported Reaction Additional Past Anesthesia/Blood Transfusion Reaction / Comment(s): no blood tra nsfusion Past Psychological History: Anxiety, Panic Disorder Smoking Status: Former smoker Past Alcohol Use History: None Reported Past Drug Use History: None Reported - Past Family History Mother Family Medical History: Cancer Additional Family Medical History / Comment(s): brain General Exam Limitations: no limitations General appearance: alert, in no apparent distress Head exam: Present: atraumatic, normocephalic, normal inspection Eye exam: Present: normal appearance, PERRL, EOMI. Absent: scleral icterus, conjunctival injection, periorbital swelling Neck exam: Present: normal inspection. Absent: tenderness, meningismus, lymphadenopathy Respiratory exam: Present: normal lung sounds bilaterally. Absent: respiratory distress, wheezes, rales, rhonchi, stridor Cardiovascular Exam: Present: regular rate, normal rhythm, normal heart sounds. Absent: systolic murmur, diastolic murmur, rubs, gallop, clicks Back exam: Present: full ROM, rash noted. Absent: normal inspection (5-10 annular alisha size ulcerations of yellow purulence. No fluctuant masses. No point tenderness along spine. Full range of motion of back), tenderness, CVA tenderness (R), CVA tenderness (L), paraspinal tenderness, vertebral tenderness Neurological exam: Present: alert, oriented X3 Psychiatric exam: Present: normal affect, normal mood Skin exam: Present: warm, dry, intact, normal color. Absent: rash Course Vital Signs 06/02/24 06/02/24 19:18 21:53 Temperature 97 F L 97.6 F Pulse Rate 112 H 90 Respiratory 20 16 Rate Blood Pressure 120/58 115/83 O2 Sat by Pulse 99 99 Oximetry Medical Decision Making - Medical Decision Making Was pt. sent in by a medical professional or institution (, PA, ESTIMATOR LUMBER, urgent care, hospital, or penitentiary...) When possible be specific @ -No Did you speak to anyone other than the patient for history (EMS, parent, family, police, friend...)? What history was obtained from this source @ -No Did you review nursing and triage notes (agree or disagree)? Why? @ -I reviewed and agree with nursing and triage notes Were old charts reviewed (outside hosp., previous admission, EMS record, old EKG, old radiological studies, urgent care reports/EKG's, penitentiary records)? Report findings @ -No old charts were reviewed Differential Diagnosis (chest pain, altered mental status, abdominal pain women, abdominal pain men, vaginal bleeding, weakness, fever, dyspnea, syncope, head ache, dizziness, GI bleed, back pain, seizure, CVA, palpatations, mental health, musculoskeletal)? @ -Differential Musculoskeletal Muscular strain, contusion, ligament sprain, fracture, arthritis, septic arthritis, bursitis, cellulitis, muscle spasm, nerve compression, DVT, arterial occlusion, herpes zoster, electrolyte abnormality, tumor.... This is not meant to be in all inclusive list EKG interpreted by me (3pts min.). @ -None X-rays interpreted by me (1pt min.). @ -None done CT interpreted by me (1pt min.). @ -None done U/S interpreted by me (1pt. min.). @ -None done What testing was considered but not performed or refused? (CT, X-rays, U/S, labs)? Why? @ -Lab work not indicated due to patient afebrile, no red flag symptoms, ulcerations likely chronic in nature What meds were considered but not given or refused? Why? @ -None Did you discuss the management of the patient with other professionals (professionals i.e. , PA, ESTIMATOR LUMBER, lab, RT, psych nurse, social sciences research scientist, binder selector, teacher, credit or loans officer, complex case manager)? Give summary @ -No Was smoking cessation discussed for >3mins.? @ -No Was critical care preformed (if so, how long)? @ -No Were there social determinants of health that impacted care today? How? (Homelessness, low income, unemployed, alcoholism, drug addiction, transportation, low edu. Level, literacy, decrease access to med. care, custodial, rehab)? @ -No Was there de-escalation of care discussed even if they declined (Discuss DNR or withdrawal of care, Hospice)? DNR status @ -No What co-morbidities impacted this encounter? (DM, HTN, Smoking, COPD, CAD, Cancer, CVA, ARF, Chemo, Hep., AIDS, mental health diagnosis, sleep apnea, morbid obesity)? @ -None Was patient admitted / discharged? Hospital course, mention meds given and route, prescriptions, significant lab abnormalities, going to OR and other pertinent info. @ -Discharged. This is a 48-year-old male presenting with rash on upper back. Patient is unsure how long rash has been there. Denies fever, chills, vomiting. Has been on clindamycin for 5 days. On examination, there are multiple annular superficial ulcerations present on upper back. Discussed with patient this is likely chronic skin ulcerations. No diffuse erythema or fluctuant masses present. Patient was provided with analgesics and wound culture was taken at this time. Advised to continue clindamycin and follow-up with infectious disease. Return precautions discussed and patient is agreeable to plan. Case was discussed with my ED attending Dr. Bocanegra. Patient discharged in stable condition. Undiagnosed new problem with uncertain prognosis? @ -No Drug Therapy requiring intensive monitoring for toxicity (Heparin, Nitro, Insulin, Cardizem)? @ -No Were any procedures done? @ -No Diagnosis/symptom? @ -Multiple skin ulcerations on upper back Acute, or Chronic, or Acute on Chronic? @ -Likely chronic Uncomplicated (without systemic symptoms) or Complicated (systemic symptoms)? @ -Uncomplicated Side effects of treatment? @ -No Exacerbation, Progression, or Severe Exacerbation? @ -No Poses a threat to life or bodily function? How? (Chest pain, [place], [place], pneumonia, PE, COPD, DKA, ARF, appy, cholecystitis, CVA, Diverticulitis, Homicidal, Suicidal, threat to staff... and all critical care pts) @ -No Disposition Clinical Impression: Pressure ulcer, upper back Disposition: HOME SELF-CARE Condition: Stable Instructions (If sedation given, give patient instructions): Acute Wounds (ED) Additional Instructions: Continue clindamycin as prescribed. Follow-up with infectious disease. Please return to the Emergency Department if symptoms worsen or any other concerns. Is patient prescribed a controlled substance at d/c from ED?: No Referrals: Bryant Orozco MD [Primary Care Provider] - 1-2 days Hortencia Maynard MD [STAFF PHYSICIAN] - 1-2 days Time of Disposition: 21:27
[2024-06-02] MEDS: KETOROLAC 15 MG/ML 1 ML VIAL IM STA (20:50)
[2024-06-02] MEDS: ACET/COD 300 MG/30 MG STARTER PACK 6 TAB BTL PO STA (20:50)
[2024-06-02] MEDS: HYDROmorphone 1 MG/ML 1 ML SYRINGE IM STA (21:47)
[2024-06-02 21:56] VITALS: BP 115/83; PULSE 90; RESP 16; TEMP 97.6
== END 2024-06-02 21:55 | disposition home or self-care (01) ==
LOC: EC 19:14
CPT/HCPCS: 87070; 87205; 96372; 99283

== ENCOUNTER 2024-06-05 12:17 | Emergency (ER) | payer OTHER ==
[2024-06-05 12:20] VITALS: BP 137/86; PULSE 100; RESP 18; TEMP 97.9
--- NOTE | 2024-06-05 12:38 | ED ---
General Adult HPI - General Chief complaint: Back Pain/Injury Stated complaint: Back Pain Time Seen by Provider: 06/05/24 12:20 Source: patient, RN notes reviewed, old records reviewed Mode of arrival: ambulatory Limitations: no limitations - History of Present Illness Initial comments: This is a 48-year-old male who presents to the emergency department stating he has been out of his MS Contin and Percocet for 5 days and thinks he is withdrawing because he is a little shaky. Denies any recent injury or trauma. Patient [place] any fever chills. Patient denies any fever chills. - Related Data Home Medications Medication Instructions Recorded Confirmed Morphine Sulfate [Ms Contin] 30 mg PO Q12H 03/26/18 05/20/24 Cyclobenzaprine [Flexeril] 10 mg PO TID 02/19/21 05/20/24 Simvastatin [Zocor] 20 mg PO HS 02/19/21 05/20/24 oxyCODONE-APAP 10-325MG [Percocet 1 tab PO Q4H PRN 02/19/21 05/20/24 10-325 mg] ALPRAZolam [Xanax] 0.5 mg PO QID 09/16/23 05/20/24 Naloxone HCl [Narcan] 4 mg NASAL ONCE PRN 09/16/23 05/20/24 lisinopriL [Zestril] 20 mg PO HS 09/16/23 05/20/24 Ibuprofen [Motrin] 800 mg PO Q8H PRN 05/04/24 05/20/24 Aspirin EC [Ecotrin Low Dose] 81 mg PO DAILY 05/20/24 05/20/24 Metoprolol Tartrate [Lopressor] 37.5 mg PO HS 05/20/24 05/20/24 Previous Rx's Medication Instructions Recorded LORazepam [Ativan] 1 mg PO TID 3 Days #9 tab 05/20/24 oxyCODONE-APAP 10-325MG [Percocet 1 tab PO Q6HR 3 Days #12 tab 05/20/24 10-325 mg] Triamcinolone 0.5% Cream [Kenalog 1 applic TOPICAL QID #30 gm 05/27/24 0.5% Cream] clindamycin HCL 300 mg PO QID #40 cap 05/27/24 oxyCODONE HCL/ACETAMINOPHEN 1 tab PO Q6HR PRN 3 Days #12 tab 05/29/24 [Percocet 7.5-325 mg] Allergies Allergy/AdvReac Type Severity Reaction Status Date / Time sulfamethoxazole Allergy Hives, Verified 06/05/24 12:19 [From Bactrim] felt like he was "boiling up" trimethoprim [From Bactrim] Allergy Hives, Verified 06/05/24 12:19 felt like he was "boiling up" Review of Systems ROS Statement: Those systems with pertinent positive or pertinent negative responses have been documented in the HPI. ROS Other: All systems not noted in ROS Statement are negative. Past Medical History Past Medical History: Chest Pain / Angina, Hypertension, Skin Disorder Additional Past Medical History / Comment(s): chronic back pain DDD, new rash all over body with leaky wounds that drain at night and scabs come after. but noone takes his insurance History of Any Multi-Drug Resistant Organisms: MRSA Date of last positivie culture/infection: 2011 MDRO Source:: rt knee and toe and another time per patient Past Surgical History: Back Surgery, Orthopedic Surgery Additional Past Surgical History / Comment(s): RIGHT ELBOW, left shoulder Past Anesthesia/Blood Transfusion Reactions: No Reported Reaction Additional Past Anesthesia/Blood Transfusion Reaction / Comment(s): no blood transfusion Past Psychological History: Anxiety, Panic Disorder Smoking Status: Former smoker Past Alcohol Use History: None Reported Past Drug Use History: None Reported - Past Family History Mother Family Medical History: Cancer Additional Family Medical History / Comment(s): brain General Exam - General Exam Comments Initial Comments: GENERAL: Patient is well-developed and well-nourished. Patient is nontoxic and well- hydrated and is in no acute distress. Patient was able to ambulate around the room without problems he was able to get into bed on his own he was able to raise his more than 45 degrees without pain. ENT: Neck is soft and supple. No significant lymphadenopathy is noted. Oropharynx is clear. Moist mucous membranes. Neck has full range of motion without eliciting any pain. EYES: The sclera were anicteric and conjunctiva were pink and moist. Extraocular movements were intact and pupils were equal round and reactive to light. Eyelids were unremarkable. ABDOMEN: Soft and nontender with normal bowel sounds. SKIN: Skin is clear with no lesions or rashes and otherwise unremarkable. NEUROLOGIC: Patient is alert and oriented x3. Cranial nerves II through XII are grossly intact. Motor and sensory are also intact. Normal speech, volume and content. Symmetrical smile. MUSCULOSKELETAL: Normal extremities with adequate strength and full range of motion. No lower extremity swelling or edema. No calf tenderness. Patient is negative for straight leg test bilateral LYMPHATICS: No significant lymphadenopathy is noted PSYCHIATRIC: Normal psychiatric evaluation. Limitations: no limitations Course Vital Signs 06/05/24 12:18 Temperature 97.9 F Pulse Rate 100 Respiratory 18 Rate Blood Pressure 137/86 O2 Sat by Pulse 99 Oximetry Medical Decision Making - Medical Decision Making Was pt. sent in by a medical professional or institution (TERRY Solis, TRUCK JUMPER, urgent care, hospital, or fpc...) When possible be specific @ -No Did you speak to anyone other than the patient for history (EMS, parent, family, police, friend...)? What history was obtained from this source @ -No Did you review nursing and triage notes (agree or disagree)? Why? @ -I reviewed and agree with nursing and triage notes Were old charts reviewed (outside hosp., previous admission, EMS record, old EKG, old radiological studies, urgent care reports/EKG's, fpc records)? Report findings @ -No old charts were reviewed Differential Diagnosis? @ -Narcotic withdrawal, narcotic abuse, drug-seeking behavior, this is not an all-inclusive list EKG interpreted by me (3pts min.). @ -As above X-rays interpreted by me (1pt min.). @ -None done CT interpreted by me (1pt min.). @ -None done U/S interpreted by me (1pt. min.). @ -None done What testing was considered but not performed or refused? (CT, X-rays, U/S, labs)? Why? @ -None What meds were considered but not given or refused? Why? @ -None Did you discuss the management of the patient with other professionals (professionals i.e. TERRY Solis, TRUCK JUMPER, lab, RT, psych nurse, social work supervisor, store receiving specialist, teacher, motor equipment commanding officer, cyanide case hardener)? Give summary @ -No Was smoking cessation discussed for >3mins.? @ -No Was critical care preformed (if so, how long)? @ -No Were there social determinants of health that impacted care today? How? (Homelessness, low income, unemployed, alcoholism, drug addiction, transportation, low edu. Level, literacy, decrease access to med. care, [facility], rehab)? @ -No Was there de-escalation of care discussed even if they declined (Discuss DNR or withdrawal of care, Hospice)? DNR status @ -No What co-morbidities impacted this encounter? (DM, HTN, Smoking, COPD, CAD, Cancer, CVA, ARF, Chemo, Hep., AIDS, mental health diagnosis, sleep apnea, morbid obesity)? @ -None Was patient admitted / discharged? Hospital course, mention meds given and route, prescriptions, significant lab abnormalities, going to OR and other pertinent info. @ -Patient states since has been out of his meds he had a hard time urinating so I did a bladder scan and it showed that he did have some urine in the bladder and I offered to do a catheterization he refused and he decided to leave because he did not want to be catheterized to have further studies done and was upset because he was not getting any pain medication Undiagnosed new problem with uncertain prognosis? @ -No Drug Therapy requiring intensive monitoring for toxicity (Heparin, Nitro, Insulin, Cardizem)? @ -No Were any procedures done? @ -No Diagnosis/symptom? @ -Seeking behavior Acute, or Chronic, or Acute on Chronic? @ -Care chronic Uncomplicated (without systemic symptoms) or Complicated (systemic symptoms)? @ -Uncomplicated Side effects of treatment? @ -No Exacerbation, Progression, or Severe Exacerbation? @ -No Poses a threat to life or bodily function? How? (Chest pain, [place], [place], pneumonia, PE, COPD, DKA, ARF, appy, cholecystitis, CVA, Diverticulitis, Homicidal, Suicidal, threat to staff... and all critical care pts) @ -No Disposition Clinical Impression: Drug-seeking behavior Disposition: LEFT AGAINST MEDICAL ADVICE Condition: Good Instructions (If sedation given, give patient instructions): Narcotic Use Disorder (ED) Is patient prescribed a controlled substance at d/c from ED?: No Referrals: Bryant Orozco MD [Primary Care Provider] - 1-2 days Time of Disposition: 12:38
== END 2024-06-05 12:54 | disposition left against medical advice (07) ==
LOC: EC 12:17
CPT/HCPCS: 99283

== ENCOUNTER → 2024-06-09 | Outpatient (CLI) | payer OTHER ==
--- NOTE | 2024-06-10 09:09 | MR ---
EXAMINATION TYPE: MR lumbar spine wo con DATE OF EXAM: 06/09/2024 COMPARISON: None HISTORY: low back pain that radiates down left leg TECHNIQUE: Multiplanar, multisequence images of the lumbar spine were acquired without IV contrast. L1-L2: Normal disc appearance without desiccation. No herniation, protrusion or disc bulging. No ca nal stenosis is present. Foramina are patent bilaterally. L2-L3: Normal disc appearance without desiccation. No herniation, protrusion or disc bulging. No ca nal stenosis is present. Foramina are patent bilaterally. L3-L4: Normal disc appearance without desiccation. No herniation, protrusion or disc bulging. No ca nal stenosis is present. Foramina are patent bilaterally. L4-L5: Mild disc desiccation posterior disc bulge. Hypertrophy ligamentum flavum and mild facet joint arthropathy resulting in mild central stenosis. Schmorl node endplate of L4. Mild foraminal encroach ment. L5-S1: Normal disc appearance without desiccation. No herniation, protrusion or disc bulging. No ca nal stenosis is present. Foramina are patent bilaterally. Lumbar segments are intact. No paraspinal masses are identified. Conus medullaris has a normal appe arance. IMPRESSION: 1. Degenerative disc disease with central stenosis at L4-5 as outlined above. [facility], , 06/10/2024 9:07 AM
== END | disposition home or self-care (01) ==
LOC: RADMRIMAIN 12:12
PROVIDERS: ATTEND Family Medicine
DX: M54.16 Radiculopathy, lumbar region
CPT/HCPCS: 72148

== ENCOUNTER 2024-06-13 23:19 | Emergency (ER) | payer OTHER ==
[2024-06-13] MEDS: SODIUM CHLORIDE 0.9% 500 ML 500 ML IV STA (23:51)
[2024-06-13] MEDS: droPERidol 5 MG/2 ML VIAL IVP ONE (23:52)
--- NOTE | 2024-06-13 23:55 | ED ---
Anxiety HPI - General Chief Complaint: Shortness of Breath Stated Complaint: Allergic Rxn Time Seen by Provider: 06/13/24 23:32 Source: EMS, RN notes reviewed, old records reviewed Mode of arrival: EMS Limitations: no limitations - History of Present Illness Initial Comments: This is a 48-year-old male to the ER for evaluation today. Patient presents t [facility] for evaluation regards to severe anxiety. Patient here for medication evaluation MD Complaint: anxiety, heart racing -: days(s) Symptoms: palpitations Place: home Previous History of Same: Yes Severity: severe Quality: constant Provoking factors: none known Improves With: nothing Worsens With: nothing Associated symptoms: palpitations, diaphoresis - Related Data Home Medications: Home Medications Medication Instructions Recorded Confirmed Morphine Sulfate [Ms Contin] 30 mg PO Q12H 03/26/18 05/20/24 Cyclobenzaprine [Flexeril] 10 mg PO TID 02/19/21 05/20/24 Simvastatin [Zocor] 20 mg PO HS 02/19/21 05/20/24 oxyCODONE-APAP 10-325MG [Percocet 1 tab PO Q4H PRN 02/19/21 05/20/24 10-325 mg] ALPRAZolam [Xanax] 0.5 mg PO QID 09/16/23 05/20/24 Naloxone HCl [Narcan] 4 mg NASAL ONCE PRN 09/16/23 05/20/24 lisinopriL [Zestril] 20 mg PO HS 09/16/23 05/20/24 Ibuprofen [Motrin] 800 mg PO Q8H PRN 05/04/24 05/20/24 Aspirin EC [Ecotrin Low Dose] 81 mg PO DAILY 05/20/24 05/20/24 Metoprolol Tartrate [Lopressor] 37.5 mg PO HS 05/20/24 05/20/24 Previous Rx's Medication Instructions Recorded LORazepam [Ativan] 1 mg PO TID 3 Days #9 tab 05/20/24 oxyCODONE-APAP 10-325MG [Percocet 1 tab PO Q6HR 3 Days #12 tab 05/20/24 10-325 mg] Triamcinolone 0.5% Cream [Kenalog 1 applic TOPICAL QID #30 gm 05/27/24 0.5% Cream] clindamycin HCL 300 mg PO QID #40 cap 05/27/24 oxyCODONE HCL/ACETAMINOPHEN 1 tab PO Q6HR PRN 3 Days #12 tab 05/29/24 [Percocet 7.5-325 mg] Allergies/Adverse Reactions: Allergies Allergy/AdvReac Type Severity Reaction Status Date / Time sulfamethoxazole Allergy Hives, Verified 06/05/24 12:19 [From Bactrim] felt like he was "boiling up" trimethoprim [From Bactrim] Allergy Hives, Verified 06/05/24 12:19 felt like he was "boiling up" Review of Systems ROS Statement: Those systems with pertinent positive or pertinent negative responses have been documented in the HPI. ROS Other: All systems not noted in ROS Statement are negative. Past Medical History Past Medical History: Chest Pain / Angina, Hypertension, Skin Disorder Additional Past Medical History / Comment(s): chronic back pain DDD, new rash all over body with leaky wounds that drain at night and scabs come after. but noone takes his insurance History of Any Multi-Drug Resistant Organisms: MRSA Date of last positivie culture/infection: 2011 MDRO Source:: rt knee and toe and another time per patient Past Surgical History: Back Surgery, Orthopedic Surgery Additional Past Surgical History / Comment(s): RIGHT ELBOW, left shoulder Past Anesthesia/Blood Transfusion Reactions: No Reported Reaction Additional Past Anesthesia/Blood Transfusion Reaction / Comment(s): no blood transfusion Past Psychological History: Anxiety, Panic Disorder Smoking Status: Former smoker Past Alcohol Use History: None Reported Past Drug Use History: None Reported - Past Family History Mother Family Medical History: Cancer Additional Family Medical History / Comment(s): brain General Exam Limitations: no limitations General appearance: alert, in no apparent distress Head exam: Present: atraumatic, normocephalic, normal inspection Eye exam: Present: normal appearance, PERRL, EOMI. Absent: scleral icterus, conjunctival injection, periorbital swelling ENT exam: Present: normal exam, mucous membranes moist Neck exam: Present: normal inspection. Absent: tenderness, meningismus, lymphadenopathy Respiratory exam: Present: normal lung sounds bilaterally. Absent: respiratory distress, wheezes, rales, rhonchi, stridor Cardiovascular Exam: Present: regular rate, normal rhythm, normal heart sounds. Absent: systolic murmur, diastolic murmur, rubs, gallop, clicks GI/Abdominal exam: Present: soft, normal bowel sounds. Absent: distended, tenderness, guarding, rebound, rigid Extremities exam: Present: normal inspection, full ROM, normal capillary refill. Absent: tenderness, pedal edema, joint swelling, calf tenderness Back exam: Present: normal inspection Neurological exam: Present: alert, oriented X3, CN II-XII intact Psychiatric exam: Present: normal affect, normal mood Skin exam: Present: warm, dry, intact, normal color. Absent: rash Course Vital Signs 06/13/24 06/13/24 23:29 23:40 Temperature 99 F Pulse Rate 108 H Respiratory 22 22 Rate Blood Pressure 113/84 O2 Sat by Pulse 99 Oximetry - Reevaluation(s) Reevaluation #1: 06/13/24 23:54 Records reviewed Reevaluation #2: 06/13/24 23:54 Patient symptoms unchanged but improving Reevaluation #3: 06/13/24 23:54 Patient informed of results and questions answered Reevaluation #4: Was pt. sent in by a medical professional or institution (Dr. PA, GYMNASTICS COACH, urgent care, hospital, or residential...) When possible be specific @ -no Did you speak to anyone other than the patient for history (EMS, parent, family, police, friend...)? What history was obtained from this source @ -no Did you review nursing and triage notes (agree or disagree)? Why? @ -agree Are old charts reviewed (outside hosp., previous admission, EMS record, old EKG, old radiological studies, urgent care reports/EKG's, residential records)? Report findings @ -yes Differential Diagnosis (chest pain, altered mental status, abdominal pain women, abdominal pain men, vaginal bleeding, weakness, fever, dyspnea, syncope, headache, dizziness, GI bleed, back pain, seizure, CVA, palpatations, mental health, musculoskeletal)? @ -prior EKG interpreted by me (3pts min.). @ -yes X-rays interpreted by me (1pt min.). @ -yes negative for acute disease CT interpreted by me (1pt min.). @ -no U/S interpreted by me (1pt. min.). @ -no What testing was considered but not performed or refused? (CT, X-rays, U/S, labs)? Why? @ -none What meds were considered but not given or refused? Why? @ -none Did you discuss the management of the patient with other professionals (professionals i.e. , PA, GYMNASTICS COACH, lab, RT, psych nurse, director of social services, zoning engineer, teacher, chief procurement officer, case investigator)? Give summary @ -no Was smoking cessation discussed for >3mins.? @ -no Was critical care preformed (if so, how long)? @ -no Were there social determinants of health that impacted care today? How? (Homelessness, low income, unemployed, alcoholism, drug addiction, transportation, low edu. Level, literacy, decrease access to med. care, longterm, rehab)? @ -none Was there de-escalation of care discussed even if they declined (Discuss DNR or withdrawal of care, Hospice)? DNR status @ -no What co-morbidities impacted this encounter? (DM, HTN, Smoking, COPD, CAD, Cancer, CVA, ARF, Chemo, Hep., AIDS, mental health diagnosis, sleep apnea, morbid obesity)? @ -none Was patient admitted / discharged? Hospital course, mention meds given and route, prescriptions, significant lab abnormalities, going to OR and other pertinent info. @ - Undiagnosed new problem with uncertain prognosis? @ -no Drug Therapy requiring intensive monitoring for toxicity (Heparin, Nitro, Insul in, Cardizem)? @ -no Were any procedures done? @ -no Diagnosis/symptom? @ - Acute, or Chronic, or Acute on Chronic? @ -Acute Uncomplicated (without systemic symptoms) or Complicated (systemic symptoms)? @ -Complicated Side effects of treatment? @ -no Exacerbation, Progression, or Severe Exacerbation? @ -exacerbation Poses a threat to life or bodily function? How? (Chest pain, [place], [place], pneumonia, PE, COPD, DKA, ARF, appy, cholecystitis, CVA, Diverticulitis, Homicidal, Suicidal, threat to staff... and all critical care pts) @ -yes Medical Decision Making - Medical Decision Making 48 male to ER with anxiety attack medication withdrawal likely, patient feels improved here in the ER and can be discharged home Disposition Clinical Impression: Anxiety, Encounter for medication administration Disposition: HOME SELF-CARE Condition: Fair Instructions (If sedation given, give patient instructions): Anxiety (ED) Is patient prescribed a controlled substance at d/c from ED?: No Referrals: Bryant Orozco MD [Primary Care Provider] - 1-2 days Time of Disposition: 23:55
[2024-06-13] MEDS: cloNIDine 0.3 MG/24HR PATCH TRANSDERM STA (23:58)
[2024-06-14 00:25] VITALS: BP 90/61; PULSE 102; RESP 16; TEMP 98.2
== END 2024-06-14 00:25 | disposition home or self-care (01) ==
LOC: EC 23:19
CPT/HCPCS: 96361; 96374; 96375; 99285

== ENCOUNTER → 2024-07-07 | Outpatient (CLI) | payer OTHER ==
[2024-07-07 14:14] VITALS: BP 153/104; PULSE 121; RESP 18; TEMP 96.7
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
== END ==
LOC: PNWHC3 13:38
PROVIDERS: ATTEND Specialist
DX: M47.26 Other spondylosis with radiculopathy, lumbar region (principal); F17.200 Nicotine dependence, unspecified, uncomplicated; Z88.1 Allergy status to other antibiotic agents; Z88.2 Allergy status to sulfonamides
CPT/HCPCS: 99211

== ENCOUNTER 2025-01-13 14:50 | Emergency (ER) | payer OTHER ==
[2025-01-13 15:08] VITALS: TEMP 99.2
--- NOTE | 2025-01-13 16:59 | ED ---
Skin/Abscess/FB HPI - General Chief complaint: Skin/Abscess/Foreign Body Stated complaint: genital sores Time Seen by Provider: 01/13/25 15:08 Source: patient, RN notes reviewed Mode of arrival: ambulatory Limitations: no limitations - History of Present Illness Initial comments: This is a 49-year-old male with history including chronic back pain and DDD presenting for sores on lower extremity and genitalia x 5 months. Patient states sores appeared shortly after use of GI dye by interventional radiology. States the sores has been bleeding and painful, having worsened over the last several days with patient experiencing nausea and vomiting yesterday. Patient states he was able to express a hard white ball from 1 sore/lesion in his pe rineal region yesterday and a white string like material from another. States he has not received any treatment for the sores/lesions since they first appeared. Patient also mentions having urethral discharge since the use of GI dye as well. Patient endorses having similar sores on his back last year. Denies fever, chills, joint pain, AMS, dysuria, hematuria. Patient also mentions having significant back pain at this time attributed to DDD in his mid and upper back (04/09) and is requesting pain medication for that as well. MD complaint: abscess/boil, lesion Onset/Timin -: month(s) - Related Data Home Medications Medication Instructions Recorded Confirmed Morphine Sulfate [Ms Contin] 30 mg PO Q12H 03/26/18 05/20/24 Cyclobenzaprine [Flexeril] 10 mg PO TID 02/19/21 05/20/24 Simvastatin [Zocor] 20 mg PO HS 02/19/21 05/20/24 oxyCODONE-APAP 10-325MG [Percocet 1 tab PO Q4H PRN 02/19/21 05/20/24 10-325 mg] ALPRAZolam [Xanax] 0.5 mg PO QID 09/16/23 05/20/24 Naloxone HCl [Narcan] 4 mg NASAL ONCE PRN 09/16/23 05/20/24 lisinopriL [Zestril] 20 mg PO HS 09/16/23 05/20/24 Ibuprofen [Motrin] 800 mg PO Q8H PRN 05/04/24 05/20/24 Aspirin EC [Ecotrin Low Dose] 81 mg PO DAILY 05/20/24 05/20/24 Metoprolol Tartrate [Lopressor] 37.5 mg PO HS 05/20/24 05/20/24 Previous Rx's Medication Instructions Recorded LORazepam [Ativan] 1 mg PO TID 3 Days #9 tab 05/20/24 oxyCODONE-APAP 10-325MG [Percocet 1 tab PO Q6HR 3 Days #12 tab 05/20/24 10-325 mg] Triamcinolone 0.5% Cream [Kenalog 1 applic TOPICAL QID #30 gm 05/27/24 0.5% Cream] clindamycin HCL 300 mg PO QID #40 cap 05/27/24 oxyCODONE HCL/ACETAMINOPHEN 1 tab PO Q6HR PRN 3 Days #12 tab 05/29/24 [Percocet 7.5-325 mg] Mupirocin 2% Oint [Bactroban 2% 1 applic TOPICAL TID #22 gm 01/13/25 Oint] clindamycin HCL 300 mg PO QID #40 cap 01/13/25 Allergies Allergy/AdvReac Type Severity Reaction Status Date / Time sulfamethoxazole Allergy Hives, Verified 01/13/25 15:08 [From Bactrim] felt like he was "boiling up" trimethoprim [From Bactrim] Allergy Hives, Verified 01/13/25 15:08 felt like he was "boiling up" Review of Systems ROS Statement: Those systems with pertinent positive or pertinent negative responses have been documented in the HPI. ROS Other: All systems not noted in ROS Statement are negative. Past Medical History Past Medical History: Chest Pain / Angina, Hypertension, Skin Disorder Additional Past Medical History / Comment(s): chronic back pain DDD, new rash all over body with leaky wounds that drain at night and scabs come after. but noone takes his insurance History of Any Multi-Drug Resistant Organisms: MRSA Date of last positivie culture/infection: 2011 MDRO Source:: rt knee and toe and another time per patient Past Surgical History: Back Surgery, Orthopedic Surgery Additional Past Surgical History / Comment(s): RIGHT ELBOW, left shoulder Past Anesthesia/Blood Transfusion Reactions: No Reported Reaction Additional Past Anesthesia/Blood Transfusion Reaction / Comment(s): no blood transfusion Past Psychological History: Anxiety, Panic Disorder Smoking Status: Former smoker Past Alcohol Use History: None Reported Past Drug Use History: None Reported - Past Family History Mother Family Medical History: Cancer Additional Family Medical History / Comment(s): brain General Exam Limitations: no limitations General appearance: alert, in no apparent distress Head exam: Present: atraumatic, normocephalic, normal inspection Eye exam: Present: normal appearance, PERRL, EOMI. Absent: scleral icterus, conjunctival injection, periorbital swelling ENT exam: Present: normal exam, mucous membranes moist Neck exam: Present: normal inspection. Absent: tenderness, meningismus, lymphadenopathy Respiratory exam: Present: normal lung sounds bilaterally. Absent: respiratory distress, wheezes, rales, rhonchi, stridor Cardiovascular Exam: Present: regular rate, normal rhythm, normal heart sounds. Absent: systolic murmur, diastolic murmur, rubs, gallop, clicks GI/Abdominal exam: Present: soft, normal bowel sounds. Absent: distended, tenderness, guarding, rebound, rigid Rectal exam: Present: other (Several perianal scabbed lesions noted without surrounding erythema, discharge, tenderness). Absent: hemorrhoids exam: Present: circumcision, other (X 2 flesh-colored ulcerations noted on perineum without surrounding erythema, discharge. Patient notes some tenderness to left perineal ulcerations.. Solitary brown macule noted on right shaft of penis without ulceration, erythema, discharge). Absent: testicular tenderness, scrotal swelling, vertical testicular lie Extremities exam: Present: normal inspection, full ROM, normal capillary refill. Absent: tenderness, pedal edema, joint swelling, calf tenderness Back exam: Present: normal inspection Neurological exam: Present: alert, oriented X3, CN II-XII intact Psychiatric exam: Present: normal affect, normal mood Skin exam: Present: warm, dry, intact, normal color, other (Multiple, scattered subcentimeter scabbed lesions noted on BLE, especially right side, extending f rom ankle to thigh. About 1 dozen noted on RLE and 68 on the left.). Absent: erythema, vesicles, petechiae, pallor, mottled Course Vital Signs 01/13/25 01/13/25 15:05 18:22 Temperature 99.2 F Pulse Rate 118 H 95 Respiratory 17 18 Rate Blood Pressure 112/78 113/68 O2 Sat by Pulse 99 98 Oximetry Medical Decision Making - Medical Decision Making Was pt. sent in by a medical professional or institution (TERRY Solis, CLINICAL STAFF RN, urgent care, hospital, or fci...) When possible be specific @ -No Did you speak to anyone other than the patient for history (EMS, parent, family, police, friend...)? What history was obtained from this source @ -No Did you review nursing and triage notes (agree or disagree)? Why? @ -I reviewed and agree with nursing and triage notes Were old charts reviewed (outside hosp., previous admission, EMS record, old EKG, old radiological studies, urgent care reports/EKG's, fci records)? Report findings @ -No old charts were reviewed Differential Diagnosis (chest pain, altered mental status, abdominal pain women, abdominal pain men, vaginal bleeding, weakness, fever, dyspnea, syncope, headache, dizziness, GI bleed, back pain, seizure, CVA, palpatations, mental health, musculoskeletal)? @ -Abscess, MRSA, cellulitis, syphilis, UTI, gonorrhea, chlamydia, HSV, this is not an exhaustive list EKG interpreted by me (3pts min.). @ -Not done X-rays interpreted by me (1pt min.). @ -None done CT interpreted by me (1pt min.). @ -None done U/S interpreted by me (1pt. min.). @ -None done What testing was considered but not performed or refused? (CT, X-rays, U/S, labs)? Why? @ -None What meds were considered but not given or refused? Why? @ -None Did you discuss the management of the patient with other professionals (professionals i.e. TERRY Solis, CLINICAL STAFF RN, lab, RT, psych nurse, web content & social media manager, wheel roller, teacher, postal sorting officer, upper caser)? Give summary @ -No Was smoking cessation discussed for >3mins.? @ -No Was critical care preformed (if so, how long)? @ -No Were there social determinants of health that impacted care today? How? (Homeles sness, low income, unemployed, alcoholism, drug addiction, transportation, low edu. Level, literacy, decrease access to med. care, intermediate, rehab)? @ -No Was there de-escalation of care discussed even if they declined (Discuss DNR or withdrawal of care, Hospice)? DNR status @ -No What co-morbidities impacted this encounter? (DM, HTN, Smoking, COPD, CAD, Cancer, CVA, ARF, Chemo, Hep., AIDS, mental health diagnosis, sleep apnea, morbid obesity)? @ -None Was patient admitted / discharged? Hospital course, mention meds given and route, prescriptions, significant lab abnormalities, going to OR and other pertinent info. @ -UA and RPR negative. Chlamydia, gonorrhea and HSV pending. Patient provided IM Toradol and p.o. Tylenol for pain. Provided empiric STI treatment with IM Rocephin and p.o. azithromycin. Provided initial dose of p.o. Keflex and doxycycline for cellulitis and MRSA coverage. Patient provided p.o. [place] for ongoing pain. Clindamycin and mupirocin ointment sent to patient's pharmacy. Advised follow-up with PCP for any ongoing or worsening symptoms. Discussed patient with Dr. Hawk. Undiagnosed new problem with uncertain prognosis? @ -No Drug Therapy requiring intensive monitoring for toxicity (Heparin, Nitro, Insulin, Cardizem)? @ -No Were any procedures done? @ -No Diagnosis/symptom? @ -Cellulitis, abscess Acute, or Chronic, or Acute on Chronic? @ -Acute on chronic Uncomplicated (without systemic symptoms) or Complicated (systemic symptoms)? @ -Uncomplicated Side effects of treatment? @ -No Exacerbation, Progression, or Severe Exacerbation? @ -No Poses a threat to life or bodily function? How? (Chest pain, [place], [place], pneumonia, PE, COPD, DKA, ARF, appy, cholecystitis, CVA, Diverticulitis, Homicidal, Suicidal, threat to staff... and all critical care pts) @ -No - Lab Data Lab Results 01/13/25 01/13/25 Range/Units 17:22 17:22 Urine Color Colorless Urine Appearance Clear (Clear) Urine pH 6.0 (5.0-8.0) Ur Specific [place] 1.003 (1.001-1.035) Urine Protein Negative (Negative) Urine Glucose (UA) Negative (Negative) Urine Ketones Negative (Negative) Urine Blood Negative (Negative) Urine Nitrite Negative (Negative) Urine Bilirubin Negative (Negative) Urine Urobilinogen <2.0 (<2.0) mg/dL Ur Leukocyte Esterase Negative (Negative) Treponema pallidum Ab Nonreactive (Nonreactive) Disposition Clinical Impression: Cellulitis, Abscess Disposition: HOME SELF-CARE Condition: Fair Instructions (If sedation given, give patient instructions): Cellulitis (ED), Abscess (ED) Additional Instructions: Keep nonscabbed lesions clean with antibacterial soap and water at least twice daily followed by dressing change. Follow-up with PCP for any ongoing or worsening symptoms. Prescriptions: Mupirocin 2% Oint [Bactroban 2% Oint] 1 applic TOPICAL TID #22 gm clindamycin HCL 300 mg PO QID #40 cap Is patient prescribed a controlled substance at d/c from ED?: No Referrals: Bryant Orozco MD [Primary Care Provider] - 1-2 days Time of Disposition: 18:19
[2025-01-13] MEDS: KETOROLAC 15 MG/ML 1 ML VIAL IM STA (17:33)
[2025-01-13] MEDS: AZITHROMYCIN 500 MG TAB PO STA (17:34)
[2025-01-13] MEDS: ACETAMINOPHEN TAB 500 MG TAB PO STA (17:34)
[2025-01-13] MEDS: DOXYCYCLINE 100 MG TABLET PO ONE (17:34)
[2025-01-13] MEDS: cefTRIAXone 1,000 MG VIAL (IM USE) IM STA (17:34)
[2025-01-13] MEDS: CEPHALEXIN 500 MG CAP PO STA (17:34)
[2025-01-13 17:35] LABS: Appearance,Urine Clear (Clear); Bilirubin,Urine Negative (Negative); Blood,Urine Negative (Negative); Color,Urine Colorless; Glucose,Urine (UA) Negative (Negative); Ketones,Urine Negative (Negative); Leukocyte Esterase,Urine Negative (Negative); Nitrite,Urine Negative (Negative); Protein,Urine Negative (Negative); Specific Gravity,Urine 1.003 (1.001-1.035); Urobilinogen,Urine <2.0 mg/dL (<2.0)
[2025-01-13] MEDS: HYDROcodone/APAP 7.5-325MG 1 EACH TAB PO ONE (18:50)
[2025-01-15 23:04] VITALS: BP 113/68; PULSE 95; RESP 18
== END 2025-01-13 18:53 ==
LOC: EC 14:50
DX: L03.115 Cellulitis of right lower limb (principal); Z87.891 Personal history of nicotine dependence; Z88.2 Allergy status to sulfonamides
CPT/HCPCS: 36415; 87529; 81003; 87491; 87591; 86780; 99283; 96372 ×2; J0696; J1885

== ENCOUNTER 2025-02-09 17:48 | Emergency (ER) | payer OTHER ==
[2025-02-09 18:12] VITALS: TEMP 98.2
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
[2025-02-09 20:32] VITALS: RESP 16
[2025-02-09 20:38] LABS: Basophils # (A) 0.03 10*3/uL (0.00-0.10); Basophils % (A) 0.3 %; HCT 42.2 % (39.6-50.0); HGB 14.9 g/dL (13.0-17.0); Lymphocytes # (A) 1.76 10*3/uL (0.90-5.00); Lymphocytes % (A) 17.6 %; MCH 32.3 pg (27.0-32.0); MCHC 35.3 g/dL (32.0-37.0); MCV 91.5 fL (80.0-97.0); Mean Platelet Volume 8.7 fL (9.5-12.2); Monocytes # (A) 0.68 10*3/uL (0.20-1.00); Monocytes % (A) 6.8 %; Neutrophils % (A) 75.2 %; Platelet Count 292 10*3/uL (140-440); RBC 4.61 10*6/uL (4.40-5.60); RDW 12.8 % (11.5-14.5); WBC 9.98 10*3/uL (4.50-10.00)
[2025-02-09] MEDS: MORPHINE SULFATE 4 MG/ML SYRINGE IVP STA (20:38)
[2025-02-09 20:55] LABS: ALT 24 U/L (4-49); AST 24 U/L (17-59); African American GFR (CKD) >90 (>60 ml/min/1.73 sqM); Albumin 4.6 g/dL (3.5-5.0); Alkaline Phosphatase 103 U/L (38-126); Anion Gap 9 mmol/L; Blood Urea Nitrogen 4 mg/dL (9-20); Calcium 9.8 mg/dL (8.4-10.2); Carbon Dioxide 23 mmol/L (22-30); Chloride 108 mmol/L (98-107); Glucose 91 mg/dL (74-99); Non-African American GFR(CKD) >90 (>60 ml/min/1.73 sqM); Potassium 4.1 mmol/L (3.5-5.1); Sodium 140 mmol/L (137-145); Total Bilirubin 0.6 mg/dL (0.2-1.3); Total Protein 7.3 g/dL (6.3-8.2)
[2025-02-09] MEDS: HYDROmorphone 1 MG/ML 1 ML SYRINGE IVP STA (21:28)
[2025-02-09] MEDS: ACET/COD 300 MG/30 MG STARTER PACK 6 TAB BTL PO STA (22:12)
[2025-02-09 22:14] VITALS: BP 133/94; PULSE 89
== END 2025-02-09 22:14 | disposition home or self-care (01) ==
LOC: EC 17:48
DX: S31.109A Unspecified open wound of abdominal wall, unspecified quadrant without penetration into peritoneal cavity, initial encounter (principal); B36.0 Pityriasis versicolor; M51.34 Other intervertebral disc degeneration, thoracic region; Z87.891 Personal history of nicotine dependence; Z88.1 Allergy status to other antibiotic agents; Z88.2 Allergy status to sulfonamides; X58.XXXA Exposure to other specified factors, initial encounter
CPT/HCPCS: 36415; 80053; 85025; 82272; 99284; 96374; 96375 ×2; J2270; J3360; J1171